=== PATIENT | female | born 1945 | race Two or more races ===

== ENCOUNTER 2024-12-18 10:23 | Inpatient (IN) | payer MEDICARE, BC ==
[~2024-12-18] VITALS: Ht 162.6 cm; Wt 60.6 kg
--- NOTE | 2024-12-18 10:52 | ED.PDOC ---
GI ASSESSMENT HPI Comments 79 year old female VAMSHI presents to the ED with chief complaint of GI bleed. EMS reports patient is taken care of by family at home and currently has a colostomy placed. EMS relays patient was found to have bright red blood present in her colostomy bag by family members, calling 911 to have the patient taken to the ED. Patient denies any and all complaints at this time and is not able to provide any further history. Chief Complaint: General Weakness Time Seen by MD: 10:48 Reviewed Notes: Nurses Notes, [place] Notes, Medications, Allergies Allergies: Coded Allergies: NO KNOWN ALLERGIES (Unverified , 12/18/24) Information Source: Patient, Emergency Med Personnel Mode of Arrival: EMS Timing: Days Duration: Since onset Prehospital treatment: None Quality: None Vomitus: None Stool: Blood Streaked Severity: Moderate Recent: None Recent Hx of: None Pain Location: None Modifying Factors: Nothing Associated sign and symptoms: Blood in Stool Past Medical History PAST MEDICAL HISTORY: Dementia Surgical History (Other): Colostomy, multiple abdominal surgeries TAKER AWAY History: Denies all TAKER AWAY Hx Family History Family History: Reviewed,noncontributory to illness Social History Smoker: Non-Smoker Alcohol: Denies ETOH Use Drugs: Denies Drug Use Lives In: Home, Assisted Care Constitutional: denies: chills, diaphoresis, fatigue, fever, malaise, sweats, weakness, others EENTM: denies: blurred vision, double vision, ear bleeding, ear discharge, ear drainage, ear pain, ear ringing, eye pain, eye redness, hearing loss, mouth pain, mouth swelling, nasal discharge, nose bleeding, nose congestion, nose p ain, photophobia, tearing, throat pain, throat swelling, voice changes, others Respiratory: denies: cough, hemoptysis, orthopnea, SOB at rest, shortness of breath, SOB with excertion, stridor, wheezing, others Cardiovascular: denies: chest pain, dizzy spells, diaphoresis, Dyspnea on exertion, edema, irregular heart beat, left arm pain, lightheadedness, palpitations, PND, syncope, others Gastrointestinal: reports: blood streaked bowels; denies: abdomen distended, abdominal pain, constipated, diarrhea, dysphagia, difficulty swallowing, hematemesis, melena, nausea, poor appetite, poor fluid intake, rectal bleeding, rectal pain, vomiting, others Genitourinary: denies: abnormal vagina bleeding, burning, dyspareunia, dysuria, flank pain, frequency, hematuria, incontinence, pain, , vagina discharge, urgency, others Neurological: denies: dizziness, fainting, headache, left sided numbness, left sided weakness, numbness, paresthesia, pre-existing deficit, right sided numbness, right sided weakness, seizure, speech problems, tingling, tremors, weakness, others Musculoskeletal: denies: back pain, gout, joint pain, joint swelling, muscle pain, muscle stiffness, neck pain, others Integumetry: denies: bruises, change in color, change in hair/nails, dryness, laceration, lesions, lumps, rash, wounds, others Allergic/Immunocompromised: denies: Difficulty Healing, Frequent Infections, Hives, Itching, others Hematologic/Lymphatic: denies: anemia, blood clots, easy bleeding, easy bruising, swollen glands, others Endocrine: denies: excessive hunger, excessive sweating, excessive thirst, excessive urination, flushing, intolerance to cold, intolerance to heat, unexpl ained weight gain, unexplained weight loss, others Psychiatric: denies: anxiety, bipolar disorder, depression, hopeless, panic disorder, schizophrenia, sleepless, suicidal, others All Other Systems: Reviewed and Negative Physical Exam General Appearance: No Apparent Distress, Normal, Other (Pleasantly confused) HEENT: Normal ENT Inspection, PERRL/EOMI Neck: Full Range of Motion, Non-Tender, Normal, Normal Inspection Respiratory: Chest Non-Tender, Lungs Clear, No Accessory Muscle Use, No Resp iratory Distress, Normal Breath Sounds Cardiovascular: No Edema, No JVD, No Murmur, No Gallop, Normal Peripheral Pulses, Regular Rate/Rhythm Breast Exam: Deferred Gastrointestinal: No Organomegaly, Non Tender, No Pulsatile Mass, Normal Bowel Sounds, Soft, Other (Colostomy noted) Genitalia: Deferred Pelvic: Deferred Rectal: Deferred Extremities: No calf tenderness, Normal capillary refill, Normal inspection, Normal range of motion, Non-tender, No pedal edema Musculoskeletal : Apperance: Normal Neurologic: Alert, pace analyst II-XII nml as Tested, No Motor Deficits, Normal Affect, Normal Mood, No Sensory Deficits Cerebellar Function: Normal Reflexes: Normal Skin: Dry, Normal Color, Warm Lymphatic: No Adenopathy Was a procedure done? Was a procedure done?: No GI differential Dx Differential Diagnosis: Cholecystitis, Gastritis/PUD, Gastroenteritis, GI hemorrhage, Inflammatory BD, Ischemic Bowel, UTI, Dehydration, Electrolyte Imbalance, Food Poisoning, Malnutrition, Renal Failure, Ischemic Bowel X-Ray, Labs, Meds, VS Vital Signs Date Time Temp Pulse Resp B/P (MAP) Pulse Ox O2 Delivery O2 Flow Rate FiO2 12/18/24 18:30 77 94/39 (57) 94 12/18/24 16:00 79 14 92/38 (56) 95 12/18/24 13:50 93 20 96 Room Air* 0 21 12/18/24 13:00 99 14 105/48 (67) 96 12/18/24 11:46 58 12/18/24 10:38 66 12/18/24 10:34 98.6 62 1 102/44 (63) 99 Lab Test 12/18/24 15:21 12/18/24 13:35 12/18/24 11:14 Range/Units Urine Color Yellow Yellow Urine Clarity Clear Clear Urine pH 6.5 5.0-9.0 Urine Specific [place] 1.013 1.001-1.035 Urine Protein Trace H Negative Urine Ketones Negative Negative Urine Blood Negative Negative /uL Urine Nitrite Negative Negative Urine Bilirubin Negative Negative Urine Urobilinogen Normal Negative mg/dL Urine Leukocyte Esterase Negative Negative /uL Urine RBC 1 0 - 4 /hpf Urine Microscopic WBC 3 0-5 /HPF Urine Squamous Epithelial Cells Few <5 /hpf Urine Bacteria None seen None Seen /hpf Urine Hyaline Casts Few 0 - 2 /lpf Urine Glucose 1+ H Normal mg/dL Sodium Level 140 # 130 L 136-145 mmol/L Potassium Level 5.3 H 7.2 *H 3.5-5.1 mmol/L Chloride Level 98 94 L 98-107 mmol/L Carbon Dioxide Level 26 19 L 20-31 mmol/L Anion Gap 16 H 17 H 5-15 Blood Urea Nitrogen 168 *H 171 *H 9-23 mg/dL Creatinine 10.77 *H 11.57 *H 0.550-1.02 mg/dL Glomerular Filtration Rate Calc 3 3 >90 mL/min BUN/Creatinine Ratio 15.6 14.8 10.0-20.0 Serum Glucose 182 H 123 H 74-106 mg/dL Calcium Level 9.2 10.2 8.7-10.4 mg/dL Phosphorus Level 8.8 H 2.4-5.1 mg/dL Magnesium Level 2.7 H 1.6-2.6 mg/dL White Blood Count 10.8 4.4-10.8 10^3/uL Red Blood Count 4.61 4.0-5.20 10^6/uL Hemoglobin 14.3 12.2-16.2 g/dL Hematocrit 40.7 36.0-46.0 % Mean Corpuscular Volume 88.3 80.0-100.0 fL Mean Corpuscular Hemoglobin 31.0 28.0-32.0 pg Mean Corpuscular Hemoglobin Concent 35.1 32.0-36.0 g/dL Red Cell Distribution Width 13.3 11.8-14.3 % Platelet Count 359 140-450 10^3/uL Mean Platelet Volume 8.6 6.9-10.8 fL Neutrophils (%) (Auto) 77.3 37.0-80.0 % Lymphocytes (%) (Auto) 9.9 L 10.0-50.0 % Monocytes (%) (Auto) 12.3 H 0.0-12.0 % Eosinophils (%) (Auto) 0.1 0.0-7.0 % Basophils (%) (Auto) 0.4 0.0-2.0 % Neutrophils # (Auto) 8.3 1.6-8.6 10 ^3/uL Lymphocytes # (Auto) 1.1 0.4-5.4 10 ^3/uL Monocytes # (Auto) 1.3 0-1.3 10 ^3/uL Eosinophils # (Auto) 0 0-0.8 10 ^3/uL Basophils # (Auto) 0 0-0.2 10 ^3/uL Nucleated Red Blood Cells 0.1 % Prothrombin Time 11.2 9.3-11.8 sec Prothrombin Time INR 1.06 0.9-1.15 Activated Partial Thromboplast Time 24.5 24.5-34.5 SEC Hemoglobin A1c 5.5 <5.7 % A1C Time of 1ST Reevaluation: 11:48 Reevaluation 1ST: Unchanged Patient Education/Counseling: Diagnosis, Treatment Family Education/Counseling: No Family Present Additional Information Previous visit documents reviewed: None The following tests were ordered, and results were reviewed by me: CT Abd/Pel W/ IV Con, CBC, BMP, PTPTT, Chest XR Additional Information was gathered from interviewing the following independent historians: EMS I reviewed and agreed with the following test results read by other providers: CT Abd/Pel W/ IV Con, Chest XR I discussed treatment and results with medical personnel. Departure 1 Departure Time of Disposition: 17:17 (Patient with a acute renal failure and GI bleed reviewed patient's labs CT scan we will admit patient for further workup and expert consultation) Impression: Primary Impression: Kidney failure Qualified Codes: N17.9 - Acute kidney failure, unspecified Additional Impressions: GI bleed Qualified Codes: K92.2 - Gastrointestinal hemorrhage, unspecified Dementia Qualified Codes: F03.A0 - Unspecified dementia, mild, without behavioral disturbance, psychotic disturbance, mood disturbance, and anxiety Disposition: ADMITTED INPATIENT Admit to: [facility] Condition: Critical Critical Care Note Critical Care Time?: Yes Critical care comment: Acute renal failure Authorized and Performed by: Maggie Negro MD Total critical care time: Approximately 38 minutes Due to a high probability of clinically significant, life threatening deterioration, the patient required my highest level of preparedness to intervene emergently and I personally spent this critical care time directly and personally managing the patient. This critical care time included obtaining a history; examining the patient; pulse oximetry; ordering and review of studies; arranging urgent treatment with development of a management plan; evaluation of patient's response to treatment; frequent reassessment; and, discussions with other providers. This critical care time was performed to assess and manage the high probability of imminent, life-threatening deterioration that could result in multi-organ failure. It was exclusive of separately billable procedures and treating other patients and teaching time. Please see my other sections and the rest of the note for further information on patient assessment and treatment. Stability Stability form required: No Heart Score Heart Score: Heart Score Response (Comments) Value History N/A 0 EKG N/A 0 Age N/A 0 Risk Factors N/A 0 Troponin N/A 0 Total 0 I personally scribed for MAGGIE NEGRO MD ([email or web address]) on 12/18/24 at 10:52. Electronically submitted by Adama Dang ([email or web address]). MAGGIE NEGRO MD Dec 18, 2024 10:52
--- NOTE | 2024-12-18 11:24 | DVH ---
CHEST RADIOGRAPH Indication: abdominal pain Technique: Single frontal view of the chest was obtained COMPARISON: None FINDINGS: Lines and Tubes: None Lungs: Clear Pleura: No effusion. No pneumothorax. Cardiomediastinal contours: Unremarkable Bones: Unremarkable IMPRESSION: No acute disease.
[2024-12-18 11:38] LABS: Basophils # (auto) 0 10 ^3/uL (0-0.2); Basophils % (auto) 0.4 % (0.0-2.0); Eosinophils # (auto) 0 10 ^3/uL (0-0.8); Eosinophils % (auto) 0.1 % (0.0-7.0); Hematocrit 40.7 % (36.0-46.0); Hemoglobin 14.3 g/dL (12.2-16.2); Lymphocytes # (auto) 1.1 10 ^3/uL (0.4-5.4); Lymphocytes % (auto) 9.9 % (10.0-50.0); Mean Corpuscular Hgb Conc. 35.1 g/dL (32.0-36.0); Mean Corpuscular Volume 88.3 fL (80.0-100.0); Monocytes # (auto) 1.3 10 ^3/uL (0-1.3); Monocytes % (auto) 12.3 % (0.0-12.0); Neutrophils # (auto) 8.3 10 ^3/uL (1.6-8.6); Neutrophils % (auto) 77.3 % (37.0-80.0); Nucleated Red Blood Cells % 0.1 %; Platelet Count (auto) 359 10^3/uL (140-450); Red Blood Cells 4.61 10^6/uL (4.0-5.20); Red Cell Distribution Width 13.3 % (11.8-14.3); White Blood Cell 10.8 10^3/uL (4.4-10.8)
[2024-12-18 11:44] LABS: Calcium 10.2 mg/dL (8.7-10.4)
[2024-12-18 11:46] LABS: INR 1.06 (0.9-1.15); Partial Thromboplastin Time 24.5 SEC (24.5-34.5); Prothrombin Time 11.2 sec (9.3-11.8)
[2024-12-18 11:57] LABS: BUN/Creatinine Ratio 14.8 (10.0-20.0)
[2024-12-18 12:01] LABS: Sodium 130 mmol/L (136-145)
[2024-12-18 12:02] LABS: Anion Gap 17 (5-15); Carbon Dioxide 19 mmol/L (20-31); Chloride 94 mmol/L (98-107); Glucose 123 mg/dL (74-106); Potassium 7.2 mmol/L (3.5-5.1)
[2024-12-18 12:03] LABS: Blood Urea Nitrogen 171 mg/dL (9-23)
[2024-12-18] MEDS: CALCIUM GLUC 1,000mg/50ml-NS 50 ML IV SCH (12:22)
[2024-12-18] MEDS: SODIUM CHLORIDE 0.9% 1,000 ML IV ONE (12:22)
[2024-12-18] MEDS: DEXTROSE (50%) 50ML SYRG IV ONE (12:32)
[2024-12-18] MEDS: InsuLIN REG 1unit/0.01ml Soln (100units/ml) IV ONE (12:33)
[2024-12-18] MEDS: SODIUM BICARB 8.4% 50Meq/50ml SYR Vial IV ONE (12:33)
--- NOTE | 2024-12-18 13:36 | DVH ---
CT ABDOMEN AND PELVIS WITHOUT CONTRAST CLINICAL HISTORY: brb in colostomy TECHNIQUE: Multiple contiguous axial images of the abdomen and pelvis without intravenous contrast. T he images were reformatted degenerate coronal and sagittal reconstructions. All CT scans at this medical facility are performed using dose modulation techniques as appropriate t o a performed exam including the following:Automated exposure control was utilized; adjustment of the MA and/or KV according to patient size; and use of iterative reconstruction technique. Radiation Dose Information: CT Dose: CTDI volume is 5.6 mGy. Dose-length product is 277 mGy*cm Comparison: None FINDINGS: Evaluation of the abdomen and pelvis is limited without intravenous contrast. There are postsurgical changes related to colectomy with right lower quadrant ileostomy. The visualiz ed bowel loops demonstrate normal caliber without evidence of bowel obstruction. There are anastomoti c sutures seen in the small bowel. The stomach grossly appears within normal limits. The liver, gallbladder, pancreas, kidneys, adrenal glands, and spleen appear within normal limits. There is no gross evidence of abdominal lymphadenopathy. There is no free fluid or free air. There are calcified atherosclerotic changes in the abdominal aorta. The IVC appears within normal mcbride its The bladder appears unremarkable for the degree of distention. Pelvic organ appears within normal mcbride its. There is no gross evidence of a pelvic mass. There is no free fluid collection. Lung bases are clear. There is no acute osseous abnormality. IMPRESSION: 1. There is no acute process in the abdomen and pelvis. 2. Postsurgical changes related to colectomy with right lower quadrant ileostomy. The small bowel loo ps demonstrate normal caliber without evidence of bowel obstruction. HS:Y
[2024-12-18 13:50] VITALS: PULSE 93; RESP 20; O2SAT 96
[2024-12-18 14:14] LABS: Anion Gap 16 (5-15); Carbon Dioxide 26 mmol/L (20-31)
[2024-12-18 14:19] LABS: Calcium 9.2 mg/dL (8.7-10.4); Chloride 98 mmol/L (98-107); Potassium 5.3 mmol/L (3.5-5.1); Sodium 140 mmol/L (136-145)
[2024-12-18 14:25] LABS: Glucose 182 mg/dL (74-106); Magnesium 2.7 mg/dL (1.6-2.6); Phosphorus 8.8 mg/dL (2.4-5.1)
[2024-12-18 14:50] LABS: BUN/Creatinine Ratio 15.6 (10.0-20.0)
[2024-12-18 14:51] LABS: Blood Urea Nitrogen 168 mg/dL (9-23)
--- NOTE | 2024-12-18 19:03 | ECG ---
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
--- NOTE | 2024-12-18 19:03 | ECG ---
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
[2024-12-18] MEDS ORDERED: ONDANSETRON HCL 4 MG/2 ML VIAL IV PRN (20:00)
[2024-12-18] MEDS ORDERED: DEXTROSE (50%) 50ML SYRG IV PRN (20:00)
[2024-12-18] MEDS ORDERED: ACETAMINOPHEN 325 MG TAB PO PRN (20:00)
[2024-12-18] MEDS ORDERED: HYDROcodone-ACET 5/325MG TAB PO PRN (20:00)
[2024-12-18] MEDS ORDERED: DOCUSATE SOD 100 MG CAP PO PRN (20:00)
[2024-12-18 20:13] LABS: Urine Bacteria None Seen /hpf (None Seen)
[2024-12-18] MEDS: SODIUM ZIRCONIUM CYCL 10 GM PAK PO ONE (20:37)
[2024-12-18 20:39] LABS: Urine Blood Negative /uL (Negative); Urine Clarity Clear (Clear); Urine Color Yellow (Yellow); Urine Hyaline Cast FEW /lpf (0 - 2); Urine Protein, UAD TRACE (Negative); Urine Specific Gravity 1.013 (1.001-1.035); Urine Squamous Epithelial Cell FEW /hpf (<5); Urine Urobilinogen Normal (Negative); Urine WBC 3 /HPF (0-5); Urine pH 6.5 (5.0-9.0)
--- NOTE | 2024-12-18 20:49 | DVHHP2 ---
History of Present Illness Reason for Visit: Acute on chronic renal failure History of Present Illness The patient is a 79-year-old female with past medical history of colon disease and dementia who presented to [facility] ED with complaint of GI bleed. Patient was to bright blood present in her colostomy bag by family member, so EMS were called. Symptoms progressively get worse with generalized weakness. Patient was seen and evaluated in the ED, laboratory data shows WBC 10.8, platelets 359, sodium 140, potassium 5.3, BUN 168, creatinine 10.77, GFR 3, glucose 182, phosphorus 8.8, magnesium 2.7, blood pressure 94/39, heart rate 77, temperature 98.6 F, O2 saturation 96% on room air. Abdomen/pelvis CT revealing postsurgical changes related to colectomy with right lower quadrant ileostomy; the small bowel loops demonstrate normal caliber without evidence of bowel obstruction. Please see medication orders section in the computer. On my assessment, patient denied chest pain, no headache, no dizziness, no diaphoresis, no shortness of breaths, no abdominal pain, no diarrhea, no nausea, no vomiting, no fever, no chills. Patient was admitted for further evaluation and medical management. Past Medical History Dementia, Colon disease Past Surgical History Colostomy, multiple abdominal surgeries Family History Reviewed, noncontributory to the management of this case. Past Social History The patient lives at home, denies smoking, alcohol or illicit drugs abuse. Review of Systems Constitutional: Yes: Weakness; No: Fever, Chills, Sweats, Malaise, Other Eyes: No: Pain, Vision change, Conjunctivae inflammation, Eyelid inflammation, Other, Redness ENT: No: Ear pain, Ear discharge, Nose pain, Nose discharge, Nose congestion, Mouth pain, Mouth swelling, Throat pain, Throat swelling, Other Respiratory: No: Cough, Dry, Shortness of breath, SOB with excertion, Wheezing, Hemoptysis, Pleuritic Pain, Sputum, Wheezing, Other Cardiovascular: No: Chest Pain, Palpitations, Orthopnea, Paroxysmal Noc. D yspnea, Edema, Lt Headedness, Other Gastrointestinal: Other (Blood streaked bowel.); No: Nausea, Vomiting, Abdominal Pain, Diarrhea, Constipation, Melena, Hematochezia Genitourinary: No Dysuria, No Frequency, No Incontinence, No Hematuria, No Retention, No Other Musculoskeletal: No: other, neck pain, shoulder pain, arm pain, back pain, hand pain, leg pain, foot pain Skin: No: Rash, Lesions, Jaundice, Bruising, Other Neurological: No: Weakness, Numbness, Incoordination, Change in speech, Confusion, Seizures, Other Allergies: Coded Allergies: NO KNOWN ALLERGIES (Unverified , 12/18/24) Medications Current Medications Medications Dose Ordered Sig/Socrates Route Start Time Stop Time Status Last Admin Dose Admin Quetiapine Fumarate 25 mg HS PO 12/18/24 22:00 Donepezil HCl 10 mg HS PO 12/18/24 22:00 Memantine 10 mg DAILY PO 12/19/24 10:00 Atorvastatin Calcium 10 mg HS PO 12/18/24 22:00 Diagnostic Test (Pha) 1 strip ACHS 12/18/24 22:00 Insulin Human Regular ACHS SC 12/18/24 22:00 Dextrose 50 ml UD PRN IV 12/18/24 20:00 Sodium Chloride 10 ml Q8HR IV 12/18/24 22:00 Acetaminophen/ Hydrocodone Bitart 1 tab Q4HP PRN PO 12/18/24 20:00 Ondansetron HCl 4 mg Q4HP PRN IV 12/18/24 20:00 Docusate Sodium 100 mg BIDPRN PRN PO 12/18/24 20:00 Acetaminophen 650 mg Q6HP PRN PO 12/18/24 20:00 Exam Vital Signs Vital Signs Date Time Temp Pulse Resp B/P (MAP) Pulse Ox O2 Delivery O2 Flow Rate FiO2 12/18/24 18:30 77 94/39 (57) 94 12/18/24 16:00 14 12/18/24 13:50 Room Air* 0 21 12/18/24 10:34 98.6 General Appearance: Alert, Oriented X3, Cooperative, No acute distress HEENT: Atraumatic, PERRLA, EOMI, Mucous membr. moist/pink Respiratory: Clear to auscultation, Normal air movement Cardiovascular: Regular rate, Normal S1, Normal S2, No murmurs Abdominal: Normal bowel sounds, Soft, No tenderness, No hepatospenomegaly, No masses Extremities: No clubbing, No cyanosis, No edema, Normal pulses, No tenderness/swelling Skin: No rashes, No breakdown, No significant lesion Neuro: Normal speech, Normal tone, Sensation intact, Cranial nerves 3-12 NL, Reflexes 2+, Other (Generalized weakness) Psych/Mental Status: Mental status NL, Mood NL Labs/Xrays Labs Test 12/18/24 15:21 12/18/24 13:35 12/18/24 11:14 Range/Units Urine Color Yellow Yellow Urine Clarity Clear Clear Urine pH 6.5 5.0-9.0 Urine Specific [place] 1.013 1.001-1.035 Urine Protein Trace H Negative Urine Ketones Negative Negative Urine Blood Negative Negative /uL Urine Nitrite Negative Negative Urine Bilirubin Negative Negative Urine Urobilinogen Normal Negative mg/dL Urine Leukocyte Esterase Negative Negative /uL Urine RBC 1 0 - 4 /hpf Urine Microscopic WBC 3 0-5 /HPF Urine Squamous Epithelial Cells Few <5 /hpf Urine Bacteria None seen None Seen /hpf Urine Hyaline Casts Few 0 - 2 /lpf Urine Glucose 1+ H Normal mg/dL Sodium Level 140 # 136-145 mmol/L Potassium Level 5.3 H 3.5-5.1 mmol/L Chloride Level 98 98-107 mmol/L Carbon Dioxide Level 26 20-31 mmol/L Anion Gap 16 H 5-15 Blood Urea Nitrogen 168 *H 9-23 mg/dL Creatinine 10.77 *H 0.550-1.02 mg/dL Glomerular Filtration Rate Calc 3 >90 mL/min BUN/Creatinine Ratio 15.6 10.0-20.0 Serum Glucose 182 H 74-106 mg/dL Calcium Level 9.2 8.7-10.4 mg/dL Phosphorus Level 8.8 H 2.4-5.1 mg/dL Magnesium Level 2.7 H 1.6-2.6 mg/dL White Blood Count 10.8 4.4-10.8 10^3/uL Red Blood Count 4.61 4.0-5.20 10^6/uL Hemoglobin 14.3 12.2-16.2 g/dL Hematocrit 40.7 36.0-46.0 % Mean Corpuscular Volume 88.3 80.0-100.0 fL Mean Corpuscular Hemoglobin 31.0 28.0-32.0 pg Mean Corpuscular Hemoglobin Concent 35.1 32.0-36.0 g/dL Red Cell Distribution Width 13.3 11.8-14.3 % Platelet Count 359 140-450 10^3/uL Mean Platelet Volume 8.6 6.9-10.8 fL Neutrophils (%) (Auto) 77.3 37.0-80.0 % Lymphocytes (%) (Auto) 9.9 L 10.0-50.0 % Monocytes (%) (Auto) 12.3 H 0.0-12.0 % Eosinophils (%) (Auto) 0.1 0.0-7.0 % Basophils (%) (Auto) 0.4 0.0-2.0 % Neutrophils # (Auto) 8.3 1.6-8.6 10 ^3/uL Lymphocytes # (Auto) 1.1 0.4-5.4 10 ^3/uL Monocytes # (Auto) 1.3 0-1.3 10 ^3/uL Eosinophils # (Auto) 0 0-0.8 10 ^3/uL Basophils # (Auto) 0 0-0.2 10 ^3/uL Nucleated Red Blood Cells 0.1 % Prothrombin Time 11.2 9.3-11.8 sec Prothrombin Time INR 1.06 0.9-1.15 Activated Partial Thromboplast Time 24.5 24.5-34.5 SEC Hemoglobin A1c 5.5 <5.7 % A1C PATIENT: PATRICIA LUCAS ACCT: [id number] UNIT: [id number] : 1945 LOC: ER ROOM / BED: / AGE / SEX: 79 / F ADM STATUS: REG ER SERVICE 1046 ORDERING PHYSICIAN: MAGGIE RAMIREZ MD PROCEDURE(s): ABPL - CT AB PEL WO CON-NO ORAL OR IV REASON: brb in colostomy ORDER NUMBER(s): [id number], ACCESSION NUMBER(s): [id number] CT ABDOMEN AND PELVIS WITHOUT CONTRAST CLINICAL HISTORY: brb in colostomy TECHNIQUE: Multiple contiguous axial images of the abdomen and pelvis without intravenous contrast. The images were reformatted degenerate coronal and sagittal reconstructions. All CT scans at this medical facility are performed using dose modulation techniques as appropriate to a performed exam including the following:Automated exposure control was utilized; adjustment of the MA and/or KV according to patient size; and use of iterative reconstruction technique. Radiation Dose Information: CT Dose: CTDI volume is 5.6 mGy. Dose-length product is 277 mGy*cm Comparison: None FINDINGS: Evaluation of the abdomen and pelvis is limited without intravenous contrast. There are postsurgical changes related to colectomy with right lower quadrant ileostomy. The visualized bowel loops demonstrate normal caliber without evidence of bowel obstruction. There are anastomotic sutures seen in the small bowel. The stomach grossly appears within normal limits. The liver, gallbladder, pancreas, kidneys, adrenal glands, and spleen appear within normal limits. There is no gross evidence of abdominal lymphadenopathy. There is no free fluid or free air. There are calcified atherosclerotic changes in the abdominal aorta. The IVC appears within normal limits The bladder appears unremarkable for the degree of distention. Pelvic organ appears within normal limits. There is no gross evidence of a pelvic mass. There is no free fluid collection. Lung bases are clear. There is no acute osseous abnormality. IMPRESSION: 1. There is no acute process in the abdomen and pelvis. 2. Postsurgical changes related to colectomy with right lower quadrant ileostomy. The small bowel loops demonstrate normal caliber without evidence of bowel obstruction. ORDERING PHYSICIAN: MAGGIE RAMIREZ MD PROCEDURE(s): CXRP - CHEST PORTABLE REASON: abdominal pain ORDER NUMBER(s): [id number], ACCESSION NUMBER(s): [id number] CHEST RADIOGRAPH Indication: abdominal pain Technique: Single frontal view of the chest was obtained COMPARISON: None FINDINGS: Lines and Tubes: None Lungs: Clear Pleura: No effusion. No pneumothorax. Cardiomediastinal contours: Unremarkable Bones: Unremarkable IMPRESSION: No acute disease. Assessment/Plan Assessment/Plan Gastrointestinal hemorrhage Generalized weakness Electrolyte imbalance Hyperglycemia Acute on chronic renal failure Plan 1. Admit to telemetry unit 2. Breathing treatment 3. Pain control management 4. Management of fluids and electrolytes 5. Consultation for Nephrology 6. Diagnostic tests abdomen/pelvis CT 7. DVT prophylaxis on SCDs 8. Repeat labs CBC, CMP in a.m. 9. Continue with current medical management 10. Treatment plan discussed with patient and RN. Patient verbalized understanding. Plan discussed with: Patient, Other (RN) My Orders Orders - MARITZA RODRIGUEZ DNP Procedure Category Date Status Time *Dr. [facility] CONS 12/18/24 Transmitted -[place] 19:46 Quetiapine Fumarate PHA 12/18/24 In Process Tablet (Seroquel Tab 22:00 Donepezil Tablet PHA 12/18/24 In Process (Aricept Tablet) 22:00 Memantine Tablet PHA 12/19/24 In Process (Namenda Tablet) 10:00 Atorvastatin (Lipitor) PHA 12/18/24 In Process 22:00 Glucose Blood PHA 12/18/24 In Process (Accu-Chek Comfort 22:00 Insulin R (Human) PHA 12/18/24 In Process (Insulin R) 22:00 Dextrose 50% Syringe PHA 12/18/24 In Process 20:00 Allergies JOSÉ ANTONIO 12/18/24 In Process 19:46 Code Status CODE 12/18/24 Transmitted 19:46 Renal DIET 12/19/24 Transmitted Standard(2gna,3gk,Lopho) Breakfast Sodium Chloride Lock PHA 12/18/24 In Process (Saline Lock Ns) 22:00 Oxygen Per Hour RT 12/18/24 Transmitted 19:46 Hydrocodone-Acet PHA 12/18/24 In Process 5/325mg Tab ([place] 20:00 Ondansetron Hcl PHA 12/18/24 In Process (Zofran) 20:00 Docusate Sodium PHA 12/18/24 In Process Capsule (Colace 20:00 Complete Blood Count LAB 12/19/24 Verified 04:00 Comprehensive LAB 12/19/24 Verified Metabolic Panel 04:00 Condition: Serious JOSÉ ANTONIO 12/18/24 In Process 19:46 Acetaminophen Tablet PHA 12/18/24 In Process (Tylenol Tablet) 20:00 Bedrest With Bathroom JOSÉ ANTONIO 12/18/24 In Process Privileg 19:46 Sequential JOSÉ ANTONIO 12/18/24 In Process Compression Device Problem List: (1) Gastrointestinal hemorrhage (2) Hyperglycemia (3) Electrolyte imbalance (4) Acute on chronic renal failure (5) Generalized weakness Date of Service: Dec 18, 2024 Billing Provider: MARITZA RODRIGUEZ DNP Common Visit Codes: 88151-[id number] INP/OBS CARE (HIGH) MARITZA RODRIGUEZ DNP Dec 18, 2024 20:49
[2024-12-18 21:00] VITALS: PULSE 86; RESP 18; O2SAT 98
[2024-12-18] MEDS ORDERED: MORPHINE SULFATE INJ 2 MG/ml SYRG IV PRN (21:00)
[2024-12-18] MEDS ORDERED: NITROGLYCERIN 0.4 MG SL TAB SL PRN (21:00)
[2024-12-18] MEDS: InsuLIN REG 1unit/0.01ml Soln (100units/ml) SC SCH (22:00)
[2024-12-18] MEDS: SODIUM CHLOR 0.9% PF (SALINE LOCK) 10ML VIAL/SYR IV SCH (22:05)
[2024-12-18] MEDS: ACCU-CHEK COMFORT CURVE STRIP VI SCH (22:05)
[2024-12-18] MEDS: QUEtiapine FUMARATE 25 MG TAB PO SCH (22:09)
[2024-12-18] MEDS: ATORVASTATIN 20 MG TAB PO SCH (22:09)
[2024-12-18] MEDS: DONEPEZIL HYDROCHLORIDE 5 MG TAB PO SCH (22:10)
[2024-12-19] MEDS: MIDODRINE HCL 10 MG TAB PO ONE (02:49)
[2024-12-19 05:11] VITALS: PULSE 63; RESP 16; O2SAT 95
[2024-12-19 05:45] LABS: Basophils # (auto) 0 10 ^3/uL (0-0.2); Basophils % (auto) 0.3 % (0.0-2.0); Eosinophils # (auto) 0.1 10 ^3/uL (0-0.8); Hematocrit 33.3 % (36.0-46.0); Hemoglobin 11.2 g/dL (12.2-16.2); Lymphocytes # (auto) 1.4 10 ^3/uL (0.4-5.4); Lymphocytes % (auto) 22.1 % (10.0-50.0); Mean Corpuscular Hemoglobin 30.7 pg (28.0-32.0); Mean Corpuscular Hgb Conc. 33.6 g/dL (32.0-36.0); Mean Corpuscular Volume 91.2 fL (80.0-100.0); Monocytes # (auto) 0.8 10 ^3/uL (0-1.3); Monocytes % (auto) 12.8 % (0.0-12.0); Neutrophils # (auto) 4.2 10 ^3/uL (1.6-8.6); Neutrophils % (auto) 63.8 % (37.0-80.0); Nucleated Red Blood Cells % 0.1 %; Platelet Count (auto) 232 10^3/uL (140-450); Red Blood Cells 3.65 10^6/uL (4.0-5.20); Red Cell Distribution Width 13.6 % (11.8-14.3); White Blood Cell 6.5 10^3/uL (4.4-10.8)
[2024-12-19 05:56] LABS: Albumin 3.9 g/dL (3.2-4.8); Alkaline Phosphatase 56 U/L (46-116); Anion Gap 13 (5-15); Aspartate Aminotransferase 15 U/L (13-40); BUN/Creatinine Ratio 14.7 (10.0-20.0); Bilirubin, Total 0.5 mg/dL (0.2-1.0); Calcium 10.2 mg/dL (8.7-10.4); Carbon Dioxide 24 mmol/L (20-31); Glucose 84 mg/dL (74-106); Potassium 4.7 mmol/L (3.5-5.1); Total Protein 6.4 g/dL (5.7-8.2)
[2024-12-19 05:59] LABS: Chloride 95 mmol/L (98-107); Sodium 132 mmol/L (136-145)
[2024-12-19 06:00] LABS: Alanine Aminotransferase 9 U/L (7-40)
[2024-12-19 06:01] LABS: Blood Urea Nitrogen 137 mg/dL (9-23)
[2024-12-19] MEDS: MIDODRINE HCL 10 MG TAB PO SCH (06:36)
[2024-12-19 08:00] VITALS: PULSE 64; RESP 16; O2SAT 94
[2024-12-19] MEDS: MEMANTINE HCL 5 MG TAB PO SCH (11:18)
[2024-12-19 13:00] VITALS: BP 104/40; PULSE 66; RESP 16; TEMP 97.3; O2SAT 96
--- NOTE | 2024-12-19 13:06 | DVHPN2 ---
Reviewed: Care Plan, H&P, Labs, Medications, Previous Orders, Radiology Changes from previous H/P or p: No Changes Eyes: No Pain, No Vision change, No Conjunctivae inflammation, No Eyelid inflammation, No Other, No Redness ENT: No Ear pain, No Ear discharge, No Nose pain, No Nose discharge, No Nose congestion, No Mouth pain, No Mouth swelling, No Throat pain, No Throat swelling, No Other Cardiovascular: No Chest Pain, No Palpitations, No Orthopnea, No Paroxysmal Noc. Dyspnea, No Edema, No Lt Headedness, No Other Respiratory: No Cough, No Dry, No Shortness of breath, No SOB with excertion, No Wheezing, No Hemoptysis, No Pleuritic Pain, No Sputum, No Other Gastrointestinal: No Nausea, No Vomiting, No Abdominal Pain, No Diarrhea, No Constipation, No Melena, No Hematochezia; Other (Blood streaked bowel.) Genitourinary: No Dysuria, No Frequency, No Incontinence, No Hematuria, No Retention, No Other Musculoskeletal: No other, No neck pain, No shoulder pain, No arm pain, No back pain, No hand pain, No leg pain, No foot pain Skin: No Rash, No Lesions, No Jaundice, No Bruising, No Other Objective Vitals Vital Signs Date Time Temp Pulse Resp B/P (MAP) Pulse Ox O2 Delivery O2 Flow Rate FiO2 12/19/24 09:14 63 15 107/38 (61) 95 12/19/24 08:00 97.7 97.7 12/19/24 08:00 Room Air* 0 21 Intake/Output Intake and Output 12/19/24 07:00 Intake Total 1200 ml Balance 1200 ml Intake IV Total 1200 ml Medications Current Medications Medications Dose Ordered Sig/Socrates Route Start Time Stop Time Status Last Admin Dose Admin Quetiapine Fumarate 25 mg HS PO 12/18/24 22:00 12/18/24 22:09 25 MG Donepezil HCl 10 mg HS PO 12/18/24 22:00 12/18/24 22:10 10 MG Memantine 10 mg DAILY PO 12/19/24 10:00 12/19/24 11:18 10 MG Atorvastatin Calcium 10 mg HS PO 12/18/24 22:00 12/18/24 22:09 10 MG Diagnostic Test (Pha) 1 strip ACHS 12/18/24 22:00 12/19/24 11:30 1 STRIP Insulin Human Regular ACHS SC 12/18/24 22:00 Dextrose 50 ml UD PRN IV 12/18/24 20:00 Sodium Chloride 10 ml Q8HR IV 12/18/24 22:00 12/19/24 06:00 10 ML Acetaminophen/ Hydrocodone Bitart 1 tab Q4HP PRN PO 12/18/24 20:00 Ondansetron HCl 4 mg Q4HP PRN IV 12/18/24 20:00 Docusate Sodium 100 mg BIDPRN PRN PO 12/18/24 20:00 Acetaminophen 650 mg Q6HP PRN PO 12/18/24 20:00 Nitroglycerin 0.4 mg Q5MINP PRN SL 12/18/24 21:00 Morphine Sulfate 2 mg Q30M PRN IV 12/18/24 21:00 Midodrine 10 mg TID@0600,1200,1800 PO 12/19/24 06:00 12/19/24 12:13 10 MG Laboratory Results Laboratory Tests 12/19/24 05:03 Chemistry Test 12/18/24 13:35 12/19/24 05:03 Calcium Level 9.2 mg/dL (8.7-10.4) 10.2 mg/dL (8.7-10.4) Magnesium Level 2.7 mg/dL (1.6-2.6) H Phosphorus Level 8.8 mg/dL (2.4-5.1) H Albumin 3.9 g/dL (3.2-4.8) Total Protein 6.4 g/dL (5.7-8.2) LFT Test 12/19/24 05:03 Alanine Aminotransferase (ALT) 9 U/L (7-40) Alkaline Phosphatase 56 U/L (46-116) Aspartate Amino Transferase (AST) 15 U/L (13-40) Total Bilirubin 0.5 mg/dL (0.2-1.0) Urinalysis Test 12/18/24 15:21 Urine Color Yellow (Yellow) Urine Clarity Clear (Clear) Urine pH 6.5 (5.0-9.0) Urine Specific [place] 1.013 (1.001-1.035) Urine Protein Trace (Negative) H Urine Ketones Negative (Negative) Urine Blood Negative /uL (Negative) Urine Nitrite Negative (Negative) Urine Bilirubin Negative (Negative) Urine Urobilinogen Normal mg/dL (Negative) Urine Leukocyte Esterase Negative /uL (Negative) Urine RBC 1 /hpf (0 - 4) Urine Microscopic WBC 3 /HPF (0-5) Urine Squamous Epithelial Cells Few /hpf (<5) Urine Bacteria None seen /hpf (None Seen) Urine Hyaline Casts Few /lpf (0 - 2) Urine Glucose 1+ mg/dL (Normal) H Labs and/or images reviewed: Labs reviewed by me, Image(s) reviewed by me Assessment/Plan Assessment/Plan Acute blood loss anemia hemoglobin down to 11.2 from 14.3 Acute GI bleed History of colectomy and colostomy for ulcerative colitis 2007 Dementia Acute kidney injury versus ESRD : Consult for Dr. Unger Severe malnutrition Acute hyperkalemia potassium 7.2: Treatment per protocol Acute generalized weakness Failure to thrive Cachexia Time spent 65 minutes General condition poor Advanced care planning 20 minutes Patient is full code Patient's Harpal [phone] and daughter Glory [phone] Plan discussed with: Patient My Orders Orders - KHOI SUAREZ MD Procedure Category Date Status Time * [facility] Supervisor CONS 12/19/24 Transmitted 12:54 Complete Blood Count LAB 12/19/24 Transmitted 12:55 Comprehensive LAB 12/19/24 Transmitted Metabolic Panel 12:55 Date of Service: Dec 19, 2024 Billing Provider: KHOI SUAREZ MD Common Visit Codes: [id number] CARE 30-74 MIN KHOI SUAREZ MD Dec 19, 2024 13:06
[2024-12-19 14:37] LABS: Basophils # (auto) 0 10 ^3/uL (0-0.2); Basophils % (auto) 0.6 % (0.0-2.0); Eosinophils # (auto) 0.1 10 ^3/uL (0-0.8); Eosinophils % (auto) 1.5 % (0.0-7.0); Hematocrit 28.3 % (36.0-46.0); Hemoglobin 9.8 g/dL (12.2-16.2); Lymphocytes # (auto) 1.6 10 ^3/uL (0.4-5.4); Lymphocytes % (auto) 20.5 % (10.0-50.0); Mean Corpuscular Hgb Conc. 34.6 g/dL (32.0-36.0); Mean Corpuscular Volume 89.5 fL (80.0-100.0); Monocytes # (auto) 1.1 10 ^3/uL (0-1.3); Monocytes % (auto) 14.9 % (0.0-12.0); Neutrophils # (auto) 4.8 10 ^3/uL (1.6-8.6); Neutrophils % (auto) 62.5 % (37.0-80.0); Nucleated Red Blood Cells % 0.1 %; Platelet Count (auto) 268 10^3/uL (140-450); Red Blood Cells 3.16 10^6/uL (4.0-5.20); Red Cell Distribution Width 13.4 % (11.8-14.3); White Blood Cell 7.7 10^3/uL (4.4-10.8)
[2024-12-19 15:03] LABS: Albumin 3.8 g/dL (3.2-4.8); Alkaline Phosphatase 54 U/L (46-116); Anion Gap 12 (5-15); Aspartate Aminotransferase 15 U/L (13-40); BUN/Creatinine Ratio 14.5 (10.0-20.0); Bilirubin, Total 0.5 mg/dL (0.2-1.0); Calcium 9.1 mg/dL (8.7-10.4); Carbon Dioxide 23 mmol/L (20-31); Glucose 85 mg/dL (74-106); Potassium 4.7 mmol/L (3.5-5.1); Total Protein 6.2 g/dL (5.7-8.2)
--- NOTE | 2024-12-19 15:16 | DVHINCON2 ---
Date of service: Dec 19, 2024 Referring Physician dano Reason for Consultation Pro History of Present Illness 79 years old female with past medical history of ulcerative colitis status post colostomy, questionable Chronic kidney disease, dementia, presented with chief complaints of poor p.o. intake for the past one week, as per the daughter who bedside she noticed blood in the colostomy bag nephrology consulted for Acute kidney injury patient seen and examined in emergency room Past Medical History As per HPI Past Surgical History As per HPI Allergies: Coded Allergies: NO KNOWN ALLERGIES (Unverified , 12/18/24) Current Medications Current Medications Medications (Trade) Dose Ordered Sig/Socrates Route PRN Reason Start Time Stop Time Status Last Admin Quetiapine Fumarate (SEROquel TABLET) 25 mg HS PO 12/18/24 22:00 12/18/24 22:09 Donepezil HCl (Aricept Tablet) 10 mg HS PO 12/18/24 22:00 12/18/24 22:10 Memantine (Namenda Tablet) 10 mg DAILY PO 12/19/24 10:00 12/19/24 11:18 Atorvastatin Calcium (Lipitor) 10 mg HS PO 12/18/24 22:00 12/18/24 22:09 Diagnostic Test (Pha) (Accu-Chek Comfort Curve T) 1 strip ACHS 12/18/24 22:00 12/19/24 11:30 Insulin Human Regular (InsuLIN R) ACHS SC 12/18/24 22:00 Dextrose 50 ml UD PRN IV Blood Sugar LESS THAN 60 12/18/24 20:00 Sodium Chloride (Saline Lock Ns) 10 ml Q8HR IV 12/18/24 22:00 12/19/24 14:17 Acetaminophen/ Hydrocodone Bitart ([place] 5/325MG Tab) 1 tab Q4HP PRN PO MODERATE PAIN (4-6 PAIN SCALE) 12/18/24 20:00 Ondansetron HCl (Zofran) 4 mg Q4HP PRN IV NAUSEA / VOMITING 12/18/24 20:00 Docusate Sodium (Colace Capsule) 100 mg BIDPRN PRN PO FOR CONSTIPATION 12/18/24 20:00 Acetaminophen (Tylenol Tablet) 650 mg Q6HP PRN PO PAIN SCALE 1-3 OR TEMP>100.4 12/18/24 20:00 Nitroglycerin (Ntrostat Sublingual) 0.4 mg Q5MINP PRN SL FOR CHEST PAIN 12/18/24 21:00 Morphine Sulfate 2 mg Q30M PRN IV FOR CHEST PAIN 12/18/24 21:00 Midodrine (Proamatine Tablet) 10 mg TID@0600,1200,1800 PO 12/19/24 06:00 12/19/24 12:13 Sodium Chloride 1,000 ml @ 100 mls/hr Q10H IV 12/19/24 15:15 UNV Family History: Colon cancer G8 FATHER Diabetes mellitus G8 MOTHER Review of Systems As documented in HPI H&P Exam Vital Signs/I&O Vital Sign Date Time Temp Pulse Resp B/P (MAP) Pulse Ox O2 Delivery O2 Flow Rate FiO2 12/19/24 13:00 97.3 66 16 104/40 (61) 96 97.3 12/19/24 08:00 Room Air* 0 21 Intake and Output 12/18/24 12/19/24 19:00 07:00 Intake Total 1200 ml Balance 1200 ml Intake IV Total 1200 ml Physical Exam General-not in any distress HEENT-normocephalic, no icterus, ++pallor, neck supple Respiratory-fair air entry bilateral, no rhonchi, no wheeze [id number] heard, no murmurs appreciated Abdominal-soft, nontender, nondistended Musculoskeletal-no pedal edema, no calf tenderness Genitourinary-deferred Neuro-awake Labs/Diagnostic Data Labs/Diagnostic Data Laboratory Tests Test 12/19/24 14:13 12/19/24 12:15 12/19/24 06:46 12/19/24 05:03 Range/Units White Blood Count 7.7 6.5 # 4.4-10.8 10^3/uL Red Blood Count 3.16 L 3.65 L 4.0-5.20 10^6/uL Hemoglobin 9.8 L 11.2 #L 12.2-16.2 g/dL Hematocrit 28.3 #L 33.3 #L 36.0-46.0 % Mean Corpuscular Volume 89.5 91.2 80.0-100.0 fL Mean Corpuscular Hemoglobin 31.0 30.7 28.0-32.0 pg Mean Corpuscular Hemoglobin Concent 34.6 33.6 32.0-36.0 g/dL Red Cell Distribution Width 13.4 13.6 11.8-14.3 % Platelet Count 268 232 140-450 10^3/uL Mean Platelet Volume 7.9 7.7 6.9-10.8 fL Neutrophils (%) (Auto) 62.5 63.8 37.0-80.0 % Lymphocytes (%) (Auto) 20.5 22.1 10.0-50.0 % Monocytes (%) (Auto) 14.9 H 12.8 H 0.0-12.0 % Eosinophils (%) (Auto) 1.5 1.0 0.0-7.0 % Basophils (%) (Auto) 0.6 0.3 0.0-2.0 % Neutrophils # (Auto) 4.8 4.2 1.6-8.6 10 ^3/uL Lymphocytes # (Auto) 1.6 1.4 0.4-5.4 10 ^3/uL Monocytes # (Auto) 1.1 0.8 0-1.3 10 ^3/uL Eosinophils # (Auto) 0.1 0.1 0-0.8 10 ^3/uL Basophils # (Auto) 0 0 0-0.2 10 ^3/uL Nucleated Red Blood Cells 0.1 0.1 % POC Glucose 95 90 70-106 mg/dl Sodium Level 132 #L 136-145 mmol/L Potassium Level 4.7 3.5-5.1 mmol/L Chloride Level 95 L 98-107 mmol/L Carbon Dioxide Level 24 20-31 mmol/L Anion Gap 13 5-15 Blood Urea Nitrogen 137 #*H 9-23 mg/dL Creatinine 9.32 H 0.550-1.02 mg/dL Glomerular Filtration Rate Calc 4 >90 mL/min BUN/Creatinine Ratio 14.7 10.0-20.0 Serum Glucose 84 74-106 mg/dL Calcium Level 10.2 8.7-10.4 mg/dL Total Bilirubin 0.5 0.2-1.0 mg/dL Aspartate Amino Transferase (AST) 15 13-40 U/L Alanine Aminotransferase (ALT) 9 7-40 U/L Alkaline Phosphatase 56 46-116 U/L Total Protein 6.4 5.7-8.2 g/dL Albumin 3.9 3.2-4.8 g/dL Test 12/19/24 00:00 12/18/24 15:21 12/18/24 13:35 12/18/24 11:14 Range/Units Stool Occult Blood Sample #3 Positive Negative Urine Color Yellow Yellow Urine Clarity Clear Clear Urine pH 6.5 5.0-9.0 Urine Specific [place] 1.013 1.001-1.035 Urine Protein Trace H Negative Urine Ketones Negative Negative Urine Blood Negative Negative /uL Urine Nitrite Negative Negative Urine Bilirubin Negative Negative Urine Urobilinogen Normal Negative mg/dL Urine Leukocyte Esterase Negative Negative /uL Urine RBC 1 0 - 4 /hpf Urine Microscopic WBC 3 0-5 /HPF Urine Squamous Epithelial Cells Few <5 /hpf Urine Bacteria None seen None Seen /hpf Urine Hyaline Casts Few 0 - 2 /lpf Urine Glucose 1+ H Normal mg/dL Sodium Level 140 # 130 L 136-145 mmol/L Potassium Level 5.3 H 7.2 *H 3.5-5.1 mmol/L Chloride Level 98 94 L 98-107 mmol/L Carbon Dioxide Level 26 19 L 20-31 mmol/L Anion Gap 16 H 17 H 5-15 Blood Urea Nitrogen 168 *H 171 *H 9-23 mg/dL Creatinine 10.77 *H 11.57 *H 0.550-1.02 mg/dL Glomerular Filtration Rate Calc 3 3 >90 mL/min BUN/Creatinine Ratio 15.6 14.8 10.0-20.0 Serum Glucose 182 H 123 H 74-106 mg/dL Calcium Level 9.2 10.2 8.7-10.4 mg/dL Phosphorus Level 8.8 H 2.4-5.1 mg/dL Magnesium Level 2.7 H 1.6-2.6 mg/dL White Blood Count 10.8 4.4-10.8 10^3/uL Red Blood Count 4.61 4.0-5.20 10^6/uL Hemoglobin 14.3 12.2-16.2 g/dL Hematocrit 40.7 36.0-46.0 % Mean Corpuscular Volume 88.3 80.0-100.0 fL Mean Corpuscular Hemoglobin 31.0 28.0-32.0 pg Mean Corpuscular Hemoglobin Concent 35.1 32.0-36.0 g/dL Red Cell Distribution Width 13.3 11.8-14.3 % Platelet Count 359 140-450 10^3/uL Mean Platelet Volume 8.6 6.9-10.8 fL Neutrophils (%) (Auto) 77.3 37.0-80.0 % Lymphocytes (%) (Auto) 9.9 L 10.0-50.0 % Monocytes (%) (Auto) 12.3 H 0.0-12.0 % Eosinophils (%) (Auto) 0.1 0.0-7.0 % Basophils (%) (Auto) 0.4 0.0-2.0 % Neutrophils # (Auto) 8.3 1.6-8.6 10 ^3/uL Lymphocytes # (Auto) 1.1 0.4-5.4 10 ^3/uL Monocytes # (Auto) 1.3 0-1.3 10 ^3/uL Eosinophils # (Auto) 0 0-0.8 10 ^3/uL Basophils # (Auto) 0 0-0.2 10 ^3/uL Nucleated Red Blood Cells 0.1 % Prothrombin Time 11.2 9.3-11.8 sec Prothrombin Time INR 1.06 0.9-1.15 Activated Partial Thromboplast Time 24.5 24.5-34.5 SEC Hemoglobin A1c 5.5 <5.7 % A1C Assessment Acute kidney injury hemodynamic mediated etiology likely in the setting of hypotension, GI bleed and poor p.o. intake Ulcerative colitis status post colostomy\ Acute blood loss anemia secondary to GI bleed Recommendations Continue IV fluids as ordered GI consult CT scan no hydronephrosis Strict Is&Os charting We will follow closely Check urine lytes Plan discussed with: Patient, Daughter DANUTA MAGANA MD Dec 19, 2024 15:16
[2024-12-19 15:22] LABS: Chloride 95 mmol/L (98-107); Sodium 130 mmol/L (136-145)
[2024-12-19 15:23] LABS: Alanine Aminotransferase < 9 U/L (7-40)
[2024-12-19 15:24] LABS: Blood Urea Nitrogen 131 mg/dL (9-23)
--- NOTE | 2024-12-19 15:33 | DVHINCON2 ---
Date of service: Dec 19, 2024 Referring Physician Tate Vidal Reason for Consultation GI bleed History of Present Illness The patient is a 79-year-old female with a history of ulcerative colitis status post ileostomy, chronic kidney disease, Alzheimer's, cachexia, admitted with bleeding per ileostomy. History was obtained from patient's daughter who was at bedside. Patient has no prior history of GI bleeding. Her ileostomy was performed in 2007 for ulcerative colitis. The patient's daughter is not sure when the last scope was performed or if she has ever had a scope from her ileostomy. Patient has has not been complaining of abdominal pain however she does have dementia. Patient has also not been tolerating eating for one week . She has had decreased p.o. intake during this time. Patient is not noted to take any aspirin, NSAIDs or anticoagulants. CT scan upon admission did not show any acute findings. GI consultation was obtained for the bleeding. Since admission the bleeding has stopped. The patient's daughter states that there was bright red blood as well as blood clots. No melena, hematemesis, or coffee- ground emesis noted.. Past Medical History As above Past Surgical History History of ileostomy Other abdominal surgeries not listed Family History: Colon cancer G8 FATHER Diabetes mellitus G8 MOTHER Family History Colon cancer in patient's father Social History No current alcohol, tobacco, or recreational drug use Allergies: Coded Allergies: NO KNOWN ALLERGIES (Unverified , 12/18/24) Current Medications Current Medications Medications (Trade) Dose Ordered Sig/Socrates Route PRN Reason Start Time Stop Time Status Last Admin Quetiapine Fumarate (SEROquel TABLET) 25 mg HS PO 12/18/24 22:00 12/18/24 22:09 Donepezil HCl (Aricept Tablet) 10 mg HS PO 12/18/24 22:00 12/18/24 22:10 Memantine (Namenda Tablet) 10 mg DAILY PO 12/19/24 10:00 12/19/24 11:18 Atorvastatin Calcium (Lipitor) 10 mg HS PO 12/18/24 22:00 12/18/24 22:09 Diagnostic Test (Pha) (Accu-Chek Comfort Curve T) 1 strip ACHS 12/18/24 22:00 12/19/24 11:30 Insulin Human Regular (InsuLIN R) ACHS SC 12/18/24 22:00 Dextrose 50 ml UD PRN IV Blood Sugar LESS THAN 60 12/18/24 20:00 Sodium Chloride (Saline Lock Ns) 10 ml Q8HR IV 12/18/24 22:00 12/19/24 14:17 Acetaminophen/ Hydrocodone Bitart (Robinson 5/325MG Tab) 1 tab Q4HP PRN PO MODERATE PAIN (4-6 PAIN SCALE) 12/18/24 20:00 Ondansetron HCl (Zofran) 4 mg Q4HP PRN IV NAUSEA / VOMITING 12/18/24 20:00 Docusate Sodium (Colace Capsule) 100 mg BIDPRN PRN PO FOR CONSTIPATION 12/18/24 20:00 Acetaminophen (Tylenol Tablet) 650 mg Q6HP PRN PO PAIN SCALE 1-3 OR TEMP>100.4 12/18/24 20:00 Nitroglycerin (Ntrostat Sublingual) 0.4 mg Q5MINP PRN SL FOR CHEST PAIN 12/18/24 21:00 Morphine Sulfate 2 mg Q30M PRN IV FOR CHEST PAIN 12/18/24 21:00 Midodrine (Proamatine Tablet) 10 mg TID@0600,1200,1800 PO 12/19/24 06:00 12/19/24 12:13 Sodium Chloride 1,000 ml @ 100 mls/hr Q10H IV 12/19/24 15:15 Review of Systems Review of systems as per HPI. No cardiac disease No history of pulmonary disease History of ulcerative colitis history of chronic kidney disease Anemia GI bleed history per HPI No stroke or seizure History of dementia No known history of malignancy No endocrine abnormalities No dysuria hematuria No arthralgias myalgias or recent fractures Vital Signs Vital Signs Date Time Temp Pulse Resp B/P (MAP) Pulse Ox O2 Delivery O2 Flow Rate FiO2 12/19/24 13:00 97.3 66 16 104/40 (61) 96 97.3 12/19/24 08:00 Room Air* 0 21 Physical Exam General: Alert elderly female lying in bed no distress HEENT: NC/AT EOMI PERRLA, pale conjunctiva Heart: Regular rate and rhythm Abdomen: Soft ileostomy in place right upper quadrant, midline incision, mild tenderness to palpation Extremity: No clubbing cyanosis or edema Labs/Diagnostic Data Labs Test 12/19/24 14:13 12/19/24 12:15 12/19/24 00:00 12/18/24 15:21 Range/Units White Blood Count 7.7 4.4-10.8 10^3/uL Red Blood Count 3.16 L 4.0-5.20 10^6/uL Hemoglobin 9.8 L 12.2-16.2 g/dL Hematocrit 28.3 #L 36.0-46.0 % Mean Corpuscular Volume 89.5 80.0-100.0 fL Mean Corpuscular Hemoglobin 31.0 28.0-32.0 pg Mean Corpuscular Hemoglobin Concent 34.6 32.0-36.0 g/dL Red Cell Distribution Width 13.4 11.8-14.3 % Platelet Count 268 140-450 10^3/uL Mean Platelet Volume 7.9 6.9-10.8 fL Neutrophils (%) (Auto) 62.5 37.0-80.0 % Lymphocytes (%) (Auto) 20.5 10.0-50.0 % Monocytes (%) (Auto) 14.9 H 0.0-12.0 % Eosinophils (%) (Auto) 1.5 0.0-7.0 % Basophils (%) (Auto) 0.6 0.0-2.0 % Neutrophils # (Auto) 4.8 1.6-8.6 10 ^3/uL Lymphocytes # (Auto) 1.6 0.4-5.4 10 ^3/uL Monocytes # (Auto) 1.1 0-1.3 10 ^3/uL Eosinophils # (Auto) 0.1 0-0.8 10 ^3/uL Basophils # (Auto) 0 0-0.2 10 ^3/uL Nucleated Red Blood Cells 0.1 % POC Glucose 95 70-106 mg/dl Stool Occult Blood Sample #3 Positive Negative Urine Color Yellow Yellow Urine Clarity Clear Clear Urine pH 6.5 5.0-9.0 Urine Specific [place] 1.013 1.001-1.035 Urine Protein Trace H Negative Urine Ketones Negative Negative Urine Blood Negative Negative /uL Urine Nitrite Negative Negative Urine Bilirubin Negative Negative Urine Urobilinogen Normal Negative mg/dL Urine Leukocyte Esterase Negative Negative /uL Urine RBC 1 0 - 4 /hpf Urine Microscopic WBC 3 0-5 /HPF Urine Squamous Epithelial Cells Few <5 /hpf Urine Bacteria None seen None Seen /hpf Urine Hyaline Casts Few 0 - 2 /lpf Urine Glucose 1+ H Normal mg/dL Test 12/18/24 13:35 12/18/24 11:14 Range/Units Phosphorus Level 8.8 H 2.4-5.1 mg/dL Magnesium Level 2.7 H 1.6-2.6 mg/dL Prothrombin Time 11.2 9.3-11.8 sec Prothrombin Time INR 1.06 0.9-1.15 Activated Partial Thromboplast Time 24.5 24.5-34.5 SEC Hemoglobin A1c 5.5 <5.7 % A1C Assessment 1. GI bleed 2. History of ulcerative colitis status post ileostomy 3. Anemia 4. Acute on chronic kidney disease 5. Decreased p.o. intake for one week Differential diagnosis includes peptic ulcer disease versus small-bowel disease, enteritis, small-bowel ischemia versus other. No acute findings on CT. Problems(with codes): (1) Gastrointestinal hemorrhage (2) Generalized weakness (3) Hyperglycemia (4) Electrolyte imbalance (5) Acute on chronic renal failure Plan/Recommendation 1. Given patient's age and comorbidities we will hold off on ileoscopy at this time. However if the patient has further episodes of bleeding consider EGD and/or ileoscopy. 2. Follow H&H 3. Hydration 4. Continue current medications 5. Avoid aspirin NSAIDs and anticoagulants 6. I will be signing off to Dr. Perez to follow up Plan discussed with: Daughter ADRIANA VICKERS Lacho DOYLE Dec 19, 2024 15:33
[2024-12-19 15:50] LABS: Magnesium 2.5 mg/dL (1.6-2.6)
[2024-12-19] MEDS: SODIUM CHLORIDE 0.9% 1,000 ML IV SCH (16:03)
[2024-12-19 16:08] LABS: Phosphorus 8.7 mg/dL (2.4-5.1)
[2024-12-19 17:00] VITALS: BP 103/40; PULSE 67; RESP 16; TEMP 97.4; O2SAT 94
[2024-12-19 20:00] VITALS: PULSE 57; PULSE 65; RESP 18; O2SAT 97
[2024-12-19 21:00] VITALS: BP 103/40; PULSE 65; RESP 18; TEMP 97.5; O2SAT 97
[2024-12-20] VITALS (7 sets, daily range): BP systolic 94–106; BP diastolic 33–46; PULSE 56–73; RESP 16–19; TEMP 97.3–97.5; O2SAT 93–98
[2024-12-20 06:24] LABS: Anion Gap 17 (5-15); Carbon Dioxide 21 mmol/L (20-31)
[2024-12-20 06:25] LABS: Calcium 8.9 mg/dL (8.7-10.4)
[2024-12-20 06:30] LABS: BUN/Creatinine Ratio 17.4 (10.0-20.0)
[2024-12-20 06:38] LABS: Chloride 97 mmol/L (98-107); Glucose 66 mg/dL (74-106); Sodium 135 mmol/L (136-145)
[2024-12-20 06:40] LABS: Blood Urea Nitrogen 135 mg/dL (9-23)
--- NOTE | 2024-12-20 09:03 | DVHPN2 ---
Reviewed: Care Plan, H&P, Labs, Medications, Previous Orders, Radiology Changes from previous H/P or p: No Changes Eyes: No Pain, No Vision change, No Conjunctivae inflammation, No Eyelid inflammation, No Other, No Redness ENT: No Ear pain, No Ear discharge, No Nose pain, No Nose discharge, No Nose congestion, No Mouth pain, No Mouth swelling, No Throat pain, No Throat swelling, No Other Cardiovascular: No Chest Pain, No Palpitations, No Orthopnea, No Paroxysmal Noc. Dyspnea, No Edema, No Lt Headedness, No Other Respiratory: No Cough, No Dry, No Shortness of breath, No SOB with excertion, No Wheezing, No Hemoptysis, No Pleuritic Pain, No Sputum, No Other Gastrointestinal: No Nausea, No Vomiting, No Abdominal Pain, No Diarrhea, No Constipation, No Melena, No Hematochezia; Other (Blood streaked bowel.) Genitourinary: No Dysuria, No Frequency, No Incontinence, No Hematuria, No Retention, No Other Musculoskeletal: No other, No neck pain, No shoulder pain, No arm pain, No back pain, No hand pain, No leg pain, No foot pain Skin: No Rash, No Lesions, No Jaundice, No Bruising, No Other Objective Vitals Vital Signs Date Time Temp Pulse Resp B/P (MAP) Pulse Ox O2 Delivery O2 Flow Rate FiO2 12/20/24 08:50 97.5 58 16 94/44 (61) 93 97.5 12/19/24 20:00 Room Air* 0 21 Intake/Output Intake and Output 12/20/24 07:00 Intake Total 580 ml Output Total 200 ml Balance 380 ml Intake Oral 580 ml Output Urine Total 100 ml Stool Total 100 ml # Voids 2 Medications Current Medications Medications Dose Ordered Sig/Socrates Route Start Time Stop Time Status Last Admin Dose Admin Quetiapine Fumarate 25 mg HS PO 12/18/24 22:00 12/19/24 22:07 25 MG Donepezil HCl 10 mg HS PO 12/18/24 22:00 12/19/24 22:07 10 MG Memantine 10 mg DAILY PO 12/19/24 10:00 12/19/24 11:18 10 MG Atorvastatin Calcium 10 mg HS PO 12/18/24 22:00 12/19/24 22:07 10 MG Diagnostic Test (Pha) 1 strip ACHS 12/18/24 22:00 12/20/24 06:05 1 STRIP Insulin Human Regular ACHS SC 12/18/24 22:00 Dextrose 50 ml UD PRN IV 12/18/24 20:00 Sodium Chloride 10 ml Q8HR IV 12/18/24 22:00 12/20/24 06:05 10 ML Acetaminophen/ Hydrocodone Bitart 1 tab Q4HP PRN PO 12/18/24 20:00 Ondansetron HCl 4 mg Q4HP PRN IV 12/18/24 20:00 Docusate Sodium 100 mg BIDPRN PRN PO 12/18/24 20:00 Acetaminophen 650 mg Q6HP PRN PO 12/18/24 20:00 Nitroglycerin 0.4 mg Q5MINP PRN SL 12/18/24 21:00 Morphine Sulfate 2 mg Q30M PRN IV 12/18/24 21:00 Midodrine 10 mg TID@0600,1200,1800 PO 12/19/24 06:00 12/20/24 06:02 10 MG Sodium Chloride 1,000 ml @ 100 mls/hr Q10H IV 12/19/24 15:15 12/20/24 01:30 100 MLS/HR Laboratory Results Laboratory Tests 12/19/24 14:13 12/20/24 05:39 Chemistry Test 12/19/24 14:13 12/20/24 05:39 Albumin 3.8 g/dL (3.2-4.8) Calcium Level 9.1 mg/dL (8.7-10.4) 8.9 mg/dL (8.7-10.4) Magnesium Level 2.5 mg/dL (1.6-2.6) Phosphorus Level 8.7 mg/dL (2.4-5.1) H Total Protein 6.2 g/dL (5.7-8.2) LFT Test 12/19/24 14:13 Alanine Aminotransferase (ALT) < 9 U/L (7-40) Alkaline Phosphatase 54 U/L (46-116) Aspartate Amino Transferase (AST) 15 U/L (13-40) Total Bilirubin 0.5 mg/dL (0.2-1.0) Urinalysis Test 12/18/24 15:21 Urine Color Yellow (Yellow) Urine Clarity Clear (Clear) Urine pH 6.5 (5.0-9.0) Urine Specific [place] 1.013 (1.001-1.035) Urine Protein Trace (Negative) H Urine Ketones Negative (Negative) Urine Blood Negative /uL (Negative) Urine Nitrite Negative (Negative) Urine Bilirubin Negative (Negative) Urine Urobilinogen Normal mg/dL (Negative) Urine Leukocyte Esterase Negative /uL (Negative) Urine RBC 1 /hpf (0 - 4) Urine Microscopic WBC 3 /HPF (0-5) Urine Squamous Epithelial Cells Few /hpf (<5) Urine Bacteria None seen /hpf (None Seen) Urine Hyaline Casts Few /lpf (0 - 2) Urine Glucose 1+ mg/dL (Normal) H Labs and/or images reviewed: Labs reviewed by me, Image(s) reviewed by me Assessment/Plan Assessment/Plan Acute blood loss anemia hemoglobin down to 9.8 from 14.3, will watch and transfuse if necessary Acute GI bleed, GI consult by Dr. Sosa appreciated. History of colectomy and colostomy for ulcerative colitis 2007 Dementia Acute kidney injury hemodynamically mediated : Consult for Dr. Unger appreciated, kidney ultrasound negative, BUN creatinine slowly improving Severe malnutrition Acute hyperkalemia potassium 7.2: Treatment per protocol, potassium down to 4.0 Acute generalized weakness Failure to thrive Cachexia Time spent 65 minutes General condition poor Advanced care planning 20 minutes Patient is full code Patient's Harpal [phone] and daughter Glory [phone] Patient lives with her daughter [phone] who with a at bedside Plan discussed with: Patient My Orders Orders - KHOI SUAREZ MD Procedure Category Date Status Time * Gi Dvh Parachute Harness Rigger CONS 12/19/24 Transmitted 12:54 Apply Barrier Cream JOSÉ ANTONIO 12/19/24 In Process 14:28 Complete Blood Count LAB 12/20/24 Verified 08:59 Date of Service: Dec 20, 2024 Billing Provider: KHOI SUAREZ MD Common Visit Codes: [id number] CARE 30-74 MIN KHOI SUAREZ MD Dec 20, 2024 09:03
[2024-12-20 09:09] LABS: Basophils # (auto) 0 10 ^3/uL (0-0.2); Basophils % (auto) 0.5 % (0.0-2.0); Eosinophils # (auto) 0.1 10 ^3/uL (0-0.8); Eosinophils % (auto) 2.5 % (0.0-7.0); Hematocrit 28.2 % (36.0-46.0); Hemoglobin 9.5 g/dL (12.2-16.2); Lymphocytes # (auto) 1.1 10 ^3/uL (0.4-5.4); Lymphocytes % (auto) 23.2 % (10.0-50.0); Mean Corpuscular Hemoglobin 30.7 pg (28.0-32.0); Mean Corpuscular Hgb Conc. 33.7 g/dL (32.0-36.0); Monocytes # (auto) 0.6 10 ^3/uL (0-1.3); Monocytes % (auto) 12.6 % (0.0-12.0); Neutrophils # (auto) 2.9 10 ^3/uL (1.6-8.6); Neutrophils % (auto) 61.2 % (37.0-80.0); Nucleated Red Blood Cells % 0.1 %; Platelet Count (auto) 200 10^3/uL (140-450); Red Cell Distribution Width 13.2 % (11.8-14.3); White Blood Cell 4.8 10^3/uL (4.4-10.8)
--- NOTE | 2024-12-20 12:32 | DVH ---
EXAM: CT HEAD WITHOUT CONTRAST HISTORY: Altered LOC COMPARISON: None TECHNIQUE: Axial images were obtained and reformatted in coronal and sagittal planes. All CT scans at this medical facility are performed using dose modulation techniques as appropriate t o a performed exam including the following: Automated exposure control was utilized; adjustment of th e MA and/or KV according to patient size; and use of iterative reconstruction technique. CT Dose: CTDI volume is 51.55 mGy. Dose-length product is 912.89 mGy*cm FINDINGS: Supratentorial Region: No evidence for large acute territorial ischemia. No intracranial hemorrhage is noted. Posterior Fossa: No acute abnormality. Brainstem: Unremarkable. Sellar/Suprasellar Region: Unremarkable. Ventricles, Cisterns, Sulci: Age-appropriate. Orbits: Unremarkable. Paranasal Sinuses: Unremarkable. Mastoid Air Cells: Unremarkable. Vasculature: Intracranial arterial calcified plaque formation noted. Bones/Soft Tissues: No acute abnormality. Other: None. IMPRESSION: 1. No acute intracranial process.
--- NOTE | 2024-12-20 15:11 | DVHPN2 ---
Progress Note Date Seen: Dec 20, 2024 Medical Necessity Reason Pt with a Central, PICC or Fol: Yes Subjective Patient reports: Other (Patient appears lethargic family is bedside) Review of Systems: Deferred Objective vital signs Vital Sign Date Time Temp Pulse Resp B/P (MAP) Pulse Ox O2 Delivery O2 Flow Rate FiO2 12/20/24 13:00 97.3 59 16 98/44 (62) 97 97.3 12/19/24 20:00 Room Air* 0 21 Total Intake and Output 12/19/24 12/19/24 12/20/24 15:00 23:00 07:00 Intake Total 360 ml 220 ml Output Total 200 ml Balance -200 ml 360 ml 220 ml medications Current Medications Medications Dose Ordered Sig/Socrates Route Start Time Stop Time Status Last Admin Dose Admin Quetiapine Fumarate 25 mg HS PO 12/18/24 22:00 12/19/24 22:07 25 MG Donepezil HCl 10 mg HS PO 12/18/24 22:00 12/19/24 22:07 10 MG Memantine 10 mg DAILY PO 12/19/24 10:00 12/20/24 10:40 10 MG Atorvastatin Calcium 10 mg HS PO 12/18/24 22:00 12/19/24 22:07 10 MG Diagnostic Test (Pha) 1 strip ACHS 12/18/24 22:00 12/20/24 11:30 1 STRIP Insulin Human Regular ACHS SC 12/18/24 22:00 Dextrose 50 ml UD PRN IV 12/18/24 20:00 Sodium Chloride 10 ml Q8HR IV 12/18/24 22:00 12/20/24 06:05 10 ML Acetaminophen/ Hydrocodone Bitart 1 tab Q4HP PRN PO 12/18/24 20:00 Ondansetron HCl 4 mg Q4HP PRN IV 12/18/24 20:00 Docusate Sodium 100 mg BIDPRN PRN PO 12/18/24 20:00 Acetaminophen 650 mg Q6HP PRN PO 12/18/24 20:00 Nitroglycerin 0.4 mg Q5MINP PRN SL 12/18/24 21:00 Morphine Sulfate 2 mg Q30M PRN IV 12/18/24 21:00 Midodrine 10 mg TID@0600,1200,1800 PO 12/19/24 06:00 12/20/24 12:18 10 MG Sodium Chloride 1,000 ml @ 100 mls/hr Q10H IV 12/19/24 15:15 12/20/24 10:40 100 MLS/HR Examination: GENERAL:Normal, LUNGS:Normal, ABDOMEN:Abnormal, MSK:Normal, NEURO:Abnormal laboratory and microbiology Laboratory Tests 12/20/24 05:39 Test 12/20/24 05:39 Range/Units Serum Glucose 66 L 74-106 mg/dL Problem List/Assessment/Plan Problem List/Assessment/Plan Acute kidney injury hemodynamic mediated etiology likely in the setting of hypotension, GI bleed and poor p.o. intake Ulcerative colitis status post ileostomy Acute blood loss anemia secondary to GI bleed Recommendations Continue IV fluids as ordered--added diuretic to augment urine volumes Renal parameters look better since admission GI consult CT scan no hydronephrosis Strict Is&Os charting We will follow closely Evaluate SCALE MANAGER needs closely Check urine lytes Montalvo catheter Plan discussed with: Patient, Daughter, Other My Orders My Orders Orders - DANUTA MAGANA MD Procedure Category Date Status Time Sodium Chloride 0.9% PHA 12/19/24 In Process 15:15 Basic Metabolic Panel LAB 12/21/24 Verified 05:00 Basic Metabolic Panel LAB 12/22/24 Verified 05:00 Basic Metabolic Panel LAB 12/23/24 Verified 05:00 Basic Metabolic Panel LAB 12/24/24 Verified 05:00 Basic Metabolic Panel LAB 12/25/24 Verified 05:00 Basic Metabolic Panel LAB 12/26/24 Verified 05:00 Urine Protein LAB 12/19/24 Logged 15:17 Urine Creatinine LAB 12/19/24 Logged 15:17 Urine Sodium LAB 12/19/24 Logged 15:17 Vitamin D, 25-Hydroxy LAB 12/19/24 In Process 15:17 Insert Montalvo Catheter JOSÉ ANTONIO 12/20/24 In Process 10:22 Bumetanide Injection PHA 12/20/24 Transmitted (Bumex Injection) 18:00 Dietary Evaluation Review Recommendations by RD: Protein Supplementation Comments: 1) Initiate Nepro tid d/t poor intake 2) Add low phos restriction to renal diet 3) Consider Renvela tid d/t hyperkalemia 4) Consult nephrology 5) If patient does not receive nutrition support within 7 days, consider EN/TPN to meet 75% daily estimated needs. Expected Outcomes/Goals: 1) appetite and labs to improve 2) f/u in 3 days DANUTA MAGANA MD Dec 20, 2024 15:11
[2024-12-20] MEDS: BUMETANIDE 1mg/4ml VIAL (0.25mg/ml) IV SCH (18:14)
--- NOTE | 2024-12-20 20:55 | DVHPN2 ---
Progress Note - Dictate Date Seen: Dec 20, 2024 (12 noon) Medical Necessity Reason Pt with a Central, PICC or Fol: Yes Subjective Patient seen at bedside, resting comfortably There was no further episodes of GI bleeding from ileostomy Daughter does report history of some GERD and dyspepsia Her hemoglobin has dropped to 9.5 Patient has acute kidney failure with elevated BUN creatinine vital signs Vital Sign Date Time Temp Pulse Resp B/P (MAP) Pulse Ox O2 Delivery O2 Flow Rate FiO2 12/20/24 18:14 97/43 12/20/24 13:00 97.3 59 16 97 97.3 12/20/24 08:00 Room Air* 0 21 Total Intake and Output 12/19/24 12/19/24 12/20/24 15:00 23:00 07:00 Intake Total 360 ml 220 ml Output Total 200 ml Balance -200 ml 360 ml 220 ml medications Current Medications Medications Dose Ordered Sig/Socrates Route Start Time Stop Time Status Last Admin Dose Admin Quetiapine Fumarate 25 mg HS PO 12/18/24 22:00 12/19/24 22:07 25 MG Donepezil HCl 10 mg HS PO 12/18/24 22:00 12/19/24 22:07 10 MG Memantine 10 mg DAILY PO 12/19/24 10:00 12/20/24 10:40 10 MG Atorvastatin Calcium 10 mg HS PO 12/18/24 22:00 12/19/24 22:07 10 MG Diagnostic Test (Pha) 1 strip ACHS 12/18/24 22:00 12/20/24 17:00 1 STRIP Insulin Human Regular ACHS SC 12/18/24 22:00 Dextrose 50 ml UD PRN IV 12/18/24 20:00 Sodium Chloride 10 ml Q8HR IV 12/18/24 22:00 12/20/24 14:00 10 ML Acetaminophen/ Hydrocodone Bitart 1 tab Q4HP PRN PO 12/18/24 20:00 Ondansetron HCl 4 mg Q4HP PRN IV 12/18/24 20:00 Docusate Sodium 100 mg BIDPRN PRN PO 12/18/24 20:00 Acetaminophen 650 mg Q6HP PRN PO 12/18/24 20:00 Nitroglycerin 0.4 mg Q5MINP PRN SL 12/18/24 21:00 Morphine Sulfate 2 mg Q30M PRN IV 12/18/24 21:00 Midodrine 10 mg TID@0600,1200,1800 PO 12/19/24 06:00 12/20/24 18:13 10 MG Sodium Chloride 1,000 ml @ 100 mls/hr Q10H IV 12/19/24 15:15 12/20/24 10:40 100 MLS/HR Bumetanide 1 mg BIDD IV 12/20/24 18:00 12/20/24 18:14 1 MG objective General: Alert elderly female lying in bed no distress arousable weak HEENT: EOMI PERRLA, pale conjunctiva Heart: Regular rate and rhythm Abdomen: Soft ileostomy in place right upper quadrant, midline incision, no tenderness to palpation Extremity: No clubbing cyanosis or edema laboratory and microbiology Laboratory Tests 12/20/24 05:39 Test 12/20/24 05:39 Range/Units Serum Glucose 66 L 74-106 mg/dL Problems(with codes): (1) Acute on chronic renal failure (2) Electrolyte imbalance (3) Generalized weakness (4) Gastrointestinal hemorrhage (5) Hyperglycemia (6) Positive occult stool blood test Prognosis Assessment plan Source of bleeding possibly upper GI from peptic ulcer disease, versus bleeding locally from ileostomy site Continue observation and monitoring her labs Transfused 1 unit PRBC if hemoglobin is less than seven DC aspirin NSAIDs blood thinners Patient has worsening renal function and is currently being evaluated by Nephrology ; needs stabilization from nephro point of view I will keep her on Protonix 40 mg IV q.12 hours I will be standing by for an endoscopy if clinically indicated or if she shows signs of active GI bleeding Dietary Evaluation Review Recommendations by RD: Protein Supplementation Comments: 1) Initiate Nepro tid d/t poor intake 2) Add low phos restriction to renal diet 3) Consider Renvela tid d/t hyperkalemia 4) Consult nephrology 5) If patient does not receive nutrition support within 7 days, consider EN/TPN to meet 75% daily estimated needs. Expected Outcomes/Goals: 1) appetite and labs to improve 2) f/u in 3 days Plan discussed with: Patient, Daughter BHARGAVICATALINO MD Dec 20, 2024 20:55
[2024-12-20] MEDS: SUCRALFATE 1 GM/10 ML ORAL SUSP PO SCH (22:37)
[2024-12-20] MEDS: PANTOPRAZOLE 40 MG/10 ML VIAL INJ IV SCH (22:37)
[2024-12-21] VITALS (8 sets, daily range): BP systolic 102–125; BP diastolic 40–50; PULSE 60–76; RESP 16–18; TEMP 97.1–97.8; O2SAT 94–96
[2024-12-21 06:47] LABS: Basophils # (auto) 0 10 ^3/uL (0-0.2); Basophils % (auto) 0.4 % (0.0-2.0); Eosinophils # (auto) 0.1 10 ^3/uL (0-0.8); Eosinophils % (auto) 1.3 % (0.0-7.0); Hematocrit 25.9 % (36.0-46.0); Hemoglobin 8.9 g/dL (12.2-16.2); Lymphocytes # (auto) 0.8 10 ^3/uL (0.4-5.4); Lymphocytes % (auto) 18.3 % (10.0-50.0); Mean Corpuscular Hemoglobin 30.8 pg (28.0-32.0); Mean Corpuscular Hgb Conc. 34.4 g/dL (32.0-36.0); Mean Corpuscular Volume 89.4 fL (80.0-100.0); Monocytes # (auto) 0.5 10 ^3/uL (0-1.3); Monocytes % (auto) 11.5 % (0.0-12.0); Neutrophils # (auto) 2.9 10 ^3/uL (1.6-8.6); Neutrophils % (auto) 68.5 % (37.0-80.0); Platelet Count (auto) 188 10^3/uL (140-450); Red Blood Cells 2.89 10^6/uL (4.0-5.20); Red Cell Distribution Width 13.3 % (11.8-14.3); White Blood Cell 4.2 10^3/uL (4.4-10.8)
[2024-12-21 06:53] LABS: Alkaline Phosphatase 48 U/L (46-116); Anion Gap 14 (5-15); BUN/Creatinine Ratio 17.5 (10.0-20.0); Carbon Dioxide 22 mmol/L (20-31); Chloride 105 mmol/L (98-107); Magnesium 1.9 mg/dL (1.6-2.6); Sodium 141 mmol/L (136-145)
[2024-12-21 06:54] LABS: Albumin 3.5 g/dL (3.2-4.8); Aspartate Aminotransferase 16 U/L (13-40)
[2024-12-21 06:55] LABS: Bilirubin, Total 0.4 mg/dL (0.2-1.0)
[2024-12-21 06:57] LABS: Alanine Aminotransferase < 9 U/L (7-40); Calcium 8.1 mg/dL (8.7-10.4); Glucose 73 mg/dL (74-106); Phosphorus 6.7 mg/dL (2.4-5.1); Potassium 3.4 mmol/L (3.5-5.1); Total Protein 5.5 g/dL (5.7-8.2)
[2024-12-21 06:59] LABS: Blood Urea Nitrogen 96 mg/dL (9-23)
--- NOTE | 2024-12-21 09:37 | DVHPN2 ---
Reviewed: Care Plan, H&P, Labs, Medications, Previous Orders, Radiology Changes from previous H/P or p: No Changes Eyes: No Pain, No Vision change, No Conjunctivae inflammation, No Eyelid inflammation, No Other, No Redness ENT: No Ear pain, No Ear discharge, No Nose pain, No Nose discharge, No Nose congestion, No Mouth pain, No Mouth swelling, No Throat pain, No Throat swelling, No Other Cardiovascular: No Chest Pain, No Palpitations, No Orthopnea, No Paroxysmal Noc. Dyspnea, No Edema, No Lt Headedness, No Other Respiratory: No Cough, No Dry, No Shortness of breath, No SOB with excertion, No Wheezing, No Hemoptysis, No Pleuritic Pain, No Sputum, No Other Gastrointestinal: No Nausea, No Vomiting, No Abdominal Pain, No Diarrhea, No Constipation, No Melena, No Hematochezia; Other (Blood streaked bowel.) Genitourinary: No Dysuria, No Frequency, No Incontinence, No Hematuria, No Retention, No Other Musculoskeletal: No other, No neck pain, No shoulder pain, No arm pain, No back pain, No hand pain, No leg pain, No foot pain Skin: No Rash, No Lesions, No Jaundice, No Bruising, No Other Objective Vitals Vital Signs Date Time Temp Pulse Resp B/P (MAP) Pulse Ox O2 Delivery O2 Flow Rate FiO2 12/21/24 09:00 97.5 60 16 117/50 (72) 95 97.5 12/20/24 20:00 Room Air* 0 21 Intake/Output Intake and Output 12/21/24 07:00 Intake Total 1093 ml Output Total 1375 ml Balance -282 ml Intake Oral 1093 ml Output Urine Total 1375 ml Medications Current Medications Medications Dose Ordered Sig/Socrates Route Start Time Stop Time Status Last Admin Dose Admin Quetiapine Fumarate 25 mg HS PO 12/18/24 22:00 12/20/24 22:36 25 MG Donepezil HCl 10 mg HS PO 12/18/24 22:00 12/20/24 22:36 10 MG Memantine 10 mg DAILY PO 12/19/24 10:00 12/20/24 10:40 10 MG Atorvastatin Calcium 10 mg HS PO 12/18/24 22:00 12/20/24 22:36 10 MG Diagnostic Test (Pha) 1 strip ACHS 12/18/24 22:00 12/21/24 06:39 1 STRIP Insulin Human Regular ACHS SC 12/18/24 22:00 Dextrose 50 ml UD PRN IV 12/18/24 20:00 Sodium Chloride 10 ml Q8HR IV 12/18/24 22:00 12/21/24 06:00 10 ML Acetaminophen/ Hydrocodone Bitart 1 tab Q4HP PRN PO 12/18/24 20:00 Ondansetron HCl 4 mg Q4HP PRN IV 12/18/24 20:00 Docusate Sodium 100 mg BIDPRN PRN PO 12/18/24 20:00 Acetaminophen 650 mg Q6HP PRN PO 12/18/24 20:00 Nitroglycerin 0.4 mg Q5MINP PRN SL 12/18/24 21:00 Morphine Sulfate 2 mg Q30M PRN IV 12/18/24 21:00 Midodrine 10 mg TID@0600,1200,1800 PO 12/19/24 06:00 12/21/24 06:30 10 MG Sodium Chloride 1,000 ml @ 100 mls/hr Q10H IV 12/19/24 15:15 12/20/24 21:15 100 MLS/HR Bumetanide 1 mg BIDD IV 12/20/24 18:00 12/21/24 06:39 1 MG Pantoprazole Sodium 40 mg BID IV 12/20/24 22:00 12/20/24 22:37 40 MG Sucralfate 1 gm BID@0600,2200 PO 12/20/24 22:00 12/21/24 06:30 1 GM Laboratory Results Laboratory Tests 12/21/24 05:17 Chemistry Test 12/21/24 05:17 Albumin 3.5 g/dL (3.2-4.8) Calcium Level 8.1 mg/dL (8.7-10.4) L Magnesium Level 1.9 mg/dL (1.6-2.6) Phosphorus Level 6.7 mg/dL (2.4-5.1) H Total Protein 5.5 g/dL (5.7-8.2) L LFT Test 12/21/24 05:17 Alanine Aminotransferase (ALT) < 9 U/L (7-40) Alkaline Phosphatase 48 U/L (46-116) Aspartate Amino Transferase (AST) 16 U/L (13-40) Total Bilirubin 0.4 mg/dL (0.2-1.0) Urinalysis Test 12/18/24 15:21 Urine Color Yellow (Yellow) Urine Clarity Clear (Clear) Urine pH 6.5 (5.0-9.0) Urine Specific [place] 1.013 (1.001-1.035) Urine Protein Trace (Negative) H Urine Ketones Negative (Negative) Urine Blood Negative /uL (Negative) Urine Nitrite Negative (Negative) Urine Bilirubin Negative (Negative) Urine Urobilinogen Normal mg/dL (Negative) Urine Leukocyte Esterase Negative /uL (Negative) Urine RBC 1 /hpf (0 - 4) Urine Microscopic WBC 3 /HPF (0-5) Urine Squamous Epithelial Cells Few /hpf (<5) Urine Bacteria None seen /hpf (None Seen) Urine Hyaline Casts Few /lpf (0 - 2) Urine Glucose 1+ mg/dL (Normal) H Labs and/or images reviewed: Labs reviewed by me, Image(s) reviewed by me Assessment/Plan Assessment/Plan Acute blood loss anemia hemoglobin down to 8.9 from 14.3, will watch and transfuse if necessary Acute GI bleed, GI consult by Dr. Ian Perez appreciated. Possible endoscopy if hemoglobin continues to go down History of colectomy and colostomy for ulcerative colitis 2007 Dementia Acute kidney injury hemodynamically mediated : Consult for Dr. Unger appreciated, kidney ultrasound negative, BUN creatinine slowly improving from 171/11.57 Severe malnutrition Acute hyperkalemia potassium 7.2: Treatment per protocol, potassium down to 3.4 Acute generalized weakness Failure to thrive Cachexia Time spent 65 minutes General condition poor Advanced care planning 20 minutes Patient is full code Patient's Harpal [phone] and daughter Glory [phone] Patient lives with her daughter [phone] who with a at bedside Midline ordered, we will start clindamycin tomorrow if patient does not eat. Plan discussed with: Patient My Orders Orders - KHOI SUAREZ MD Procedure Category Date Status Time Head Without Contrast CT 12/20/24 Resulted 11:24 Date of Service: Dec 21, 2024 Billing Provider: KHOI SUAREZ MD Common Visit Codes: [id number] INP/OBS CARE(HIGH) KHOI SUAREZ MD Dec 21, 2024 09:37
--- NOTE | 2024-12-21 09:44 | DVHPN2 ---
Progress Note Date Seen: Dec 21, 2024 Medical Necessity Reason Pt with a Central, PICC or Fol: Yes Subjective Patient reports: No new complaints Other Systems: Patient seen and examined by myself today in follow-up Objective vital signs Vital Sign Date Time Temp Pulse Resp B/P (MAP) Pulse Ox O2 Delivery O2 Flow Rate FiO2 12/21/24 09:00 97.5 60 16 117/50 (72) 95 97.5 12/20/24 20:00 Room Air* 0 21 Total Intake and Output 12/20/24 12/20/24 12/21/24 15:00 23:00 07:00 Intake Total 118 ml 500 ml 475 ml Output Total 500 ml 875 ml Balance 118 ml 0 ml -400 ml medications Current Medications Medications Dose Ordered Sig/Socrates Route Start Time Stop Time Status Last Admin Dose Admin Quetiapine Fumarate 25 mg HS PO 12/18/24 22:00 12/20/24 22:36 25 MG Donepezil HCl 10 mg HS PO 12/18/24 22:00 12/20/24 22:36 10 MG Memantine 10 mg DAILY PO 12/19/24 10:00 12/20/24 10:40 10 MG Atorvastatin Calcium 10 mg HS PO 12/18/24 22:00 12/20/24 22:36 10 MG Diagnostic Test (Pha) 1 strip ACHS 12/18/24 22:00 12/21/24 06:39 1 STRIP Insulin Human Regular ACHS SC 12/18/24 22:00 Dextrose 50 ml UD PRN IV 12/18/24 20:00 Sodium Chloride 10 ml Q8HR IV 12/18/24 22:00 12/21/24 06:00 10 ML Acetaminophen/ Hydrocodone Bitart 1 tab Q4HP PRN PO 12/18/24 20:00 Ondansetron HCl 4 mg Q4HP PRN IV 12/18/24 20:00 Docusate Sodium 100 mg BIDPRN PRN PO 12/18/24 20:00 Acetaminophen 650 mg Q6HP PRN PO 12/18/24 20:00 Nitroglycerin 0.4 mg Q5MINP PRN SL 12/18/24 21:00 Morphine Sulfate 2 mg Q30M PRN IV 12/18/24 21:00 Midodrine 10 mg TID@0600,1200,1800 PO 3/8/25 06:00 12/21/24 06:30 10 MG Sodium Chloride 1,000 ml @ 100 mls/hr Q10H IV 12/19/24 15:15 12/20/24 21:15 100 MLS/HR Bumetanide 1 mg BIDD IV 12/20/24 18:00 12/21/24 06:39 1 MG Pantoprazole Sodium 40 mg BID IV 12/20/24 22:00 12/20/24 22:37 40 MG Sucralfate 1 gm BID@0600,2200 PO 12/20/24 22:00 12/21/24 06:30 1 GM Examination: LUNGS:Normal, CVS:Normal, MSK:Normal laboratory and microbiology Laboratory Tests 12/21/24 05:17 Test 12/21/24 05:17 Range/Units Serum Glucose 73 L 74-106 mg/dL Problem List/Assessment/Plan Problem List/Assessment/Plan Acute kidney injury superimposed Chronic Kidney Disease secondary hemodynamic mediated Ulcerative colitis status post ileostomy Acute blood loss anemia secondary to GI bleed Hypokalemia Recommendations Kidney function continue to improve Increased urine output Montalvo catheter Strict I&Os DC Bumex KCL replacement And I agree with IV fluid hydration GI consult Check urine lytes Check kidney ultrasound We will continue to follow up Plan discussed with: Patient Dietary Evaluation Review Recommendations by RD: Protein Supplementation Comments: 1) Initiate Nepro tid d/t poor intake 2) Add low phos restriction to renal diet 3) Consider Renvela tid d/t hyperkalemia 4) Consult nephrology 5) If patient does not receive nutrition support within 7 days, consider EN/TPN to meet 75% daily estimated needs. Expected Outcomes/Goals: 1) appetite and labs to improve 2) f/u in 3 days JESSI GABRIEL MD Dec 21, 2024 09:44
--- NOTE | 2024-12-21 11:29 | DVHPN2 ---
Progress Note Date Seen: Dec 21, 2024 Resident Creating Document: DORI HENDRIX RESIDENT Medical Necessity Reason Pt with a Central, PICC or Fol: Yes Subjective Review of Systems Patient seen at bedside, resting comfortably Ileostomy output emptied this AM without any blood or clots Patient and daughter at bedside notes decreased appetite denies any nausea or vomiting mild b/l flank tenderness to palpation elevation in AST, ALT, ALP noted Her hemoglobin has dropped to 8.9 from 9.5 yesterday Patient has acute kidney failure with elevated BUN creatinine Objective vital signs Vital Sign Date Time Temp Pulse Resp B/P (MAP) Pulse Ox O2 Delivery O2 Flow Rate FiO2 12/21/24 09:00 97.5 60 16 117/50 (72) 95 97.5 12/20/24 20:00 Room Air* 0 21 Total Intake and Output 12/20/24 12/20/24 12/21/24 15:00 23:00 07:00 Intake Total 118 ml 500 ml 475 ml Output Total 500 ml 875 ml Balance 118 ml 0 ml -400 ml medications Current Medications Medications Dose Ordered Sig/Socrates Route Start Time Stop Time Status Last Admin Dose Admin Quetiapine Fumarate 25 mg HS PO 12/18/24 22:00 12/20/24 22:36 25 MG Donepezil HCl 10 mg HS PO 12/18/24 22:00 12/20/24 22:36 10 MG Memantine 10 mg DAILY PO 12/19/24 10:00 12/21/24 11:18 10 MG Atorvastatin Calcium 10 mg HS PO 12/18/24 22:00 12/20/24 22:36 10 MG Diagnostic Test (Pha) 1 strip ACHS 12/18/24 22:00 12/21/24 06:39 1 STRIP Insulin Human Regular ACHS SC 12/18/24 22:00 Dextrose 50 ml UD PRN IV 12/18/24 20:00 Sodium Chloride 10 ml Q8HR IV 12/18/24 22:00 12/21/24 06:00 10 ML Acetaminophen/ Hydrocodone Bitart 1 tab Q4HP PRN PO 12/18/24 20:00 Ondansetron HCl 4 mg Q4HP PRN IV 12/18/24 20:00 Docusate Sodium 100 mg BIDPRN PRN PO 12/18/24 20:00 Acetaminophen 650 mg Q6HP PRN PO 12/18/24 20:00 Nitroglycerin 0.4 mg Q5MINP PRN SL 12/18/24 21:00 Morphine Sulfate 2 mg Q30M PRN IV 12/18/24 21:00 Midodrine 10 mg TID@0600,1200,1800 PO 12/19/24 06:00 12/21/24 11:18 10 MG Sodium Chloride 1,000 ml @ 100 mls/hr Q10H IV 12/19/24 15:15 12/20/24 21:15 100 MLS/HR Pantoprazole Sodium 40 mg BID IV 12/20/24 22:00 12/20/24 22:37 40 MG Sucralfate 1 gm BID@0600,2200 PO 12/20/24 22:00 12/21/24 06:30 1 GM Potassium Chloride 100 ml @ 50 mls/hr Q2H IV 12/21/24 09:45 12/21/24 13:44 UNV Examination General Appearance: Cooperative. Well developed. Well nourished. Alert elderly female, no distress. Head Exam: Normal inspection. Conjunctival pallor Neck Exam: Normal inspection. Non-tender. Normal alignment Pulmonary/Respiratory: Chest non-tender. Clear bilateral breath sounds Cardiovascular/Chest: Regular rate and rhythm. No murmurs. No JVD. Abdominal Exam: Normal bowel sounds. Soft. Nontender. No hepatospenomegaly. No masses. Ileostomy in place right upper quadrant, no tenderness to palpation, no erythema noted. Ankle Exam: Negative ankle edema Lower extremities: Negative lower extremity edema Neuro/Mental Status: A&O x4. Coherent Thoughts/Psych: Normal thought pattern. Appropriate mood and affect. Good judgement and insight Appearance: In no acute distress Skin Exam: Normal inspection. Normal color. Warm. Dry laboratory and microbiology Laboratory Tests 12/21/24 05:17 Test 12/21/24 05:17 Range/Units Serum Glucose 73 L 74-106 mg/dL Labs and/or images reviewed: Labs reviewed by me, Image(s) reviewed by me Problem List/Assessment/Plan Problem List/Assessment/Plan Gastrointestinal hemorrhage Positive stool occult blood SANCHEZ on CKD Generalized weakness possibly due to a bowel Electrolyte imbalance Hyperglycemia Assessment plan Started megestrol 400ml daily Source of bleeding possibly upper GI from peptic ulcer disease, versus bleeding locally from ileostomy site Continue observation and monitoring her labs Transfused 1 unit PRBC if hemoglobin is less than seven DC aspirin NSAIDs blood thinners Patient has worsening renal function and is currently being evaluated by Nephrology ; needs stabilization from nephro point of view Protonix 40 mg IV q.12 hours We will be standing by for an endoscopy if clinically indicated or if she shows signs of active GI bleeding Plan discussed with: Patient, Daughter, Other (RN) Dietary Evaluation Review Recommendations by RD: Protein Supplementation Comments: 1) Initiate Nepro tid d/t poor intake 2) Add low phos restriction to renal diet 3) Consider Renvela tid d/t hyperkalemia 4) Consult nephrology 5) If patient does not receive nutrition support within 7 days, consider EN/TPN to meet 75% daily estimated needs. Expected Outcomes/Goals: 1) appetite and labs to improve 2) f/u in 3 days DORI HENDRIX RESIDENT Dec 21, 2024 11:29
--- NOTE | 2024-12-21 12:26 | DVH ---
INDICATION: sissy TECHNIQUE: Multiple real-time sonographic images of the kidneys and bladder were obtained. COMPARISON: None FINDINGS: The right kidney measures 8 cm in length, which is normal in size. There is normal echogeni city of the right kidney. No hydronephrosis. 2cm right renal cyst. The left kidney measures 9 cm in length, which is normal in size. There is normal echogenicity of the left kidney. No hydronephrosis. 2 cm echogenic left renal mass. IMPRESSION: 2 cm echogenic left renal mass. MRI renal/CT renal mass protocol suggested.
[2024-12-21] MEDS ORDERED: MEGESTROL ACET 400MG/10ML ORAL SUSP PO SCH (13:00)
[2024-12-21] MEDS: POTASSIUM CHL 20MEQ/100ML 100 ML IV SCH ×2 (15:49→18:00)
[2024-12-21 20:04] LABS: Urine Bacteria FEW /hpf (None Seen); Urine Blood 1+ /uL (Negative); Urine Clarity Turbid (Clear); Urine Color Light-Yellow (Yellow); Urine Hyaline Cast FEW /lpf (0 - 2); Urine Protein, UAD 1+ (Negative); Urine Specific Gravity 1.013 (1.001-1.035); Urine Squamous Epithelial Cell FEW /hpf (<5); Urine Urobilinogen Normal (Negative); Urine WBC 19 /HPF (0-5); Urine pH 5.5 (5.0-9.0)
[2024-12-21 20:18] LABS: Protein, Urine 52.8 mg/dL (1-14)
[2024-12-21 20:21] LABS: Creatinine, Urine 73.86 mg/dL (30.0-125.0); Urine Protein/Creatinine Ratio 0.71
[2024-12-21] MEDS: MEGESTROL ACETATE 20 MG TAB PO SCH (22:00)
[2024-12-22] VITALS (8 sets, daily range): BP systolic 90–131; BP diastolic 36–54; PULSE 58–80; RESP 15–18; TEMP 96.1–97.8; O2SAT 91–98
[2024-12-22 06:49] LABS: Basophils # (auto) 0 10 ^3/uL (0-0.2); Basophils % (auto) 0.7 % (0.0-2.0); Eosinophils # (auto) 0.1 10 ^3/uL (0-0.8); Eosinophils % (auto) 1.9 % (0.0-7.0); Hematocrit 26.3 % (36.0-46.0); Lymphocytes % (auto) 26.4 % (10.0-50.0); Mean Corpuscular Hemoglobin 31.2 pg (28.0-32.0); Mean Corpuscular Hgb Conc. 34.2 g/dL (32.0-36.0); Mean Corpuscular Volume 91.1 fL (80.0-100.0); Monocytes # (auto) 0.5 10 ^3/uL (0-1.3); Monocytes % (auto) 11.7 % (0.0-12.0); Neutrophils # (auto) 2.4 10 ^3/uL (1.6-8.6); Neutrophils % (auto) 59.3 % (37.0-80.0); Platelet Count (auto) 180 10^3/uL (140-450); Red Blood Cells 2.88 10^6/uL (4.0-5.20); Red Cell Distribution Width 13.3 % (11.8-14.3)
[2024-12-22 06:55] LABS: Alanine Aminotransferase 10 U/L (7-40); Albumin 3.4 g/dL (3.2-4.8); Alkaline Phosphatase 47 U/L (46-116); Anion Gap 11 (5-15); Aspartate Aminotransferase 18 U/L (13-40); BUN/Creatinine Ratio 16.3 (10.0-20.0); Bilirubin, Total 0.4 mg/dL (0.2-1.0); Carbon Dioxide 23 mmol/L (20-31); Glucose 82 mg/dL (74-106); Potassium 3.6 mmol/L (3.5-5.1); Sodium 143 mmol/L (136-145)
[2024-12-22 06:58] LABS: Blood Urea Nitrogen 65 mg/dL (9-23); Chloride 109 mmol/L (98-107); Total Protein 5.4 g/dL (5.7-8.2)
--- NOTE | 2024-12-22 09:26 | DVHPN2 ---
Reviewed: Care Plan, H&P, Labs, Medications, Previous Orders, Radiology Changes from previous H/P or p: No Changes Eyes: No Pain, No Vision change, No Conjunctivae inflammation, No Eyelid inflammation, No Other, No Redness ENT: No Ear pain, No Ear discharge, No Nose pain, No Nose discharge, No Nose congestion, No Mouth pain, No Mouth swelling, No Throat pain, No Throat swelling, No Other Cardiovascular: No Chest Pain, No Palpitations, No Orthopnea, No Paroxysmal Noc. Dyspnea, No Edema, No Lt Headedness, No Other Respiratory: No Cough, No Dry, No Shortness of breath, No SOB with excertion, No Wheezing, No Hemoptysis, No Pleuritic Pain, No Sputum, No Other Gastrointestinal: No Nausea, No Vomiting, No Abdominal Pain, No Diarrhea, No Constipation, No Melena, No Hematochezia; Other (Blood streaked bowel.) Genitourinary: No Dysuria, No Frequency, No Incontinence, No Hematuria, No Retention, No Other Musculoskeletal: No other, No neck pain, No shoulder pain, No arm pain, No back pain, No hand pain, No leg pain, No foot pain Skin: No Rash, No Lesions, No Jaundice, No Bruising, No Other Objective Vitals Vital Signs Date Time Temp Pulse Resp B/P (MAP) Pulse Ox O2 Delivery O2 Flow Rate FiO2 12/22/24 08:00 Room Air* 0 21 12/22/24 05:00 97.8 75 16 127/54 (78) 98 97.8 Intake/Output Intake and Output 12/22/24 07:00 Intake Total 1380 ml Output Total 920 ml Balance 460 ml Intake Oral 1280 ml IV Total 100 ml Output Urine Total 520 ml Stool Total 400 ml Medications Current Medications Medications Dose Ordered Sig/Socrates Route Start Time Stop Time Status Last Admin Dose Admin Quetiapine Fumarate 25 mg HS PO 12/18/24 22:00 12/21/24 21:13 25 MG Donepezil HCl 10 mg HS PO 12/18/24 22:00 12/21/24 21:13 10 MG Memantine 10 mg DAILY PO 12/19/24 10:00 12/21/24 11:18 10 MG Atorvastatin Calcium 10 mg HS PO 12/18/24 22:00 12/21/24 21:13 10 MG Diagnostic Test (Pha) 1 strip ACHS 12/18/24 22:00 12/22/24 06:28 1 STRIP Insulin Human Regular ACHS SC 12/18/24 22:00 Dextrose 50 ml UD PRN IV 12/18/24 20:00 Sodium Chloride 10 ml Q8HR IV 12/18/24 22:00 12/22/24 05:17 10 ML Acetaminophen/ Hydrocodone Bitart 1 tab Q4HP PRN PO 12/18/24 20:00 Ondansetron HCl 4 mg Q4HP PRN IV 12/18/24 20:00 Docusate Sodium 100 mg BIDPRN PRN PO 12/18/24 20:00 Acetaminophen 650 mg Q6HP PRN PO 12/18/24 20:00 Nitroglycerin 0.4 mg Q5MINP PRN SL 12/18/24 21:00 Morphine Sulfate 2 mg Q30M PRN IV 12/18/24 21:00 Midodrine 10 mg TID@0600,1200,1800 PO 12/19/24 06:00 12/22/24 05:17 10 MG Sodium Chloride 1,000 ml @ 100 mls/hr Q10H IV 12/19/24 15:15 12/22/24 04:38 100 MLS/HR Pantoprazole Sodium 40 mg BID IV 12/20/24 22:00 12/21/24 21:11 40 MG Sucralfate 1 gm BID@0600,2200 PO 12/20/24 22:00 12/22/24 05:17 1 GM Megestrol Acetate 20 mg BID PO 12/21/24 22:00 Laboratory Results Laboratory Tests 12/22/24 04:58 Chemistry Test 12/21/24 13:18 12/22/24 04:58 Magnesium Level 1.8 mg/dL (1.6-2.6) Albumin 3.4 g/dL (3.2-4.8) Calcium Level 8.0 mg/dL (8.7-10.4) L Total Protein 5.4 g/dL (5.7-8.2) L LFT Test 12/22/24 04:58 Alanine Aminotransferase (ALT) 10 U/L (7-40) Alkaline Phosphatase 47 U/L (46-116) Aspartate Amino Transferase (AST) 18 U/L (13-40) Total Bilirubin 0.4 mg/dL (0.2-1.0) Urinalysis Test 12/21/24 19:40 Urine Color Light-yellow (Yellow) Urine Clarity Turbid (Clear) H Urine pH 5.5 (5.0-9.0) Urine Specific [place] 1.013 (1.001-1.035) Urine Protein 1+ (Negative) H Urine Ketones Negative (Negative) Urine Blood 1+ /uL (Negative) H Urine Nitrite 2+ (Negative) H Urine Bilirubin Negative (Negative) Urine Urobilinogen Normal mg/dL (Negative) Urine Leukocyte Esterase 2+ /uL (Negative) Urine RBC 18 /hpf (0 - 4) Urine Microscopic WBC 19 /HPF (0-5) H Urine Squamous Epithelial Cells Few /hpf (<5) Urine Bacteria Few /hpf (None Seen) H Urine Hyaline Casts Few /lpf (0 - 2) Urine Creatinine 73.86 mg/dL (30.0-125.0) Urine Protein/Creatinine Ratio 0.71 Urine Sodium 16 mmol/L (40-220) L Urine Glucose Normal mg/dL (Normal) Urine Total Protein 52.8 mg/dL (1-14) H Labs and/or images reviewed: Labs reviewed by me, Image(s) reviewed by me Assessment/Plan Assessment/Plan Acute blood loss anemia hemoglobin down to 8.9 from 14.3, and stable, will watch and transfuse if necessary Acute GI bleed, GI consult by Dr. Sosa, and Dr. Perez appreciated. Possible endoscopy if hemoglobin continues to go down, pantoprazole Carafate History of colectomy and ileostomy for ulcerative colitis 2007 Dementia Acute kidney injury hemodynamically mediated : Consult for Dr. Unger appreciated, kidney ultrasound negative, BUN creatinine slowly improving from 171/11.57 to 65/3.99 Severe malnutrition Acute hyperkalemia potassium 7.2: Treatment per protocol, potassium down to 3.4 Acute generalized weakness Failure to thrive: Megace 20 mg p.o. b.i.d. Cachexia UTI: Blood cultures urine cultures Rocephin Time spent 65 minutes General condition poor Advanced care planning 20 minutes Patient is full code Patient's Harpal [phone] and daughter Glory [phone] Patient lives with her daughter [phone] who with a at bedside Patient has midline Plan discussed with: Patient My Orders Orders - KHOI SUAREZ MD Procedure Category Date Status Time Insert Midline ORDERS 12/21/24 Transmitted 09:50 Mechanical Soft Diet DIET 12/21/24 Transmitted Dinner Blood Culture RUTH 12/22/24 Logged 09:12 Urine Bacterial RUTH 12/22/24 Logged Culture 09:12 Ceftriaxone Ivpb PHA 12/23/24 Transmitted Rocephin 09:00 Ceftriaxone Ivpb PHA 12/22/24 Transmitted Rocephin 09:15 Date of Service: Dec 22, 2024 Billing Provider: KHOI SUAREZ MD Common Visit Codes: [id number] CARE 30-74 MIN KHOI SUAREZ MD Dec 22, 2024 09:26
[2024-12-22] MEDS: cefTRIAXone 1GM/50ML D5W 50 ML IV ONE (09:49)
--- NOTE | 2024-12-22 10:47 | DVHPN2 ---
Progress Note Date Seen: Dec 22, 2024 Resident Creating Document: DORI HENDRIX RESIDENT Medical Necessity Reason Pt with a Central, PICC or Fol: Yes Subjective Review of Systems Patient seen at bedside, resting comfortably Ileostomy output emptied this AM without any blood or clots, brownish output Patient and daughter at bedside improved from yesterday appetite denies any nausea or vomiting mild b/l flank tenderness to palpation Hb stable at 9, 8.9 yesterday Patient has acute kidney failure with elevated BUN creatinine Objective vital signs Vital Sign Date Time Temp Pulse Resp B/P (MAP) Pulse Ox O2 Delivery O2 Flow Rate FiO2 12/22/24 09:00 97.5 80 18 100/50 (67) 97 97.5 12/22/24 08:00 Room Air* 0 21 Total Intake and Output 12/21/24 12/21/24 12/22/24 15:00 23:00 07:00 Intake Total 580 ml 800 ml Output Total 920 ml Balance 580 ml -120 ml medications Current Medications Medications Dose Ordered Sig/Socrates Route Start Time Stop Time Status Last Admin Dose Admin Quetiapine Fumarate 25 mg HS PO 12/18/24 22:00 12/21/24 21:13 25 MG Donepezil HCl 10 mg HS PO 12/18/24 22:00 12/21/24 21:13 10 MG Memantine 10 mg DAILY PO 12/19/24 10:00 12/22/24 09:50 10 MG Atorvastatin Calcium 10 mg HS PO 12/18/24 22:00 12/21/24 21:13 10 MG Diagnostic Test (Pha) 1 strip ACHS 12/18/24 22:00 12/22/24 06:28 1 STRIP Insulin Human Regular ACHS SC 12/18/24 22:00 Dextrose 50 ml UD PRN IV 12/18/24 20:00 Sodium Chloride 10 ml Q8HR IV 12/18/24 22:00 12/22/24 05:17 10 ML Acetaminophen/ Hydrocodone Bitart 1 tab Q4HP PRN PO 12/18/24 20:00 Ondansetron HCl 4 mg Q4HP PRN IV 12/18/24 20:00 Docusate Sodium 100 mg BIDPRN PRN PO 12/18/24 20:00 Acetaminophen 650 mg Q6HP PRN PO 12/18/24 20:00 Nitroglycerin 0.4 mg Q5MINP PRN SL 12/18/24 21:00 Morphine Sulfate 2 mg Q30M PRN IV 12/18/24 21:00 Midodrine 10 mg TID@0600,1200,1800 PO 12/19/24 06:00 12/22/24 05:17 10 MG Sodium Chloride 1,000 ml @ 100 mls/hr Q10H IV 12/19/24 15:15 12/22/24 04:38 100 MLS/HR Pantoprazole Sodium 40 mg BID IV 12/20/24 22:00 12/22/24 09:49 40 MG Sucralfate 1 gm BID@0600,2200 PO 12/20/24 22:00 12/22/24 05:17 1 GM Megestrol Acetate 20 mg BID PO 12/21/24 22:00 Ceftriaxone Sodium 50 ml @ 100 mls/hr DAILY@09 IV 12/23/24 09:00 Examination General Appearance: Cooperative. Well developed. Well nourished. Alert elderly female, no distress. Head Exam: Normal inspection. Conjunctival pallor Neck Exam: Normal inspection. Non-tender. Normal alignment Pulmonary/Respiratory: Chest non-tender. Clear bilateral breath sounds Cardiovascular/Chest: Regular rate and rhythm. No murmurs. No JVD. Abdominal Exam: Normal bowel sounds. Soft. Nontender. No hepatospenomegaly. No masses. Ileostomy in place right upper quadrant, no tenderness to palpation, no erythema noted. Ankle Exam: Negative ankle edema Lower extremities: Negative lower extremity edema Neuro/Mental Status: A&O x4. Coherent Thoughts/Psych: Normal thought pattern. Appropriate mood and affect. Good judgement and insight Appearance: In no acute distress Skin Exam: Normal inspection. Normal color. Warm. Dry laboratory and microbiology Laboratory Tests 12/22/24 04:58 Test 12/22/24 04:58 Range/Units Serum Glucose 82 74-106 mg/dL Labs and/or images reviewed: Labs reviewed by me, Image(s) reviewed by me Problem List/Assessment/Plan Problem List/Assessment/Plan Gastrointestinal hemorrhage Positive stool occult blood SANCHEZ on CKD Generalized weakness possibly due to a bowel Electrolyte imbalance Hyperglycemia Assessment plan Started megestrol 20mg bid Source of bleeding possibly upper GI from peptic ulcer disease, versus bleeding locally from ileostomy site Continue observation and monitoring her labs Transfused 1 unit PRBC if hemoglobin is less than seven DC aspirin NSAIDs blood thinners Patient has worsening renal function and is currently being evaluated by Nephrology ; needs stabilization from nephro point of view Protonix 40 mg IV q.12 hours we will proceed with EGD tomorrow Plan discussed with: Patient, Daughter, Other (RN) Dietary Evaluation Review Recommendations by RD: Protein Supplementation Comments: 1) Initiate Nepro tid d/t poor intake 2) Add low phos restriction to renal diet 3) Consider Renvela tid d/t hyperkalemia 4) Consult nephrology 5) If patient does not receive nutrition support within 7 days, consider EN/TPN to meet 75% daily estimated needs. Expected Outcomes/Goals: 1) appetite and labs to improve 2) f/u in 3 days DORI HENDRIX RESIDENT Dec 22, 2024 10:47
--- NOTE | 2024-12-22 10:53 | DVHPN2 ---
Progress Note Date Seen: Dec 22, 2024 Medical Necessity Reason Pt with a Central, PICC or Fol: Yes Subjective Patient reports: No new complaints Other Systems: Patient seen and examined by myself today in follow-up Objective vital signs Vital Sign Date Time Temp Pulse Resp B/P (MAP) Pulse Ox O2 Delivery O2 Flow Rate FiO2 12/22/24 09:00 97.5 80 18 100/50 (67) 97 97.5 12/22/24 08:00 Room Air* 0 21 Total Intake and Output 12/21/24 12/21/24 12/22/24 15:00 23:00 07:00 Intake Total 580 ml 800 ml Output Total 920 ml Balance 580 ml -120 ml medications Current Medications Medications Dose Ordered Sig/Socrates Route Start Time Stop Time Status Last Admin Dose Admin Quetiapine Fumarate 25 mg HS PO 12/18/24 22:00 12/21/24 21:13 25 MG Donepezil HCl 10 mg HS PO 12/18/24 22:00 12/21/24 21:13 10 MG Memantine 10 mg DAILY PO 12/19/24 10:00 12/22/24 09:50 10 MG Atorvastatin Calcium 10 mg HS PO 12/18/24 22:00 12/21/24 21:13 10 MG Diagnostic Test (Pha) 1 strip ACHS 12/18/24 22:00 12/22/24 06:28 1 STRIP Insulin Human Regular ACHS SC 12/18/24 22:00 Dextrose 50 ml UD PRN IV 12/18/24 20:00 Sodium Chloride 10 ml Q8HR IV 12/18/24 22:00 12/22/24 05:17 10 ML Acetaminophen/ Hydrocodone Bitart 1 tab Q4HP PRN PO 12/18/24 20:00 Ondansetron HCl 4 mg Q4HP PRN IV 12/18/24 20:00 Docusate Sodium 100 mg BIDPRN PRN PO 12/18/24 20:00 Acetaminophen 650 mg Q6HP PRN PO 12/18/24 20:00 Nitroglycerin 0.4 mg Q5MINP PRN SL 12/18/24 21:00 Morphine Sulfate 2 mg Q30M PRN IV 12/18/24 21:00 Midodrine 10 mg TID@0600,1200,1800 PO 12/19/24 06:00 12/22/24 05:17 10 MG Sodium Chloride 1,000 ml @ 100 mls/hr Q10H IV 12/19/24 15:15 12/22/24 04:38 100 MLS/HR Pantoprazole Sodium 40 mg BID IV 12/20/24 22:00 12/22/24 09:49 40 MG Sucralfate 1 gm BID@0600,2200 PO 12/20/24 22:00 12/22/24 05:17 1 GM Megestrol Acetate 20 mg BID PO 12/21/24 22:00 Ceftriaxone Sodium 50 ml @ 100 mls/hr DAILY@09 IV 12/23/24 09:00 Examination: LUNGS:Normal, CVS:Normal, MSK:Normal laboratory and microbiology Laboratory Tests 12/22/24 04:58 Test 12/22/24 04:58 Range/Units Serum Glucose 82 74-106 mg/dL Problem List/Assessment/Plan Problem List/Assessment/Plan Acute kidney injury superimposed Chronic Kidney Disease secondary hemodynamic mediated, feNa < 1% Ulcerative colitis status post ileostomy Acute blood loss anemia secondary to GI bleed Hypokalemia Left kidney mass Recommendations Kidney function continue to improve Increased urine output Montalvo catheter Strict I&Os DC Bumex KCL replacement And I agree with IV fluid hydration GI consult kidney ultrasound reported 2 cm left kidney mass Urology consult We will continue to follow up Plan discussed with: Patient Dietary Evaluation Review Recommendations by RD: Protein Supplementation Comments: 1) Initiate Nepro tid d/t poor intake 2) Add low phos restriction to renal diet 3) Consider Renvela tid d/t hyperkalemia 4) Consult nephrology 5) If patient does not receive nutrition support within 7 days, consider EN/TPN to meet 75% daily estimated needs. Expected Outcomes/Goals: 1) appetite and labs to improve 2) f/u in 3 days JESSI GABRIEL MD Dec 22, 2024 10:52
[2024-12-22] MEDS ORDERED: FOLI-119 PO ×2 (15:37→16:05)
[2024-12-22] MEDS ORDERED: CALC750T OR ×2 (15:39→15:58)
[2024-12-22] MEDS ORDERED: IBAN1TAB2 PO (15:41)
[2024-12-22] MEDS ORDERED: FENO54TA4 PO (15:47)
[2024-12-22] MEDS ORDERED: SIMV40TA18 PO (15:48)
[2024-12-22] MEDS ORDERED: QUET50TA PO (15:51)
[2024-12-22] MEDS ORDERED: MEMA1TAB5 PO (15:52)
[2024-12-22] MEDS ORDERED: DONE1TAB88 PO (15:52)
[2024-12-23] VITALS (9 sets, daily range): BP systolic 93–113; BP diastolic 38–48; PULSE 67–87; RESP 16–17; TEMP 97–98.2; O2SAT 91–99
[2024-12-23 06:17] LABS: Basophils # (auto) 0 10 ^3/uL (0-0.2); Basophils % (auto) 0.8 % (0.0-2.0); Eosinophils # (auto) 0.1 10 ^3/uL (0-0.8); Eosinophils % (auto) 1.9 % (0.0-7.0); Hematocrit 26.3 % (36.0-46.0); Lymphocytes # (auto) 0.8 10 ^3/uL (0.4-5.4); Lymphocytes % (auto) 18.9 % (10.0-50.0); Mean Corpuscular Hemoglobin 31.4 pg (28.0-32.0); Mean Corpuscular Hgb Conc. 34.1 g/dL (32.0-36.0); Monocytes # (auto) 0.4 10 ^3/uL (0-1.3); Monocytes % (auto) 9.9 % (0.0-12.0); Neutrophils # (auto) 2.9 10 ^3/uL (1.6-8.6); Neutrophils % (auto) 68.5 % (37.0-80.0); Platelet Count (auto) 169 10^3/uL (140-450); Red Blood Cells 2.86 10^6/uL (4.0-5.20); Red Cell Distribution Width 13.8 % (11.8-14.3); White Blood Cell 4.3 10^3/uL (4.4-10.8)
[2024-12-23 06:40] LABS: INR 1.05 (0.9-1.15); Partial Thromboplastin Time 26.8 SEC (24.5-34.5); Prothrombin Time 11.1 sec (9.3-11.8)
[2024-12-23 06:42] LABS: Alanine Aminotransferase 12 U/L (7-40); Albumin 3.5 g/dL (3.2-4.8); Alkaline Phosphatase 53 U/L (46-116); Anion Gap 11 (5-15); Aspartate Aminotransferase 24 U/L (13-40); BUN/Creatinine Ratio 12.9 (10.0-20.0); Carbon Dioxide 20 mmol/L (20-31); Glucose 85 mg/dL (74-106); Sodium 144 mmol/L (136-145)
[2024-12-23 06:43] LABS: Bilirubin, Total 0.4 mg/dL (0.2-1.0)
[2024-12-23 06:47] LABS: Blood Urea Nitrogen 37 mg/dL (9-23); Calcium 7.8 mg/dL (8.7-10.4); Chloride 113 mmol/L (98-107); Potassium 3.4 mmol/L (3.5-5.1); Total Protein 5.6 g/dL (5.7-8.2)
--- NOTE | 2024-12-23 08:33 | DVHPN2 ---
Reviewed: Care Plan, H&P, Labs, Medications, Previous Orders, Radiology Changes from previous H/P or p: No Changes Eyes: No Pain, No Vision change, No Conjunctivae inflammation, No Eyelid inflammation, No Other, No Redness ENT: No Ear pain, No Ear discharge, No Nose pain, No Nose discharge, No Nose congestion, No Mouth pain, No Mouth swelling, No Throat pain, No Throat swelling, No Other Cardiovascular: No Chest Pain, No Palpitations, No Orthopnea, No Paroxysmal Noc. Dyspnea, No Edema, No Lt Headedness, No Other Respiratory: No Cough, No Dry, No Shortness of breath, No SOB with excertion, No Wheezing, No Hemoptysis, No Pleuritic Pain, No Sputum, No Other Gastrointestinal: No Nausea, No Vomiting, No Abdominal Pain, No Diarrhea, No Constipation, No Melena, No Hematochezia; Other (Blood streaked bowel.) Genitourinary: No Dysuria, No Frequency, No Incontinence, No Hematuria, No Retention, No Other Musculoskeletal: No other, No neck pain, No shoulder pain, No arm pain, No back pain, No hand pain, No leg pain, No foot pain Skin: No Rash, No Lesions, No Jaundice, No Bruising, No Other Objective Vitals Vital Signs Date Time Temp Pulse Resp B/P (MAP) Pulse Ox O2 Delivery O2 Flow Rate FiO2 12/23/24 05:00 97.7 85 17 113/47 (69) 98 97.7 12/22/24 20:00 Room Air* 0 21 Intake/Output Intake and Output 12/23/24 07:00 Intake Total 2180 ml Output Total 1330 ml Balance 850 ml Intake Oral 830 ml IV Total 1350 ml Output Urine Total 1010 ml Stool Total 320 ml Medications Current Medications Medications Dose Ordered Sig/Socrates Route Start Time Stop Time Status Last Admin Dose Admin Quetiapine Fumarate 25 mg HS PO 12/18/24 22:00 12/22/24 21:26 25 MG Donepezil HCl 10 mg HS PO 12/18/24 22:00 12/22/24 21:26 10 MG Memantine 10 mg DAILY PO 12/19/24 10:00 12/22/24 09:50 10 MG Atorvastatin Calcium 10 mg HS PO 12/18/24 22:00 12/22/24 21:27 10 MG Diagnostic Test (Pha) 1 strip ACHS 3/7/25 22:00 12/23/24 08:10 1 STRIP Insulin Human Regular ACHS SC 12/18/24 22:00 12/22/24 12:03 2 UNITS Dextrose 50 ml UD PRN IV 12/18/24 20:00 Sodium Chloride 10 ml Q8HR IV 12/18/24 22:00 12/23/24 05:10 10 ML Acetaminophen/ Hydrocodone Bitart 1 tab Q4HP PRN PO 12/18/24 20:00 Ondansetron HCl 4 mg Q4HP PRN IV 12/18/24 20:00 Docusate Sodium 100 mg BIDPRN PRN PO 12/18/24 20:00 Acetaminophen 650 mg Q6HP PRN PO 12/18/24 20:00 Nitroglycerin 0.4 mg Q5MINP PRN SL 12/18/24 21:00 Morphine Sulfate 2 mg Q30M PRN IV 12/18/24 21:00 Midodrine 10 mg TID@0600,1200,1800 PO 12/19/24 06:00 12/23/24 05:26 10 MG Sodium Chloride 1,000 ml @ 100 mls/hr Q10H IV 12/19/24 15:15 12/22/24 16:11 100 MLS/HR Pantoprazole Sodium 40 mg BID IV 12/20/24 22:00 12/22/24 21:26 40 MG Sucralfate 1 gm BID@0600,2200 PO 12/20/24 22:00 12/23/24 05:26 1 GM Megestrol Acetate 20 mg BID PO 12/21/24 22:00 Ceftriaxone Sodium 50 ml @ 100 mls/hr DAILY@09 IV 12/23/24 09:00 Laboratory Results Laboratory Tests 12/23/24 04:53 Chemistry Test 12/23/24 04:53 Albumin 3.5 g/dL (3.2-4.8) Calcium Level 7.8 mg/dL (8.7-10.4) L Total Protein 5.6 g/dL (5.7-8.2) L Coagulation Test 12/23/24 06:05 Prothrombin Time 11.1 sec (9.3-11.8) Prothrombin Time INR 1.05 (0.9-1.15) Activated Partial Thromboplast Time 26.8 SEC (24.5-34.5) LFT Test 12/23/24 04:53 Alanine Aminotransferase (ALT) 12 U/L (7-40) Alkaline Phosphatase 53 U/L (46-116) Aspartate Amino Transferase (AST) 24 U/L (13-40) Total Bilirubin 0.4 mg/dL (0.2-1.0) Urinalysis Test 12/21/24 19:40 Urine Color Light-yellow (Yellow) Urine Clarity Turbid (Clear) H Urine pH 5.5 (5.0-9.0) Urine Specific [place] 1.013 (1.001-1.035) Urine Protein 1+ (Negative) H Urine Ketones Negative (Negative) Urine Blood 1+ /uL (Negative) H Urine Nitrite 2+ (Negative) H Urine Bilirubin Negative (Negative) Urine Urobilinogen Normal mg/dL (Negative) Urine Leukocyte Esterase 2+ /uL (Negative) Urine RBC 18 /hpf (0 - 4) Urine Microscopic WBC 19 /HPF (0-5) H Urine Squamous Epithelial Cells Few /hpf (<5) Urine Bacteria Few /hpf (None Seen) H Urine Hyaline Casts Few /lpf (0 - 2) Urine Creatinine 73.86 mg/dL (30.0-125.0) Urine Protein/Creatinine Ratio 0.71 Urine Sodium 16 mmol/L (40-220) L Urine Glucose Normal mg/dL (Normal) Urine Total Protein 52.8 mg/dL (1-14) H Labs and/or images reviewed: Labs reviewed by me, Image(s) reviewed by me Assessment/Plan Assessment/Plan Acute blood loss anemia hemoglobin down to 8.9 from 14.3, and stable, will watch and transfuse if necessary Acute GI bleed, GI consult by Dr. Sosa, and Dr. Perez appreciated. Possible EGD today, pantoprazole Carafate History of colectomy and ileostomy for ulcerative colitis 2008 Dementia Acute kidney injury hemodynamically mediated : Consult for Dr. Unger appreciated, kidney ultrasound negative, BUN creatinine slowly improving from 171/11.57 Severe malnutrition Acute hyperkalemia potassium 7.2: Treatment per protocol, potassium down to 3.4 Acute generalized weakness Failure to thrive: Megace 20 mg p.o. b.i.d. Cachexia UTI: Blood cultures urine cultures Rocephin Time spent 55 minutes General condition poor Advanced care planning 20 minutes Patient is full code Patient's Harpal [phone] and daughter Glory [phone] Patient lives with her daughter [phone] who with a at bedside Patient has midline Plan discussed with: Patient My Orders Orders - KHOI SUAREZ MD Procedure Category Date Status Time Blood Culture RUTH 12/22/24 In Process 09:12 Urine Bacterial RUTH 12/22/24 In Process Culture 09:12 Ceftriaxone 1gm/50ml PHA 12/23/24 In Process D5w (Rocephin) 09:00 Date of Service: Dec 23, 2024 Billing Provider: KHOI SUAREZ MD Common Visit Codes: [id number] INP/OBS CARE(HIGH) KHOI SUAREZ MD Dec 23, 2024 08:33
[2024-12-23] MEDS: cefTRIAXone 1GM/50ML D5W 50 ML IV SCH (09:18)
[2024-12-23] MEDS ORDERED: PROPOFOL 10 MG/ML 20 ML IV ONE (10:47)
[2024-12-23] MEDS ORDERED: PHENYLEPHRINE HCL 10 MG/ML VL ONE (10:49)
--- NOTE | 2024-12-23 11:31 | DVHPN2 ---
Progress Note Date Seen: Dec 23, 2024 Medical Necessity Reason Pt with a Central, PICC or Fol: Yes Subjective Patient reports: No new complaints Other Systems: Patient seen and examined by myself today in follow-up Objective vital signs Vital Sign Date Time Temp Pulse Resp B/P (MAP) Pulse Ox O2 Delivery O2 Flow Rate FiO2 12/23/24 09:00 97.1 67 16 104/48 (66) 95 97.1 12/22/24 20:00 Room Air* 0 21 Total Intake and Output 12/22/24 12/22/24 12/23/24 15:00 23:00 07:00 Intake Total 1830 ml 350 ml Output Total 1330 ml Balance 1830 ml -980 ml medications Current Medications Medications Dose Ordered Sig/Socrates Route Start Time Stop Time Status Last Admin Dose Admin Quetiapine Fumarate 25 mg HS PO 12/18/24 22:00 12/22/24 21:26 25 MG Donepezil HCl 10 mg HS PO 12/18/24 22:00 12/22/24 21:26 10 MG Memantine 10 mg DAILY PO 12/19/24 10:00 12/22/24 09:50 10 MG Atorvastatin Calcium 10 mg HS PO 12/18/24 22:00 12/22/24 21:27 10 MG Diagnostic Test (Pha) 1 strip ACHS 12/18/24 22:00 12/23/24 11:00 1 STRIP Insulin Human Regular ACHS SC 12/18/24 22:00 12/22/24 12:03 2 UNITS Dextrose 50 ml UD PRN IV 12/18/24 20:00 Sodium Chloride 10 ml Q8HR IV 12/18/24 22:00 12/23/24 09:30 10 ML Acetaminophen/ Hydrocodone Bitart 1 tab Q4HP PRN PO 12/18/24 20:00 Ondansetron HCl 4 mg Q4HP PRN IV 12/18/24 20:00 Docusate Sodium 100 mg BIDPRN PRN PO 12/18/24 20:00 Acetaminophen 650 mg Q6HP PRN PO 12/18/24 20:00 Nitroglycerin 0.4 mg Q5MINP PRN SL 12/18/24 21:00 Morphine Sulfate 2 mg Q30M PRN IV 12/18/24 21:00 Midodrine 10 mg TID@0600,1200,1800 PO 12/19/24 06:00 12/23/24 05:26 10 MG Sodium Chloride 1,000 ml @ 100 mls/hr Q10H IV 12/19/24 15:15 12/22/24 16:11 100 MLS/HR Pantoprazole Sodium 40 mg BID IV 12/20/24 22:00 12/23/24 11:00 40 MG Sucralfate 1 gm BID@0600,2200 PO 12/20/24 22:00 12/23/24 05:26 1 GM Megestrol Acetate 20 mg BID PO 12/21/24 22:00 Ceftriaxone Sodium 50 ml @ 100 mls/hr DAILY@09 IV 12/23/24 09:00 12/23/24 09:18 100 MLS/HR Examination: LUNGS:Normal, CVS:Normal, MSK:Normal laboratory and microbiology Laboratory Tests 12/23/24 04:53 Test 12/23/24 04:53 Range/Units Serum Glucose 85 74-106 mg/dL Microbiology Date/Time Source Procedure Growth Status 12/21/24 19:40 Voided Urine Urine Culture - Preliminary Resulted Problem List/Assessment/Plan Problem List/Assessment/Plan Acute kidney injury superimposed Chronic Kidney Disease secondary hemodynamic mediated, feNa < 1% Ulcerative colitis status post ileostomy Acute blood loss anemia secondary to GI bleed Hypokalemia Left kidney mass Recommendations Kidney function continue to improve Increased urine output Montalvo catheter Strict I&Os DC Bumex KCL replacement And I agree with IV fluid hydration GI consult kidney ultrasound reported 2 cm left kidney mass Urology consult We will continue to follow up Plan discussed with: Patient Dietary Evaluation Review Recommendations by RD: Protein Supplementation Comments: 1) Initiate Nepro tid d/t poor intake 2) Add low phos restriction to renal diet 3) Consider Renvela tid d/t hyperkalemia 4) Consult nephrology 5) If patient does not receive nutrition support within 7 days, consider EN/TPN to meet 75% daily estimated needs. Expected Outcomes/Goals: 1) appetite and labs to improve 2) f/u in 3 days JESSI GABRIEL MD Dec 23, 2024 11:30
--- NOTE | 2024-12-23 13:17 | DVHOP2 ---
Operative Report DATE OF OPERATION: 12/23/24 PROCEDURE: Upper Endoscopy with biopsy. PREOPERATIVE INDICATION: The patient is a 79 -year-old female undergoing endoscopy for GI bleed POSTOPERATIVE DIAGNOSES: 1. Patient had a 1.5-2 cm duodenal bulb ulcer with surrounding duodenitis but no evidence of active bleeding or visible vessel at this time Jose classification C; this was the likely source of the acute GI bleeding 2. Mild gastritis with multiple pre-pyloric antral gastric erosions and tiny ulcers 3. 2 cm sliding-type hiatal hernia with a slightly irregular squamocolumnar junction and a slight esophageal stricture that was auto dilated with the endoscope 4. Otherwise normal examination up to the 2nd and 3rd part of the duodenal with no fresh or old blood and no active bleeding at this time PROCEDURE PERFORMED BY: Catalino Perez GI NURSE: Jefferson SCOPE: Olympus videoendoscope. ASA CLASS: 3 PREOPERATIVE MEDICATIONS: Mac sedation, Dr. Fong PROCEDURE IN DETAIL: After obtaining an informed consent, the patient was placed on left lateral decubitus position. The patient was then sedated with the above medications. A bite block was placed between her teeth. The endoscope was then passed through the oropharynx, into the esophagus, and through the stomach and pylorus up to the second and third part of the duodenum. The endoscope was then withdrawn. The 2nd and 3rd part of the duodenal were normal. Duodenal bulb and postbulbar area showed moderate duodenitis There was a 1.5-2 cm duodenal bulb ulcer at the 6 o'clock position with surrounding erythema hyperemia. There was no visible vessel or active bleeding. This was Jose classification C. duodenal biopsies were obtained The pre-pyloric area and antrum showed moderate gastritis with multiple pre- pyloric antral gastric erosions and tiny ulcers On retroflexion and straight on view the patient had normal cardia and fundus. Gastric biopsies were obtained The endoscope was then withdrawn into the distal esophagus . GE junction biopsies were obtained Patient had a two cm sliding-type hiatal hernia slight esophageal stricture that her auto dilated with the endoscope The remaining distal and proximal esophagus and oropharynx were unremarkable The patient tolerated the procedure well without difficulty. COMPLICATIONS : None SPECIMENS: Duodenal biopsies Gastric biopsies GE junction biopsies DISPOSITION: Transfer back to the floor Stable PLAN: 1. Await for biopsy result 2. Will place pt on Protonix 40 mg bid IV 3. Carafate suspension 1 g p.o. 4 times a day 4. Resume soft mechanical diet advance as tolerated 5. DC aspirin NSAIDs smoking alcohol and only take Tylenol instead CATALINO PEREZ MD Dec 23, 2024 13:17
[2024-12-23] MEDS: SUCRALFATE 1 GM/10 ML ORAL SUSP PO SCH (17:02)
[2024-12-24] VITALS (7 sets, daily range): BP systolic 94–120; BP diastolic 38–58; PULSE 54–88; RESP 16–18; TEMP 97.3–98.2; O2SAT 91–97
[2024-12-24 06:26] LABS: Basophils # (auto) 0 10 ^3/uL (0-0.2); Basophils % (auto) 0.5 % (0.0-2.0); Eosinophils # (auto) 0.1 10 ^3/uL (0-0.8); Lymphocytes # (auto) 0.8 10 ^3/uL (0.4-5.4); Mean Corpuscular Hemoglobin 31.2 pg (28.0-32.0); Mean Corpuscular Hgb Conc. 33.8 g/dL (32.0-36.0); Mean Corpuscular Volume 92.3 fL (80.0-100.0); Monocytes # (auto) 0.4 10 ^3/uL (0-1.3); Neutrophils # (auto) 2.9 10 ^3/uL (1.6-8.6); Red Blood Cells 2.68 10^6/uL (4.0-5.20); White Blood Cell 4.2 10^3/uL (4.4-10.8)
[2024-12-24 06:29] LABS: Eosinophils % (auto) 1.8 % (0.0-7.0); Hematocrit 24.7 % (36.0-46.0); Hemoglobin 8.3 g/dL (12.2-16.2); Lymphocytes % (auto) 18.7 % (10.0-50.0); Monocytes % (auto) 9.3 % (0.0-12.0); Neutrophils % (auto) 69.7 % (37.0-80.0); Nucleated Red Blood Cells % 0.1 %; Platelet Count (auto) 152 10^3/uL (140-450); Red Cell Distribution Width 14.3 % (11.8-14.3)
[2024-12-24 06:50] LABS: Alanine Aminotransferase 12 U/L (7-40); Albumin 3.2 g/dL (3.2-4.8); Alkaline Phosphatase 55 U/L (46-116); Anion Gap 10 (5-15); Aspartate Aminotransferase 24 U/L (13-40); BUN/Creatinine Ratio 9.8 (10.0-20.0); Bilirubin, Total 0.3 mg/dL (0.2-1.0); Blood Urea Nitrogen 23 mg/dL (9-23); Carbon Dioxide 20 mmol/L (20-31); Glucose 81 mg/dL (74-106); Sodium 144 mmol/L (136-145)
[2024-12-24 06:55] LABS: Calcium 7.6 mg/dL (8.7-10.4); Chloride 114 mmol/L (98-107); Potassium 3.3 mmol/L (3.5-5.1); Total Protein 5.3 g/dL (5.7-8.2)
--- NOTE | 2024-12-24 07:42 | DVHPN2 ---
Reviewed: Care Plan, H&P, Labs, Medications, Previous Orders, Radiology Changes from previous H/P or p: No Changes Eyes: No Pain, No Vision change, No Conjunctivae inflammation, No Eyelid inflammation, No Other, No Redness ENT: No Ear pain, No Ear discharge, No Nose pain, No Nose discharge, No Nose congestion, No Mouth pain, No Mouth swelling, No Throat pain, No Throat swelling, No Other Cardiovascular: No Chest Pain, No Palpitations, No Orthopnea, No Paroxysmal Noc. Dyspnea, No Edema, No Lt Headedness, No Other Respiratory: No Cough, No Dry, No Shortness of breath, No SOB with excertion, No Wheezing, No Hemoptysis, No Pleuritic Pain, No Sputum, No Other Gastrointestinal: No Nausea, No Vomiting, No Abdominal Pain, No Diarrhea, No Constipation, No Melena, No Hematochezia; Other (Blood streaked bowel.) Genitourinary: No Dysuria, No Frequency, No Incontinence, No Hematuria, No Retention, No Other Musculoskeletal: No other, No neck pain, No shoulder pain, No arm pain, No back pain, No hand pain, No leg pain, No foot pain Skin: No Rash, No Lesions, No Jaundice, No Bruising, No Other Objective Vitals Vital Signs Date Time Temp Pulse Resp B/P (MAP) Pulse Ox O2 Delivery O2 Flow Rate FiO2 12/24/24 05:00 97.3 78 16 120/57 (78) 97 97.3 12/23/24 20:00 Room Air* 0 21 Intake/Output Intake and Output 12/24/24 07:00 Intake Total 1610 ml Output Total 2345 ml Balance -735 ml Intake Oral 910 ml IV Total 700 ml Output Urine Total 1050 ml Stool Total 1295 ml Medications Current Medications Medications Dose Ordered Sig/Socrates Route Start Time Stop Time Status Last Admin Dose Admin Quetiapine Fumarate 25 mg HS PO 12/18/24 22:00 12/23/24 21:47 25 MG Donepezil HCl 10 mg HS PO 12/18/24 22:00 12/23/24 21:48 10 MG Memantine 10 mg DAILY PO 12/19/24 10:00 12/22/24 09:50 10 MG Atorvastatin Calcium 10 mg HS PO 12/18/24 22:00 12/23/24 21:47 10 MG Diagnostic Test (Pha) 1 strip ACHS 12/18/24 22:00 12/24/24 07:01 1 STRIP Insulin Human Regular ACHS SC 12/18/24 22:00 12/22/24 12:03 2 UNITS Dextrose 50 ml UD PRN IV 12/18/24 20:00 Sodium Chloride 10 ml Q8HR IV 12/18/24 22:00 12/24/24 05:14 10 ML Acetaminophen/ Hydrocodone Bitart 1 tab Q4HP PRN PO 12/18/24 20:00 Ondansetron HCl 4 mg Q4HP PRN IV 12/18/24 20:00 Docusate Sodium 100 mg BIDPRN PRN PO 12/18/24 20:00 Acetaminophen 650 mg Q6HP PRN PO 12/18/24 20:00 Nitroglycerin 0.4 mg Q5MINP PRN SL 12/18/24 21:00 Morphine Sulfate 2 mg Q30M PRN IV 12/18/24 21:00 Midodrine 10 mg TID@0600,1200,1800 PO 12/19/24 06:00 12/24/24 05:14 10 MG Sodium Chloride 1,000 ml @ 100 mls/hr Q10H IV 12/19/24 15:15 12/24/24 06:58 100 MLS/HR Pantoprazole Sodium 40 mg BID IV 12/20/24 22:00 12/23/24 21:46 40 MG Megestrol Acetate 20 mg BID PO 12/21/24 22:00 Ceftriaxone Sodium 50 ml @ 100 mls/hr DAILY@09 IV 12/23/24 09:00 12/23/24 09:18 100 MLS/HR Sucralfate 1 gm QIDACHS PO 12/23/24 17:00 12/24/24 07:39 1 GM Laboratory Results Laboratory Tests 12/24/24 05:04 Chemistry Test 12/24/24 05:04 Albumin 3.2 g/dL (3.2-4.8) Calcium Level 7.6 mg/dL (8.7-10.4) L Total Protein 5.3 g/dL (5.7-8.2) L LFT Test 12/24/24 05:04 Alanine Aminotransferase (ALT) 12 U/L (7-40) Alkaline Phosphatase 55 U/L (46-116) Aspartate Amino Transferase (AST) 24 U/L (13-40) Total Bilirubin 0.3 mg/dL (0.2-1.0) Urinalysis Test 12/21/24 19:40 Urine Color Light-yellow (Yellow) Urine Clarity Turbid (Clear) H Urine pH 5.5 (5.0-9.0) Urine Specific [place] 1.013 (1.001-1.035) Urine Protein 1+ (Negative) H Urine Ketones Negative (Negative) Urine Blood 1+ /uL (Negative) H Urine Nitrite 2+ (Negative) H Urine Bilirubin Negative (Negative) Urine Urobilinogen Normal mg/dL (Negative) Urine Leukocyte Esterase 2+ /uL (Negative) Urine RBC 18 /hpf (0 - 4) Urine Microscopic WBC 19 /HPF (0-5) H Urine Squamous Epithelial Cells Few /hpf (<5) Urine Bacteria Few /hpf (None Seen) H Urine Hyaline Casts Few /lpf (0 - 2) Urine Creatinine 73.86 mg/dL (30.0-125.0) Urine Protein/Creatinine Ratio 0.71 Urine Sodium 16 mmol/L (40-220) L Urine Glucose Normal mg/dL (Normal) Urine Total Protein 52.8 mg/dL (1-14) H Microbiology Microbiology Date/Time Source Procedure Growth Status 12/22/24 13:27 Blood Blood Culture - Preliminary NO GROWTH AFTER 24 HOURS OF INCUBATION. Resulted 12/21/24 19:40 Voided Urine Urine Culture - Preliminary Resulted Labs and/or images reviewed: Labs reviewed by me, Image(s) reviewed by me Assessment/Plan Assessment/Plan Acute blood loss anemia hemoglobin down to 8.9 from 14.3, and stable, will watch and transfuse if necessary Acute GI bleed, GI consult by Dr. Sosa, and Dr. Perez appreciated. Possible EGD today, pantoprazole Carafate History of colectomy and ileostomy for ulcerative colitis 2008 Dementia Acute kidney injury hemodynamically mediated : Consult for Dr. Unger appreciated, kidney ultrasound negative, BUN creatinine slowly improving from 171/11.57 Severe malnutrition Acute hyperkalemia potassium 7.2: Treatment per protocol, potassium down to 3.4 Acute generalized weakness Failure to thrive: Megace 20 mg p.o. b.i.d. Cachexia UTI: Blood cultures neg, urine cultures pending , cont Rocephin Time spent 65 minutes General condition poor Advanced care planning 20 minutes Patient is full code Patient's Harpal [phone] and daughter Glory [phone] Patient lives with her daughter [phone] who with a at bedside Patient has midline Plan discussed with: Patient Date of Service: Dec 24, 2024 Billing Provider: KHOI SUAREZ MD Common Visit Codes: [id number] CARE 30-74 MIN KHOI SUAREZ MD Dec 24, 2024 07:42
[2024-12-24] MEDS: POTASSIUM CHL 20 Meq TABLET PO ONE (09:31)
--- NOTE | 2024-12-24 11:04 | DVHPN2 ---
Progress Note Date Seen: Dec 24, 2024 Resident Creating Document: DORI HENDRIX RESIDENT Medical Necessity Reason Pt with a Central, PICC or Fol: Yes Subjective Review of Systems Patient seen at bedside, resting comfortably No further blood noted in ileostomy output Patient and daughter at bedside improved from yesterday appetite denies any nausea or vomiting Patient has acute kidney failure with elevated BUN creatinine Underwent EGD yesterday which showed 1.5-2 cm duodenal bulb ulcer with surrounding duodenitis but no evidence of active bleeding or visible vessel at this time, for his classification C. This was likely the source of acute GI bleed. Mild gastritis with multiple pre-pyloric antral gastric erosions and tiny ulcers. Objective vital signs Vital Sign Date Time Temp Pulse Resp B/P (MAP) Pulse Ox O2 Delivery O2 Flow Rate FiO2 12/24/24 09:04 97.6 88 16 102/38 (59) 91 97.6 12/24/24 08:00 Room Air* 0 21 Total Intake and Output 12/23/24 12/23/24 12/24/24 15:00 23:00 07:00 Intake Total 510 ml 1100 ml Output Total 1095 ml 1250 ml Balance -585 ml -150 ml medications Current Medications Medications Dose Ordered Sig/Socrates Route Start Time Stop Time Status Last Admin Dose Admin Quetiapine Fumarate 25 mg HS PO 12/18/24 22:00 12/23/24 21:47 25 MG Donepezil HCl 10 mg HS PO 12/18/24 22:00 12/23/24 21:48 10 MG Memantine 10 mg DAILY PO 12/19/24 10:00 12/24/24 09:31 10 MG Atorvastatin Calcium 10 mg HS PO 12/18/24 22:00 12/23/24 21:47 10 MG Dextrose 50 ml UD PRN IV 12/18/24 20:00 Sodium Chloride 10 ml Q8HR IV 12/18/24 22:00 12/24/24 05:14 10 ML Acetaminophen/ Hydrocodone Bitart 1 tab Q4HP PRN PO 12/18/24 20:00 Ondansetron HCl 4 mg Q4HP PRN IV 12/18/24 20:00 Docusate Sodium 100 mg BIDPRN PRN PO 12/18/24 20:00 Acetaminophen 650 mg Q6HP PRN PO 12/18/24 20:00 Nitroglycerin 0.4 mg Q5MINP PRN SL 12/18/24 21:00 Morphine Sulfate 2 mg Q30M PRN IV 12/18/24 21:00 Midodrine 10 mg TID@0600,1200,1800 PO 12/19/24 06:00 12/24/24 05:14 10 MG Sodium Chloride 1,000 ml @ 100 mls/hr Q10H IV 12/19/24 15:15 12/24/24 06:58 100 MLS/HR Pantoprazole Sodium 40 mg BID IV 12/20/24 22:00 12/24/24 09:31 40 MG Megestrol Acetate 20 mg BID PO 12/21/24 22:00 12/24/24 09:30 20 MG Ceftriaxone Sodium 50 ml @ 100 mls/hr DAILY@09 IV 12/23/24 09:00 12/24/24 09:30 100 MLS/HR Sucralfate 1 gm QIDACHS PO 12/23/24 17:00 12/24/24 07:39 1 GM Iron Sucrose 110 ml @ 110 mls/hr DAILY@1200 IV 12/24/24 12:00 12/28/24 12:59 Examination General Appearance: Cooperative. Well developed. Well nourished. Alert elderly female, no distress. Head Exam: Normal inspection. Conjunctival pallor Neck Exam: Normal inspection. Non-tender. Normal alignment Pulmonary/Respiratory: Chest non-tender. Clear bilateral breath sounds Cardiovascular/Chest: Regular rate and rhythm. No murmurs. No JVD. Abdominal Exam: Normal bowel sounds. Soft. Nontender. No hepatospenomegaly. No masses. Ileostomy in place right upper quadrant, no tenderness to palpation, no erythema noted. Neuro/Mental Status: A&O x4. Coherent Appearance: In no acute distress Skin Exam: Normal inspection. Normal color. Warm. Dry laboratory and microbiology Laboratory Tests 12/24/24 05:04 Test 12/24/24 05:04 Range/Units Serum Glucose 81 74-106 mg/dL Microbiology Date/Time Source Procedure Growth Status 12/22/24 13:27 Blood Blood Culture - Preliminary NO GROWTH AFTER 24 HOURS OF INCUBATION. Resulted 12/21/24 19:40 Voided Urine Urine Culture - Preliminary Resulted Labs and/or images reviewed: Labs reviewed by me, Image(s) reviewed by me Problem List/Assessment/Plan Problem List/Assessment/Plan Gastrointestinal hemorrhage Positive stool occult blood SANCHEZ on CKD Generalized weakness possibly due to a bowel Electrolyte imbalance Hyperglycemia Assessment plan Started on IV iron Started megestrol 20mg bid Source of bleeding likely 1.5-2 cm duodenal bulb ulcer Continue observation and monitoring her labs Transfused 1 unit PRBC if hemoglobin is less than seven DC aspirin NSAIDs blood thinners Patient has worsening renal function and is currently being evaluated by Nephrology ; needs stabilization from nephro point of view Protonix 40 mg IV q.12 hours we will proceed with EGD tomorrow Plan discussed with patient and daughter Ms. Roberts at bedside Plan discussed with Dr. Perez Plan discussed with: Patient, Daughter, Other (RN) Dietary Evaluation Review Recommendations by RD: Protein Supplementation Comments: 1) Initiate Nepro tid d/t poor intake 2) Add low phos restriction to renal diet 3) Consider Renvela tid d/t hyperkalemia 4) Consult nephrology 5) If patient does not receive nutrition support within 7 days, consider EN/TPN to meet 75% daily estimated needs. Expected Outcomes/Goals: 1) appetite and labs to improve 2) f/u in 3 days DORI HENDRIX RESIDENT Dec 24, 2024 11:04
[2024-12-24] MEDS: IRON SUCROSE COMPLEX 110 ML IV SCH (11:16)
--- NOTE | 2024-12-24 11:51 | DVHPN2 ---
Progress Note Date Seen: Dec 24, 2024 Medical Necessity Reason Pt with a Central, PICC or Fol: Yes Subjective Patient reports: No new complaints Other Systems: Patient seen and examined by myself today in follow-up Objective vital signs Vital Sign Date Time Temp Pulse Resp B/P (MAP) Pulse Ox O2 Delivery O2 Flow Rate FiO2 12/24/24 09:04 97.6 88 16 102/38 (59) 91 97.6 12/24/24 08:00 Room Air* 0 21 Total Intake and Output 12/23/24 12/23/24 12/24/24 15:00 23:00 07:00 Intake Total 510 ml 1100 ml Output Total 1095 ml 1250 ml Balance -585 ml -150 ml medications Current Medications Medications Dose Ordered Sig/Socrates Route Start Time Stop Time Status Last Admin Dose Admin Quetiapine Fumarate 25 mg HS PO 12/18/24 22:00 12/23/24 21:47 25 MG Donepezil HCl 10 mg HS PO 12/18/24 22:00 12/23/24 21:48 10 MG Memantine 10 mg DAILY PO 12/19/24 10:00 12/24/24 09:31 10 MG Atorvastatin Calcium 10 mg HS PO 12/18/24 22:00 12/23/24 21:47 10 MG Dextrose 50 ml UD PRN IV 12/18/24 20:00 Sodium Chloride 10 ml Q8HR IV 12/18/24 22:00 12/24/24 05:14 10 ML Acetaminophen/ Hydrocodone Bitart 1 tab Q4HP PRN PO 12/18/24 20:00 Ondansetron HCl 4 mg Q4HP PRN IV 12/18/24 20:00 Docusate Sodium 100 mg BIDPRN PRN PO 12/18/24 20:00 Acetaminophen 650 mg Q6HP PRN PO 12/18/24 20:00 Nitroglycerin 0.4 mg Q5MINP PRN SL 12/18/24 21:00 Morphine Sulfate 2 mg Q30M PRN IV 12/18/24 21:00 Midodrine 10 mg TID@0600,1200,1800 PO 12/19/24 06:00 12/24/24 11:15 10 MG Sodium Chloride 1,000 ml @ 100 mls/hr Q10H IV 12/19/24 15:15 12/24/24 06:58 100 MLS/HR Pantoprazole Sodium 40 mg BID IV 12/20/24 22:00 12/24/24 09:31 40 MG Megestrol Acetate 20 mg BID PO 12/21/24 22:00 12/24/24 09:30 20 MG Ceftriaxone Sodium 50 ml @ 100 mls/hr DAILY@09 IV 12/23/24 09:00 12/24/24 09:30 100 MLS/HR Sucralfate 1 gm QIDACHS PO 12/23/24 17:00 12/24/24 11:16 1 GM Iron Sucrose 110 ml @ 110 mls/hr DAILY@1200 IV 12/24/24 12:00 12/28/24 12:59 12/24/24 11:16 110 MLS/HR Examination: LUNGS:Normal, CVS:Normal, MSK:Normal laboratory and microbiology Laboratory Tests 12/24/24 05:04 Test 12/24/24 05:04 Range/Units Serum Glucose 81 74-106 mg/dL Microbiology Date/Time Source Procedure Growth Status 12/22/24 13:27 Blood Blood Culture - Preliminary NO GROWTH AFTER 24 HOURS OF INCUBATION. Resulted 12/21/24 19:40 Voided Urine Urine Culture - Preliminary Resulted Problem List/Assessment/Plan Problem List/Assessment/Plan Acute kidney injury superimposed Chronic Kidney Disease stage IV secondary hemodynamic mediated, feNa < 1% Ulcerative colitis status post ileostomy Acute blood loss anemia secondary to GI bleed Hypokalemia Left kidney mass Recommendations Kidney function kidney function stabilize Chronic Kidney Disease stage 4 Increased urine output Montalvo catheter Strict I&Os DC Bumex KCL replacement And I agree with IV fluid hydration GI consult kidney ultrasound reported 2 cm left kidney mass Urology consult We will continue to follow up Plan discussed with: Patient Dietary Evaluation Review Recommendations by RD: Protein Supplementation Comments: 1) Initiate Nepro tid d/t poor intake 2) Add low phos restriction to renal diet 3) Consider Renvela tid d/t hyperkalemia 4) Consult nephrology 5) If patient does not receive nutrition support within 7 days, consider EN/TPN to meet 75% daily estimated needs. Expected Outcomes/Goals: 1) appetite and labs to improve 2) f/u in 3 days JESSI GABRIEL MD Dec 24, 2024 11:51
[2024-12-25] VITALS (7 sets, daily range): BP systolic 102–124; BP diastolic 44–61; PULSE 57–74; RESP 18; TEMP 36.5; O2SAT 95–100
[2024-12-25 06:46] LABS: Basophils # (auto) 0 10 ^3/uL (0-0.2); Eosinophils # (auto) 0.1 10 ^3/uL (0-0.8); Monocytes # (auto) 0.4 10 ^3/uL (0-1.3); Platelet Count (auto) 135 10^3/uL (140-450)
[2024-12-25 06:50] LABS: Basophils % (auto) 0.5 % (0.0-2.0); Eosinophils % (auto) 2.5 % (0.0-7.0); Hematocrit 24.7 % (36.0-46.0); Hemoglobin 8.3 g/dL (12.2-16.2); Lymphocytes % (auto) 23.1 % (10.0-50.0); Mean Corpuscular Hemoglobin 30.8 pg (28.0-32.0); Mean Corpuscular Hgb Conc. 33.5 g/dL (32.0-36.0); Monocytes % (auto) 10.7 % (0.0-12.0); Neutrophils # (auto) 2.6 10 ^3/uL (1.6-8.6); Neutrophils % (auto) 63.2 % (37.0-80.0); Nucleated Red Blood Cells % 0.1 %; Red Blood Cells 2.68 10^6/uL (4.0-5.20); Red Cell Distribution Width 14.6 % (11.8-14.3); White Blood Cell 4.1 10^3/uL (4.4-10.8)
[2024-12-25 07:06] LABS: Alanine Aminotransferase 10 U/L (7-40); Alkaline Phosphatase 48 U/L (46-116); Anion Gap 10 (5-15); BUN/Creatinine Ratio 8.4 (10.0-20.0); Blood Urea Nitrogen 16 mg/dL (9-23); Calcium 7.5 mg/dL (8.7-10.4); Carbon Dioxide 18 mmol/L (20-31); Chloride 116 mmol/L (98-107); Glucose 84 mg/dL (74-106); Potassium 3.5 mmol/L (3.5-5.1); Sodium 144 mmol/L (136-145)
[2024-12-25 07:07] LABS: Aspartate Aminotransferase 20 U/L (13-40)
[2024-12-25 07:08] LABS: Bilirubin, Total 0.3 mg/dL (0.2-1.0)
--- NOTE | 2024-12-25 07:52 | DVHPN2 ---
Reviewed: Care Plan, H&P, Labs, Medications, Previous Orders, Radiology Changes from previous H/P or p: No Changes Eyes: No Pain, No Vision change, No Conjunctivae inflammation, No Eyelid inflammation, No Other, No Redness ENT: No Ear pain, No Ear discharge, No Nose pain, No Nose discharge, No Nose congestion, No Mouth pain, No Mouth swelling, No Throat pain, No Throat swelling, No Other Cardiovascular: No Chest Pain, No Palpitations, No Orthopnea, No Paroxysmal Noc. Dyspnea, No Edema, No Lt Headedness, No Other Respiratory: No Cough, No Dry, No Shortness of breath, No SOB with excertion, No Wheezing, No Hemoptysis, No Pleuritic Pain, No Sputum, No Other Gastrointestinal: No Nausea, No Vomiting, No Abdominal Pain, No Diarrhea, No Constipation, No Melena, No Hematochezia; Other (Blood streaked bowel.) Genitourinary: No Dysuria, No Frequency, No Incontinence, No Hematuria, No Retention, No Other Musculoskeletal: No other, No neck pain, No shoulder pain, No arm pain, No back pain, No hand pain, No leg pain, No foot pain Skin: No Rash, No Lesions, No Jaundice, No Bruising, No Other Objective Vitals Vital Signs Date Time Temp Pulse Resp B/P (MAP) Pulse Ox O2 Delivery O2 Flow Rate FiO2 12/25/24 05:00 98.0 71 18 110/45 (66) 98 98.0 12/24/24 20:00 Room Air* 0 21 Intake/Output Intake and Output 12/25/24 07:00 Intake Total 1790 ml Output Total 2400 ml Balance -610 ml Intake Oral 830 ml IV Total 960 ml Output Urine Total 1000 ml Stool Total 1400 ml Medications Current Medications Medications Dose Ordered Sig/Socrates Route Start Time Stop Time Status Last Admin Dose Admin Quetiapine Fumarate 25 mg HS PO 12/18/24 22:00 12/24/24 21:38 25 MG Donepezil HCl 10 mg HS PO 12/18/24 22:00 12/24/24 21:37 10 MG Memantine 10 mg DAILY PO 12/19/24 10:00 12/24/24 09:31 10 MG Atorvastatin Calcium 10 mg HS PO 12/18/24 22:00 12/24/24 21:38 10 MG Dextrose 50 ml UD PRN IV 12/18/24 20:00 Sodium Chloride 10 ml Q8HR IV 12/18/24 22:00 12/25/24 06:40 10 ML Acetaminophen/ Hydrocodone Bitart 1 tab Q4HP PRN PO 12/18/24 20:00 Ondansetron HCl 4 mg Q4HP PRN IV 12/18/24 20:00 Docusate Sodium 100 mg BIDPRN PRN PO 12/18/24 20:00 Acetaminophen 650 mg Q6HP PRN PO 12/18/24 20:00 Nitroglycerin 0.4 mg Q5MINP PRN SL 12/18/24 21:00 Morphine Sulfate 2 mg Q30M PRN IV 12/18/24 21:00 Midodrine 10 mg TID@0600,1200,1800 PO 12/19/24 06:00 12/25/24 06:40 10 MG Sodium Chloride 1,000 ml @ 100 mls/hr Q10H IV 12/19/24 15:15 12/25/24 01:57 100 MLS/HR Pantoprazole Sodium 40 mg BID IV 12/20/24 22:00 12/24/24 21:38 40 MG Megestrol Acetate 20 mg BID PO 12/21/24 22:00 12/24/24 21:38 20 MG Ceftriaxone Sodium 50 ml @ 100 mls/hr DAILY@09 IV 12/23/24 09:00 12/24/24 09:30 100 MLS/HR Sucralfate 1 gm QIDACHS PO 12/23/24 17:00 12/25/24 06:40 1 GM Iron Sucrose 110 ml @ 110 mls/hr DAILY@1200 IV 12/24/24 12:00 12/28/24 12:59 12/24/24 11:16 110 MLS/HR Laboratory Results Laboratory Tests 12/25/24 06:25 Chemistry Test 12/25/24 06:25 Albumin 3.0 g/dL (3.2-4.8) L Calcium Level 7.5 mg/dL (8.7-10.4) L Total Protein 5.0 g/dL (5.7-8.2) L LFT Test 12/25/24 06:25 Alanine Aminotransferase (ALT) 10 U/L (7-40) Alkaline Phosphatase 48 U/L (46-116) Aspartate Amino Transferase (AST) 20 U/L (13-40) Total Bilirubin 0.3 mg/dL (0.2-1.0) Urinalysis Test 12/21/24 19:40 Urine Color Light-yellow (Yellow) Urine Clarity Turbid (Clear) H Urine pH 5.5 (5.0-9.0) Urine Specific [place] 1.013 (1.001-1.035) Urine Protein 1+ (Negative) H Urine Ketones Negative (Negative) Urine Blood 1+ /uL (Negative) H Urine Nitrite 2+ (Negative) H Urine Bilirubin Negative (Negative) Urine Urobilinogen Normal mg/dL (Negative) Urine Leukocyte Esterase 2+ /uL (Negative) Urine RBC 18 /hpf (0 - 4) Urine Microscopic WBC 19 /HPF (0-5) H Urine Squamous Epithelial Cells Few /hpf (<5) Urine Bacteria Few /hpf (None Seen) H Urine Hyaline Casts Few /lpf (0 - 2) Urine Creatinine 73.86 mg/dL (30.0-125.0) Urine Protein/Creatinine Ratio 0.71 Urine Sodium 16 mmol/L (40-220) L Urine Glucose Normal mg/dL (Normal) Urine Total Protein 52.8 mg/dL (1-14) H Microbiology Microbiology Date/Time Source Procedure Growth Status 12/22/24 13:27 Blood Blood Culture - Preliminary NO GROWTH AFTER 48 HOURS OF INCUBATION. Resulted 12/21/24 19:40 Voided Urine Urine Culture - Final Escherichia coli Complete Labs and/or images reviewed: Labs reviewed by me, Image(s) reviewed by me Assessment/Plan Assessment/Plan Acute blood loss anemia hemoglobin down to 8.9 from 14.3, and stable, will watch and transfuse if necessary Acute GI bleed, GI consult by Dr. Sosa, and Dr. Perez appreciated. pantoprazole Carafate 1.5 cm bleeding duodenal ulcer gastritis and gastric erosions by EGD by Dr. Zoila Perez on 12/23/2024 History of colectomy and ileostomy for ulcerative colitis 2007 Dementia Acute kidney injury hemodynamically mediated : Consult for Dr. Unger appreciated, kidney ultrasound negative, BUN creatinine slowly improving from 171/11.57 now down to 16/ 1.9 Severe malnutrition Acute hyperkalemia potassium 7.2: Treatment per protocol, potassium down to 3.4 Acute generalized weakness Failure to thrive: Megace 20 mg p.o. b.i.d. Cachexia UTI: Blood cultures neg, urine cultures growing E coli , cont Rocephin for two weeks Time spent 55 minutes General condition poor Advanced care planning 20 minutes Patient is full code Patient's Harpal [phone] and daughter Glory [phone] Patient lives with her daughter [phone] who with a at bedside Patient has midline [facility]char [facility] for Rocephin 1 g IV daily for two weeks for UTI and for rehab for failure to thrive Plan is acceptable with the patient's daughter Elizabeth who has POA Plan discussed with: Patient Date of Service: Dec 25, 2024 Billing Provider: KHOI SUAREZ MD Common Visit Codes: [id number] INP/OBS CARE(HIGH) KHOI SUAREZ MD Dec 25, 2024 07:52
--- NOTE | 2024-12-25 08:17 | DVHDS2 ---
Discharge Summary Date of Admission Dec 18, 2024 at 20:47 Date of Discharge: Dec 25, 2024 Admitting Diagnosis Generalized weakness Wounds: EGD Labs/Diagnostic Data: Laboratory Results Test 12/25/24 06:25 12/24/24 05:46 12/23/24 06:05 12/21/24 19:40 White Blood Count 4.1 10^3/uL (4.4-10.8) Red Blood Count 2.68 10^6/uL (4.0-5.20) Hemoglobin 8.3 g/dL (12.2-16.2) Hematocrit 24.7 % (36.0-46.0) Mean Corpuscular Volume 92.0 fL (80.0-100.0) Mean Corpuscular Hemoglobin 30.8 pg (28.0-32.0) Mean Corpuscular Hemoglobin Concent 33.5 g/dL (32.0-36.0) Red Cell Distribution Width 14.6 % (11.8-14.3) Platelet Count 135 10^3/uL (140-450) Mean Platelet Volume 7.0 fL (6.9-10.8) Neutrophils (%) (Auto) 63.2 % (37.0-80.0) Lymphocytes (%) (Auto) 23.1 % (10.0-50.0) Monocytes (%) (Auto) 10.7 % (0.0-12.0) Eosinophils (%) (Auto) 2.5 % (0.0-7.0) Basophils (%) (Auto) 0.5 % (0.0-2.0) Neutrophils # (Auto) 2.6 10 ^3/uL (1.6-8.6) Lymphocytes # (Auto) 1.0 10 ^3/uL (0.4-5.4) Monocytes # (Auto) 0.4 10 ^3/uL (0-1.3) Eosinophils # (Auto) 0.1 10 ^3/uL (0-0.8) Basophils # (Auto) 0 10 ^3/uL (0-0.2) Nucleated Red Blood Cells 0.1 % Sodium Level 144 mmol/L (136-145) Potassium Level 3.5 mmol/L (3.5-5.1) Chloride Level 116 mmol/L (98-107) Carbon Dioxide Level 18 mmol/L (20-31) Anion Gap 10 (5-15) Blood Urea Nitrogen 16 mg/dL (9-23) Creatinine 1.91 mg/dL (0.550-1.02) Glomerular Filtration Rate Calc 27 mL/min (>90) BUN/Creatinine Ratio 8.4 (10.0-20.0) Serum Glucose 84 mg/dL (74-106) Calcium Level 7.5 mg/dL (8.7-10.4) Total Bilirubin 0.3 mg/dL (0.2-1.0) Aspartate Amino Transferase (AST) 20 U/L (13-40) Alanine Aminotransferase (ALT) 10 U/L (7-40) Alkaline Phosphatase 48 U/L (46-116) Total Protein 5.0 g/dL (5.7-8.2) Albumin 3.0 g/dL (3.2-4.8) POC Glucose 79 mg/dl (70-106) Prothrombin Time 11.1 sec (9.3-11.8) Prothrombin Time INR 1.05 (0.9-1.15) Activated Partial Thromboplast Time 26.8 SEC (24.5-34.5) Urine Color Light-yellow (Yellow) Urine Clarity Turbid (Clear) Urine pH 5.5 (5.0-9.0) Urine Specific [place] 1.013 (1.001-1.035) Urine Protein 1+ (Negative) Urine Ketones Negative (Negative) Urine Blood 1+ /uL (Negative) Urine Nitrite 2+ (Negative) Urine Bilirubin Negative (Negative) Urine Urobilinogen Normal mg/dL (Negative) Urine Leukocyte Esterase 2+ /uL (Negative) Urine RBC 18 /hpf (0 - 4) Urine Microscopic WBC 19 /HPF (0-5) Urine Squamous Epithelial Cells Few /hpf (<5) Urine Bacteria Few /hpf (None Seen) Urine Hyaline Casts Few /lpf (0 - 2) Urine Creatinine 73.86 mg/dL (30.0-125.0) Urine Protein/Creatinine Ratio 0.71 Urine Sodium 16 mmol/L (40-220) Urine Glucose Normal mg/dL (Normal) Urine Total Protein 52.8 mg/dL (1-14) Test 12/21/24 13:18 12/21/24 05:17 12/19/24 00:00 12/18/24 11:14 Magnesium Level 1.8 mg/dL (1.6-2.6) Phosphorus Level 6.7 mg/dL (2.4-5.1) Vitamin D 25-Hydroxy 27.7 ng/mL (30.0-100) Stool Occult Blood Sample #3 Positive (Negative) Hemoglobin A1c 5.5 % A1C (<5.7) Other Laboratory Tests 12/25/24 06:25 Brief Hx & Hospital Course: 79-year-old female with a history of colectomy and ileostomy for ulcerative colitis 2007 severe dementia brought in for acute generalized weakness. The patient has a hemoglobin of 14.3 at the time of admission which came down to 8.9. No RBC transfusion was given. Patient had EGD by GI Dr. Zoila Perez showed 1.5 cm actively bleeding duodenal ulcer with gastritis and gastric erosions biopsy result pending patient had acute kidney injury with a BUN and creatinine of 171 and 11.57 at the time of admission. Treated with the IV fluids. Seen by intranet support Dr Unger. Patient has not dramatically record from acute kidney injury with a BUN normal at 16 and creatinine 1.9 at the time of discharge. Also severe hyperkalemia with potassium 7.2 treated per protocol and now normal patient was placed on Megace 20 mg p.o. b.i.d. for failure to thrive patient had urinary tract infection treated with Rocephin urine cultures growing E coli Rocephin will be continued for two weeks. Patient being discharged to [facility] facility for IV antibiotics for two weeks and for rehab for failure to thrive. the plan is acceptable with the patient's daughter Elizabeth who also has power of ethylbenzene converter helper. Patient has severe dementia. General condition stable but poor at the time of discharge Consults/Reason for consult GI Dr Zoila Perez Operations or Procedures CT abdomen pelvis without contrast EGD Condition at Discharge: Fair Final Diagnosis/Problems List Acute blood loss anemia hemoglobin down to 8.9 from 14.3, and stable, will watch and transfuse if necessary Acute GI bleed, GI consult by Dr. Sosa, and Dr. Perez appreciated. pantoprazole Carafate 1.5 cm bleeding duodenal ulcer gastritis and gastric erosions by EGD by Dr. Zoila Perez on 12/23/2024 History of colectomy and ileostomy for ulcerative colitis 2007 Dementia Acute kidney injury hemodynamically mediated : Consult for Dr. Unger appreciated, kidney ultrasound negative, BUN creatinine slowly improving from 171/11.57 now down to 16/ 1.9 Severe malnutrition Acute hyperkalemia potassium 7.2: Treatment per protocol, potassium down to 3.4 Acute generalized weakness Failure to thrive: Megace 20 mg p.o. b.i.d. Cachexia UTI: Blood cultures neg, urine cultures growing E coli , cont Rocephin for two weeks Discharge Disposition: Care Home Facility Discharge Instruct/Medications Diet: Cardiac 2g Na,low cholest Activity: Light activity Follow Up/Referral: Follow up with the group home Medications: Rocephin 1 g IV daily for two weeks for UTI See list for other meds Discharge Statement: "Patient was advised to return to the ER or call 911 if any headaches, dizziness, shortness of breath, chest pain, abdominal pain, bleeding, fevers, or worsening of medical condition. Patient was counseled about treatment plan, medications, possible side effects, patientverbalized understanding. All questions were answered to the best of my ability. This discharge took greater then 30 minutes in planning, reviewing documentation, counseling the patient, and discussing with other team members." ASSESSMENT ASSESSMENT Hospital Course Improved marginally Assessment Acute blood loss anemia hemoglobin down to 8.9 from 14.3, and stable, will watch and transfuse if necessary Acute GI bleed, GI consult by Dr. Sosa, and Dr. Perez appreciated. pantoprazole Carafate 1.5 cm bleeding duodenal ulcer gastritis and gastric erosions by EGD by Dr. Zoila Perez on 12/23/2024 History of colectomy and ileostomy for ulcerative colitis 2008 Dementia Acute kidney injury hemodynamically mediated : Consult for Dr. Unger appreciated, kidney ultrasound negative, BUN creatinine slowly improving from 171/11.57 now down to 16/ 1.9 Severe malnutrition Acute hyperkalemia potassium 7.2: Treatment per protocol, potassium down to 3.4 Acute generalized weakness Failure to thrive: Megace 20 mg p.o. b.i.d. Cachexia UTI: Blood cultures neg, urine cultures growing E coli , cont Rocephin for two weeks Date of Service: Dec 25, 2024 Billing Provider: KHOI SUAREZ MD Common Visit Codes: [id number] DISCH DAY >30min KHOI SUAREZ MD Dec 25, 2024 08:17
[2024-12-25 17:32] LABS: COVID19 ANTIGEN SOFIA FIA NEGATIVE (NEGATIVE)
== END 2024-12-25 16:40 | DRG 377 ==
LOC: ER 10:23 → EDBD 10:23 → EDUNIT# 10:23 → OVERFLOW 20:47 → CENTRAL 12-19 10:00 → TELE-CENTR 12-22 21:15
PROVIDERS: ADMIT Family Medicine; ATTEND Family Medicine
PROC: 05HA33Z Insertion of Infusion Device into Left Brachial Vein, Percutaneous Approach (ICD-10-PCS; 2024-12-21)
PROC: B54NZZA Ultrasonography of Left Upper Extremity Veins, Guidance (ICD-10-PCS; 2024-12-21)
PROC: 0DB68ZX Excision of Stomach, Via Natural or Artificial Opening Endoscopic, Diagnostic (ICD-10-PCS; 2024-12-23)
PROC: 0DB48ZX Excision of Esophagogastric Junction, Via Natural or Artificial Opening Endoscopic, Diagnostic (ICD-10-PCS; 2024-12-23)
PROC: 0DB98ZX Excision of Duodenum, Via Natural or Artificial Opening Endoscopic, Diagnostic (ICD-10-PCS; principal; 2024-12-23 12:38)
DX: K29.71 Gastritis, unspecified, with bleeding (principal); E43 Unspecified severe protein-calorie malnutrition; D62 Acute posthemorrhagic anemia; N17.9 Acute kidney failure, unspecified; R64 Cachexia; N18.4 Chronic kidney disease, stage 4 (severe); N39.0 Urinary tract infection, site not specified; K26.4 Chronic or unspecified duodenal ulcer with hemorrhage; K25.4 Chronic or unspecified gastric ulcer with hemorrhage; I95.9 Hypotension, unspecified; R62.7 Adult failure to thrive; E87.5 Hyperkalemia; N28.89 Other specified disorders of kidney and ureter; K29.80 Duodenitis without bleeding; K44.9 Diaphragmatic hernia without obstruction or gangrene; F02.C0 Dementia in other diseases classified elsewhere, severe, without behavioral disturbance, psychotic disturbance, mood disturbance, and anxiety; G30.9 Alzheimer's disease, unspecified; R73.9 Hyperglycemia, unspecified; K21.9 Gastro-esophageal reflux disease without esophagitis; E87.6 Hypokalemia; B96.20 Unspecified Escherichia coli [E. coli] as the cause of diseases classified elsewhere; Z93.3 Colostomy status; Z93.2 Ileostomy status; Z80.0 Family history of malignant neoplasm of digestive organs; Z83.3 Family history of diabetes mellitus; Z68.23 Body mass index [BMI] 23.0-23.9, adult; Z79.899 Other long term (current) drug therapy
CPT/HCPCS: 36415; 70450; 71045; 74176; 76775; 80048; 80053; 81001; 82270; 82306; 82570; 82962; 83036; 83735; 84100; 84156; 84300; 85025; 85610; 85730; 86850; 86900; 86901; 87040; 87086; 87088; 87186; 87426; 92610; 93005; 96361; 96365; 96375; 97110; 97116; 97530; G0378; J1756; J1815; J2470; J2704; J3480

== ENCOUNTER 2025-03-26 14:44 | Inpatient (IN) | payer MEDICARE, BC ==
[~2025-03-26] VITALS: Ht 157.5 cm; Wt 58.1 kg
[~2025-03-26 14:44] MED LIST: CALC750T OR; DONE1TAB88 PO; FENO54TA4 PO; FLUT50SP NAS; FOLI-119 PO; IBAN1TAB2 PO; MEGE20TA3 PO; MEMA1TAB5 PO; MIDO10TA10 PO; PANT40TA57 PO; QUET50TA PO; SIMV40TA18 PO; SODI650T PO
--- NOTE | 2025-03-26 15:00 | ED.PDOC ---
History of Present Illness HPI Comments 79-year-old female with PMHx Dementia brought in by EMS presents with a chief complaint of generalized weakness x 2 days with associated blood streaked bowels. Patient is a poor historian. Patient mentions that her abdomen has no pain at this time. Patient has a colostomy bag in place and her stool is mixed with specs of blood. Time Seen by MD: 14:51 Reviewed Notes: Medications, Allergies Allergies: Coded Allergies: NO KNOWN ALLERGIES (Unverified , 12/18/24) Home Meds Reported Medications Folic Acid (Folic Acid) 1 Mg Tab, 1 MG PO DAILY, TAB 12/22/24 Calcium W/ Vitamins D & K (Calcium + D + K) 750 Mg Tab, 650 MG OR DAILY, TAB 12/22/24 Memantine Hydrochloride (Memantine HCl) 10 Mg Tab, 10 MG PO BID, TAB 12/22/24 Donepezil Hydrochloride (DONEPEZIL HCL) 10 Mg Tab, 1 TAB PO DAILY, #90 TAB 1 Refill 12/22/24 Quetiapine Fumerate (Seroquel) 50 Mg Tab, 1 TAB PO QPM, #30 TAB 2 Refills 12/22/24 Simvastatin (Simvastatin) 40 Mg Tab, 1 TAB PO QPM, #30 TAB 5 Refills 12/22/24 Fenofibrate (Fenofibrate) 54 Mg Tab, 1 TAB PO DAILY, #30 TAB 5 Refills 12/22/24 Ibandronate Sodium (IBANDRONATE SODIUM) 150 Mg Tab, 150 MG PO ONCE, TAB 12/22/24 Information Source: Patient, Emergency Med Personnel, [facility] Medical Record, Past Medical Record (per medical record review, pt has a history of gastritis, renal failure. however, her cr improved from up to 9 to about 2 in december), PMD Records Mode of Arrival: EMS Severity: Moderate Timing: Days Duration: Since onset Prehospital treatment: 12 Lead EKG, Resizer Operator, IVF Past Medical History PAST MEDICAL HISTORY: Dementia Past Medical History (Other): UC, gastritis, anemia, renal failure Surgical History (Other): colectomy, colostomy UNDERWRITING INTERN History: Denies all UNDERWRITING INTERN Hx Family History Family History: Reviewed,noncontributory to illness Social History Smoker: Non-Smoker Alcohol: Denies ETOH Use Drugs: Denies Drug Use Lives In: Home, Assisted Care Constitutional: reports: weakness; denies: chills, diaphoresis, fatigue, fever, malaise, sweats, others EENTM: denies: blurred vision, double vision, ear bleeding, ear discharge, ear drainage, ear pain, ear ringing, eye pain, eye redness, hearing loss, mouth pain, mouth swelling, nasal discharge, nose bleeding, nose congestion, nose pain, photophobia, tearing, throat pain, throat swelling, voice changes, others Respiratory: denies: cough, hemoptysis, orthopnea, SOB at rest, shortness of breath, SOB with excertion, stridor, wheezing, others Cardiovascular: denies: chest pain, dizzy spells, diaphoresis, Dyspnea on exertion, edema, irregular heart beat, left arm pain, lightheadedness, palpitations, PND, syncope, others Gastrointestinal: reports: blood streaked bowels; denies: abdomen distended, abdominal pain, constipated, diarrhea, dysphagia, difficulty swallowing, hematemesis, melena, nausea, poor appetite, poor fluid intake, rectal bleeding, rectal pain, vomiting, others Genitourinary: denies: abnormal vagina bleeding, burning, dyspareunia, dysuria, flank pain, frequency, hematuria, incontinence, pain, , vagina discharge, urgency, others Neurological: denies: dizziness, fainting, headache, left sided numbness, left sided weakness, numbness, paresthesia, pre-existing deficit, right sided numbness, right sided weakness, seizure, speech problems, tingling, tremors, weakness, others Musculoskeletal: denies: back pain, gout, joint pain, joint swelling, muscle pain, muscle stiffness, neck pain, others Integumetry: denies: bruises, change in color, change in hair/nails, dryness, laceration, lesions, lumps, rash, wounds, others Allergic/Immunocompromised: denies: Difficulty Healing, Frequent Infections, Hives, Itching, others Hematologic/Lymphatic: denies: anemia, blood clots, easy bleeding, easy bruising, swollen glands, others Endocrine: denies: excessive hunger, excessive sweating, excessive thirst, excessive urination, flushing, intolerance to cold, intolerance to heat, unexplained weight gain, unexplained weight loss, others Psychiatric: denies: anxiety, bipolar disorder, depression, hopeless, panic disorder, schizophrenia, sleepless, suicidal, others All Other Systems: Reviewed and Negative Physical Exam General Appearance: No Apparent Distress, Normal HEENT: Normal ENT Inspection, Pharynx Normal, TMs Normal, Other (dry mm) Neck: Full Range of Motion, Non-Tender, Normal, Normal Inspection Respiratory: Chest Non-Tender, Lungs Clear, No Accessory Muscle Use, No Respiratory Distress, Normal Breath Sounds Cardiovascular: No Edema, No JVD, No Murmur, No Gallop, Normal Peripheral Pulses, Regular Rate/Rhythm Breast Exam: Deferred Gastrointestinal: No Organomegaly, Non Tender, No Pulsatile Mass, Normal Bowel Sounds, Soft, Other (Colostomy bag in place) Genitalia: Deferred Pelvic: Deferred Rectal: Deferred Extremities: No calf tenderness, Normal capillary refill, Normal inspection, Normal range of motion, Non-tender, No pedal edema Musculoskeletal : Apperance: Normal Neurologic: Alert, fifth hand II-XII nml as Tested, No Motor Deficits, Normal Affect, Normal Mood, No Sensory Deficits Cerebellar Function: Normal Reflexes: Normal Skin: Dry, Normal Color, Warm Lymphatic: No Adenopathy Was a procedure done? Was a procedure done?: No Differential Dx Considerations may include: UC, gastritis, dementia, delirium, acs, sepsis, dehydration, renal failure, electrolyte disorders, anemia X-Ray, Labs, Meds, VS Vital Signs Date Time Temp Pulse Resp B/P (MAP) Pulse Ox O2 Delivery O2 Flow Rate FiO2 03/26/25 16:00 75 16 90/45 (60) 97 03/26/25 15:38 93 16 95 Room Air* 0 21 03/26/25 15:34 97.5 79 16 86/40 (55) 93 97.5 03/26/25 14:49 91 03/26/25 14:44 97.7 92 18 106/63 (77) 96 97.7 Lab Test 03/26/25 15:46 Range/Units White Blood Count 7.3 4.4-10.8 10^3/uL Red Blood Count 4.85 4.0-5.20 10^6/uL Hemoglobin 13.7 12.2-16.2 g/dL Hematocrit 40.3 36.0-46.0 % Mean Corpuscular Volume 83.1 80.0-100.0 fL Mean Corpuscular Hemoglobin 28.3 28.0-32.0 pg Mean Corpuscular Hemoglobin Concent 34.0 32.0-36.0 g/dL Red Cell Distribution Width 14.0 11.8-14.3 % Platelet Count 245 140-450 10^3/uL Mean Platelet Volume 8.1 6.9-10.8 fL Neutrophils (%) (Auto) 65.9 37.0-80.0 % Lymphocytes (%) (Auto) 17.2 10.0-50.0 % Monocytes (%) (Auto) 16.1 H 0.0-12.0 % Eosinophils (%) (Auto) 0.7 0.0-7.0 % Basophils (%) (Auto) 0.1 0.0-2.0 % Neutrophils # (Auto) 4.8 1.6-8.6 10 ^3/uL Lymphocytes # (Auto) 1.2 0.4-5.4 10 ^3/uL Monocytes # (Auto) 1.2 0-1.3 10 ^3/uL Eosinophils # (Auto) 0 0-0.8 10 ^3/uL Basophils # (Auto) 0 0-0.2 10 ^3/uL Nucleated Red Blood Cells 0.2 % Sodium Level 140 136-145 mmol/L Potassium Level 4.5 3.5-5.1 mmol/L Chloride Level 103 98-107 mmol/L Carbon Dioxide Level 18 L 20-31 mmol/L Anion Gap 19 H 5-15 Blood Urea Nitrogen 82 *H 9-23 mg/dL Creatinine 8.26 H 0.550-1.02 mg/dL Glomerular Filtration Rate Calc 5 >90 mL/min BUN/Creatinine Ratio 9.9 L 10.0-20.0 Serum Glucose 87 74-106 mg/dL Calcium Level 9.4 8.7-10.4 mg/dL Troponin I High Sensitivity < 3 L </=34 ng/L Current Medications Medications (Trade) Dose Ordered Sig/Socrates Route Start Time Stop Time Status Last Admin Sodium Chloride 500 ml @ 500 mls/hr Q1H ONCE IV 03/26/25 15:45 03/26/25 16:44 DC 03/26/25 15:45 Time of 1ST Reevaluation: 15:21 Reevaluation 1ST: Unchanged Patient Education/Counseling: Other (demented) Family Education/Counseling: No Family Present Comments pt has a history of dementia, but EMT relayed to me that family told them they saw "specks of blood in her BM. so far, pt has not had a BM here. she is not anemic. CT is unremarkable. however, she did have one transient episode of hypotension, without any signs of sepsis. she has worsening of renal failure and has BUN/Cr in the pre-renal range. pt is likely vey dehydrated and the BUN can be driven up by the GIB. she will be admitted Departure 1 Departure Time of Disposition: 17:15 Impression: Primary Impression: Dehydration Additional Impressions: Renal failure (ARF), acute on chronic Qualified Codes: N17.9 - Acute kidney failure, unspecified; N18.9 - Chronic kidney disease, unspecified Dementia Qualified Codes: F03.B0 - Unspecified dementia, moderate, without behavioral disturbance, psychotic disturbance, mood disturbance, and anxiety Hypotension Qualified Codes: E86.1 - Hypovolemia GIB (gastrointestinal bleeding) Qualified Codes: K92.2 - Gastrointestinal hemorrhage, unspecified Disposition: ADMITTED INPATIENT Admit to: Tele Condition: Serious Critical Care Note Critical Care Time?: Yes (55 min-critical care time only) Critical care comment: due to concerns for deterioration of patient's condition, the care required my highest level of attention and readiness. i assessed the patient's condition, reviewed relevant documents, communicated with medical personnel, ordered the proper tests and treatments, reassessed for results and response to treatments, spoke to family and consultants and formulated a plan of care Stability Stability form required: No Heart Score Heart Score: Heart Score Response (Comments) Value History N/A 0 EKG N/A 0 Age N/A 0 Risk Factors N/A 0 Troponin N/A 0 Total 0 I personally scribed for SEEMA ABRAMS MD ([email or web address]) on 03/26/25 at 15:00. Carolee ctronically submitted by Rinku Robert ([email or web address]). SEEMA ABRAMS MD Mar 26, 2025 15:00
[2025-03-26 15:38] VITALS: PULSE 93; RESP 16; O2SAT 95
[2025-03-26] MEDS: SODIUM CHLORIDE 0.9% 500 ML IV ONE ×2 (15:45→20:50)
--- NOTE | 2025-03-26 15:59 | DVH ---
CHEST RADIOGRAPH Indication: cough Technique: Single frontal view of the chest was obtained Comparison: XY CHEST PORTABLE on DOS: 12/18/24 FINDINGS: Lines and Tubes: None Lungs: No focal consolidation. Pleura: No effusion. No pneumothorax. Cardiomediastinal contours: Unremarkable Bones: No acute osseous abnormality. IMPRESSION: 1. No acute cardiopulmonary disease.
[2025-03-26 16:06] LABS: Basophils # (auto) 0 10 ^3/uL (0-0.2); Basophils % (auto) 0.1 % (0.0-2.0); Eosinophils # (auto) 0 10 ^3/uL (0-0.8); Eosinophils % (auto) 0.7 % (0.0-7.0); Hematocrit 40.3 % (36.0-46.0); Hemoglobin 13.7 g/dL (12.2-16.2); Lymphocytes # (auto) 1.2 10 ^3/uL (0.4-5.4); Lymphocytes % (auto) 17.2 % (10.0-50.0); Mean Corpuscular Hemoglobin 28.3 pg (28.0-32.0); Mean Corpuscular Volume 83.1 fL (80.0-100.0); Monocytes # (auto) 1.2 10 ^3/uL (0-1.3); Monocytes % (auto) 16.1 % (0.0-12.0); Neutrophils # (auto) 4.8 10 ^3/uL (1.6-8.6); Neutrophils % (auto) 65.9 % (37.0-80.0); Nucleated Red Blood Cells % 0.2 %; Platelet Count (auto) 245 10^3/uL (140-450); Red Blood Cells 4.85 10^6/uL (4.0-5.20); White Blood Cell 7.3 10^3/uL (4.4-10.8)
[2025-03-26 16:11] LABS: Chloride 103 mmol/L (98-107); Potassium 4.5 mmol/L (3.5-5.1); Sodium 140 mmol/L (136-145)
[2025-03-26 16:12] LABS: Anion Gap 19 (5-15); Calcium 9.4 mg/dL (8.7-10.4)
[2025-03-26 16:16] LABS: Carbon Dioxide 18 mmol/L (20-31)
[2025-03-26 16:17] LABS: BUN/Creatinine Ratio 9.9 (10.0-20.0); Glucose 87 mg/dL (74-106)
[2025-03-26 16:18] LABS: Blood Urea Nitrogen 82 mg/dL (9-23)
--- NOTE | 2025-03-26 16:57 | DVH ---
Exam: CT CT AB PEL WO CON-NO ORAL OR IV History: gib Comparison Study: CT CT AB PEL WO CON-NO ORAL OR IV on DOS: 12/18/24 TECHNIQUE: Multidetector CT of the abdomen was performed from lung bases to pubic symphysis. Imaging was performed without IV contrast. Axial, coronal and sagittal multiplanar reformats were obtained fr om the axial data set by the technologist. Radiation Dose Information: CT Dose: CTDI volume is 5.47 mGy. Dose-length product is 270.01 mGy*cm FINDINGS: Evaluation of solid organs is limited due to lack of intravenous contrast use. Findings: Lung Bases: No acute or significant lung base finding. Normal heart size. No pleural or pericardial effusion. Liver: The liver is normal in size. No focal lesions. Gallbladder and Biliary Tree: Unremarkable Spleen: Unremarkable Pancreas: The pancreas is grossly normal in appearance. Adrenal Glands: Unremarkable Kidneys: Kidneys are grossly normal without calculi or hydronephrosis. Bladder: Grossly unremarkable for degree of distention. Bowel: The stomach is grossly normal in appearance. Small bowel and colon are normal in caliber and d istribution. The appendix is not visualized; however, no secondary findings of acute appendicitis id entified. Ascites: Absent Lymphadenopathy: No mesenteric, retroperitoneal or periportal lymphadenopathy. Abdominal Wall and Mesentery: Unremarkable. Vasculature: The visualized abdominal aorta is normal in size and caliber. Evaluation of abdominal a nd pelvic vessels is limited due to lack of intravenous contrast. Pelvic Organs: Unremarkable Musculoskeletal: No aggressive focal bony lesions, acute fractures or dislocation. Soft tissues: Unremarkable IMPRESSION: 1. No findings of bowel obstruction 2. Gallbladder is contracted and there are no calcified gallstones. 3. No nephrolithiasis or hydronephrosis. Radiation optimization: All CT scans at this facility use at least one of these dose optimization te chniques: automated exposure control mA and/or kV adjustment per patient size (includes targeted exa ms where dose is matched to clinical indication) or iterative reconstruction.
[2025-03-26] MEDS: SODIUM CHLORIDE 0.9% 1,000 ML IV ONE (17:43)
[2025-03-26] MEDS: PANTOPRAZOLE 40 MG/10 ML VIAL INJ IV ONE (17:43)
[2025-03-26 20:20] LABS: Urine Bacteria FEW /hpf (None Seen); Urine Blood 1+ /uL (Negative); Urine Clarity Turbid (Clear); Urine Color Light-Orange (Yellow); Urine Hyaline Cast FEW /lpf (0 - 2); Urine Protein, UAD 1+ (Negative); Urine Specific Gravity 1.018 (1.001-1.035); Urine Squamous Epithelial Cell MANY /hpf (<5); Urine Urobilinogen Normal (Negative); Urine WBC 30 /HPF (0-5)
[2025-03-26] MEDS ORDERED: DOCUSATE SOD 100 MG CAP PO PRN (20:45)
[2025-03-26 21:20] VITALS: O2SAT 95
[2025-03-26] MEDS: SODIUM CHLOR 0.9% PF (SALINE LOCK) 10ML VIAL/SYR IV SCH (22:06)
--- NOTE | 2025-03-26 22:10 | DVHHP2 ---
History of Present Illness Reason for Visit: Generalized weakness History of Present Illness The patient is a 79-year-old female with past medical history of dementia, also relief colitis, gastritis, anemia, and renal failure who presented to [facility] ED with complaint of generalized weakness for the past 2 days. Patient reports experiencing blood streak bowel, increased weakness, getting worse that prompted this visit. Patient was seen and evaluated in the ED, laboratory data shows WBC 7.3, platelets 245, sodium 140, potassium 4.5, BUN 82, creatinine 8.26, glucose 87, calcium 9.4, troponin < 3, urinalysis positive for urinary tract infection, blood pressure 87/42 trending up to 91/47, heart rate 70, temperature 97.9 F, O2 saturation 99% on room air. Abdomen/pelvis CT showed no evidence of bowel obstruction, gallbladder is contracted and no calcified gallstones. Patient was started on IV antibiotic regimen Rocephin, please see medication orders section in the computer. On my assessment, family member at bedside, patient denied chest pain, no headache, no dizziness, no shortness of breath, no diaphoresis, no blood streak bowel at this moment, no nausea, no vomiting, no fever, no chills. Patient was admitted for further evaluation and medical management. Past Medical History Dementia, ulcerative colitis, gastritis, anemia, renal failure Past Surgical History Colectomy, colostomy Family History Reviewed, noncontributory to the management of this case. Past Social History The patient lives at home, denies smoking, alcohol or illicit drugs abuse. Review of Systems Constitutional: Yes: Weakness; No: Fever, Chills, Sweats, Malaise, Other Eyes: No: Pain, Vision change, Conjunctivae inflammation, Eyelid inflammation, Other, Redness ENT: No: Ear pain, Ear discharge, Nose pain, Nose discharge, Nose congestion, Mouth pain, Mouth swelling, Throat pain, Throat swelling, Other Respiratory: No: Cough, Dry, Shortness of breath, SOB with excertion, Wheezing, Hemoptysis, Pleuritic Pain, Sputum, Wheezing, Other Cardiovascular: No: Chest Pain, Palpitations, Orthopnea, Paroxysmal Noc. Dyspnea, Edema, Lt Headedness, Other Gastrointestinal: Melena (Blood streak bowel), Other (Colostomy bag); No: Nausea, Vomiting, Abdominal Pain, Diarrhea, Constipation, Hematochezia Genitourinary: No Dysuria, No Frequency, No Incontinence, No Hematuria, No Retention, No Other Musculoskeletal: No: other, neck pain, shoulder pain, arm pain, back pain, hand pain, leg pain, foot pain Skin: No: Rash, Lesions, Jaundice, Bruising, Other Neurological: No: Weakness, Numbness, Incoordination, Change in speech, Confusion, Seizures, Other Allergies: Coded Allergies: NO KNOWN ALLERGIES (Unverified , 12/18/24) Medications Current Medications Medications Dose Ordered Sig/Socrates Route Start Time Stop Time Status Last Admin Dose Admin Donepezil HCl 10 mg HS PO 03/26/25 22:00 Pantoprazole Sodium 40 mg DAILY IV 03/27/25 10:00 Ceftriaxone Sodium 50 ml @ 100 mls/hr DAILY@09 IV 03/27/25 09:00 Memantine 10 mg Q12HR PO 03/26/25 22:00 Atorvastatin Calcium 10 mg HS PO 03/26/25 22:00 Midodrine 10 mg TID@0600,1200,1800 PO 03/27/25 06:00 Multivit/Ca Carb/ B Cmplx/FA/Prenat 1 tab DAILY PO 03/27/25 10:00 Sodium Chloride 10 ml Q8HR IV 03/26/25 22:00 03/26/25 22:06 10 ML Acetaminophen/ Hydrocodone Bitart 1 tab Q4HP PRN PO 03/26/25 20:45 Ondansetron HCl 4 mg Q4HP PRN IV 03/26/25 20:45 Docusate Sodium 100 mg BIDPRN PRN PO 03/26/25 20:45 Acetaminophen 650 mg Q6HP PRN PO 03/26/25 20:45 Calcium/Vitamin D 1 tab DAILY PO 03/27/25 10:00 Exam Vital Signs Vital Signs Date Time Temp Pulse Resp B/P (MAP) Pulse Ox O2 Delivery O2 Flow Rate FiO2 03/26/25 20:30 68 16 91/47 (62) 99 03/26/25 20:00 97.9 97.9 03/26/25 15:38 Room Air* 0 21 General Appearance: Alert, Oriented X3, Cooperative, No acute distress HEENT: Atraumatic, PERRLA, EOMI, Mucous membr. moist/pink Respiratory: Clear to auscultation, Normal air movement Cardiovascular: Regular rate, Normal S1, Normal S2, No murmurs Abdominal: Normal bowel sounds, Soft, No tenderness, No hepatospenomegaly, No masses Extremities: No clubbing, No cyanosis, No edema, Normal pulses, No tenderness/swelling Skin: No rashes, No breakdown, No significant lesion Neuro: Normal speech, Normal tone, Sensation intact, Cranial nerves 3-12 NL, Reflexes 2+, Other (Generalized weakness) Psych/Mental Status: Mental status NL, Mood NL Labs/Xrays Labs Test 03/26/25 20:51 03/26/25 20:20 03/26/25 20:05 03/26/25 18:52 Range/Units Lactic Acid Level 1.4 0.4-2.0 mmol/L Stool Occult Blood Positive Negative Stool Occult Blood Sample #3 Negative Stool for White Cells None seen Urine Color Light-orange Yellow Urine Clarity Turbid H Clear Urine pH 5.0 5.0-9.0 Urine Specific [place] 1.018 1.001-1.035 Urine Protein 1+ H Negative Urine Ketones Negative Negative Urine Blood 1+ H Negative /uL Urine Nitrite Negative Negative Urine Bilirubin Negative Negative Urine Urobilinogen Normal Negative mg/dL Urine Leukocyte Esterase 3+ Negative /uL Urine RBC 5 0 - 4 /hpf Urine Microscopic WBC 30 H 0-5 /HPF Urine Squamous Epithelial Cells Many <5 /hpf Urine Bacteria Few H None Seen /hpf Urine Hyaline Casts Few 0 - 2 /lpf Urine Glucose Normal Normal mg/dL Troponin I High Sensitivity 3 L </=34 ng/L Test 03/26/25 15:46 Range/Units White Blood Count 7.3 4.4-10.8 10^3/uL Red Blood Count 4.85 4.0-5.20 10^6/uL Hemoglobin 13.7 12.2-16.2 g/dL Hematocrit 40.3 36.0-46.0 % Mean Corpuscular Volume 83.1 80.0-100.0 fL Mean Corpuscular Hemoglobin 28.3 28.0-32.0 pg Mean Corpuscular Hemoglobin Concent 34.0 32.0-36.0 g/dL Red Cell Distribution Width 14.0 11.8-14.3 % Platelet Count 245 140-450 10^3/uL Mean Platelet Volume 8.1 6.9-10.8 fL Neutrophils (%) (Auto) 65.9 37.0-80.0 % Lymphocytes (%) (Auto) 17.2 10.0-50.0 % Monocytes (%) (Auto) 16.1 H 0.0-12.0 % Eosinophils (%) (Auto) 0.7 0.0-7.0 % Basophils (%) (Auto) 0.1 0.0-2.0 % Neutrophils # (Auto) 4.8 1.6-8.6 10 ^3/uL Lymphocytes # (Auto) 1.2 0.4-5.4 10 ^3/uL Monocytes # (Auto) 1.2 0-1.3 10 ^3/uL Eosinophils # (Auto) 0 0-0.8 10 ^3/uL Basophils # (Auto) 0 0-0.2 10 ^3/uL Nucleated Red Blood Cells 0.2 % Sodium Level 140 136-145 mmol/L Potassium Level 4.5 3.5-5.1 mmol/L Chloride Level 103 98-107 mmol/L Carbon Dioxide Level 18 L 20-31 mmol/L Anion Gap 19 H 5-15 Blood Urea Nitrogen 82 *H 9-23 mg/dL Creatinine 8.26 H 0.550-1.02 mg/dL Glomerular Filtration Rate Calc 5 >90 mL/min BUN/Creatinine Ratio 9.9 L 10.0-20.0 Serum Glucose 87 74-106 mg/dL Calcium Level 9.4 8.7-10.4 mg/dL PATIENT: PATRICIA LUCAS JACCT: [id number] UNIT: [id number] : 1945 LOC: ER ROOM / BED: / AGE / SEX: 79 / F ADM STATUS: REG ER SERVICE [id number] ORDERING PHYSICIAN: SEEMA ABRAMS MD PROCEDURE(s): ABPL - CT AB PEL WO CON-NO ORAL OR IV REASON: gib ORDER NUMBER(s): [id number], ACCESSION NUMBER(s): [id number] Exam: CT CT AB PEL WO CON-NO ORAL OR IV History: gib Comparison Study: CT CT AB PEL WO CON-NO ORAL OR IV on DOS: 12/18/24 TECHNIQUE: Multidetector CT of the abdomen was performed from lung bases to pubic symphysis. Imaging was performed without IV contrast. Axial, coronal and sagittal multiplanar reformats were obtained from the axial data set by the technologist. Radiation Dose Information: CT Dose: CTDI volume is 5.47 mGy. Dose-length product is 270.01 mGy*cm FINDINGS: Evaluation of solid organs is limited due to lack of intravenous contrast use. Findings: Lung Bases: No acute or significant lung base finding. Normal heart size. No pleural or pericardial effusion. Liver: The liver is normal in size. No focal lesions. Gallbladder and Biliary Tree: Unremarkable Spleen: Unremarkable Pancreas: The pancreas is grossly normal in appearance. Adrenal Glands: Unremarkable Kidneys: Kidneys are grossly normal without calculi or hydronephrosis. Bladder: Grossly unremarkable for degree of distention. Bowel: The stomach is grossly normal in appearance. Small bowel and colon are normal in caliber and distribution. The appendix is not visualized; however, no secondary findings of acute appendicitis identified. Ascites: Absent Lymphadenopathy: No mesenteric, retroperitoneal or periportal lymphadenopathy. Abdominal Wall and Mesentery: Unremarkable. Vasculature: The visualized abdominal aorta is normal in size and caliber. Evaluation of abdominal and pelvic vessels is limited due to lack of intravenous contrast. Pelvic Organs: Unremarkable Musculoskeletal: No aggressive focal bony lesions, acute fractures or disloc ation. Soft tissues: Unremarkable IMPRESSION: 1. No findings of bowel obstruction 2. Gallbladder is contracted and there are no calcified gallstones. 3. No nephrolithiasis or hydronephrosis. ORDERING PHYSICIAN: SEEMA ABRAMS MD PROCEDURE(s): CXRP - CHEST PORTABLE REASON: cough ORDER NUMBER(s): [id number], ACCESSION NUMBER(s): [id number] CHEST RADIOGRAPH Indication: cough Technique: Single frontal view of the chest was obtained Comparison: XY CHEST PORTABLE on DOS: 12/18/24 FINDINGS: Lines and Tubes: None Lungs: No focal consolidation. Pleura: No effusion. No pneumothorax. Cardiomediastinal contours: Unremarkable Bones: No acute osseous abnormality. IMPRESSION: 1. No acute cardiopulmonary disease. Assessment/Plan Assessment/Plan Dehydration Acute renal failure Acute on chronic kidney failure Hypotension Hypovolemia Urinary tract infection Generalized weakness GIB (gastrointestinal bleeding) Gastrointestinal hemorrhage, unspecified Unspecified dementia, moderate, without behavioral disturbance, psychotic disturbance, mood disturbance, and anxiety Plan 1. Admit to telemetry unit 2. Breathing treatment 3. Pain control management 4. IV antibiotic management 5. Management of fluids and electrolytes 6. Consultation for Nephrology/hospitalist 7. Diagnostic test chest x-ray 8. DVT prophylaxis on SCDs 9. Repeat labs CBC, CMP in a.m. 10. Home medication reviewed and reconciled 11. Continue with current medical management 12. Treatment plan discussed with patient and RN. Patient verbalized understanding. Plan discussed with: Patient, Other (RN) My Orders Orders - MARITZA RODRIGUEZ DNP Procedure Category Date Status Time Donepezil Tablet PHA 03/26/25 In Process (Aricept Tablet) 22:00 Pantoprazole PHA 03/27/25 In Process (Protonix) 10:00 Ceftriaxone 1gm/50ml PHA 03/27/25 In Process D5w (Rocephin) 09:00 Memantine Tablet PHA 03/26/25 In Process (Namenda Tablet) 22:00 Atorvastatin (Lipitor) PHA 03/26/25 In Process 22:00 *[facility] CONS 03/26/25 Transmitted -[place] 20:38 Midodrine Tablet PHA 03/27/25 In Process (Proamatine Tablet) 06:00 B-Complex W/ C & PHA 03/27/25 In Process Folic Tablet 10:00 Allergies JOSÉ ANTONIO 03/26/25 In Process 20:38 Code Status CODE 03/26/25 Transmitted 20:38 Renal DIET 03/27/25 Transmitted Standard(2gna,3gk,Lopho) Breakfast Sodium Chloride Lock PHA 03/26/25 In Process (Saline Lock Ns) 22:00 Oxygen Per Hour RT 03/26/25 Transmitted 20:38 Hydrocodone-Acet PHA 03/26/25 In Process 5/325mg Tab ([place] 20:45 Ondansetron Hcl PHA 03/26/25 In Process (Zofran) 20:45 Docusate Sodium PHA 03/26/25 In Process Capsule (Colace 20:45 Complete Blood Count LAB 03/27/25 Verified 04:00 Comprehensive LAB 03/27/25 Verified Metabolic Panel 04:00 Condition: Serious JOSÉ ANTONIO 03/26/25 In Process 20:38 Acetaminophen Tablet PHA 03/26/25 In Process (Tylenol Tablet) 20:45 Bedrest With Bathroom JOSÉ ANTONIO 03/26/25 In Process Privileg 20:38 Sequential JOSÉ ANTONIO 03/26/25 In Process Compression Device Calcium W/Vit D PHA 03/27/25 In Process Tablet (Oscal W/Vit D 10:00 Urine Bacterial RUTH 03/26/25 In Process Culture 21:15 Problem List: (1) Dehydration (2) Hypotension (3) Dementia (4) Generalized weakness (5) Acute on chronic renal failure (6) GIB (gastrointestinal bleeding) (7) Urinary tract infection (8) Acute renal failure (9) Gastrointestinal hemorrhage, unspecified (10) Unspecified dementia, moderate, without behavioral disturbance, psychotic disturbance, mood disturbance, and anxiety Date of Service: Mar 26, 2025 Billing Provider: MARITZA RODRIGUEZ DNP Common Visit Codes: 24870-[id number] INP/OBS CARE (HIGH) MARITZA RODRIGUEZ DNP Mar 26, 2025 22:10
[2025-03-26] MEDS ORDERED: MORPHINE SULFATE INJ 2 MG/ml SYRG IV PRN (22:15)
[2025-03-26] MEDS ORDERED: NITROGLYCERIN 0.4 MG SL TAB SL PRN (22:15)
[2025-03-26] MEDS: cefTRIAXone 1GM/50ML D5W 50 ML IV ONE (22:27)
[2025-03-26] MEDS: DONEPEZIL HYDROCHLORIDE 5 MG TAB PO SCH (23:34)
[2025-03-26] MEDS: MEMANTINE HCL 5 MG TAB PO SCH (23:35)
[2025-03-26] MEDS: ATORVASTATIN 20 MG TAB PO SCH (23:35)
[2025-03-27] VITALS (27 sets, daily range): BP systolic 94–131; BP diastolic 38–70; PULSE 37–93; RESP 11–28; TEMP 97–97.8; O2SAT 91–97
[2025-03-27] MEDS: MIDODRINE HCL 10 MG TAB PO SCH (06:16)
[2025-03-27 06:44] LABS: Basophils # (auto) 0 10 ^3/uL (0-0.2); Basophils % (auto) 0.4 % (0.0-2.0); Eosinophils # (auto) 0.1 10 ^3/uL (0-0.8); Eosinophils % (auto) 1.9 % (0.0-7.0); Hematocrit 33.8 % (36.0-46.0); Hemoglobin 11.3 g/dL (12.2-16.2); Lymphocytes # (auto) 0.9 10 ^3/uL (0.4-5.4); Lymphocytes % (auto) 24.2 % (10.0-50.0); Mean Corpuscular Hemoglobin 27.6 pg (28.0-32.0); Mean Corpuscular Hgb Conc. 33.3 g/dL (32.0-36.0); Monocytes # (auto) 0.5 10 ^3/uL (0-1.3); Monocytes % (auto) 13.6 % (0.0-12.0); Neutrophils # (auto) 2.3 10 ^3/uL (1.6-8.6); Neutrophils % (auto) 59.9 % (37.0-80.0); Platelet Count (auto) 202 10^3/uL (140-450); Red Blood Cells 4.08 10^6/uL (4.0-5.20); White Blood Cell 3.9 10^3/uL (4.4-10.8)
[2025-03-27 07:00] LABS: Alanine Aminotransferase 18 U/L (7-40); Albumin 3.9 g/dL (3.2-4.8); Alkaline Phosphatase 50 U/L (46-116); Anion Gap 16 (5-15); Aspartate Aminotransferase 19 U/L (<34); BUN/Creatinine Ratio 10.1 (10.0-20.0); Calcium 8.7 mg/dL (8.7-10.4); Potassium 3.9 mmol/L (3.5-5.1); Sodium 143 mmol/L (136-145); Total Protein 6.5 g/dL (5.7-8.2)
[2025-03-27 07:01] LABS: Bilirubin, Total 0.5 mg/dL (0.2-1.0)
[2025-03-27 07:03] LABS: Blood Urea Nitrogen 67 mg/dL (9-23); Carbon Dioxide 17 mmol/L (20-31); Chloride 110 mmol/L (98-107); Glucose 73 mg/dL (74-106)
[2025-03-27] MEDS: LACTATED RINGER'S 1,000 ML IV SCH (07:15)
[2025-03-27] MEDS: cefTRIAXone 1GM/50ML D5W 50 ML IV SCH (09:07)
[2025-03-27] MEDS: PANTOPRAZOLE 40 MG/10 ML VIAL INJ IV SCH (10:59)
[2025-03-27] MEDS: B-COMPLEX W/ C & FOLIC ACID(NEPHROVITE TAB) PO SCH (10:59)
[2025-03-27] MEDS: CALCIUM W/VIT D (600MG/400IU) TAB PO SCH (11:00)
[2025-03-27 14:48] LABS: Potassium 4.3 mmol/L (3.5-5.1); Sodium 142 mmol/L (136-145)
[2025-03-27 14:49] LABS: Anion Gap 12 (5-15); Calcium 8.8 mg/dL (8.7-10.4)
[2025-03-27 14:53] LABS: Carbon Dioxide 16 mmol/L (20-31); Chloride 114 mmol/L (98-107)
[2025-03-27 14:54] LABS: BUN/Creatinine Ratio 9.9 (10.0-20.0); Glucose 88 mg/dL (74-106)
[2025-03-27 14:55] LABS: Blood Urea Nitrogen 57 mg/dL (9-23)
--- NOTE | 2025-03-27 15:44 | DVHINCON2 ---
Date of service: Mar 27, 2025 Referring Physician Hospitalist Reason for Consultation Acute kidney injury History of Present Illness 79-year-old female with past medical history of ulcerative colitis status post colectomy and ileostomy tube in 2007, most recently presented to this hospital in December due to high ileostomy output and acute kidney injury. At that time her post discharge renal function level was approximately stage IV CKD with no previous labs for comparison. She now presents to the hospital with a similar presentation of blood from the ileostomy and high ileostomy fluid output. She is admitted to the hospital for hypotension volume depletion and acute kidney injury. Allergies: Coded Allergies: NO KNOWN ALLERGIES (Unverified , 12/18/24) Home Meds Reported Medications Folic Acid (Folic Acid) 1 Mg Tab, 1 MG PO DAILY, TAB 12/22/24 Calcium W/ Vitamins D & K (Calcium + D + K) 750 Mg Tab, 650 MG OR DAILY, TAB 12/22/24 Memantine Hydrochloride (Memantine HCl) 10 Mg Tab, 10 MG PO BID, TAB 12/22/24 Donepezil Hydrochloride (DONEPEZIL HCL) 10 Mg Tab, 1 TAB PO DAILY, #90 TAB 1 Refill 12/22/24 Quetiapine Fumerate (Seroquel) 50 Mg Tab, 1 TAB PO QPM, #30 TAB 2 Refills 12/22/24 Simvastatin (Simvastatin) 40 Mg Tab, 1 TAB PO QPM, #30 TAB 5 Refills 12/22/24 Fenofibrate (Fenofibrate) 54 Mg Tab, 1 TAB PO DAILY, #30 TAB 5 Refills 12/22/24 Ibandronate Sodium (IBANDRONATE SODIUM) 150 Mg Tab, 150 MG PO ONCE, TAB 12/22/24 Current Medications Current Medications Medications (Trade) Dose Ordered Sig/Socrates Route PRN Reason Start Time Stop Time Status Last Admin Donepezil HCl (Aricept Tablet) 10 mg HS PO 03/26/25 22:00 03/26/25 23:34 Pantoprazole Sodium (Protonix) 40 mg DAILY IV 03/27/25 10:00 03/27/25 10:59 Ceftriaxone Sodium 50 ml @ 100 mls/hr DAILY@09 IV 03/27/25 09:00 03/27/25 09:07 Memantine (Namenda Tablet) 10 mg Q12HR PO 03/26/25 22:00 03/27/25 10:59 Atorvastatin Calcium (Lipitor) 10 mg HS PO 03/26/25 22:00 03/26/25 23:35 Midodrine (Proamatine Tablet) 10 mg TID@0600,1200,1800 PO 03/27/25 06:00 03/27/25 11:37 Multivit/Ca Carb/ B Cmplx/FA/Prenat (Nephro-Jorge Tablet) 1 tab DAILY PO 03/27/25 10:00 03/27/25 10:59 Sodium Chloride (Saline Lock Ns) 10 ml Q8HR IV 03/26/25 22:00 03/27/25 14:09 Acetaminophen/ Hydrocodone Bitart ([place] 5/325MG Tab) 1 tab Q4HP PRN PO MODERATE PAIN (4-6 PAIN SCALE) 03/26/25 20:45 Ondansetron HCl (Zofran) 4 mg Q4HP PRN IV NAUSEA / VOMITING 03/26/25 20:45 Docusate Sodium (Colace Capsule) 100 mg BIDPRN PRN PO FOR CONSTIPATION 03/26/25 20:45 Acetaminophen (Tylenol Tablet) 650 mg Q6HP PRN PO PAIN SCALE 1-3 OR TEMP>100.4 03/26/25 20:45 Calcium/Vitamin D (Oscal W/Vit D Tablet) 1 tab DAILY PO 03/27/25 10:00 03/27/25 11:00 Nitroglycerin (Ntrostat Sublingual) 0.4 mg Q5MINP PRN SL FOR CHEST PAIN 03/26/25 22:15 Morphine Sulfate 2 mg Q30M PRN IV FOR CHEST PAIN 03/26/25 22:15 Lactated Ringer's 1,000 ml @ 75 mls/hr [id number] IV 03/27/25 07:15 03/27/25 07:15 Family History: Colon cancer G8 FATHER Diabetes mellitus G8 MOTHER Review of Systems High ileostomy output, decreased p.o. intake nausea H&P Exam Vital Signs/I&O Vital Sign Date Time Temp Pulse Resp B/P (MAP) Pulse Ox O2 Delivery O2 Flow Rate FiO2 03/27/25 10:00 62 13 91/34 (53) 94 03/27/25 08:00 97.8 97.8 03/27/25 08:00 Room Air* 0 21 Intake and Output 03/26/25 03/27/25 19:00 07:00 Intake Total 500 ml 1150 ml Output Total 60 ml Balance 440 ml 1150 ml Intake IV Total 500 ml 1150 ml Output Urine Total 10 ml Stool Total 50 ml Physical Exam Frail cachectic-appearing elderly female Not in overt distress Sunken eyes Increase skin turgor Sinus bradycardia Ileostomy No pitting edema Montalvo catheter has yellow urine Labs/Diagnostic Data Labs/Diagnostic Data Laboratory Tests Test 03/27/25 14:31 03/27/25 06:11 03/26/25 20:51 03/26/25 20:20 Range/Units Sodium Level 142 143 136-145 mmol/L Potassium Level 4.3 3.9 3.5-5.1 mmol/L Chloride Level 114 H 110 H 98-107 mmol/L Carbon Dioxide Level 16 L 17 L 20-31 mmol/L Anion Gap 12 16 H 5-15 Blood Urea Nitrogen 57 #H 67 #H 9-23 mg/dL Creatinine 5.73 H 6.65 H 0.550-1.02 mg/dL Glomerular Filtration Rate Calc 7 6 >90 mL/min BUN/Creatinine Ratio 9.9 L 10.1 10.0-20.0 Serum Glucose 88 73 L 74-106 mg/dL Calcium Level 8.8 8.7 8.7-10.4 mg/dL White Blood Count 3.9 #L 4.4-10.8 10^3/uL Red Blood Count 4.08 4.0-5.20 10^6/uL Hemoglobin 11.3 #L 12.2-16.2 g/dL Hematocrit 33.8 #L 36.0-46.0 % Mean Corpuscular Volume 83.0 80.0-100.0 fL Mean Corpuscular Hemoglobin 27.6 L 28.0-32.0 pg Mean Corpuscular Hemoglobin Concent 33.3 32.0-36.0 g/dL Red Cell Distribution Width 14.0 11.8-14.3 % Platelet Count 202 140-450 10^3/uL Mean Platelet Volume 8.1 6.9-10.8 fL Neutrophils (%) (Auto) 59.9 37.0-80.0 % Lymphocytes (%) (Auto) 24.2 10.0-50.0 % Monocytes (%) (Auto) 13.6 H 0.0-12.0 % Eosinophils (%) (Auto) 1.9 0.0-7.0 % Basophils (%) (Auto) 0.4 0.0-2.0 % Neutrophils # (Auto) 2.3 1.6-8.6 10 ^3/uL Lymphocytes # (Auto) 0.9 0.4-5.4 10 ^3/uL Monocytes # (Auto) 0.5 0-1.3 10 ^3/uL Eosinophils # (Auto) 0.1 0-0.8 10 ^3/uL Basophils # (Auto) 0 0-0.2 10 ^3/uL Nucleated Red Blood Cells 0.0 % Total Bilirubin 0.5 0.2-1.0 mg/dL Aspartate Amino Transferase (AST) 19 <34 U/L Alanine Aminotransferase (ALT) 18 7-40 U/L Alkaline Phosphatase 50 46-116 U/L Total Protein 6.5 5.7-8.2 g/dL Albumin 3.9 3.2-4.8 g/dL Lactic Acid Level 1.4 0.4-2.0 mmol/L Stool Occult Blood Positive Negative Stool Occult Blood Sample #3 Negative Stool for White Cells None seen Test 03/26/25 20:05 03/26/25 18:52 03/26/25 17:10 03/26/25 15:46 Range/Units Urine Color Light-orange Yellow Urine Clarity Turbid H Clear Urine pH 5.0 5.0-9.0 Urine Specific [place] 1.018 1.001-1.035 Urine Protein 1+ H Negative Urine Ketones Negative Negative Urine Blood 1+ H Negative /uL Urine Nitrite Negative Negative Urine Bilirubin Negative Negative Urine Urobilinogen Normal Negative mg/dL Urine Leukocyte Esterase 3+ Negative /uL Urine RBC 5 0 - 4 /hpf Urine Microscopic WBC 30 H 0-5 /HPF Urine Squamous Epithelial Cells Many <5 /hpf Urine Bacteria Few H None Seen /hpf Urine Hyaline Casts Few 0 - 2 /lpf Urine Glucose Normal Normal mg/dL Troponin I High Sensitivity 3 L 3 L < 3 L </=34 ng/L White Blood Count 7.3 4.4-10.8 10^3/uL Red Blood Count 4.85 4.0-5.20 10^6/uL Hemoglobin 13.7 12.2-16.2 g/dL Hematocrit 40.3 36.0-46.0 % Mean Corpuscular Volume 83.1 80.0-100.0 fL Mean Corpuscular Hemoglobin 28.3 28.0-32.0 pg Mean Corpuscular Hemoglobin Concent 34.0 32.0-36.0 g/dL Red Cell Distribution Width 14.0 11.8-14.3 % Platelet Count 245 140-450 10^3/uL Mean Platelet Volume 8.1 6.9-10.8 fL Neutrophils (%) (Auto) 65.9 37.0-80.0 % Lymphocytes (%) (Auto) 17.2 10.0-50.0 % Monocytes (%) (Auto) 16.1 H 0.0-12.0 % Eosinophils (%) (Auto) 0.7 0.0-7.0 % Basophils (%) (Auto) 0.1 0.0-2.0 % Neutrophils # (Auto) 4.8 1.6-8.6 10 ^3/uL Lymphocytes # (Auto) 1.2 0.4-5.4 10 ^3/uL Monocytes # (Auto) 1.2 0-1.3 10 ^3/uL Eosinophils # (Auto) 0 0-0.8 10 ^3/uL Basophils # (Auto) 0 0-0.2 10 ^3/uL Nucleated Red Blood Cells 0.2 % Sodium Level 140 136-145 mmol/L Potassium Level 4.5 3.5-5.1 mmol/L Chloride Level 103 98-107 mmol/L Carbon Dioxide Level 18 L 20-31 mmol/L Anion Gap 19 H 5-15 Blood Urea Nitrogen 82 *H 9-23 mg/dL Creatinine 8.26 H 0.550-1.02 mg/dL Glomerular Filtration Rate Calc 5 >90 mL/min BUN/Creatinine Ratio 9.9 L 10.0-20.0 Serum Glucose 87 74-106 mg/dL Calcium Level 9.4 8.7-10.4 mg/dL Assessment 79-year-old female with history of ulcerative colitis status post ileostomy presents to the hospital with high ileostomy output and volume depletion. She is admitted for hypotension acute kidney injury and volume depletion. Acute kidney injury prerenal in the setting of volume depletion Chronic kidney disease suspect baseline stage IV; Dr. jeter Left 2 cm renal mass Ulcerative colitis status post ileostomy with high output Bradycardia Continue with IV fluids Tele monitoring due to slow heart rate Patient has a Montalvo catheter monitoring urinary output Avoid hypotension No emergent indication for hemodialysis at this time Plan discussed with: Patient, Daughter SUNIL CR MD Mar 27, 2025 15:44
[2025-03-27] MEDS: DOPamine 1600MCG/ML D5W 250 ML IV SCH (16:14)
--- NOTE | 2025-03-27 16:16 | DVHPN2 ---
Subjective 79 year old female with h/o dementia, CKD, with low BP Also bradycardic Daughter says patient has not been eating or drinking much Changes from previous H/P or p: Changes Eyes: No Pain, No Vision change, No Conjunctivae inflammation, No Eyelid inflammation, No Other, No Redness ENT: No Ear pain, No Ear discharge, No Nose pain, No Nose discharge, No Nose congestion, No Mouth pain, No Mouth swelling, No Throat pain, No Throat swelling, No Other Cardiovascular: No Chest Pain, No Palpitations, No Orthopnea, No Paroxysmal Noc. Dyspnea, No Edema, No Lt Headedness, No Other Respiratory: No Cough, No Dry, No Shortness of breath, No SOB with excertion, No Wheezing, No Hemoptysis, No Pleuritic Pain, No Sputum, No Other Gastrointestinal: No Nausea, No Vomiting, No Abdominal Pain, No Diarrhea, No Constipation; Melena (Blood streak bowel); No Hematochezia; Other (Colostomy bag) Genitourinary: No Dysuria, No Frequency, No Incontinence, No Hematuria, No Retention, No Other Musculoskeletal: No other, No neck pain, No shoulder pain, No arm pain, No back pain, No hand pain, No leg pain, No foot pain Skin: No Rash, No Lesions, No Jaundice, No Bruising, No Other Objective Vitals Vital Signs Date Time Temp Pulse Resp B/P (MAP) Pulse Ox O2 Delivery O2 Flow Rate FiO2 03/27/25 10:00 62 13 91/34 (53) 94 03/27/25 08:00 97.8 97.8 03/27/25 08:00 Room Air* 0 21 Intake/Output Intake and Output 03/27/25 07:00 Intake Total 1650 ml Output Total 60 ml Balance 1590 ml Intake IV Total 1650 ml Output Urine Total 10 ml Stool Total 50 ml General Appearance: Alert, moderate distress Lungs: Clear to auscultation Cardiovascular: Other (bradycardic) Extremities: No edema Medications Current Medications Medications Dose Ordered Sig/Socrates Route Start Time Stop Time Status Last Admin Dose Admin Donepezil HCl 10 mg HS PO 03/26/25 22:00 03/26/25 23:34 10 MG Pantoprazole Sodium 40 mg DAILY IV 03/27/25 10:00 03/27/25 10:59 40 MG Ceftriaxone Sodium 50 ml @ 100 mls/hr DAILY@09 IV 03/27/25 09:00 03/27/25 09:07 100 MLS/HR Memantine 10 mg Q12HR PO 03/26/25 22:00 03/27/25 10:59 10 MG Atorvastatin Calcium 10 mg HS PO 03/26/25 22:00 03/26/25 23:35 10 MG Midodrine 10 mg TID@0600,1200,1800 PO 03/27/25 06:00 03/27/25 11:37 10 MG Multivit/Ca Carb/ B Cmplx/FA/Prenat 1 tab DAILY PO 03/27/25 10:00 03/27/25 10:59 1 TAB Sodium Chloride 10 ml Q8HR IV 03/26/25 22:00 03/27/25 14:09 10 ML Acetaminophen/ Hydrocodone Bitart 1 tab Q4HP PRN PO 03/26/25 20:45 Ondansetron HCl 4 mg Q4HP PRN IV 03/26/25 20:45 Docusate Sodium 100 mg BIDPRN PRN PO 03/26/25 20:45 Acetaminophen 650 mg Q6HP PRN PO 03/26/25 20:45 Calcium/Vitamin D 1 tab DAILY PO 03/27/25 10:00 03/27/25 11:00 1 TAB Nitroglycerin 0.4 mg Q5MINP PRN SL 03/26/25 22:15 Morphine Sulfate 2 mg Q30M PRN IV 03/26/25 22:15 Lactated Ringer's 1,000 ml @ 75 mls/hr [id number] IV 03/27/25 07:15 03/27/25 07:15 75 MLS/HR Laboratory Results Laboratory Tests 03/27/25 06:11 03/27/25 14:31 Chemistry Test 03/27/25 06:11 03/27/25 14:31 Albumin 3.9 g/dL (3.2-4.8) Calcium Level 8.7 mg/dL (8.7-10.4) 8.8 mg/dL (8.7-10.4) Total Protein 6.5 g/dL (5.7-8.2) LFT Test 03/27/25 06:11 Alanine Aminotransferase (ALT) 18 U/L (7-40) Alkaline Phosphatase 50 U/L (46-116) Aspartate Amino Transferase (AST) 19 U/L (<34) Total Bilirubin 0.5 mg/dL (0.2-1.0) Urinalysis Test 03/26/25 20:05 Urine Color Light-orange (Yellow) Urine Clarity Turbid (Clear) H Urine pH 5.0 (5.0-9.0) Urine Specific [place] 1.018 (1.001-1.035) Urine Protein 1+ (Negative) H Urine Ketones Negative (Negative) Urine Blood 1+ /uL (Negative) H Urine Nitrite Negative (Negative) Urine Bilirubin Negative (Negative) Urine Urobilinogen Normal mg/dL (Negative) Urine Leukocyte Esterase 3+ /uL (Negative) Urine RBC 5 /hpf (0 - 4) Urine Microscopic WBC 30 /HPF (0-5) H Urine Squamous Epithelial Cells Many /hpf (<5) Urine Bacteria Few /hpf (None Seen) H Urine Hyaline Casts Few /lpf (0 - 2) Urine Glucose Normal mg/dL (Normal) Microbiology Microbiology Date/Time Source Procedure Growth Status 03/26/25 20:20 Stool Stool Culture - Preliminary Resulted 03/26/25 20:20 Stool Shiga Toxin I & II Pending Resulted 03/26/25 20:05 Voided Urine Urine Culture - Preliminary Resulted Assessment/Plan Assessment/Plan Hypotension Bradycardia SANCHEZ/CKD CKD stage IV Acute kidney injury prerenal in the setting of volume depletion Left 2 cm renal mass Ulcerative colitis status post ileostomy with high output Dementia UTI Sepsis with septic shock PLAN: IV Rocephin IV fluids Start IV Dopamine drip Nephrology consult Cardiology consult Discussed with daughter at the bedside Full code Advanced directives discussed with daughter x 20 minutes Plan discussed with: Patient, Daughter My Orders Orders - BRANDI STEINBERG MD Procedure Category Date Status Time * Cardiology Consult CONS 03/27/25 Transmitted 15:53 Echo 2d Mode Cardiac US 03/27/25 Logged DOP 15:53 Dopamine Drip PHA 03/27/25 Verified 16:00 Date of Service: Mar 27, 2025 Billing Provider: BRANDI STEINBERG MD Common Visit Codes: [id number] CARE 30-74 MIN Secondary Visit Codes: [id number] CARE PLAN 30 MINUTES BRANDI STEINBERG MD Mar 27, 2025 16:16
[2025-03-27] MEDS: ONDANSETRON HCL 4 MG/2 ML VIAL IV PRN (17:43)
[2025-03-27] MEDS: MAGNESIUM SULFATE 1GM/100ML 100 ML IV ONE (18:15)
[2025-03-28] VITALS (97 sets, daily range): BP systolic 90–131; BP diastolic 38–71; PULSE 57–101; RESP 12–24; TEMP 97.7–98.4; O2SAT 89–99
[2025-03-28 04:16] LABS: Basophils # (auto) 0 10 ^3/uL (0-0.2); Basophils % (auto) 0.5 % (0.0-2.0); Eosinophils # (auto) 0.1 10 ^3/uL (0-0.8); Eosinophils % (auto) 1.4 % (0.0-7.0); Hematocrit 41.3 % (36.0-46.0); Hemoglobin 13.8 g/dL (12.2-16.2); Lymphocytes # (auto) 0.9 10 ^3/uL (0.4-5.4); Lymphocytes % (auto) 12.9 % (10.0-50.0); Mean Corpuscular Hemoglobin 28.1 pg (28.0-32.0); Mean Corpuscular Hgb Conc. 33.4 g/dL (32.0-36.0); Mean Corpuscular Volume 84.2 fL (80.0-100.0); Monocytes # (auto) 0.8 10 ^3/uL (0-1.3); Monocytes % (auto) 11.8 % (0.0-12.0); Neutrophils # (auto) 5.1 10 ^3/uL (1.6-8.6); Neutrophils % (auto) 73.4 % (37.0-80.0); Nucleated Red Blood Cells % 0.2 %; Platelet Count (auto) 260 10^3/uL (140-450); Red Blood Cells 4.91 10^6/uL (4.0-5.20); Red Cell Distribution Width 14.3 % (11.8-14.3)
[2025-03-28 04:31] LABS: Potassium 3.9 mmol/L (3.5-5.1); Sodium 140 mmol/L (136-145)
[2025-03-28 04:32] LABS: Anion Gap 17 (5-15)
[2025-03-28 04:33] LABS: Carbon Dioxide 12 mmol/L (20-31); Chloride 111 mmol/L (98-107)
[2025-03-28 04:37] LABS: BUN/Creatinine Ratio 8.7 (10.0-20.0); Glucose 103 mg/dL (74-106)
[2025-03-28 04:38] LABS: Blood Urea Nitrogen 36 mg/dL (9-23)
--- NOTE | 2025-03-28 11:50 | DVHPN2 ---
Progress Note Date Seen: Mar 28, 2025 Medical Necessity Reason Pt with a Central, PICC or Fol: Yes The following are medically ne: Montalvo Catheter Subjective Patient reports: Feels better Review of Systems: Deferred Objective vital signs Vital Sign Date Time Temp Pulse Resp B/P (MAP) Pulse Ox O2 Delivery O2 Flow Rate FiO2 03/28/25 09:30 67 21 120/51 (74) 93 03/28/25 08:00 97.7 97.7 03/28/25 06:00 Room Air* 0 21 Total Intake and Output 03/27/25 03/27/25 03/28/25 14:59 22:59 06:59 Intake Total 575 ml 524.2 ml 728 ml Output Total 675 ml 850 ml Balance 575 ml -150.8 ml -122 ml medications Current Medications Medications Dose Ordered Sig/Socrates Route Start Time Stop Time Status Last Admin Dose Admin Donepezil HCl 10 mg HS PO 03/26/25 22:00 03/27/25 21:29 10 MG Pantoprazole Sodium 40 mg DAILY IV 03/27/25 10:00 03/27/25 10:59 40 MG Ceftriaxone Sodium 50 ml @ 100 mls/hr DAILY@09 IV 03/27/25 09:00 03/28/25 09:05 100 MLS/HR Memantine 10 mg Q12HR PO 03/26/25 22:00 03/27/25 21:29 10 MG Atorvastatin Calcium 10 mg HS PO 03/26/25 22:00 03/27/25 21:29 10 MG Midodrine 10 mg TID@0600,1200,1800 PO 03/27/25 06:00 03/28/25 05:33 10 MG Multivit/Ca Carb/ B Cmplx/FA/Prenat 1 tab DAILY PO 03/27/25 10:00 03/27/25 10:59 1 TAB Sodium Chloride 10 ml Q8HR IV 03/26/25 22:00 03/28/25 05:27 10 ML Acetaminophen/ Hydrocodone Bitart 1 tab Q4HP PRN PO 03/26/25 20:45 Ondansetron HCl 4 mg Q4HP PRN IV 03/26/25 20:45 03/28/25 09:10 4 MG Docusate Sodium 100 mg BIDPRN PRN PO 03/26/25 20:45 Acetaminophen 650 mg Q6HP PRN PO 03/26/25 20:45 Calcium/Vitamin D 1 tab DAILY PO 03/27/25 10:00 03/27/25 11:00 1 TAB Nitroglycerin 0.4 mg Q5MINP PRN SL 03/26/25 22:15 Morphine Sulfate 2 mg Q30M PRN IV 03/26/25 22:15 Lactated Ringer's 1,000 ml @ 75 mls/hr [id number] IV 03/27/25 07:15 03/28/25 05:27 75 MLS/HR Dopamine HCl/ Dextrose 250 ml @ 10.125 mls/ hr Q24H IV 03/27/25 16:00 03/28/25 05:27 16.2 MLS/HR Examination: GENERAL:Abnormal, CVS:Abnormal, SKIN:Normal laboratory and microbiology Laboratory Tests 03/28/25 03:40 Test 03/28/25 03:40 Range/Units Serum Glucose 103 74-106 mg/dL Microbiology Date/Time Source Procedure Growth Status 03/26/25 20:20 Stool Stool Culture - Preliminary Resulted 03/26/25 20:20 Stool Shiga Toxin I & II Pending Resulted 03/26/25 20:05 Voided Urine Urine Culture - Preliminary Resulted Problem List/Assessment/Plan Problem List/Assessment/Plan 79-year-old female with history of ulcerative colitis status post ileostomy presents to the hospital with high ileostomy output and volume depletion. She is admitted for hypotension acute kidney injury and volume depletion. Acute kidney injury prerenal in the setting of volume depletion Chronic kidney disease suspect baseline stage IV; Dr. jeter Left 2 cm renal mass Ulcerative colitis status post ileostomy with high output Bradycardia Continue with IV fluids replace electrolytes on dopamine due to slow heart rate Patient has a Montalvo catheter monitoring urinary output Avoid hypotension No emergent indication for hemodialysis at this time Plan discussed with: Patient SUNIL CR MD Mar 28, 2025 11:50
--- NOTE | 2025-03-28 12:45 | DVHPN2 ---
Subjective She says he feels better She is still on dopamine drip which was started for bradycardia and hypotension Kidney function is improving Changes from previous H/P or p: Changes Eyes: No Pain, No Vision change, No Conjunctivae inflammation, No Eyelid inflammation, No Other, No Redness ENT: No Ear pain, No Ear discharge, No Nose pain, No Nose discharge, No Nose congestion, No Mouth pain, No Mouth swelling, No Throat pain, No Throat swelling, No Other Cardiovascular: No Chest Pain, No Palpitations, No Orthopnea, No Paroxysmal Noc. Dyspnea, No Edema, No Lt Headedness, No Other Respiratory: No Cough, No Dry, No Shortness of breath, No SOB with excertion, No Wheezing, No Hemoptysis, No Pleuritic Pain, No Sputum, No Other Gastrointestinal: No Nausea, No Vomiting, No Abdominal Pain, No Diarrhea, No Constipation; Melena (Blood streak bowel); No Hematochezia; Other (Colostomy bag) Genitourinary: No Dysuria, No Frequency, No Incontinence, No Hematuria, No Retention, No Other Musculoskeletal: No other, No neck pain, No shoulder pain, No arm pain, No back pain, No hand pain, No leg pain, No foot pain Skin: No Rash, No Lesions, No Jaundice, No Bruising, No Other Objective Vitals Vital Signs Date Time Temp Pulse Resp B/P (MAP) Pulse Ox O2 Delivery O2 Flow Rate FiO2 03/28/25 12:15 66 12 110/49 (69) 95 03/28/25 08:00 97.7 97.7 03/28/25 06:00 Room Air* 0 21 Intake/Output Intake and Output 03/28/25 07:00 Intake Total 1918.4 ml Output Total 1525 ml Balance 393.4 ml Intake IV Total 1918.4 ml Output Urine Total 1025 ml Stool Total 500 ml # Bowel Movements 1 General Appearance: Alert, moderate distress Lungs: Clear to auscultation Cardiovascular: Other (bradycardic) Extremities: No edema Medications Current Medications Medications Dose Ordered Sig/Socrates Route Start Time Stop Time Status Last Admin Dose Admin Donepezil HCl 10 mg HS PO 03/26/25 22:00 03/27/25 21:29 10 MG Pantoprazole Sodium 40 mg DAILY IV 03/27/25 10:00 03/27/25 10:59 40 MG Ceftriaxone Sodium 50 ml @ 100 mls/hr DAILY@09 IV 03/27/25 09:00 03/28/25 09:05 100 MLS/HR Memantine 10 mg Q12HR PO 03/26/25 22:00 03/27/25 21:29 10 MG Atorvastatin Calcium 10 mg HS PO 03/26/25 22:00 03/27/25 21:29 10 MG Midodrine 10 mg TID@0600,1200,1800 PO 03/27/25 06:00 03/28/25 05:33 10 MG Multivit/Ca Carb/ B Cmplx/FA/Prenat 1 tab DAILY PO 03/27/25 10:00 03/27/25 10:59 1 TAB Sodium Chloride 10 ml Q8HR IV 03/26/25 22:00 03/28/25 05:27 10 ML Acetaminophen/ Hydrocodone Bitart 1 tab Q4HP PRN PO 03/26/25 20:45 Ondansetron HCl 4 mg Q4HP PRN IV 03/26/25 20:45 03/28/25 09:10 4 MG Docusate Sodium 100 mg BIDPRN PRN PO 03/26/25 20:45 Acetaminophen 650 mg Q6HP PRN PO 03/26/25 20:45 Calcium/Vitamin D 1 tab DAILY PO 03/27/25 10:00 03/27/25 11:00 1 TAB Nitroglycerin 0.4 mg Q5MINP PRN SL 03/26/25 22:15 Morphine Sulfate 2 mg Q30M PRN IV 03/26/25 22:15 Lactated Ringer's 1,000 ml @ 75 mls/hr [id number] IV 03/27/25 07:15 03/28/25 05:27 75 MLS/HR Dopamine HCl/ Dextrose 250 ml @ 10.125 mls/ hr Q24H IV 03/27/25 16:00 03/28/25 05:27 16.2 MLS/HR Laboratory Results Laboratory Tests 03/28/25 03:40 Chemistry Test 03/27/25 14:31 03/28/25 03:40 Calcium Level 8.8 mg/dL (8.7-10.4) 9.0 mg/dL (8.7-10.4) Magnesium Level 1.6 mg/dL (1.6-2.6) Urinalysis Test 03/26/25 20:05 Urine Color Light-orange (Yellow) Urine Clarity Turbid (Clear) H Urine pH 5.0 (5.0-9.0) Urine Specific [place] 1.018 (1.001-1.035) Urine Protein 1+ (Negative) H Urine Ketones Negative (Negative) Urine Blood 1+ /uL (Negative) H Urine Nitrite Negative (Negative) Urine Bilirubin Negative (Negative) Urine Urobilinogen Normal mg/dL (Negative) Urine Leukocyte Esterase 3+ /uL (Negative) Urine RBC 5 /hpf (0 - 4) Urine Microscopic WBC 30 /HPF (0-5) H Urine Squamous Epithelial Cells Many /hpf (<5) Urine Bacteria Few /hpf (None Seen) H Urine Hyaline Casts Few /lpf (0 - 2) Urine Glucose Normal mg/dL (Normal) Microbiology Microbiology Date/Time Source Procedure Growth Status 03/26/25 20:20 Stool Stool Culture - Preliminary Resulted 03/26/25 20:20 Stool Shiga Toxin I & II Pending Resulted 03/26/25 20:05 Voided Urine Urine Culture - Preliminary Resulted Assessment/Plan Assessment/Plan Hypotension Bradycardia SANCHEZ/CKD CKD stage IV Acute kidney injury prerenal in the setting of volume depletion Left 2 cm renal mass Ulcerative colitis status post ileostomy with high output Dementia UTI Sepsis with septic shock PLAN: IV Rocephin IV fluids Start IV Dopamine drip Nephrology consult Cardiology consult Discussed with daughter at the bedside Full code Advanced directives discussed with daughter x 20 minutes 03/28/2025: Continue IV fluids Dopamine as needed, tapered down the dose as tolerated Nephrology is seeing the patient Cardiology is also seeing the patient Echocardiogram is pending Continue IV antibiotics Urine culture is negative Blood culture is pending Full code Plan discussed with: Patient My Orders Orders - BRANDI STEINBERG MD Procedure Category Date Status Time * Cardiology Consult CONS 03/27/25 Transmitted 15:53 Dopamine 1600mcg/Ml PHA 03/27/25 In Process D5W 16:00 Transfer Orders XFER 03/27/25 Transmitted 16:30 Insert Midline ORDERS 03/27/25 Transmitted 17:50 * Stick Feeder CONS 03/27/25 Transmitted Consult 20:00 Echo 2d Mode Cardiac US 03/28/25 Logged DOP 15:53 Date of Service: Mar 28, 2025 Billing Provider: BRANDI STEINBERG MD Common Visit Codes: [id number] CARE 30-74 MIN BRANDI STEINBERG MD Mar 28, 2025 12:45
--- NOTE | 2025-03-28 14:54 | DVHSR ---
APPROVED REPORT EXAM: Two-dimensional and M-mode echocardiogram with Doppler and color Doppler. Blood Pressure: 125/62 mmHg INDICATION Bradycardia RISK FACTORS Height: 5' 2", Weight: 119 DIMENSIONS LVDd4.5 (3.8-5.7cm)LA (2D)3.4 (1.9-4.0cm)Aortic Root3.3 (2.0-3.7cm) LVDs3.7 (2.5-4.0cm)LA (MM) (1.9-4.0cm)Aortic Cusp Exc1.9 (1.5-2.0cm) EF (%) 40.0 (55-70%)Rt. Atrium3.0 (1.9-4.0cm)Asc. Aorta cm IVSd0.8 (0.7-1.1cm)RV (D) (1.8-2.4cm) PWd0.8 (0.7-1.1cm) Mitral Valve MitralMitral Stenosis E wave0.70m/sMV Mean GR.mmHg A wave0.80m/sMV Peak GR.mmHg E/A ratio0.92D MVAcm2 Aortic Valve Aortic ValveAortic Stenosis V10.70m/Laura Mean GR.2mmHg V21.00m/Laura Peak GR.4mmHg LVOT Diameter2.4 (1.8-2.4cm)Doppler AVA3.17cm2 AI P 1/2 [id number] Tricuspid Valve TR Velocity2.20m/s [id number] Other Information Quality : Technically LimitedRhythm : Technically limited study due to body habitus. Conclusion Technically good study. Sinus rhythm. LV enlargement. Left atrial enlargement. Concentric LVH. Aortic root enlargement. Valves are normal. EF of 35% with global hypokinesis. Dopplers unremarkable. Trace aortic insufficiency. No pericardial effusion masses or vegetations.
--- NOTE | 2025-03-28 15:11 | DVHINCON2 ---
Date Seen: Mar 28, 2025 Referring Physician Maria Isabel Reason for Consultation Bradycardia History of Present Illness 79-year-old female with PMH for dementia, ulcerative colitis/gastritis s/p colectomy ileostomy in 2007, GI bleed, CKD stage 4 presents to the hospital with generalized weakness, lightheadedness. Patient poor historian therefore information gathering mainly from chart review and per daughter via phone. A pparently patient has been experiencing blood streak bowel increased weakness. Upon evaluation in the ER patient noted to be hypotensive and bradycardic was subsequently placed on dopamine drip. Patient found to have suspected sepsis. Patient had creatinine 8.26, BUN 82. Troponin negative x3. Initial EKG reviewed and shows sinus rhythm at 91 beats per minute, with occasional PVC. Patient admitted ICU. Per staff blood pressure continues to be marginal, unable to titrate dopamine due to heart rate dropping to the 30s overnight. Per daughter patient has had episodes of dizziness lightheadedness to where patient falls forward on all fours of the floor. Denies any previous cardiac history, cardiac workup. Denies any pertinent family cardiac history. Past Medical History As stated above Past Surgical History As stated above Family History: Colon cancer G8 FATHER Diabetes mellitus G8 MOTHER Family History Denies pertinent family cardiac history Social History No history of tobacco, alcohol, or illicit drug use on review. Allergies: Coded Allergies: NO KNOWN ALLERGIES (Unverified , 12/18/24) Home Meds Reported Medications Folic Acid (Folic Acid) 1 Mg Tab, 1 MG PO DAILY, TAB 12/22/24 Calcium W/ Vitamins D & K (Calcium + D + K) 750 Mg Tab, 650 MG OR DAILY, TAB 12/22/24 Memantine Hydrochloride (Memantine HCl) 10 Mg Tab, 10 MG PO BID, TAB 12/22/24 Donepezil Hydrochloride (DONEPEZIL HCL) 10 Mg Tab, 1 TAB PO DAILY, #90 TAB 1 Refill 12/22/24 Quetiapine Fumerate (Seroquel) 50 Mg Tab, 1 TAB PO QPM, #30 TAB 2 Refills 12/22/24 Simvastatin (Simvastatin) 40 Mg Tab, 1 TAB PO QPM, #30 TAB 5 Refills 12/22/24 Fenofibrate (Fenofibrate) 54 Mg Tab, 1 TAB PO DAILY, #30 TAB 5 Refills 12/22/24 Ibandronate Sodium (IBANDRONATE SODIUM) 150 Mg Tab, 150 MG PO ONCE, TAB 12/22/24 Current Medications Current Medications Medications (Trade) Dose Ordered Sig/Socrates Route PRN Reason Start Time Stop Time Status Last Admin Dopamine HCl/ Dextrose 250 ml @ 10.125 mls/ hr Q24H IV 03/27/25 16:00 03/28/25 05:27 Review of Systems Constitutional: No: Fever, Chills, Sweats, Weakness, Malaise, Other Eyes: No: Pain, Vision change, Conjunctivae inflammation, Eyelid inflammation, Other, Redness ENT: No: Ear pain, Ear discharge, Nose pain, Nose discharge, Nose congestion, Mouth pain, Mouth swelling, Throat pain, Throat swelling, Other Respiratory: No: Cough, Dry, Shortness of breath, SOB with exertion, Wheezing, Hemoptysis, Pleuritic Pain, Sputum, Wheezing, Other Cardiovascular: ; No: Chest Pain Palpitations, Orthopnea, Paroxysmal Noc. Dyspnea, Edema, Lt Headedness, Other Gastrointestinal: No: Nausea, Vomiting, Abdominal Pain, Diarrhea, Constipation,, Hematochezia, Other positive: Melena Genitourinary: No Dysuria, No Frequency, No Incontinence, No Hematuria, No Retention, No Other Musculoskeletal: neck pain; No: other, shoulder pain, arm pain, back pain, hand pain, leg pain, foot pain Skin: No: Rash, Lesions, Jaundice, Bruising, Other Neurological: Other (Dizziness, headache.); No: Weakness, Numbness, Incoordination, Change in speech, Confusion, Seizures positive: lightheadedness. Forgetfulness Vital Signs Vital Signs Date Time Temp Pulse Resp B/P (MAP) Pulse Ox O2 Delivery O2 Flow Rate FiO2 03/28/25 14:00 71 18 106/56 (73) 94 03/28/25 12:30 97.8 97.8 03/28/25 08:15 Nasal Cannula* 2 28 Physical Exam General appearance: Patient is well-developed, well-nourished, in no acute distress. HEENT: Exam shows: Normocephalic, atraumatic, PERRLA, EOMI Neck: Supple, no bruits Chest: Equal chest excursion bilaterally. Breath sounds normal-no rales or wheezes. Heart: Rhythm: Regular rate; bradycardia no murmur or gallop Abdomen: Exam shows: Soft, nontender, nondistended , ileostomy. Musculoskeletal: No clubbing, no cyanosis, no lower extremity edema Dermatology: Skin warm, moist. Neurological: Exam shows: Alert and oriented x1-2, normal speech Available prior records, labs, EKG, rhythm strips reviewed and interpreted Labs/Diagnostic Data Labs Test 03/28/25 03:40 03/27/25 14:31 03/27/25 06:11 03/26/25 20:51 Range/Units White Blood Count 7.0 # 4.4-10.8 10^3/uL Red Blood Count 4.91 4.0-5.20 10^6/uL Hemoglobin 13.8 # 12.2-16.2 g/dL Hematocrit 41.3 # 36.0-46.0 % Mean Corpuscular Volume 84.2 80.0-100.0 fL Mean Corpuscular Hemoglobin 28.1 28.0-32.0 pg Mean Corpuscular Hemoglobin Concent 33.4 32.0-36.0 g/dL Red Cell Distribution Width 14.3 11.8-14.3 % Platelet Count 260 140-450 10^3/uL Mean Platelet Volume 7.6 6.9-10.8 fL Neutrophils (%) (Auto) 73.4 37.0-80.0 % Lymphocytes (%) (Auto) 12.9 10.0-50.0 % Monocytes (%) (Auto) 11.8 0.0-12.0 % Eosinophils (%) (Auto) 1.4 0.0-7.0 % Basophils (%) (Auto) 0.5 0.0-2.0 % Neutrophils # (Auto) 5.1 1.6-8.6 10 ^3/uL Lymphocytes # (Auto) 0.9 0.4-5.4 10 ^3/uL Monocytes # (Auto) 0.8 0-1.3 10 ^3/uL Eosinophils # (Auto) 0.1 0-0.8 10 ^3/uL Basophils # (Auto) 0 0-0.2 10 ^3/uL Nucleated Red Blood Cells 0.2 % Sodium Level 140 136-145 mmol/L Potassium Level 3.9 3.5-5.1 mmol/L Chloride Level 111 H 98-107 mmol/L Carbon Dioxide Level 12 L 20-31 mmol/L Anion Gap 17 H 5-15 Blood Urea Nitrogen 36 #H 9-23 mg/dL Creatinine 4.12 H 0.550-1.02 mg/dL Glomerular Filtration Rate Calc 11 >90 mL/min BUN/Creatinine Ratio 8.7 L 10.0-20.0 Serum Glucose 103 74-106 mg/dL Calcium Level 9.0 8.7-10.4 mg/dL Magnesium Level 1.6 1.6-2.6 mg/dL Total Bilirubin 0.5 0.2-1.0 mg/dL Aspartate Amino Transferase (AST) 19 <34 U/L Alanine Aminotransferase (ALT) 18 7-40 U/L Alkaline Phosphatase 50 46-116 U/L Total Protein 6.5 5.7-8.2 g/dL Albumin 3.9 3.2-4.8 g/dL Lactic Acid Level 1.4 0.4-2.0 mmol/L Test 03/26/25 20:20 03/26/25 20:05 03/26/25 18:52 Range/Units Stool Occult Blood Positive Negative Stool Occult Blood Sample #3 Negative Stool for White Cells None seen Urine Color Light-orange Yellow Urine Clarity Turbid H Clear Urine pH 5.0 5.0-9.0 Urine Specific [place] 1.018 1.001-1.035 Urine Protein 1+ H Negative Urine Ketones Negative Negative Urine Blood 1+ H Negative /uL Urine Nitrite Negative Negative Urine Bilirubin Negative Negative Urine Urobilinogen Normal Negative mg/dL Urine Leukocyte Esterase 3+ Negative /uL Urine RBC 5 0 - 4 /hpf Urine Microscopic WBC 30 H 0-5 /HPF Urine Squamous Epithelial Cells Many <5 /hpf Urine Bacteria Few H None Seen /hpf Urine Hyaline Casts Few 0 - 2 /lpf Urine Glucose Normal Normal mg/dL Troponin I High Sensitivity 3 L </=34 ng/L Microbiology Date/Time Source Procedure Growth Status 03/27/25 17:33 Nose MRSA Screen - Final Complete 03/26/25 20:20 Stool Stool Culture - Preliminary Resulted 03/26/25 20:20 Stool Shiga Toxin I & II Pending Resulted 03/26/25 20:05 Voided Urine Urine Culture - Preliminary Resulted Assessment * Sinus bradycardia - continue dopamine drip. Continue monitoring heart rate. Atropine p.r.n. for sustained symptomatic heart rate less than 40. Echo showing EF 35-40%. No significant valvular structural abnormalities. Plan of care discussed with patient and daughter, patient may need ppm implantation. Continue treating underlying infection and monitoring in ICU. * Hypotension, suspected sepsis/shock - on dopamine drip. Patient on midodrine 10 mg p.o. t.i.d.. Continue IV antibiotics. On IV fluid hydration. * New onset systolic HF - CXR negative for congestion/edema. Continue monitoring fluid volume status with IV fluid hydration. Breathing stable on room air, it does not seem fluid overloaded. * SANCHEZ on CKD - improving with IV fluid hydration. Avoid hypotension. Continue monitoring. management per Nephrology. * UTI - on IV antibiotics, management per primary team. Case Discussed with Dr Whitfield. Continue close monitoring in ICU. Continue dopamine drip. Patient may need permanent pacemaker implantation, once infection resolves, continue monitoring blood cultures and urine cultures. Check TSH and cortisol levels. Critical care, time spent: 48 minutes This medical document was created using an electronic medical record system with voice recognition software and computerized dictation system. Although this document has been carefully reviewed, there might still be some phonetic and typographical errors. Occasional wrong-word or ``sound-alike substitutions may have occurred due to the inherent limitations of voice recognition software. These areas are purely typographical due to imperfections of the software programs and do not reflect any compromise in the patient's medical care. Please read the chart carefully and recognize, using context, where these substitutions have occurred. Thank you for allowing me to participate in the management of this patient. The treatment plan was discussed with and agreed upon by patient/family including requesting consultants and ordering of imaging/procedures. Plan discussed with: Patient, Daughter NYHA Physical activity limitations: Class1(None)absent sob, Date of Service: Mar 28, 2025 Billing Provider: JACKELINE PATEL Cardiology Common Codes: 92565-[id number] INP/OBS CARE (High), [id number] CARE 30-74 MIN JACKELINE PATEL Mar 28, 2025 15:11
[2025-03-29] VITALS (96 sets, daily range): BP systolic 54–136; BP diastolic 30–75; PULSE 60–109; RESP 11–33; TEMP 97.6–97.9; O2SAT 89–97
[2025-03-29 04:16] LABS: Basophils # (auto) 0 10 ^3/uL (0-0.2); Basophils % (auto) 0.4 % (0.0-2.0); Eosinophils # (auto) 0.2 10 ^3/uL (0-0.8); Eosinophils % (auto) 2.6 % (0.0-7.0); Hematocrit 34.5 % (36.0-46.0); Hemoglobin 11.4 g/dL (12.2-16.2); Lymphocytes # (auto) 0.9 10 ^3/uL (0.4-5.4); Lymphocytes % (auto) 14.2 % (10.0-50.0); Mean Corpuscular Hemoglobin 27.6 pg (28.0-32.0); Mean Corpuscular Hgb Conc. 33.1 g/dL (32.0-36.0); Mean Corpuscular Volume 83.2 fL (80.0-100.0); Monocytes # (auto) 0.6 10 ^3/uL (0-1.3); Monocytes % (auto) 9.5 % (0.0-12.0); Neutrophils # (auto) 4.5 10 ^3/uL (1.6-8.6); Neutrophils % (auto) 73.3 % (37.0-80.0); Nucleated Red Blood Cells % 0.1 %; Platelet Count (auto) 259 10^3/uL (140-450); Red Blood Cells 4.15 10^6/uL (4.0-5.20); Red Cell Distribution Width 14.4 % (11.8-14.3); White Blood Cell 6.1 10^3/uL (4.4-10.8)
[2025-03-29 04:34] LABS: Alkaline Phosphatase 55 U/L (46-116); Anion Gap 14 (5-15); BUN/Creatinine Ratio 11.3 (10.0-20.0); Glucose 90 mg/dL (74-106); Sodium 143 mmol/L (136-145)
[2025-03-29 04:35] LABS: Albumin 3.6 g/dL (3.2-4.8); Aspartate Aminotransferase 29 U/L (<34)
[2025-03-29 04:36] LABS: Bilirubin, Total 0.3 mg/dL (0.2-1.0)
[2025-03-29 04:46] LABS: Alanine Aminotransferase < 9 U/L (7-40); Blood Urea Nitrogen 29 mg/dL (9-23); Calcium 8.6 mg/dL (8.7-10.4); Carbon Dioxide 20 mmol/L (20-31); Chloride 109 mmol/L (98-107); Magnesium 1.4 mg/dL (1.6-2.6); Potassium 3.5 mmol/L (3.5-5.1)
--- NOTE | 2025-03-29 10:46 | DVHPN2 ---
Consult Progress Note Date Seen: Mar 29, 2025 Subjective Review of Systems: CVS:Normal, RESPIRATORY:Normal, NEURO:Normal Other Systems: No overnight cardiac events Objective vital signs Vital Sign Date Time Temp Pulse Resp B/P (MAP) Pulse Ox O2 Delivery O2 Flow Rate FiO2 03/29/25 07:28 134/68 03/29/25 07:15 95 19 92 03/29/25 06:00 Room Air* 0 21 03/29/25 04:15 97.9 97.9 Total Intake and Output 03/28/25 03/28/25 03/29/25 15:00 23:00 07:00 Intake Total 748.6 ml 1070.500 ml 740.500 ml Output Total 200 ml 750 ml 600 ml Balance 548.6 ml 320.500 ml 140.500 ml medications Current Medications Medications Dose Ordered Sig/Socrates Route Start Time Stop Time Status Last Admin Dose Admin Donepezil HCl 10 mg HS PO 03/26/25 22:00 03/28/25 21:58 10 MG Pantoprazole Sodium 40 mg DAILY IV 03/27/25 10:00 03/29/25 09:04 40 MG Ceftriaxone Sodium 50 ml @ 100 mls/hr DAILY@09 IV 03/27/25 09:00 03/29/25 09:04 100 MLS/HR Memantine 10 mg Q12HR PO 03/26/25 22:00 03/29/25 09:04 10 MG Atorvastatin Calcium 10 mg HS PO 03/26/25 22:00 03/28/25 21:58 10 MG Midodrine 10 mg TID@0600,1200,1800 PO 03/27/25 06:00 03/29/25 05:50 10 MG Multivit/Ca Carb/ B Cmplx/FA/Prenat 1 tab DAILY PO 03/27/25 10:00 03/29/25 09:05 1 TAB Sodium Chloride 10 ml Q8HR IV 03/26/25 22:00 03/29/25 05:50 10 ML Acetaminophen/ Hydrocodone Bitart 1 tab Q4HP PRN PO 03/26/25 20:45 Ondansetron HCl 4 mg Q4HP PRN IV 03/26/25 20:45 03/29/25 08:57 4 MG Docusate Sodium 100 mg BIDPRN PRN PO 03/26/25 20:45 Acetaminophen 650 mg Q6HP PRN PO 03/26/25 20:45 Calcium/Vitamin D 1 tab DAILY PO 03/27/25 10:00 03/29/25 09:05 1 TAB Nitroglycerin 0.4 mg Q5MINP PRN SL 03/26/25 22:15 Morphine Sulfate 2 mg Q30M PRN IV 03/26/25 22:15 Lactated Ringer's 1,000 ml @ 75 mls/hr [id number] IV 03/27/25 07:15 03/29/25 04:21 75 MLS/HR Dopamine HCl/ Dextrose 250 ml @ 10.125 mls/ hr Q24H IV 03/27/25 16:00 03/29/25 04:24 16.2 MLS/HR Examination: LUNGS:Normal, CVS:Abnormal (Dopamine drip at 7 mcg/kg/min. HR 60s-70s bpm. NSR), NEURO:Normal laboratory and microbiology Laboratory Tests 03/29/25 03:03 Test 03/29/25 03:03 Range/Units Serum Glucose 90 74-106 mg/dL Problem List/Assessment/Plan Problem List/Assessment/Plan Assessment * Sinus bradycardia - titrate off dopamine drip as tolerated. Continue monitoring heart rate. Atropine p.r.n. for sustained symptomatic heart rate less than 40. No further bradycardic events since 03/27/2025. Transient bradycardia could have been secondary to hemodynamic derangement including renal impairment. No plans for PPM at this time. Goal of care is to titrate off Dopamine drip for further evaluation. Patient and daughter updated on POC. * Chronic compensated HFrEF, newly diagnosed - LVEF 35% with LAE. CXR negative for congestion/edema. Continue monitoring fluid volume status with IV fluid hydration. Breathing stable on room air, euvolemic. Initiate GDMT for CHF when able to tolerate, currently on vasopressor. * Septic shock with UTI- Discontinue midodrine contraindicated with HFrEF. ABX per primary care team. * SANCHEZ on CKD - improving with IV fluid hydration. Avoid hypotension. Continue monitoring. Management per Nephrology. * Hypomagnesemia/hypokalemia - replete as necessary. Thank you for allowing me to participate in the management of this patient. The treatment plan was discussed with and agreed upon by patient/family including requesting consultants and ordering of imaging/procedures. Critical care, time spent: 30 minutes. This medical document was created using an electronic medical record system with voice recognition software and computerized dictation system. Although this document has been carefully reviewed, there might still be some phonetic and typographical errors. Occasional wrong-word or ``sound-alike substitutions may have occurred due to the inherent limitations of voice recognition software. These areas are purely typographical due to imperfections of the software programs and do not reflect any compromise in the patient's medical care. Please read the chart carefully and recognize, using context, where these substitutions have occurred. Plan discussed with: Patient, Daughter, Other Dietary Evaluation Review Comments: Continue Renal standard diet which is less protein restricted. Supplement with Nepro PO 240ml bid until PO itnake improves to > 50% Expected Outcomes/Goals: gradual wt gain, improved nutrition status. Date of Service: Mar 29, 2025 Billing Provider: CHANTE ZARAGOZA Cardiology Common Codes: [id number] CARE 30-74 MIN CHANTE ZARAGOZA Mar 29, 2025 10:46
[2025-03-29] MEDS: HYDROcodone-ACET 5/325MG TAB PO PRN (10:48)
--- NOTE | 2025-03-29 12:22 | ECG ---
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
[2025-03-29] MEDS: MAGNESIUM SULFATE 1GM/100ML 100 ML IV SCH (14:27)
--- NOTE | 2025-03-29 16:47 | DVHPN2 ---
Subjective She c/o abdominal pain with nausea Changes from previous H/P or p: Changes Eyes: No Pain, No Vision change, No Conjunctivae inflammation, No Eyelid inflammation, No Other, No Redness ENT: No Ear pain, No Ear discharge, No Nose pain, No Nose discharge, No Nose congestion, No Mouth pain, No Mouth swelling, No Throat pain, No Throat swelling, No Other Cardiovascular: No Chest Pain, No Palpitations, No Orthopnea, No Paroxysmal Noc. Dyspnea, No Edema, No Lt Headedness, No Other Respiratory: No Cough, No Dry, No Shortness of breath, No SOB with excertion, No Wheezing, No Hemoptysis, No Pleuritic Pain, No Sputum, No Other Gastrointestinal: No Nausea, No Vomiting, No Abdominal Pain, No Diarrhea, No Constipation; Melena (Blood streak bowel); No Hematochezia; Other (Colostomy bag) Genitourinary: No Dysuria, No Frequency, No Incontinence, No Hematuria, No Retention, No Other Musculoskeletal: No other, No neck pain, No shoulder pain, No arm pain, No back pain, No hand pain, No leg pain, No foot pain Skin: No Rash, No Lesions, No Jaundice, No Bruising, No Other Objective Vitals Vital Signs Date Time Temp Pulse Resp B/P (MAP) Pulse Ox O2 Delivery O2 Flow Rate FiO2 03/29/25 15:00 64 27 94/42 (59) 93 03/29/25 14:00 Room Air* 0 21 03/29/25 12:00 97.6 97.6 Intake/Output Intake and Output 03/29/25 07:00 Intake Total 2559.600 ml Output Total 1550 ml Balance 1009.600 ml Intake Oral 450 ml IV Total 2109.600 ml Output Urine Total 950 ml Stool Total 400 ml Drainage Total 200 ml General Appearance: Alert, moderate distress Lungs: Clear to auscultation Cardiovascular: Other (bradycardic) Extremities: No edema Medications Current Medications Medications Dose Ordered Sig/Socrates Route Start Time Stop Time Status Last Admin Dose Admin Donepezil HCl 10 mg HS PO 03/26/25 22:00 03/28/25 21:58 10 MG Pantoprazole Sodium 40 mg DAILY IV 03/27/25 10:00 03/29/25 09:04 40 MG Ceftriaxone Sodium 50 ml @ 100 mls/hr DAILY@09 IV 03/27/25 09:00 03/29/25 09:04 100 MLS/HR Memantine 10 mg Q12HR PO 03/26/25 22:00 03/29/25 09:04 10 MG Atorvastatin Calcium 10 mg HS PO 03/26/25 22:00 03/28/25 21:58 10 MG Multivit/Ca Carb/ B Cmplx/FA/Prenat 1 tab DAILY PO 03/27/25 10:00 03/29/25 09:05 1 TAB Sodium Chloride 10 ml Q8HR IV 03/26/25 22:00 03/29/25 14:28 10 ML Ondansetron HCl 4 mg Q4HP PRN IV 03/26/25 20:45 03/29/25 14:27 4 MG Docusate Sodium 100 mg BIDPRN PRN PO 03/26/25 20:45 Acetaminophen 650 mg Q6HP PRN PO 03/26/25 20:45 Calcium/Vitamin D 1 tab DAILY PO 03/27/25 10:00 03/29/25 09:05 1 TAB Nitroglycerin 0.4 mg Q5MINP PRN SL 03/26/25 22:15 Morphine Sulfate 2 mg Q30M PRN IV 03/26/25 22:15 Lactated Ringer's 1,000 ml @ 75 mls/hr [id number] IV 03/27/25 07:15 03/29/25 04:21 75 MLS/HR Dopamine HCl/ Dextrose 250 ml @ 10.125 mls/ hr Q24H IV 03/27/25 16:00 03/29/25 04:24 16.2 MLS/HR Laboratory Results Laboratory Tests 03/29/25 03:03 Chemistry Test 03/29/25 03:03 Albumin 3.6 g/dL (3.2-4.8) Calcium Level 8.6 mg/dL (8.7-10.4) L Magnesium Level 1.4 mg/dL (1.6-2.6) L Total Protein 6.0 g/dL (5.7-8.2) LFT Test 03/29/25 03:03 Alanine Aminotransferase (ALT) < 9 U/L (7-40) Alkaline Phosphatase 55 U/L (46-116) Aspartate Amino Transferase (AST) 29 U/L (<34) Total Bilirubin 0.3 mg/dL (0.2-1.0) Urinalysis Test 03/26/25 20:05 Urine Color Light-orange (Yellow) Urine Clarity Turbid (Clear) H Urine pH 5.0 (5.0-9.0) Urine Specific [place] 1.018 (1.001-1.035) Urine Protein 1+ (Negative) H Urine Ketones Negative (Negative) Urine Blood 1+ /uL (Negative) H Urine Nitrite Negative (Negative) Urine Bilirubin Negative (Negative) Urine Urobilinogen Normal mg/dL (Negative) Urine Leukocyte Esterase 3+ /uL (Negative) Urine RBC 5 /hpf (0 - 4) Urine Microscopic WBC 30 /HPF (0-5) H Urine Squamous Epithelial Cells Many /hpf (<5) Urine Bacteria Few /hpf (None Seen) H Urine Hyaline Casts Few /lpf (0 - 2) Urine Glucose Normal mg/dL (Normal) Microbiology Microbiology Date/Time Source Procedure Growth Status 03/28/25 13:21 Blood Blood Culture - Preliminary NO GROWTH AFTER 24 HOURS OF INCUBATION. Resulted 03/27/25 17:33 Nose MRSA Screen - Final Complete 03/26/25 20:20 Stool Stool Culture - Final Complete 03/26/25 20:20 Stool Shiga Toxin I & II - Final Complete 03/26/25 20:05 Voided Urine Urine Culture - Final Complete Assessment/Plan Assessment/Plan Hypotension Bradycardia SANCHEZ/CKD CKD stage IV Acute kidney injury prerenal in the setting of volume depletion Left 2 cm renal mass Ulcerative colitis status post ileostomy with high output Dementia UTI Sepsis with septic shock PLAN: IV Rocephin IV fluids Start IV Dopamine drip Nephrology consult Cardiology consult Discussed with daughter at the bedside Full code Advanced directives discussed with daughter x 20 minutes 03/28/2025: Continue IV fluids Dopamine as needed, tapered down the dose as tolerated Nephrology is seeing the patient Cardiology is also seeing the patient Echocardiogram is pending Continue IV antibiotics Urine culture is negative Blood culture is pending Full code 03/29/25: Abdominal pain: Repeat CT scan, GI consult GI bleed?, + SOB: GI consult, IV Protonix SANCHEZ/CKD: Improving, continue IV fluids Sepsis: IV antibiotics: Rocephin, Dopamine drip Bradycardia: Dopamine drip Abdominal pain: Morphine prn Discussed with daughter at the bedside Plan discussed with: Patient My Orders Orders - BRANDI STEINBERG MD Procedure Category Date Status Time Npo (Nothing By DIET 03/29/25 Transmitted Mouth) Diet Dinner Ct Ab Pel Wo Con-No CT 03/29/25 Taken Oral Or Iv 15:08 * Gi [employer] [employer] Representative CONS 03/29/25 Transmitted 15:08 Date of Service: Mar 29, 2025 Billing Provider: BRANDI STEINBERG MD Common Visit Codes: [id number] INP/OBS CARE(HIGH) BRANDI STEINBERG MD Mar 29, 2025 16:47
--- NOTE | 2025-03-29 16:56 | DVH ---
EXAM: CT Abdomen and Pelvis Without Intravenous Contrast CLINICAL INDICATION: abd pain TECHNIQUE: Axial computed tomography images of the abdomen and pelvis without intravenous contrast. This CT exam was performed using one or more of the following dose reduction techniques: automated exposure control, adjustment of the mA and/or kV according to patient size, and/or use of iterative r econstruction technique. CONTRAST: RADIATION DOSE: CTDIvol = 5.09 mGy, DLP = 245.7 mGy-cm COMPARISON: CT CT AB PEL WO CON-NO ORAL OR IV on DOS: 03/26/25, CT CT AB PEL WO CON-NO ORAL OR IV on DOS: 12/18/24 FINDINGS: LUNG BASES: Partially visualized lung emphysema/COPD. No consolidation. MEDIASTINUM: Small esophageal hiatal hernia. ABDOMEN: LIVER: Fatty infiltration of the liver. GALLBLADDER AND BILE DUCTS: Cholelithiasis. No ductal dilation. PANCREAS: Unremarkable. No ductal dilation. SPLEEN: Unremarkable. No splenomegaly. ADRENALS: Unremarkable. No mass. KIDNEYS AND URETERS: Unremarkable. No stones within either kidney. No hydronephrosis. STOMACH AND BOWEL: Right lower ileostomy. Colonic diverticulosis without acute diverticulitis. No bowel obstruction or pneumoperitoneum. PELVIS: APPENDIX: No findings to suggest acute appendicitis. BLADDER: Unremarkable. No stones. REPRODUCTIVE: Unremarkable as visualized. ABDOMEN and PELVIS: INTRAPERITONEAL SPACE: See above. BONES/JOINTS: No acute fracture. No dislocation. SOFT TISSUES: Unremarkable. VASCULATURE: Scattered calcified atherosclerotic disease of aorta. No abdominal aortic aneurysm. LYMPH NODES: Unremarkable. No enlarged lymph nodes. OTHER FINDINGS: . . IMPRESSION: 1. No bowel obstruction or pneumoperitoneum. 2. Small esophageal hiatal hernia. 3. Cholelithiasis. 4. No obstructive uropathy. 5. Colonic diverticulosis without acute diverticulitis.
[2025-03-29] MEDS ORDERED: MORPHINE SULFATE INJ 2 MG/ml SYRG IV PRN (17:00)
[2025-03-29] MEDS: POTASSIUM CHLORIDE 20 MEQ, LIDOCAINE 1% (LOCAL ANESTH.) 2 ML in SODIUM CHL 0.9% 100 ML IV ONE (18:00)
--- NOTE | 2025-03-29 19:41 | DVHPN2 ---
Progress Note Date Seen: Mar 29, 2025 Medical Necessity Reason Pt with a Central, PICC or Fol: Yes The following are medically ne: Montalvo Catheter Subjective Patient reports: No new complaints, Feels better Objective vital signs Vital Sign Date Time Temp Pulse Resp B/P (MAP) Pulse Ox O2 Delivery O2 Flow Rate FiO2 03/29/25 18:30 67 12 125/63 (83) 94 03/29/25 18:00 97.9 97.9 03/29/25 18:00 Room Air* 0 21 Total Intake and Output 03/28/25 03/28/25 03/29/25 15:00 23:00 07:00 Intake Total 748.6 ml 1070.500 ml 740.500 ml Output Total 200 ml 750 ml 600 ml Balance 548.6 ml 320.500 ml 140.500 ml medications Current Medications Medications Dose Ordered Sig/Socrates Route Start Time Stop Time Status Last Admin Dose Admin Donepezil HCl 10 mg HS PO 03/26/25 22:00 03/28/25 21:58 10 MG Pantoprazole Sodium 40 mg DAILY IV 03/27/25 10:00 03/29/25 09:04 40 MG Ceftriaxone Sodium 50 ml @ 100 mls/hr DAILY@09 IV 03/27/25 09:00 03/29/25 09:04 100 MLS/HR Memantine 10 mg Q12HR PO 03/26/25 22:00 03/29/25 09:04 10 MG Atorvastatin Calcium 10 mg HS PO 03/26/25 22:00 03/28/25 21:58 10 MG Multivit/Ca Carb/ B Cmplx/FA/Prenat 1 tab DAILY PO 03/27/25 10:00 03/29/25 09:05 1 TAB Sodium Chloride 10 ml Q8HR IV 03/26/25 22:00 03/29/25 14:28 10 ML Ondansetron HCl 4 mg Q4HP PRN IV 03/26/25 20:45 03/29/25 14:27 4 MG Docusate Sodium 100 mg BIDPRN PRN PO 03/26/25 20:45 Acetaminophen 650 mg Q6HP PRN PO 03/26/25 20:45 Calcium/Vitamin D 1 tab DAILY PO 03/27/25 10:00 03/29/25 09:05 1 TAB Nitroglycerin 0.4 mg Q5MINP PRN SL 03/26/25 22:15 Morphine Sulfate 2 mg Q30M PRN IV 03/26/25 22:15 Lactated Ringer's 1,000 ml @ 75 mls/hr [id number] IV 03/27/25 07:15 03/29/25 18:25 75 MLS/HR Dopamine HCl/ Dextrose 250 ml @ 10.125 mls/ hr Q24H IV 03/27/25 16:00 03/29/25 04:24 16.2 MLS/HR Morphine Sulfate 1 mg Q4HP PRN IV 03/29/25 17:00 Examination: GENERAL:Normal, LUNGS:Normal, ABDOMEN:Abnormal, MSK:Normal, NEURO:Normal laboratory and microbiology Laboratory Tests 03/29/25 03:03 Test 03/29/25 03:03 Range/Units Serum Glucose 90 74-106 mg/dL Microbiology Date/Time Source Procedure Growth Status 03/28/25 13:21 Blood Blood Culture - Preliminary NO GROWTH AFTER 24 HOURS OF INCUBATION. Resulted 03/27/25 17:33 Nose MRSA Screen - Final Complete 03/26/25 20:20 Stool Stool Culture - Final Complete 03/26/25 20:20 Stool Shiga Toxin I & II - Final Complete 03/26/25 20:05 Voided Urine Urine Culture - Final Complete Problem List/Assessment/Plan Problem List/Assessment/Plan Acute kidney injury prerenal in the setting of volume depletion Chronic kidney disease suspect baseline stage IV; Dr. jeter Left 2 cm renal mass on US but none on multiple CTs Ulcerative colitis status post ileostomy with high output Bradycardia repeat kidney US Continue with IV fluids replace electrolytes on dopamine due to slow heart rate Plan discussed with: Patient, Daughter, Other Dietary Evaluation Review Comments: Continue Renal standard diet which is less protein restricted. Supplement with Nepro PO 240ml bid until PO itnake improves to > 50% Expected Outcomes/Goals: gradual wt gain, improved nutrition status. DANUTA JETER MD Mar 29, 2025 19:41
--- NOTE | 2025-03-29 20:39 | DVH ---
INDICATION: renal mass r/o TECHNIQUE: Multiple real-time sonographic images of the kidneys and bladder were obtained. COMPARISON: US KIDNEY on DOS: 12/21/24 FINDINGS: The right kidney measures 8.6 cm in length, which is normal in size. There is normal echoge nicity of the right kidney. No hydronephrosis. There is an anechoic lesion in the right kidney measur ing 2 x 1.5 x 1.4 cm The left kidney measures 9.2 cm in length, which is normal in size. There is normal echogenicity of t he left kidney. No hydronephrosis. There is an anechoic mass in the cortex of the left kidney measuri ng 1 by 0.8 x 0.8 cm. No large intraluminal masses are seen in the bladder. Montalvo catheter in the bladder in the bladder is empty. Bladder wall measures 7.4 mm IMPRESSION: 1. Normal sonographic appearance of the kidneys. No hydronephrosis. 2. Bilateral renal cysts.
[2025-03-30] VITALS (97 sets, daily range): BP systolic 75–126; BP diastolic 28–66; PULSE 65–124; RESP 12–30; TEMP 97.9–98.1; O2SAT 90–96
[2025-03-30 04:19] LABS: Basophils # (auto) 0 10 ^3/uL (0-0.2); Basophils % (auto) 0.5 % (0.0-2.0); Eosinophils # (auto) 0.1 10 ^3/uL (0-0.8); Eosinophils % (auto) 2.8 % (0.0-7.0); Hematocrit 34.3 % (36.0-46.0); Hemoglobin 11.5 g/dL (12.2-16.2); Lymphocytes # (auto) 1.1 10 ^3/uL (0.4-5.4); Lymphocytes % (auto) 20.5 % (10.0-50.0); Mean Corpuscular Hemoglobin 27.5 pg (28.0-32.0); Mean Corpuscular Hgb Conc. 33.6 g/dL (32.0-36.0); Monocytes # (auto) 0.7 10 ^3/uL (0-1.3); Monocytes % (auto) 13.6 % (0.0-12.0); Neutrophils # (auto) 3.3 10 ^3/uL (1.6-8.6); Neutrophils % (auto) 62.6 % (37.0-80.0); Nucleated Red Blood Cells % 0.1 %; Platelet Count (auto) 293 10^3/uL (140-450); Red Blood Cells 4.18 10^6/uL (4.0-5.20); Red Cell Distribution Width 14.1 % (11.8-14.3); White Blood Cell 5.3 10^3/uL (4.4-10.8)
[2025-03-30 04:36] LABS: Albumin 3.5 g/dL (3.2-4.8); Alkaline Phosphatase 53 U/L (46-116); Anion Gap 13 (5-15); Aspartate Aminotransferase 23 U/L (<34); BUN/Creatinine Ratio 8.6 (10.0-20.0); Blood Urea Nitrogen 16 mg/dL (9-23); Calcium 9.3 mg/dL (8.7-10.4); Glucose 84 mg/dL (74-106); Magnesium 1.9 mg/dL (1.6-2.6); Sodium 142 mmol/L (136-145)
[2025-03-30 04:37] LABS: Alanine Aminotransferase < 9 U/L (7-40); Bilirubin, Total 0.3 mg/dL (0.2-1.0); Carbon Dioxide 19 mmol/L (20-31); Chloride 110 mmol/L (98-107)
--- NOTE | 2025-03-30 10:19 | DVHPN2 ---
Subjective She is feeling better No abdominal pain CT scan of the abdomen was done yesterday showed diverticulosis with no diverticulitis No bowel obstruction or pneumoperitoneum She has cholelithiasis She has a small esophageal hiatal hernia She is still on dopamine drip Changes from previous H/P or p: Changes Eyes: No Pain, No Vision change, No Conjunctivae inflammation, No Eyelid inflammation, No Other, No Redness ENT: No Ear pain, No Ear discharge, No Nose pain, No Nose discharge, No Nose congestion, No Mouth pain, No Mouth swelling, No Throat pain, No Throat swelling, No Other Cardiovascular: No Chest Pain, No Palpitations, No Orthopnea, No Paroxysmal Noc. Dyspnea, No Edema, No Lt Headedness, No Other Respiratory: No Cough, No Dry, No Shortness of breath, No SOB with excertion, No Wheezing, No Hemoptysis, No Pleuritic Pain, No Sputum, No Other Gastrointestinal: No Nausea, No Vomiting, No Abdominal Pain, No Diarrhea, No Constipation; Melena (Blood streak bowel); No Hematochezia; Other (Colostomy bag) Genitourinary: No Dysuria, No Frequency, No Incontinence, No Hematuria, No Retention, No Other Musculoskeletal: No other, No neck pain, No shoulder pain, No arm pain, No back pain, No hand pain, No leg pain, No foot pain Skin: No Rash, No Lesions, No Jaundice, No Bruising, No Other Objective Vitals Vital Signs Date Time Temp Pulse Resp B/P (MAP) Pulse Ox O2 Delivery O2 Flow Rate FiO2 03/30/25 09:00 92 23 107/55 (72) 92 03/30/25 08:00 Room Air* 0 21 03/30/25 08:00 97.9 97.9 Intake/Output Intake and Output 03/30/25 07:00 Intake Total 2123.000 ml Output Total 1020 ml Balance 1103.000 ml Intake Oral 30 ml IV Total 2093.000 ml Output Urine Total 950 ml Stool Total 20 ml Drainage Total 50 ml General Appearance: Alert, moderate distress Lungs: Clear to auscultation Cardiovascular: Other (bradycardic) Extremities: No edema Medications Current Medications Medications Dose Ordered Sig/Socrates Route Start Time Stop Time Status Last Admin Dose Admin Donepezil HCl 10 mg HS PO 03/26/25 22:00 03/28/25 21:58 10 MG Pantoprazole Sodium 40 mg DAILY IV 03/27/25 10:00 03/29/25 09:04 40 MG Ceftriaxone Sodium 50 ml @ 100 mls/hr DAILY@09 IV 03/27/25 09:00 03/30/25 09:06 100 MLS/HR Memantine 10 mg Q12HR PO 03/26/25 22:00 03/29/25 09:04 10 MG Atorvastatin Calcium 10 mg HS PO 03/26/25 22:00 03/28/25 21:58 10 MG Multivit/Ca Carb/ B Cmplx/FA/Prenat 1 tab DAILY PO 03/27/25 10:00 03/29/25 09:05 1 TAB Sodium Chloride 10 ml Q8HR IV 03/26/25 22:00 03/30/25 06:00 10 ML Ondansetron HCl 4 mg Q4HP PRN IV 03/26/25 20:45 03/29/25 14:27 4 MG Docusate Sodium 100 mg BIDPRN PRN PO 03/26/25 20:45 Acetaminophen 650 mg Q6HP PRN PO 03/26/25 20:45 Calcium/Vitamin D 1 tab DAILY PO 03/27/25 10:00 03/29/25 09:05 1 TAB Nitroglycerin 0.4 mg Q5MINP PRN SL 03/26/25 22:15 Morphine Sulfate 2 mg Q30M PRN IV 03/26/25 22:15 Lactated Ringer's 1,000 ml @ 75 mls/hr [id number] IV 03/27/25 07:15 03/29/25 18:25 75 MLS/HR Dopamine HCl/ Dextrose 250 ml @ 10.125 mls/ hr Q24H IV 03/27/25 16:00 03/29/25 23:46 10.125 MLS/HR Morphine Sulfate 1 mg Q4HP PRN IV 03/29/25 17:00 Laboratory Results Laboratory Tests 03/30/25 03:32 Chemistry Test 03/30/25 03:32 Albumin 3.5 g/dL (3.2-4.8) Calcium Level 9.3 mg/dL (8.7-10.4) Magnesium Level 1.9 mg/dL (1.6-2.6) Total Protein 6.0 g/dL (5.7-8.2) LFT Test 03/30/25 03:32 Alanine Aminotransferase (ALT) < 9 U/L (7-40) Alkaline Phosphatase 53 U/L (46-116) Aspartate Amino Transferase (AST) 23 U/L (<34) Total Bilirubin 0.3 mg/dL (0.2-1.0) Urinalysis Test 03/26/25 20:05 Urine Color Light-orange (Yellow) Urine Clarity Turbid (Clear) H Urine pH 5.0 (5.0-9.0) Urine Specific [place] 1.018 (1.001-1.035) Urine Protein 1+ (Negative) H Urine Ketones Negative (Negative) Urine Blood 1+ /uL (Negative) H Urine Nitrite Negative (Negative) Urine Bilirubin Negative (Negative) Urine Urobilinogen Normal mg/dL (Negative) Urine Leukocyte Esterase 3+ /uL (Negative) Urine RBC 5 /hpf (0 - 4) Urine Microscopic WBC 30 /HPF (0-5) H Urine Squamous Epithelial Cells Many /hpf (<5) Urine Bacteria Few /hpf (None Seen) H Urine Hyaline Casts Few /lpf (0 - 2) Urine Glucose Normal mg/dL (Normal) Microbiology Microbiology Date/Time Source Procedure Growth Status 03/28/25 13:21 Blood Blood Culture - Preliminary NO GROWTH AFTER 24 HOURS OF INCUBATION. Resulted 03/27/25 17:33 Nose MRSA Screen - Final Complete 03/26/25 20:20 Stool Stool Culture - Final Complete 03/26/25 20:20 Stool Shiga Toxin I & II - Final Complete 03/26/25 20:05 Voided Urine Urine Culture - Final Complete Assessment/Plan Assessment/Plan Hypotension Bradycardia SANCHEZ/CKD CKD stage IV Acute kidney injury prerenal in the setting of volume depletion Left 2 cm renal mass Ulcerative colitis status post ileostomy with high output Dementia UTI Sepsis with septic shock PLAN: IV Rocephin IV fluids Start IV Dopamine drip Nephrology consult Cardiology consult Discussed with daughter at the bedside Full code Advanced directives discussed with daughter x 20 minutes 03/28/2025: Continue IV fluids Dopamine as needed, tapered down the dose as tolerated Nephrology is seeing the patient Cardiology is also seeing the patient Echocardiogram is pending Continue IV antibiotics Urine culture is negative Blood culture is pending Full code 03/29/25: Abdominal pain: Repeat CT scan, GI consult GI bleed?, + SOB: GI consult, IV Protonix SANCHEZ/CKD: Improving, continue IV fluids Sepsis: IV antibiotics: Rocephin, Dopamine drip Bradycardia: Dopamine drip Abdominal pain: Morphine prn Discussed with daughter at the bedside 03/30/2025: Abdominal pain: Stable GI bleed: GI consult pending Continue IV Protonix Hypotension with bradycardia: Continue dopamine Continue IV Rocephin Monitor closely Keep NPO until she is seen by GI Discussed with the daughter at the bedside Plan discussed with: Patient, Daughter My Orders Orders - BRANDI STEINBERG MD Procedure Category Date Status Time Npo (Nothing By DIET 03/29/25 Transmitted Mouth) Diet Dinner Ct Ab Pel Wo Con-No CT 03/29/25 Resulted Oral Or Iv 15:08 * Gi Dvh Bobbin Inspector CONS 03/29/25 Transmitted 15:08 Morphine Sulfate PHA 03/29/25 In Process Injection 17:00 Date of Service: Mar 30, 2025 Billing Provider: BRANDI STEINBERG MD Common Visit Codes: [id number] INP/OBS CARE(HIGH) BRANDI STEINBERG MD Mar 30, 2025 10:19
--- NOTE | 2025-03-30 10:51 | DVHPN2 ---
Consult Progress Note Date Seen: Mar 30, 2025 Subjective Review of Systems: CVS:Normal, RESPIRATORY:Normal, NEURO:Normal Objective vital signs Vital Sign Date Time Temp Pulse Resp B/P (MAP) Pulse Ox O2 Delivery O2 Flow Rate FiO2 03/30/25 09:00 92 23 107/55 (72) 92 03/30/25 08:00 Room Air* 0 21 03/30/25 08:00 97.9 97.9 Total Intake and Output 03/29/25 03/29/25 03/30/25 15:00 23:00 07:00 Intake Total 731.000 ml 711.000 ml 681.000 ml Output Total 570 ml 450 ml Balance 731.000 ml 141.000 ml 231.000 ml medications Current Medications Medications Dose Ordered Sig/Socrates Route Start Time Stop Time Status Last Admin Dose Admin Donepezil HCl 10 mg HS PO 03/26/25 22:00 03/28/25 21:58 10 MG Pantoprazole Sodium 40 mg DAILY IV 03/27/25 10:00 03/30/25 10:37 40 MG Ceftriaxone Sodium 50 ml @ 100 mls/hr DAILY@09 IV 03/27/25 09:00 03/30/25 09:06 100 MLS/HR Memantine 10 mg Q12HR PO 03/26/25 22:00 03/30/25 10:37 10 MG Atorvastatin Calcium 10 mg HS PO 03/26/25 22:00 03/28/25 21:58 10 MG Multivit/Ca Carb/ B Cmplx/FA/Prenat 1 tab DAILY PO 03/27/25 10:00 03/30/25 10:37 1 TAB Sodium Chloride 10 ml Q8HR IV 03/26/25 22:00 03/30/25 06:00 10 ML Ondansetron HCl 4 mg Q4HP PRN IV 03/26/25 20:45 03/29/25 14:27 4 MG Docusate Sodium 100 mg BIDPRN PRN PO 03/26/25 20:45 Acetaminophen 650 mg Q6HP PRN PO 03/26/25 20:45 Calcium/Vitamin D 1 tab DAILY PO 03/27/25 10:00 03/30/25 10:37 1 TAB Nitroglycerin 0.4 mg Q5MINP PRN SL 03/26/25 22:15 Morphine Sulfate 2 mg Q30M PRN IV 03/26/25 22:15 Lactated Ringer's 1,000 ml @ 75 mls/hr [id number] IV 03/27/25 07:15 03/29/25 18:25 75 MLS/HR Dopamine HCl/ Dextrose 250 ml @ 10.125 mls/ hr Q24H IV 03/27/25 16:00 03/29/25 23:46 10.125 MLS/HR Morphine Sulfate 1 mg Q4HP PRN IV 03/29/25 17:00 Examination: LUNGS:Normal, CVS:Abnormal (On dopamine at 5 mcg/kg/min. NSR. No brdycardic events on quality assurance monitor chassis), NEURO:Normal laboratory and microbiology Laboratory Tests 03/30/25 03:32 Test 03/30/25 03:32 Range/Units Serum Glucose 84 74-106 mg/dL Problem List/Assessment/Plan Problem List/Assessment/Plan Assessment/Plan (Dr. Whitfield) * Sinus bradycardia - titrate off dopamine drip as tolerated. Continue monitoring heart rate. Atropine p.r.n. for sustained symptomatic heart rate less than 40. No further bradycardic events since 03/27/2025. Transient bradycardia could have been secondary to hemodynamic derangement including renal impairment. No plans for PPM at this time. Goal of care is to titrate off Dopamine drip for further evaluation. Patient and daughter updated on POC. * Chronic compensated HFrEF, newly diagnosed - LVEF 35% with LAE. CXR negative for congestion/edema. Continue monitoring fluid volume status with IV fluid hydration. Breathing stable on room air, euvolemic. Initiate GDMT for CHF when able to tolerate, currently on vasopressor. * Septic shock with UTI- Discontinue midodrine contraindicated with HFrEF. ABX per primary care team. * SANCHEZ on CKD - improving with IV fluid hydration. Avoid hypotension. Continue monitoring. Management per Nephrology. * Hypomagnesemia/hypokalemia - replete as necessary. Thank you for allowing me to participate in the management of this patient. The treatment plan was discussed with and agreed upon by patient/family including requesting consultants and ordering of imaging/procedures. Critical care, time spent: 30 minutes. This medical document was created using an electronic medical record system with voice recognition software and computerized dictation system. Although this document has been carefully reviewed, there might still be some phonetic and typographical errors. Occasional wrong-word or ``sound-alike substitutions may have occurred due to the inherent limitations of voice recognition software. These areas are purely typographical due to imperfections of the software programs and do not reflect any compromise in the patient's medical care. Please read the chart carefully and recognize, using context, where these substitutions have occurred. Plan discussed with: Patient, Daughter, Other Dietary Evaluation Review Comments: Continue Renal standard diet which is less protein restricted. Supplement with Nepro PO 240ml bid until PO itnake improves to > 50% Expected Outcomes/Goals: gradual wt gain, improved nutrition status. Date of Service: Mar 30, 2025 Billing Provider: CHANTE ZARAGOZA Cardiology Common Codes: [id number] CARE 30-74 MIN CHANTE ZARAGOZA Mar 30, 2025 10:51
[2025-03-30] MEDS: DOPamine 1600MCG/ML D5W 250 ML IV SCH (11:00)
--- NOTE | 2025-03-30 17:34 | DVHCONRES ---
Date Seen: Mar 30, 2025 Resident Creating Document: AGUILAR WU RESIDENT Referring Physician Dr. Nicolas History of Present Illness Patient is 79 years old female with past medical history of dementia, ulcerative colitis, gastritis, anemia, renal failure was brought into the hospital due to generalized weakness and blood strict bowel movement. On admission patient was hypotension.laboratory data shows BUN 82, creatinine 8.26, glucose 87, calcium 9.4, troponin < 3, urinalysis revealed leukocyte esterase 3+, WBC 30, bacteria few. Stool occult blood test positive. Patient was seen today in the ICU Denied acute abdominal pain Patient is serum creatinine trending down and BUN as well H&H stable CT abdomen and pelvis on 03/29/2025 revealed-Small esophageal hiatal hernia. Cholelithiasis. Colonic diverticulosis without acute diverticulitis. On 03/29/2020 Renal ultrasound revealed -Bilateral renal cysts. Patient was seen by Cardiology Family History: Colon cancer G8 FATHER Diabetes mellitus G8 MOTHER Allergies: Coded Allergies: NO KNOWN ALLERGIES (Unverified , 12/18/24) Home Meds Reported Medications Fluticasone Propionate (Nasal) (Fluticasone Propionate) 50 Mcg/Act Spr, 1 SPRAY LEEANN DAILY for 60 Days, #16 03/30/25 Midodrine HCl (Midodrine Hydrochloride) 10 Mg Tab, 1 TAB PO TID for 30 Days, #90 03/30/25 Pantoprazole Sodium Sesquihydr (Pantoprazole Sodium Dr) 40 Mg Tab, 1 TAB PO BID for 30 Days, #60 03/30/25 Sodium Bicarbonate (Sodium Bicarbonate) 650 Mg Tab, 1 TAB PO BID for 30 Days, #60 03/30/25 Megestrol Acetate (Megace) 20 Mg Tb, 1 TAB PO BID for 20 Days, #40 03/30/25 Folic Acid (Folic Acid) 1 Mg Tab, 1 MG PO DAILY, TAB 12/22/24 Calcium W/ Vitamins D & K (Calcium + D + K) 750 Mg Tab, 650 MG OR DAILY, TAB 12/22/24 Memantine Hydrochloride (Memantine HCl) 10 Mg Tab, 1 TAB PO BID for 90 Days, #180 12/22/24 Donepezil Hydrochloride (DONEPEZIL HCL) 10 Mg Tab, 1 TAB PO DAILY for 90 Days, #90 12/22/24 Quetiapine Fumerate (Seroquel) 50 Mg Tab, 1 TAB PO QPM, #30 TAB 2 Refills 12/22/24 Simvastatin (Simvastatin) 40 Mg Tab, 1 TAB PO QPM for 90 Days, #90 12/22/24 Fenofibrate (Fenofibrate) 54 Mg Tab, 1 TAB PO DAILY for 90 Days, #90 12/22/24 Ibandronate Sodium (IBANDRONATE SODIUM) 150 Mg Tab, 150 MG PO ONCE, TAB 12/22/24 Current Medications Current Medications Medications (Trade) Dose Ordered Sig/Socrates Route PRN Reason Start Time Stop Time Status Last Admin Dopamine HCl/ Dextrose 250 ml @ 10.538 mls/ hr [id number] IV 03/30/25 11:15 03/30/25 11:00 Vital Signs Vital Signs Date Time Temp Pulse Resp B/P (MAP) Pulse Ox O2 Delivery O2 Flow Rate FiO2 03/30/25 16:00 81 03/30/25 16:00 17 94 Room Air* 0 21 03/30/25 15:00 103/53 (70) 03/30/25 12:00 98.1 98.1 Labs/Diagnostic Data Labs Test 03/30/25 03:32 03/29/25 08:48 03/29/25 03:03 03/28/25 03:40 Range/Units White Blood Count 5.3 4.4-10.8 10^3/uL Red Blood Count 4.18 4.0-5.20 10^6/uL Hemoglobin 11.5 L 12.2-16.2 g/dL Hematocrit 34.3 L 36.0-46.0 % Mean Corpuscular Volume 82.0 80.0-100.0 fL Mean Corpuscular Hemoglobin 27.5 L 28.0-32.0 pg Mean Corpuscular Hemoglobin Concent 33.6 32.0-36.0 g/dL Red Cell Distribution Width 14.1 11.8-14.3 % Platelet Count 293 140-450 10^3/uL Mean Platelet Volume 7.5 6.9-10.8 fL Neutrophils (%) (Auto) 62.6 37.0-80.0 % Lymphocytes (%) (Auto) 20.5 10.0-50.0 % Monocytes (%) (Auto) 13.6 H 0.0-12.0 % Eosinophils (%) (Auto) 2.8 0.0-7.0 % Basophils (%) (Auto) 0.5 0.0-2.0 % Neutrophils # (Auto) 3.3 1.6-8.6 10 ^3/uL Lymphocytes # (Auto) 1.1 0.4-5.4 10 ^3/uL Monocytes # (Auto) 0.7 0-1.3 10 ^3/uL Eosinophils # (Auto) 0.1 0-0.8 10 ^3/uL Basophils # (Auto) 0 0-0.2 10 ^3/uL Nucleated Red Blood Cells 0.1 % Sodium Level 142 136-145 mmol/L Potassium Level 4.0 3.5-5.1 mmol/L Chloride Level 110 H 98-107 mmol/L Carbon Dioxide Level 19 L 20-31 mmol/L Anion Gap 13 5-15 Blood Urea Nitrogen 16 # 9-23 mg/dL Creatinine 1.87 H 0.550-1.02 mg/dL Glomerular Filtration Rate Calc 27 >90 mL/min BUN/Creatinine Ratio 8.6 L 10.0-20.0 Serum Glucose 84 74-106 mg/dL Calcium Level 9.3 8.7-10.4 mg/dL Magnesium Level 1.9 1.6-2.6 mg/dL Total Bilirubin 0.3 0.2-1.0 mg/dL Aspartate Amino Transferase (AST) 23 <34 U/L Alanine Aminotransferase (ALT) < 9 7-40 U/L Alkaline Phosphatase 53 46-116 U/L Total Protein 6.0 5.7-8.2 g/dL Albumin 3.5 3.2-4.8 g/dL Cortisol AM Sample 34.20 H 5.27-22.45 ug/dL Free Thyroxine (T4) Calculated 0.92 0.89-1.76 ng/dL Thyroid Stimulating Hormone (TSH) 0.34 L 0.55-4.78 uIU/mL Test 03/26/25 20:51 03/26/25 20:20 03/26/25 20:05 03/26/25 18:52 Range/Units Lactic Acid Level 1.4 0.4-2.0 mmol/L Stool Occult Blood Positive Negative Stool Occult Blood Sample #3 Negative Stool for White Cells None seen Urine Color Light-orange Yellow Urine Clarity Turbid H Clear Urine pH 5.0 5.0-9.0 Urine Specific [place] 1.018 1.001-1.035 Urine Protein 1+ H Negative Urine Ketones Negative Negative Urine Blood 1+ H Negative /uL Urine Nitrite Negative Negative Urine Bilirubin Negative Negative Urine Urobilinogen Normal Negative mg/dL Urine Leukocyte Esterase 3+ Negative /uL Urine RBC 5 0 - 4 /hpf Urine Microscopic WBC 30 H 0-5 /HPF Urine Squamous Epithelial Cells Many <5 /hpf Urine Bacteria Few H None Seen /hpf Urine Hyaline Casts Few 0 - 2 /lpf Urine Glucose Normal Normal mg/dL Troponin I High Sensitivity 3 L </=34 ng/L Microbiology Date/Time Source Procedure Growth Status 03/28/25 13:21 Blood Blood Culture - Preliminary NO GROWTH AFTER 48 HOURS OF INCUBATION. Resulted 03/27/25 17:33 Nose MRSA Screen - Final Complete 03/26/25 20:20 Stool Stool Culture - Final Complete 03/26/25 20:20 Stool Shiga Toxin I & II - Final Complete 03/26/25 20:05 Voided Urine Urine Culture - Final Complete Assessment Assessment and plan SANCHEZ on CKD likely due toVMN/dehydration Ulcerative colitis status post ileostomy with high output Dementia UTI Sepsis with septic shock Events Patient had abdominal pain and nausea yesterday Patient is feeling better today H&H is stable Blood culture negative Uterine culture likely contaminated sample Plan Monitor CBC Continue current treatment Plan is to put patient on full liquid diet Gastroenterology we will remain standby, if hemoglobin drops we will do another colonoscopy Continue IV fluid as prescribed Continue IV antibiotic as prescribed Plan discussed with Dr. Lamar Perez , nursing staff, Total time spent on patient evaluation, chart review, assessment and plan, disc ussion discussion >35 minutes Plan discussed with: Patient, Daughter, Other (RN) AGUILAR WU RESIDENT Mar 30, 2025 17:34
--- NOTE | 2025-03-30 18:30 | DVHPN2 ---
Progress Note Date Seen: Mar 30, 2025 Medical Necessity Reason Pt with a Central, PICC or Fol: Yes The following are medically ne: [place] Catheter Subjective Patient reports: No new complaints Review of Systems: Deferred Objective vital signs Vital Sign Date Time Temp Pulse Resp B/P (MAP) Pulse Ox O2 Delivery O2 Flow Rate FiO2 03/30/25 16:00 81 03/30/25 16:00 17 94 Room Air* 0 21 03/30/25 15:00 103/53 (70) 03/30/25 12:00 98.1 98.1 Total Intake and Output 03/29/25 03/29/25 03/30/25 15:00 23:00 07:00 Intake Total 731.000 ml 711.000 ml 681.000 ml Output Total 570 ml 450 ml Balance 731.000 ml 141.000 ml 231.000 ml medications Current Medications Medications Dose Ordered Sig/Socrates Route Start Time Stop Time Status Last Admin Dose Admin Donepezil HCl 10 mg HS PO 03/26/25 22:00 03/28/25 21:58 10 MG Pantoprazole Sodium 40 mg DAILY IV 03/27/25 10:00 03/30/25 10:37 40 MG Ceftriaxone Sodium 50 ml @ 100 mls/hr DAILY@09 IV 03/27/25 09:00 03/30/25 09:06 100 MLS/HR Memantine 10 mg Q12HR PO 03/26/25 22:00 03/30/25 10:37 10 MG Atorvastatin Calcium 10 mg HS PO 03/26/25 22:00 03/28/25 21:58 10 MG Multivit/Ca Carb/ B Cmplx/FA/Prenat 1 tab DAILY PO 03/27/25 10:00 03/30/25 10:37 1 TAB Sodium Chloride 10 ml Q8HR IV 03/26/25 22:00 03/30/25 14:00 10 ML Ondansetron HCl 4 mg Q4HP PRN IV 03/26/25 20:45 03/29/25 14:27 4 MG Docusate Sodium 100 mg BIDPRN PRN PO 03/26/25 20:45 Acetaminophen 650 mg Q6HP PRN PO 03/26/25 20:45 Calcium/Vitamin D 1 tab DAILY PO 03/27/25 10:00 03/30/25 10:37 1 TAB Nitroglycerin 0.4 mg Q5MINP PRN SL 03/26/25 22:15 Morphine Sulfate 2 mg Q30M PRN IV 03/26/25 22:15 Morphine Sulfate 1 mg Q4HP PRN IV 03/29/25 17:00 Dopamine HCl/ Dextrose 250 ml @ 10.538 mls/ hr [id number] IV 03/30/25 11:15 03/30/25 11:00 10.538 MLS/HR Lactated Ringer's 1,000 ml @ 50 mls/hr Q20H IV 03/30/25 18:30 UNV Examination: GENERAL:Normal, HEENT:Normal, NECK:Normal, LUNGS:Normal, CVS:Normal, ABDOMEN:Normal, MSK:Normal, SKIN:Normal, NEURO:Normal, :Normal laboratory and microbiology Laboratory Tests 03/30/25 03:32 Test 03/30/25 03:32 Range/Units Serum Glucose 84 74-106 mg/dL Microbiology Date/Time Source Procedure Growth Status 03/28/25 13:21 Blood Blood Culture - Preliminary NO GROWTH AFTER 48 HOURS OF INCUBATION. Resulted 03/27/25 17:33 Nose MRSA Screen - Final Complete 03/26/25 20:20 Stool Stool Culture - Final Complete 03/26/25 20:20 Stool Shiga Toxin I & II - Final Complete 03/26/25 20:05 Voided Urine Urine Culture - Final Complete Problem List/Assessment/Plan Problem List/Assessment/Plan Acute kidney injury prerenal in the setting of volume depletion Chronic kidney disease suspect baseline stage IV; Dr. jeter renal mass on US but none on multiple CTs Ulcerative colitis status post ileostomy with high output Bradycardia chfref Continue with IV fluids -reduce rate replace electrolytes on dopamine due to slow heart rate urology consult for renal mass Plan discussed with: Patient My Orders My Orders Orders - DANUTA EJTER MD Procedure Category Date Status Time Kidney US 03/29/25 Resulted 19:39 Lactated Ringer's PHA 03/30/25 Logged 18:30 * Urology Consult CONS 03/30/25 Transmitted 18:26 Dietary Evaluation Review Comments: Continue Renal standard diet which is less protein restricted. Supplement with Nepro PO 240ml bid until PO itnake improves to > 50% Expected Outcomes/Goals: gradual wt gain, improved nutrition status. DANUTA JETER MD Mar 30, 2025 18:30
[2025-03-30] MEDS: LACTATED RINGER'S 1,000 ML IV SCH (19:00)
[2025-03-31] VITALS (88 sets, daily range): BP systolic 78–133; BP diastolic 33–96; PULSE 71–106; RESP 10–25; TEMP 97.7–98.5; O2SAT 90–100
[2025-03-31 04:28] LABS: Sodium 141 mmol/L (136-145)
[2025-03-31 04:29] LABS: Anion Gap 12 (5-15); Carbon Dioxide 20 mmol/L (20-31)
[2025-03-31 04:34] LABS: BUN/Creatinine Ratio 6.8 (10.0-20.0); Blood Urea Nitrogen 11 mg/dL (9-23); Glucose 87 mg/dL (74-106)
[2025-03-31 04:38] LABS: Calcium 8.2 mg/dL (8.7-10.4); Chloride 109 mmol/L (98-107); Magnesium 1.6 mg/dL (1.6-2.6); Potassium 3.3 mmol/L (3.5-5.1)
--- NOTE | 2025-03-31 08:26 | DVHINCON2 ---
Date of service: Mar 31, 2025 Referring Physician Hospitalist Reason for Consultation "Renal mass on US" History of Present Illness Patient admitted for dehydration/CKD with SANCHEZ. CT Scan (12/18/24): no renal mass reported. Renal US (12/21/24): 2 cm left renal mass (see report) CT Scan (03/29/25): no renal mass or stones reported Renal US (03/29/25): bilateral renal cysts 79-year-old female with past medical history of dementia, also relief colitis, gastritis, anemia, and renal failure who presented to [facility] ED with complaint of generalized weakness for the past 2 days. Patient reports experiencing blood streak bowel, increased weakness, getting worse that prompted this visit. Patient was seen and evaluated in the ED, laboratory data shows WBC 7.3, platelets 245, sodium 140, potassium 4.5, BUN 82, creatinine 8.26, glucose 87, calcium 9.4, troponin < 3, urinalysis positive for urinary tract infection, blood pressure 87/42 trending up to 91/47, heart rate 70, temperature 97.9 F, O2 saturation 99% on room air. Abdomen/pelvis CT showed no evidence of bowel obstruction, gallbladder is contracted and no calcified gallstones. Patient was started on IV antibiotic regimen Rocephin, please see medication orders section in the computer. On my assessment, family member at bedside, patient denied chest pain, no headache, no dizziness, no shortness of breath, no diaphoresis, no blood streak bowel at this moment, no nausea, no vomiting, no fever, no chills. Patient was admitted for further evaluation and medical management. Past Medical History Dementia, ulcerative colitis, gastritis, anemia, renal failure Past Surgical History Colectomy, colostomy Family History: Colon cancer G8 FATHER Diabetes mellitus G8 MOTHER Allergies: Coded Allergies: NO KNOWN ALLERGIES (Unverified , 12/18/24) Home Meds Reported Medications Fluticasone Propionate (Nasal) (Fluticasone Propionate) 50 Mcg/Act Spr, 1 SPRAY LEEANN DAILY for 60 Days, #16 03/30/25 Midodrine HCl (Midodrine Hydrochloride) 10 Mg Tab, 1 TAB PO TID for 30 Days, #90 03/30/25 Pantoprazole Sodium Sesquihydr (Pantoprazole Sodium Dr) 40 Mg Tab, 1 TAB PO BID for 30 Days, #60 03/30/25 Sodium Bicarbonate (Sodium Bicarbonate) 650 Mg Tab, 1 TAB PO BID for 30 Days, #60 03/30/25 Megestrol Acetate (Megace) 20 Mg Tb, 1 TAB PO BID for 20 Days, #40 03/30/25 Folic Acid (Folic Acid) 1 Mg Tab, 1 MG PO DAILY, TAB 12/22/24 Calcium W/ Vitamins D & K (Calcium + D + K) 750 Mg Tab, 650 MG OR DAILY, TAB 12/22/24 Memantine Hydrochloride (Memantine HCl) 10 Mg Tab, 1 TAB PO BID for 90 Days, #180 12/22/24 Donepezil Hydrochloride (DONEPEZIL HCL) 10 Mg Tab, 1 TAB PO DAILY for 90 Days, #90 12/22/24 Quetiapine Fumerate (Seroquel) 50 Mg Tab, 1 TAB PO QPM, #30 TAB 2 Refills 12/22/24 Simvastatin (Simvastatin) 40 Mg Tab, 1 TAB PO QPM for 90 Days, #90 12/22/24 Fenofibrate (Fenofibrate) 54 Mg Tab, 1 TAB PO DAILY for 90 Days, #90 12/22/24 Ibandronate Sodium (IBANDRONATE SODIUM) 150 Mg Tab, 150 MG PO ONCE, TAB 12/22/24 Current Medications Current Medications Medications (Trade) Dose Ordered Sig/Socrates Route PRN Reason Start Time Stop Time Status Last Admin Dopamine HCl/ Dextrose 250 ml @ 10.538 mls/ hr [id number] IV 03/30/25 11:15 03/31/25 06:13 Lactated Ringer's 1,000 ml @ 50 mls/hr Q20H IV 03/30/25 18:30 03/30/25 19:00 Review of Systems Constitutional: Yes: Weakness; No: Fever, Chills, Sweats, Malaise, Other Eyes: No: Pain, Vision change, Conjunctivae inflammation, Eyelid inflammation, Other, Redness ENT: No: Ear pain, Ear discharge, Nose pain, Nose discharge, Nose congestion, Mouth pain, Mouth swelling, Throat pain, Throat swelling, Other Respiratory: No: Cough, Dry, Shortness of breath, SOB with excertion, Wheezing, Hemoptysis, Pleuritic Pain, Sputum, Wheezing, Other Cardiovascular: No: Chest Pain, Palpitations, Orthopnea, Paroxysmal Noc. Dyspnea, Edema, Lt Headedness, Other Gastrointestinal: Melena (Blood streak bowel), Other (Colostomy bag); No: Nausea, Vomiting, Abdominal Pain, Diarrhea, Constipation, Hematochezia Genitourinary: No Dysuria, No Frequency, No Incontinence, No Hematuria, No Retention, No Other Musculoskeletal: No: other, neck pain, shoulder pain, arm pain, back pain, hand pain, leg pain, foot pain Skin: No: Rash, Lesions, Jaundice, Bruising, Other Neurological: No: Weakness, Numbness, Incoordination, Change in speech, Confusion, Seizures, Other Allergies: Coded Allergies: NO KNOWN ALLERGIES (Unverified , 12/18/24) Medications Current Medications Medications Dose Ordered Sig/Socrates Route Start Time Stop Time Status Last Admin Dose Admin Donepezil HCl 10 mg HS PO 03/26/25 22:00 Pantoprazole Sodium 40 mg DAILY IV 03/27/25 10:00 Ceftriaxone Sodium 50 ml @ 100 mls/hr DAILY@09 IV 03/27/25 09:00 Memantine 10 mg Q12HR PO 03/26/25 22:00 Atorvastatin Calcium 10 mg HS PO 03/26/25 22:00 Midodrine 10 mg TID@0600,1200,1800 PO 03/27/25 06:00 Multivit/Ca Carb/ B Cmplx/FA/Prenat 1 tab DAILY PO 03/27/25 10:00 Sodium Chloride 10 ml Q8HR IV 03/26/25 22:00 03/26/25 22:06 10 ML Acetaminophen/ Hydrocodone Bitart 1 tab Q4HP PRN PO 03/26/25 20:45 Ondansetron HCl 4 mg Q4HP PRN IV 03/26/25 20:45 Docusate Sodium 100 mg BIDPRN PRN PO 03/26/25 20:45 Acetaminophen 650 mg Q6HP PRN PO 03/26/25 20:45 Calcium/Vitamin D 1 tab DAILY PO 03/27/25 10:00 Vital Signs Vital Signs Date Time Temp Pulse Resp B/P (MAP) Pulse Ox O2 Delivery O2 Flow Rate FiO2 03/31/25 06:45 72 19 108/42 (64) 94 03/31/25 06:00 Nasal Cannula* 2 28 03/31/25 04:00 98.5 98.5 Physical Exam Vital Signs Date Time Temp Pulse Resp B/P (MAP) Pulse Ox O2 Delivery O2 Flow Rate FiO2 03/26/25 20:30 68 16 91/47 (62) 99 03/26/25 20:00 97.9 97.9 03/26/25 15:38 Room Air* 0 21 General Appearance: Alert, Oriented X3, Cooperative, No acute distress HEENT: Atraumatic, PERRLA, EOMI, Mucous membr. moist/pink Respiratory: Clear to auscultation, Normal air movement Cardiovascular: Regular rate, Normal S1, Normal S2, No murmurs Abdominal: Normal bowel sounds, Soft, No tenderness, No hepatospenomegaly, No masses Extremities: No clubbing, No cyanosis, No edema, Normal pulses, No tenderness/swelling Skin: No rashes, No breakdown, No significant lesion Neuro: Normal speech, Normal tone, Sensation intact, Cranial nerves 3-12 NL, Reflexes 2+, Other (Generalized weakness) Psych/Mental Status: Mental status NL, Mood NL Labs/Diagnostic Data Labs Test 03/31/25 03:25 03/30/25 03:32 03/29/25 08:48 03/29/25 03:03 Range/Units Sodium Level 141 136-145 mmol/L Potassium Level 3.3 L 3.5-5.1 mmol/L Chloride Level 109 H 98-107 mmol/L Carbon Dioxide Level 20 20-31 mmol/L Anion Gap 12 5-15 Blood Urea Nitrogen 11 9-23 mg/dL Creatinine 1.61 H 0.550-1.02 mg/dL Glomerular Filtration Rate Calc 33 >90 mL/min BUN/Creatinine Ratio 6.8 L 10.0-20.0 Serum Glucose 87 74-106 mg/dL Calcium Level 8.2 L 8.7-10.4 mg/dL Magnesium Level 1.6 1.6-2.6 mg/dL B-Type Natriuretic Peptide 864.86 0-100 pg/mL Eosinophils (%) (Auto) 2.8 0.0-7.0 % Eosinophils # (Auto) 0.1 0-0.8 10 ^3/uL Basophils # (Auto) 0 0-0.2 10 ^3/uL Nucleated Red Blood Cells 0.1 % Total Bilirubin 0.3 0.2-1.0 mg/dL Aspartate Amino Transferase (AST) 23 <34 U/L Alanine Aminotransferase (ALT) < 9 7-40 U/L Alkaline Phosphatase 53 46-116 U/L Total Protein 6.0 5.7-8.2 g/dL Albumin 3.5 3.2-4.8 g/dL Cortisol AM Sample 34.20 H 5.27-22.45 ug/dL Free Thyroxine (T4) Calculated 0.92 0.89-1.76 ng/dL Test 03/28/25 03:40 03/26/25 20:51 03/26/25 20:20 03/26/25 20:05 Range/Units Thyroid Stimulating Hormone (TSH) 0.34 L 0.55-4.78 uIU/mL Lactic Acid Level 1.4 0.4-2.0 mmol/L Stool Occult Blood Positive Negative Stool Occult Blood Sample #3 Negative Stool for White Cells None seen Urine Color Light-orange Yellow Urine Clarity Turbid H Clear Urine pH 5.0 5.0-9.0 Urine Specific [place] 1.018 1.001-1.035 Urine Protein 1+ H Negative Urine Ketones Negative Negative Urine Blood 1+ H Negative /uL Urine Nitrite Negative Negative Urine Bilirubin Negative Negative Urine Urobilinogen Normal Negative mg/dL Urine Leukocyte Esterase 3+ Negative /uL Urine RBC 5 0 - 4 /hpf Urine Microscopic WBC 30 H 0-5 /HPF Urine Squamous Epithelial Cells Many <5 /hpf Urine Bacteria Few H None Seen /hpf Urine Hyaline Casts Few 0 - 2 /lpf Urine Glucose Normal Normal mg/dL Test 03/26/25 18:52 Range/Units Troponin I High Sensitivity 3 L </=34 ng/L Microbiology Date/Time Source Procedure Growth Status 03/28/25 13:21 Blood Blood Culture - Preliminary NO GROWTH AFTER 48 HOURS OF INCUBATION. Resulted 03/27/25 17:33 Nose MRSA Screen - Final Complete 03/26/25 20:20 Stool Stool Culture - Final Complete 03/26/25 20:20 Stool Shiga Toxin I & II - Final Complete 03/26/25 20:05 Voided Urine Urine Culture - Final Complete Assessment CKD Ultrasound findings conflict with CT Scan findings. Possible renal cysts vs. artifacts Plan/Recommendation No acute intervention indicated. Conservative management appropriate from standpoint. Plan discussed with: Other DOMINGUEZ PLEITEZ MD Mar 31, 2025 08:26
[2025-03-31] MEDS: POTASSIUM EFFERVESENT TAB 25 MEQ PO ONE (09:14)
[2025-03-31] MEDS: MAGNESIUM SULFATE 1GM/100ML 100 ML IV SCH (09:23)
[2025-03-31 09:36] LABS: Basophils # (auto) 0 10 ^3/uL (0-0.2); Basophils % (auto) 0.4 % (0.0-2.0); Eosinophils # (auto) 0.1 10 ^3/uL (0-0.8); Eosinophils % (auto) 3.1 % (0.0-7.0); Hematocrit 33.8 % (36.0-46.0); Hemoglobin 11.4 g/dL (12.2-16.2); Lymphocytes # (auto) 0.7 10 ^3/uL (0.4-5.4); Lymphocytes % (auto) 18.1 % (10.0-50.0); Mean Corpuscular Hemoglobin 27.8 pg (28.0-32.0); Mean Corpuscular Hgb Conc. 33.8 g/dL (32.0-36.0); Mean Corpuscular Volume 82.1 fL (80.0-100.0); Monocytes # (auto) 0.5 10 ^3/uL (0-1.3); Monocytes % (auto) 11.5 % (0.0-12.0); Neutrophils # (auto) 2.7 10 ^3/uL (1.6-8.6); Neutrophils % (auto) 66.9 % (37.0-80.0); Nucleated Red Blood Cells % 0.1 %; Platelet Count (auto) 249 10^3/uL (140-450); Red Blood Cells 4.11 10^6/uL (4.0-5.20)
--- NOTE | 2025-03-31 09:44 | DVHPN2 ---
Subjective No abdominal pain Still on dopamine drip No nausea or vomiting Changes from previous H/P or p: Changes Eyes: No Pain, No Vision change, No Conjunctivae inflammation, No Eyelid inflammation, No Other, No Redness ENT: No Ear pain, No Ear discharge, No Nose pain, No Nose discharge, No Nose congestion, No Mouth pain, No Mouth swelling, No Throat pain, No Throat swelling, No Other Cardiovascular: No Chest Pain, No Palpitations, No Orthopnea, No Paroxysmal Noc. Dyspnea, No Edema, No Lt Headedness, No Other Respiratory: No Cough, No Dry, No Shortness of breath, No SOB with excertion, No Wheezing, No Hemoptysis, No Pleuritic Pain, No Sputum, No Other Gastrointestinal: No Nausea, No Vomiting, No Abdominal Pain, No Diarrhea, No Constipation; Melena (Blood streak bowel); No Hematochezia; Other (Colostomy bag) Genitourinary: No Dysuria, No Frequency, No Incontinence, No Hematuria, No Retention, No Other Musculoskeletal: No other, No neck pain, No shoulder pain, No arm pain, No back pain, No hand pain, No leg pain, No foot pain Skin: No Rash, No Lesions, No Jaundice, No Bruising, No Other Objective Vitals Vital Signs Date Time Temp Pulse Resp B/P (MAP) Pulse Ox O2 Delivery O2 Flow Rate FiO2 03/31/25 08:00 14 91 Nasal Cannula* 2 28 03/31/25 08:00 84 03/31/25 06:45 108/42 (64) 03/31/25 04:00 98.5 98.5 Intake/Output Intake and Output 03/31/25 07:00 Intake Total 2376.581 ml Output Total 2310 ml Balance 66.581 ml Intake Oral 620 ml IV Total 1756.581 ml Output Urine Total 1325 ml Drainage Total 985 ml General Appearance: Alert, moderate distress Lungs: Clear to auscultation Cardiovascular: Other (bradycardic) Extremities: No edema Medications Current Medications Medications Dose Ordered Sig/Socrates Route Start Time Stop Time Status Last Admin Dose Admin Donepezil HCl 10 mg HS PO 03/26/25 22:00 03/30/25 22:18 10 MG Pantoprazole Sodium 40 mg DAILY IV 03/27/25 10:00 03/30/25 10:37 40 MG Ceftriaxone Sodium 50 ml @ 100 mls/hr DAILY@09 IV 03/27/25 09:00 03/31/25 09:04 100 MLS/HR Memantine 10 mg Q12HR PO 03/26/25 22:00 03/30/25 22:18 10 MG Atorvastatin Calcium 10 mg HS PO 03/26/25 22:00 03/30/25 22:18 10 MG Multivit/Ca Carb/ B Cmplx/FA/Prenat 1 tab DAILY PO 03/27/25 10:00 03/30/25 10:37 1 TAB Sodium Chloride 10 ml Q8HR IV 03/26/25 22:00 03/31/25 06:12 10 ML Ondansetron HCl 4 mg Q4HP PRN IV 03/26/25 20:45 03/29/25 14:27 4 MG Docusate Sodium 100 mg BIDPRN PRN PO 03/26/25 20:45 Acetaminophen 650 mg Q6HP PRN PO 03/26/25 20:45 Calcium/Vitamin D 1 tab DAILY PO 03/27/25 10:00 03/30/25 10:37 1 TAB Nitroglycerin 0.4 mg Q5MINP PRN SL 03/26/25 22:15 Morphine Sulfate 2 mg Q30M PRN IV 03/26/25 22:15 Morphine Sulfate 1 mg Q4HP PRN IV 03/29/25 17:00 Dopamine HCl/ Dextrose 250 ml @ 10.538 mls/ hr [id number] IV 03/30/25 11:15 03/31/25 06:13 8.43 MLS/HR Lactated Ringer's 1,000 ml @ 50 mls/hr Q20H IV 03/30/25 18:30 03/30/25 19:00 50 MLS/HR Magnesium Sulfate/ Dextrose 100 ml @ 100 mls/hr Q1HR IV 03/31/25 09:00 03/31/25 10:59 03/31/25 09:23 100 MLS/HR Laboratory Results Laboratory Tests 03/31/25 03:25 03/31/25 09:03 Chemistry Test 03/31/25 03:25 Calcium Level 8.2 mg/dL (8.7-10.4) L Magnesium Level 1.6 mg/dL (1.6-2.6) Cardiac Markers Test 03/31/25 03:25 B-Type Natriuretic Peptide 864.86 pg/mL (0-100) Urinalysis Test 03/26/25 20:05 Urine Color Light-orange (Yellow) Urine Clarity Turbid (Clear) H Urine pH 5.0 (5.0-9.0) Urine Specific [place] 1.018 (1.001-1.035) Urine Protein 1+ (Negative) H Urine Ketones Negative (Negative) Urine Blood 1+ /uL (Negative) H Urine Nitrite Negative (Negative) Urine Bilirubin Negative (Negative) Urine Urobilinogen Normal mg/dL (Negative) Urine Leukocyte Esterase 3+ /uL (Negative) Urine RBC 5 /hpf (0 - 4) Urine Microscopic WBC 30 /HPF (0-5) H Urine Squamous Epithelial Cells Many /hpf (<5) Urine Bacteria Few /hpf (None Seen) H Urine Hyaline Casts Few /lpf (0 - 2) Urine Glucose Normal mg/dL (Normal) Microbiology Microbiology Date/Time Source Procedure Growth Status 03/28/25 13:21 Blood Blood Culture - Preliminary NO GROWTH AFTER 48 HOURS OF INCUBATION. Resulted 03/27/25 17:33 Nose MRSA Screen - Final Complete 03/26/25 20:20 Stool Stool Culture - Final Complete 03/26/25 20:20 Stool Shiga Toxin I & II - Final Complete 03/26/25 20:05 Voided Urine Urine Culture - Final Complete Assessment/Plan Assessment/Plan Hypotension Bradycardia SANCHEZ/CKD CKD stage IV Acute kidney injury prerenal in the setting of volume depletion Left 2 cm renal mass Ulcerative colitis status post ileostomy with high output Dementia UTI Sepsis with septic shock PLAN: IV Rocephin IV fluids Start IV Dopamine drip Nephrology consult Cardiology consult Discussed with daughter at the bedside Full code Advanced directives discussed with daughter x 20 minutes 03/28/2025: Continue IV fluids Dopamine as needed, tapered down the dose as tolerated Nephrology is seeing the patient Cardiology is also seeing the patient Echocardiogram is pending Continue IV antibiotics Urine culture is negative Blood culture is pending Full code 03/29/25: Abdominal pain: Repeat CT scan, GI consult GI bleed?, + SOB: GI consult, IV Protonix SANCHEZ/CKD: Improving, continue IV fluids Sepsis: IV antibiotics: Rocephin, Dopamine drip Bradycardia: Dopamine drip Abdominal pain: Morphine prn Discussed with daughter at the bedside 03/30/2025: Abdominal pain: Stable GI bleed: GI consult pending Continue IV Protonix Hypotension with bradycardia: Continue dopamine Continue IV Rocephin Monitor closely Keep NPO until she is seen by GI Discussed with the daughter at the bedside 03/31/2025: Hypotension: Tapered down the dopamine as tolerated, add Florinef Abdominal pain: Resolved , GI recommended outpatient follow up, continue PPI UTI: Rocephin IV SANCHEZ: Continue IV fluids Chronic kidney disease: Nephrology is following Discussed with the at the bedside Hypokalemia and hypomagnesemia: Replace Plan discussed with: Patient My Orders Orders - BRANDI STEINBERG MD Procedure Category Date Status Time Magnesium Sulfate PHA 03/31/25 In Process 1gm/100ml 09:00 Pt Request For Service PT 03/31/25 Verified 09:41 Fludrocortisone PHA 03/31/25 Verified Tablet (Florinef 10:00 Date of Service: Mar 31, 2025 Billing Provider: BRANDI STEINBERG MD Common Visit Codes: [id number] INP/OBS CARE(HIGH) BRANDI STEINBERG MD Mar 31, 2025 09:44
[2025-03-31] MEDS: FLUDROCORTISONE ACETATE 0.1 MG TAB PO SCH (10:34)
--- NOTE | 2025-03-31 13:07 | DVHPN2 ---
Consult Progress Note Subjective Other Systems: Patient in normal sinus rhythm on monitoring tech at time of assessment. No cardiac events reported overnight Objective vital signs Vital Sign Date Time Temp Pulse Resp B/P (MAP) Pulse Ox O2 Delivery O2 Flow Rate FiO2 03/31/25 12:45 94 21 116/44 (68) 91 03/31/25 12:00 97.7 97.7 03/31/25 12:00 Nasal Cannula* 2 28 Total Intake and Output 03/30/25 03/30/25 03/31/25 15:00 23:00 07:00 Intake Total 719.593 ml 989.548 ml 667.44 ml Output Total 910 ml 1400 ml Balance 719.593 ml 79.548 ml -732.56 ml medications Current Medications Medications Dose Ordered Sig/Socrates Route Start Time Stop Time Status Last Admin Dose Admin Donepezil HCl 10 mg HS PO 03/26/25 22:00 03/30/25 22:18 10 MG Pantoprazole Sodium 40 mg DAILY IV 03/27/25 10:00 03/30/25 10:37 40 MG Ceftriaxone Sodium 50 ml @ 100 mls/hr DAILY@09 IV 03/27/25 09:00 03/31/25 09:04 100 MLS/HR Memantine 10 mg Q12HR PO 03/26/25 22:00 03/31/25 10:33 10 MG Atorvastatin Calcium 10 mg HS PO 03/26/25 22:00 03/30/25 22:18 10 MG Multivit/Ca Carb/ B Cmplx/FA/Prenat 1 tab DAILY PO 03/27/25 10:00 03/31/25 10:33 1 TAB Sodium Chloride 10 ml Q8HR IV 03/26/25 22:00 03/31/25 06:12 10 ML Ondansetron HCl 4 mg Q4HP PRN IV 03/26/25 20:45 03/29/25 14:27 4 MG Docusate Sodium 100 mg BIDPRN PRN PO 03/26/25 20:45 Acetaminophen 650 mg Q6HP PRN PO 03/26/25 20:45 Calcium/Vitamin D 1 tab DAILY PO 03/27/25 10:00 03/31/25 10:33 1 TAB Nitroglycerin 0.4 mg Q5MINP PRN SL 03/26/25 22:15 Morphine Sulfate 2 mg Q30M PRN IV 03/26/25 22:15 Morphine Sulfate 1 mg Q4HP PRN IV 03/29/25 17:00 Dopamine HCl/ Dextrose 250 ml @ 10.538 mls/ hr [id number] IV 03/30/25 11:15 03/31/25 06:13 8.43 MLS/HR Lactated Ringer's 1,000 ml @ 50 mls/hr Q20H IV 03/30/25 18:30 03/30/25 19:00 50 MLS/HR Fludrocortisone Acetate 0.1 mg DAILY PO 03/31/25 10:00 03/31/25 10:34 0.1 MG Sucralfate 1 gm BID@0600,2200 PO 03/31/25 22:00 Examination: GENERAL:Normal, LUNGS:Normal, CVS:Normal, NEURO:Normal laboratory and microbiology Laboratory Tests 03/31/25 09:03 03/31/25 03:25 Test 03/31/25 03:25 Range/Units Serum Glucose 87 74-106 mg/dL Problem List/Assessment/Plan Problem List/Assessment/Plan Continue with the following plan/recommendations (Dr. Whitfield): * Sinus bradycardia - titrate off dopamine drip as tolerated. Continue monitoring heart rate. Atropine p.r.n. for sustained symptomatic heart rate less than 40. No further bradycardic events since 03/27/2025 on monitoring tech. Transient bradycardia possibly secondary to hemodynamic derangement including renal impairment. No plans for PPM at this time. Goal of care is to titrate off Dopamine drip for further evaluation of chronotropic response. * Chronic compensated HFrEF, newly diagnosed - LVEF 35% with LAE. Patient remains euvolemic. Initiate GDMT for CHF when able to tolerate, currently on vasopressor. * Septic shock with UTI- Discontinue midodrine contraindicated with HFrEF. ABX per primary care team. * SANCHEZ on CKD - improving with IV fluid hydration. Avoid hypotension. Continue monitoring. Management per Nephrology. * Hypomagnesemia/hypokalemia - replete as necessary. Thank you for allowing me to participate in the management of this patient. The treatment plan was discussed with and agreed upon by patient/family including requesting consultants and ordering of imaging/procedures. Critical care, time spent: 30 minutes. This medical document was created using an electronic medical record system with voice recognition software and computerized dictation system. Although this document has been carefully reviewed, there might still be some phonetic and typographical errors. Occasional wrong-word or ``sound-alike substitutions may have occurred due to the inherent limitations of voice recognition software. These areas are purely typographical due to imperfections of the software programs and do not reflect any compromise in the patient's medical care. Please read the chart carefully and recognize, using context, where these substitutions have occurred. Plan discussed with: Patient Dietary Evaluation Review Comments: Continue Renal standard diet which is less protein restricted. Supplement with Nepro PO 240ml bid until PO itnake improves to > 50% Expected Outcomes/Goals: gradual wt gain, improved nutrition status. Date of Service: Mar 31, 2025 Billing Provider: BON PIRES Common Visit Codes: [id number] CARE 30-74 MIN BON PIRES Mar 31, 2025 13:06
--- NOTE | 2025-03-31 16:28 | DVHPN2 ---
Progress Note Date Seen: Mar 31, 2025 Medical Necessity Reason Pt with a Central, PICC or Fol: Yes The following are medically ne: Montalvo Catheter Subjective Patient reports: No new complaints, Feels better Review of Systems: Deferred Objective vital signs Vital Sign Date Time Temp Pulse Resp B/P (MAP) Pulse Ox O2 Delivery O2 Flow Rate FiO2 03/31/25 16:15 96 14 119/55 (76) 90 03/31/25 16:00 98.2 98.2 03/31/25 16:00 Nasal Cannula* 2 28 Total Intake and Output 03/30/25 03/30/25 03/31/25 15:00 23:00 07:00 Intake Total 719.593 ml 989.548 ml 667.44 ml Output Total 910 ml 1400 ml Balance 719.593 ml 79.548 ml -732.56 ml medications Current Medications Medications Dose Ordered Sig/Socrates Route Start Time Stop Time Status Last Admin Dose Admin Donepezil HCl 10 mg HS PO 03/26/25 22:00 03/30/25 22:18 10 MG Pantoprazole Sodium 40 mg DAILY IV 03/27/25 10:00 03/30/25 10:37 40 MG Ceftriaxone Sodium 50 ml @ 100 mls/hr DAILY@09 IV 03/27/25 09:00 03/31/25 09:04 100 MLS/HR Memantine 10 mg Q12HR PO 03/26/25 22:00 03/31/25 10:33 10 MG Atorvastatin Calcium 10 mg HS PO 03/26/25 22:00 03/30/25 22:18 10 MG Multivit/Ca Carb/ B Cmplx/FA/Prenat 1 tab DAILY PO 03/27/25 10:00 03/31/25 10:33 1 TAB Sodium Chloride 10 ml Q8HR IV 03/26/25 22:00 03/31/25 13:56 10 ML Ondansetron HCl 4 mg Q4HP PRN IV 03/26/25 20:45 03/29/25 14:27 4 MG Docusate Sodium 100 mg BIDPRN PRN PO 03/26/25 20:45 Acetaminophen 650 mg Q6HP PRN PO 03/26/25 20:45 Calcium/Vitamin D 1 tab DAILY PO 03/27/25 10:00 03/31/25 10:33 1 TAB Nitroglycerin 0.4 mg Q5MINP PRN SL 03/26/25 22:15 Morphine Sulfate 2 mg Q30M PRN IV 03/26/25 22:15 Morphine Sulfate 1 mg Q4HP PRN IV 03/29/25 17:00 Dopamine HCl/ Dextrose 250 ml @ 10.538 mls/ hr [id number] IV 03/30/25 11:15 03/31/25 06:13 8.43 MLS/HR Lactated Ringer's 1,000 ml @ 50 mls/hr Q20H IV 03/30/25 18:30 03/31/25 13:55 50 MLS/HR Fludrocortisone Acetate 0.1 mg DAILY PO 03/31/25 10:00 03/31/25 10:34 0.1 MG Sucralfate 1 gm BID@0600,2200 PO 03/31/25 22:00 Examination: GENERAL:Normal, HEENT:Normal, NECK:Normal, LUNGS:Normal, CVS:Normal, ABDOMEN:Abnormal, MSK:Normal, SKIN:Normal, NEURO:Normal, :Normal laboratory and microbiology Laboratory Tests 03/31/25 09:03 03/31/25 03:25 Test 03/31/25 03:25 Range/Units Serum Glucose 87 74-106 mg/dL Microbiology Date/Time Source Procedure Growth Status 03/28/25 13:21 Blood Blood Culture - Preliminary NO GROWTH AFTER 72 HOURS OF INCUBATION. Resulted 03/27/25 17:33 Nose MRSA Screen - Final Complete 03/26/25 20:20 Stool Stool Culture - Final Complete 03/26/25 20:20 Stool Shiga Toxin I & II - Final Complete 03/26/25 20:05 Voided Urine Urine Culture - Final Complete Problem List/Assessment/Plan Problem List/Assessment/Plan Acute kidney injury prerenal in the setting of volume depletion Chronic kidney disease suspect baseline stage IV; Dr. jeter renal mass on US but none on multiple CTs Ulcerative colitis status post ileostomy with high output Bradycardia chfref Continue with IV fluids -reduce rate replace electrolytes on dopamine due to slow heart rate /hypotension urology consult for renal mass Plan discussed with: Patient My Orders My Orders Orders - DANUTA JETER MD Procedure Category Date Status Time Lactated Ringer's PHA 03/30/25 In Process 18:30 * Urology Consult CONS 03/30/25 Transmitted 18:26 Dietary Evaluation Review Comments: Continue Renal standard diet which is less protein restricted. Supplement with Nepro PO 240ml bid until PO itnake improves to > 50% Expected Outcomes/Goals: gradual wt gain, improved nutrition status. DANUTA JETER MD Mar 31, 2025 16:28
--- NOTE | 2025-03-31 16:38 | DVHPN2 ---
Progress Note Date Seen: Mar 31, 2025 Resident Creating Document: AGUILAR WU Medical Necessity Reason Pt with a Central, PICC or Fol: Yes The following are medically ne: Montalvo Catheter Subjective Review of Systems Patient was seen today in ICU No new complaint H&H stable Tolerating diet well Seen by Nephrology Patient was started on dopamine due to hypotension/low heart rate Patient was also seen by cardiology Objective vital signs Vital Sign Date Time Temp Pulse Resp B/P (MAP) Pulse Ox O2 Delivery O2 Flow Rate FiO2 03/31/25 16:15 96 14 119/55 (76) 90 03/31/25 16:00 98.2 98.2 03/31/25 16:00 Nasal Cannula* 2 28 Total Intake and Output 03/30/25 03/30/25 03/31/25 15:00 23:00 07:00 Intake Total 719.593 ml 989.548 ml 667.44 ml Output Total 910 ml 1400 ml Balance 719.593 ml 79.548 ml -732.56 ml medications Current Medications Medications Dose Ordered Sig/Socrates Route Start Time Stop Time Status Last Admin Dose Admin Donepezil HCl 10 mg HS PO 03/26/25 22:00 03/30/25 22:18 10 MG Pantoprazole Sodium 40 mg DAILY IV 03/27/25 10:00 03/30/25 10:37 40 MG Ceftriaxone Sodium 50 ml @ 100 mls/hr DAILY@09 IV 03/27/25 09:00 03/31/25 09:04 100 MLS/HR Memantine 10 mg Q12HR PO 03/26/25 22:00 03/31/25 10:33 10 MG Atorvastatin Calcium 10 mg HS PO 03/26/25 22:00 03/30/25 22:18 10 MG Multivit/Ca Carb/ B Cmplx/FA/Prenat 1 tab DAILY PO 03/27/25 10:00 03/31/25 10:33 1 TAB Sodium Chloride 10 ml Q8HR IV 03/26/25 22:00 03/31/25 13:56 10 ML Ondansetron HCl 4 mg Q4HP PRN IV 03/26/25 20:45 03/29/25 14:27 4 MG Docusate Sodium 100 mg BIDPRN PRN PO 03/26/25 20:45 Acetaminophen 650 mg Q6HP PRN PO 03/26/25 20:45 Calcium/Vitamin D 1 tab DAILY PO 03/27/25 10:00 03/31/25 10:33 1 TAB Nitroglycerin 0.4 mg Q5MINP PRN SL 03/26/25 22:15 Morphine Sulfate 2 mg Q30M PRN IV 03/26/25 22:15 Morphine Sulfate 1 mg Q4HP PRN IV 03/29/25 17:00 Dopamine HCl/ Dextrose 250 ml @ 10.538 mls/ hr [id number] IV 03/30/25 11:15 03/31/25 06:13 8.43 MLS/HR Lactated Ringer's 1,000 ml @ 50 mls/hr Q20H IV 03/30/25 18:30 03/31/25 13:55 50 MLS/HR Fludrocortisone Acetate 0.1 mg DAILY PO 03/31/25 10:00 03/31/25 10:34 0.1 MG Sucralfate 1 gm BID@0600,2200 PO 03/31/25 22:00 laboratory and microbiology Laboratory Tests 03/31/25 09:03 03/31/25 03:25 Test 03/31/25 03:25 Range/Units Serum Glucose 87 74-106 mg/dL Microbiology Date/Time Source Procedure Growth Status 03/28/25 13:21 Blood Blood Culture - Preliminary NO GROWTH AFTER 72 HOURS OF INCUBATION. 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 Lamar Perez , nursing staff, Total time spent on patient evaluation, chart review, assessment and plan, discussion discussion >35 minutes Plan discussed with: Patient, Daughter, Other (RN) Plan discussed with: Patient, Other (RN) Dietary Evaluation Review Comments: Continue Renal standard diet which is less protein restricted. Supplement with Nepro PO 240ml bid until PO itnake improves to > 50% Expected Outcomes/Goals: gradual wt gain, improved nutrition status. AGUILAR WU RESIDENT Mar 31, 2025 16:38
[2025-03-31] MEDS: SUCRALFATE 1 GM/10 ML ORAL SUSP PO SCH (21:41)
[2025-04-01] VITALS (94 sets, daily range): BP systolic 85–126; BP diastolic 26–63; PULSE 64–102; RESP 13–25; TEMP 97.5–98.4; O2SAT 90–99
[2025-04-01 03:55] LABS: Basophils # (auto) 0 10 ^3/uL (0-0.2); Basophils % (auto) 0.5 % (0.0-2.0); Eosinophils # (auto) 0.2 10 ^3/uL (0-0.8); Eosinophils % (auto) 3.4 % (0.0-7.0); Hematocrit 32.8 % (36.0-46.0); Hemoglobin 11.3 g/dL (12.2-16.2); Lymphocytes # (auto) 0.9 10 ^3/uL (0.4-5.4); Lymphocytes % (auto) 19.1 % (10.0-50.0); Mean Corpuscular Hemoglobin 27.9 pg (28.0-32.0); Mean Corpuscular Hgb Conc. 34.5 g/dL (32.0-36.0); Mean Corpuscular Volume 80.9 fL (80.0-100.0); Monocytes # (auto) 0.6 10 ^3/uL (0-1.3); Monocytes % (auto) 11.9 % (0.0-12.0); Neutrophils # (auto) 3.2 10 ^3/uL (1.6-8.6); Neutrophils % (auto) 65.1 % (37.0-80.0); Platelet Count (auto) 226 10^3/uL (140-450); Red Blood Cells 4.05 10^6/uL (4.0-5.20); White Blood Cell 4.9 10^3/uL (4.4-10.8)
[2025-04-01 04:16] LABS: Alkaline Phosphatase 47 U/L (46-116); Anion Gap 12 (5-15); Aspartate Aminotransferase 23 U/L (<34); BUN/Creatinine Ratio 6.6 (10.0-20.0); Carbon Dioxide 20 mmol/L (20-31); Glucose 81 mg/dL (74-106); Sodium 142 mmol/L (136-145)
[2025-04-01 04:19] LABS: Alanine Aminotransferase < 9 U/L (7-40); Albumin 3.1 g/dL (3.2-4.8); Bilirubin, Total 0.3 mg/dL (0.2-1.0); Blood Urea Nitrogen 9 mg/dL (9-23); Chloride 110 mmol/L (98-107); Potassium 3.2 mmol/L (3.5-5.1); Total Protein 5.4 g/dL (5.7-8.2)
[2025-04-01] MEDS: POTASSIUM CHL 20MEQ/100ML 100 ML IV ONE (05:33)
[2025-04-01] MEDS: POTASSIUM EFFERVESENT TAB 25 MEQ PO ONE (09:05)
--- NOTE | 2025-04-01 10:48 | DVHPN2 ---
Progress Note Date Seen: Apr 01, 2025 Resident Creating Document: AGUILAR WU Medical Necessity Reason Pt with a Central, PICC or Fol: Yes The following are medically ne: Montalvo Catheter Subjective Review of Systems Patient was seen today at bedside in ICU No new complaint H&H stable Colostomy bag draining Tolerating oral diet well Objective vital signs Vital Sign Date Time Temp Pulse Resp B/P (MAP) Pulse Ox O2 Delivery O2 Flow Rate FiO2 04/01/25 08:00 81 20 94 Nasal Cannula* 2 28 04/01/25 07:00 115/51 (72) 04/01/25 04:00 97.9 97.9 Total Intake and Output 03/31/25 03/31/25 04/01/25 15:00 23:00 07:00 Intake Total 717.44 ml 1041.098 ml 682.152 ml Output Total 1400 ml 1250 ml Balance 717.44 ml -358.902 ml -567.848 ml medications Current Medications Medications Dose Ordered Sig/Socrates Route Start Time Stop Time Status Last Admin Dose Admin Donepezil HCl 10 mg HS PO 03/26/25 22:00 03/31/25 21:41 10 MG Pantoprazole Sodium 40 mg DAILY IV 03/27/25 10:00 03/30/25 10:37 40 MG Ceftriaxone Sodium 50 ml @ 100 mls/hr DAILY@09 IV 03/27/25 09:00 04/01/25 09:05 100 MLS/HR Memantine 10 mg Q12HR PO 03/26/25 22:00 03/31/25 21:41 10 MG Atorvastatin Calcium 10 mg HS PO 03/26/25 22:00 03/31/25 21:40 10 MG Multivit/Ca Carb/ B Cmplx/FA/Prenat 1 tab DAILY PO 03/27/25 10:00 03/31/25 10:33 1 TAB Sodium Chloride 10 ml Q8HR IV 03/26/25 22:00 04/01/25 05:33 10 ML Ondansetron HCl 4 mg Q4HP PRN IV 03/26/25 20:45 03/29/25 14:27 4 MG Docusate Sodium 100 mg BIDPRN PRN PO 03/26/25 20:45 Acetaminophen 650 mg Q6HP PRN PO 03/26/25 20:45 Calcium/Vitamin D 1 tab DAILY PO 03/27/25 10:00 03/31/25 10:33 1 TAB Nitroglycerin 0.4 mg Q5MINP PRN SL 03/26/25 22:15 Morphine Sulfate 2 mg Q30M PRN IV 03/26/25 22:15 Morphine Sulfate 1 mg Q4HP PRN IV 03/29/25 17:00 Dopamine HCl/ Dextrose 250 ml @ 10.538 mls/ hr [id number] IV 03/30/25 11:15 03/31/25 06:13 8.43 MLS/HR Lactated Ringer's 1,000 ml @ 50 mls/hr Q20H IV 03/30/25 18:30 04/01/25 05:35 50 MLS/HR Fludrocortisone Acetate 0.1 mg DAILY PO 03/31/25 10:00 03/31/25 10:34 0.1 MG Sucralfate 1 gm BID@0600,2200 PO 03/31/25 22:00 04/01/25 05:33 1 GM laboratory and microbiology Laboratory Tests 04/01/25 03:11 Test 04/01/25 03:11 Range/Units Serum Glucose 81 74-106 mg/dL Microbiology Date/Time Source Procedure Growth Status 03/28/25 13:21 Blood Blood Culture - Preliminary NO GROWTH AFTER 72 HOURS OF INCUBATION. 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 Lamar Perez , nursing staff, Total time spent on patient evaluation, chart review, assessment and plan, discussion discussion >35 minutes Plan discussed with: Patient, Daughter, Other (RN) Plan discussed with: Patient (RN), Other Dietary Evaluation Review Comments: Continue Renal standard diet which is less protein restricted. Supplement with Nepro PO 240ml bid until PO itnake improves to > 50% Expected Outcomes/Goals: gradual wt gain, improved nutrition status. AGUILAR WU RESIDENT Apr 01, 2025 10:48
--- NOTE | 2025-04-01 11:36 | DVHPN2 ---
Subjective The patient is seen and examined at bedside. Complain of tiredness. Reviewed: Care Plan, H&P, Labs, Medications, Previous Orders, Radiology Changes from previous H/P or p: No Changes Eyes: No Pain, No Vision change, No Conjunctivae inflammation, No Eyelid inflammation, No Other, No Redness ENT: No Ear pain, No Ear discharge, No Nose pain, No Nose discharge, No Nose congestion, No Mouth pain, No Mouth swelling, No Throat pain, No Throat swelling, No Other Cardiovascular: No Chest Pain, No Palpitations, No Orthopnea, No Paroxysmal Noc. Dyspnea, No Edema, No Lt Headedness, No Other Respiratory: No Cough, No Dry, No Shortness of breath, No SOB with excertion, No Wheezing, No Hemoptysis, No Pleuritic Pain, No Sputum, No Other Gastrointestinal: No Nausea, No Vomiting, No Abdominal Pain, No Diarrhea, No Constipation; Melena (Blood streak bowel); No Hematochezia; Other (Colostomy bag) Genitourinary: No Dysuria, No Frequency, No Incontinence, No Hematuria, No Retention, No Other Musculoskeletal: No other, No neck pain, No shoulder pain, No arm pain, No back pain, No hand pain, No leg pain, No foot pain Skin: No Rash, No Lesions, No Jaundice, No Bruising, No Other Objective Vitals Vital Signs Date Time Temp Pulse Resp B/P (MAP) Pulse Ox O2 Delivery O2 Flow Rate FiO2 04/01/25 08:00 81 20 94 Nasal Cannula* 2 28 04/01/25 07:00 115/51 (72) 04/01/25 04:00 97.9 97.9 Intake/Output Intake and Output 04/01/25 07:00 Intake Total 2440.690 ml Output Total 2650 ml Balance -209.310 ml Intake Oral 840 ml IV Total 1600.690 ml Output Urine Total 1550 ml Drainage Total 1100 ml General Appearance: Alert, Oriented X3, Cooperative, No acute distress, m oderate distress HEENT: Atraumatic, PERRLA, EOMI, Mucous membr. moist/pink Neck: Supple Lungs: Clear to auscultation Cardiovascular: Normal S1, Normal S2, No murmurs, Gallops, Rubs, Other (bradycardic) Abdomen: Normal bowel sounds, Soft, No tenderness, No hepatospenomegaly Extremities: No edema Neuro: Cranial nerves 3-12 NL Psych/Mental Status: Mental status NL Medications Current Medications Medications Dose Ordered Sig/Socrates Route Start Time Stop Time Status Last Admin Dose Admin Donepezil HCl 10 mg HS PO 03/26/25 22:00 03/31/25 21:41 10 MG Pantoprazole Sodium 40 mg DAILY IV 03/27/25 10:00 04/01/25 10:59 40 MG Ceftriaxone Sodium 50 ml @ 100 mls/hr DAILY@09 IV 03/27/25 09:00 04/01/25 09:05 100 MLS/HR Memantine 10 mg Q12HR PO 03/26/25 22:00 04/01/25 11:00 10 MG Atorvastatin Calcium 10 mg HS PO 03/26/25 22:00 03/31/25 21:40 10 MG Multivit/Ca Carb/ B Cmplx/FA/Prenat 1 tab DAILY PO 03/27/25 10:00 04/01/25 11:01 1 TAB Sodium Chloride 10 ml Q8HR IV 03/26/25 22:00 04/01/25 05:33 10 ML Ondansetron HCl 4 mg Q4HP PRN IV 03/26/25 20:45 03/29/25 14:27 4 MG Docusate Sodium 100 mg BIDPRN PRN PO 03/26/25 20:45 Acetaminophen 650 mg Q6HP PRN PO 03/26/25 20:45 Calcium/Vitamin D 1 tab DAILY PO 03/27/25 10:00 04/01/25 11:02 1 TAB Nitroglycerin 0.4 mg Q5MINP PRN SL 03/26/25 22:15 Morphine Sulfate 2 mg Q30M PRN IV 03/26/25 22:15 Morphine Sulfate 1 mg Q4HP PRN IV 03/29/25 17:00 Dopamine HCl/ Dextrose 250 ml @ 10.538 mls/ hr [id number] IV 03/30/25 11:15 03/31/25 06:13 8.43 MLS/HR Lactated Ringer's 1,000 ml @ 50 mls/hr Q20H IV 03/30/25 18:30 04/01/25 05:35 50 MLS/HR Fludrocortisone Acetate 0.1 mg DAILY PO 03/31/25 10:00 04/01/25 10:59 0.1 MG Sucralfate 1 gm BID@0600,2200 PO 03/31/25 22:00 04/01/25 05:33 1 GM Laboratory Results Laboratory Tests 04/01/25 03:11 Chemistry Test 04/01/25 03:11 Albumin 3.1 g/dL (3.2-4.8) L Calcium Level 8.0 mg/dL (8.7-10.4) L Magnesium Level 2.0 mg/dL (1.6-2.6) Total Protein 5.4 g/dL (5.7-8.2) L LFT Test 04/01/25 03:11 Alanine Aminotransferase (ALT) < 9 U/L (7-40) Alkaline Phosphatase 47 U/L (46-116) Aspartate Amino Transferase (AST) 23 U/L (<34) Total Bilirubin 0.3 mg/dL (0.2-1.0) Urinalysis Test 03/26/25 20:05 Urine Color Light-orange (Yellow) Urine Clarity Turbid (Clear) H Urine pH 5.0 (5.0-9.0) Urine Specific [place] 1.018 (1.001-1.035) Urine Protein 1+ (Negative) H Urine Ketones Negative (Negative) Urine Blood 1+ /uL (Negative) H Urine Nitrite Negative (Negative) Urine Bilirubin Negative (Negative) Urine Urobilinogen Normal mg/dL (Negative) Urine Leukocyte Esterase 3+ /uL (Negative) Urine RBC 5 /hpf (0 - 4) Urine Microscopic WBC 30 /HPF (0-5) H Urine Squamous Epithelial Cells Many /hpf (<5) Urine Bacteria Few /hpf (None Seen) H Urine Hyaline Casts Few /lpf (0 - 2) Urine Glucose Normal mg/dL (Normal) Microbiology Microbiology Date/Time Source Procedure Growth Status 03/28/25 13:21 Blood Blood Culture - Preliminary NO GROWTH AFTER 72 HOURS OF INCUBATION. Resulted 03/27/25 17:33 Nose MRSA Screen - Final Complete 03/26/25 20:20 Stool Stool Culture - Final Complete 03/26/25 20:20 Stool Shiga Toxin I & II - Final Complete 03/26/25 20:05 Voided Urine Urine Culture - Final Complete Labs and/or images reviewed: Labs reviewed by me Assessment/Plan Assessment/Plan Hypotension Bradycardia SANCHEZ/CKD CKD stage IV Acute kidney injury prerenal in the setting of volume depletion Left 2 cm renal mass Ulcerative colitis status post ileostomy with high output Dementia UTI Sepsis with septic shock PLAN: IV Rocephin IV fluids Start IV Dopamine drip Nephrology consult Cardiology consult Discussed with daughter at the bedside Full code Advanced directives discussed with daughter x 20 minutes 03/28/2025: Continue IV fluids Dopamine as needed, tapered down the dose as tolerated Nephrology is seeing the patient Cardiology is also seeing the patient Echocardiogram is pending Continue IV antibiotics Urine culture is negative Blood culture is pending Full code 03/29/25: Abdominal pain: Repeat CT scan, GI consult GI bleed?, + SOB: GI consult, IV Protonix SANCHEZ/CKD: Improving, continue IV fluids Sepsis: IV antibiotics: Rocephin, Dopamine drip Bradycardia: Dopamine drip Abdominal pain: Morphine prn Discussed with daughter at the bedside 03/30/2025: Abdominal pain: Stable GI bleed: GI consult pending Continue IV Protonix Hypotension with bradycardia: Continue dopamine Continue IV Rocephin Monitor closely Keep NPO until she is seen by GI Discussed with the daughter at the bedside 03/31/2025: Hypotension: Tapered down the dopamine as tolerated, add Florinef Abdominal pain: Resolved , GI recommended outpatient follow up, continue PPI UTI: Rocephin IV SANCHEZ: Continue IV fluids Chronic kidney disease: Nephrology is following Discussed with the at the bedside Hypokalemia and hypomagnesemia: Replace 04/01/2025: Continuing current management. Discontinuing dopamine if able to wean off completely. Continuing with sliding scale insulin. Continuing with Rocephin. Continuing with IV fluid. Continuing replace electrolytes. Discharge planning. Plan discussed with: Patient Date of Service: Apr 01, 2025 Billing Provider: DRU KLEIN MD Common Visit Codes: [id number] INP/OBS CARE(HIGH) DRU KLEIN MD Apr 01, 2025 11:36
--- NOTE | 2025-04-01 15:58 | DVHPN2 ---
Progress Note Date Seen: Apr 01, 2025 Medical Necessity Reason Pt with a Central, PICC or Fol: Yes The following are medically ne: Montalvo Catheter Subjective Patient reports: No new complaints Review of Systems: Deferred Objective vital signs Vital Sign Date Time Temp Pulse Resp B/P (MAP) Pulse Ox O2 Delivery O2 Flow Rate FiO2 04/01/25 14:00 20 96 Nasal Cannula* 1 24 04/01/25 14:00 64 04/01/25 12:15 93/45 (61) 04/01/25 12:00 97.5 97.5 Total Intake and Output 03/31/25 03/31/25 04/01/25 15:00 23:00 07:00 Intake Total 717.44 ml 1041.098 ml 682.152 ml Output Total 1400 ml 1250 ml Balance 717.44 ml -358.902 ml -567.848 ml medications Current Medications Medications Dose Ordered Sig/Socrates Route Start Time Stop Time Status Last Admin Dose Admin Donepezil HCl 10 mg HS PO 03/26/25 22:00 03/31/25 21:41 10 MG Pantoprazole Sodium 40 mg DAILY IV 03/27/25 10:00 04/01/25 10:59 40 MG Ceftriaxone Sodium 50 ml @ 100 mls/hr DAILY@09 IV 03/27/25 09:00 04/01/25 09:05 100 MLS/HR Memantine 10 mg Q12HR PO 03/26/25 22:00 04/01/25 11:00 10 MG Atorvastatin Calcium 10 mg HS PO 03/26/25 22:00 03/31/25 21:40 10 MG Multivit/Ca Carb/ B Cmplx/FA/Prenat 1 tab DAILY PO 03/27/25 10:00 04/01/25 11:01 1 TAB Sodium Chloride 10 ml Q8HR IV 03/26/25 22:00 04/01/25 05:33 10 ML Ondansetron HCl 4 mg Q4HP PRN IV 03/26/25 20:45 03/29/25 14:27 4 MG Docusate Sodium 100 mg BIDPRN PRN PO 03/26/25 20:45 Acetaminophen 650 mg Q6HP PRN PO 03/26/25 20:45 Calcium/Vitamin D 1 tab DAILY PO 03/27/25 10:00 04/01/25 11:02 1 TAB Nitroglycerin 0.4 mg Q5MINP PRN SL 03/26/25 22:15 Morphine Sulfate 2 mg Q30M PRN IV 03/26/25 22:15 Morphine Sulfate 1 mg Q4HP PRN IV 03/29/25 17:00 Dopamine HCl/ Dextrose 250 ml @ 10.538 mls/ hr [id number] IV 03/30/25 11:15 03/31/25 06:13 8.43 MLS/HR Lactated Ringer's 1,000 ml @ 50 mls/hr Q20H IV 03/30/25 18:30 04/01/25 05:35 50 MLS/HR Fludrocortisone Acetate 0.1 mg DAILY PO 03/31/25 10:00 04/01/25 10:59 0.1 MG Sucralfate 1 gm BID@0600,2200 PO 03/31/25 22:00 04/01/25 05:33 1 GM Examination: GENERAL:Normal, ABDOMEN:Abnormal, MSK:Normal, NEURO:Normal, :Normal laboratory and microbiology Laboratory Tests 04/01/25 13:34 04/01/25 03:11 Test 04/01/25 03:11 Range/Units Serum Glucose 81 74-106 mg/dL Microbiology Date/Time Source Procedure Growth Status 03/28/25 13:21 Blood Blood Culture - Preliminary NO GROWTH AFTER 72 HOURS OF INCUBATION. Resulted 03/27/25 17:33 Nose MRSA Screen - Final Complete 03/26/25 20:20 Stool Stool Culture - Final Complete 03/26/25 20:20 Stool Shiga Toxin I & II - Final Complete 03/26/25 20:05 Voided Urine Urine Culture - Final Complete Problem List/Assessment/Plan Problem List/Assessment/Plan Acute kidney injury prerenal in the setting of volume depletion Chronic kidney disease suspect baseline stage IV; Dr. jeter renal mass on US but none on multiple CTs Ulcerative colitis status post ileostomy with high output Bradycardia chfref recs Continue with IV fluids -reduce rate replace electrolytes on dopamine due to slow heart rate /hypotension urology consult noted f/u with me as outpt after dc Plan discussed with: Patient Dietary Evaluation Review Comments: Continue Renal standard diet which is less protein restricted. Supplement with Nepro PO 240ml bid until PO itnake improves to > 50% Expected Outcomes/Goals: gradual wt gain, improved nutrition status. DANUTA JETER MD Apr 01, 2025 15:58
--- NOTE | 2025-04-01 16:00 | DVHPN2 ---
Consult Progress Note Subjective Other Systems: Patient in normal sinus rhythm on shelter monitor. No cardiac events reported overnight or seen on shelter monitor. Patient is still on dopamine drip, please titrate off to evaluate chronotropic response Objective vital signs Vital Sign Date Time Temp Pulse Resp B/P (MAP) Pulse Ox O2 Delivery O2 Flow Rate FiO2 04/01/25 15:45 76 18 99/48 (65) 97 04/01/25 14:00 Nasal Cannula* 1 24 04/01/25 12:00 97.5 97.5 Total Intake and Output 03/31/25 03/31/25 04/01/25 15:00 23:00 07:00 Intake Total 717.44 ml 1041.098 ml 682.152 ml Output Total 1400 ml 1250 ml Balance 717.44 ml -358.902 ml -567.848 ml medications Current Medications Medications Dose Ordered Sig/Socrates Route Start Time Stop Time Status Last Admin Dose Admin Donepezil HCl 10 mg HS PO 03/26/25 22:00 03/31/25 21:41 10 MG Pantoprazole Sodium 40 mg DAILY IV 03/27/25 10:00 04/01/25 10:59 40 MG Ceftriaxone Sodium 50 ml @ 100 mls/hr DAILY@09 IV 03/27/25 09:00 04/01/25 09:05 100 MLS/HR Memantine 10 mg Q12HR PO 03/26/25 22:00 04/01/25 11:00 10 MG Atorvastatin Calcium 10 mg HS PO 03/26/25 22:00 03/31/25 21:40 10 MG Multivit/Ca Carb/ B Cmplx/FA/Prenat 1 tab DAILY PO 03/27/25 10:00 04/01/25 11:01 1 TAB Sodium Chloride 10 ml Q8HR IV 03/26/25 22:00 04/01/25 05:33 10 ML Ondansetron HCl 4 mg Q4HP PRN IV 03/26/25 20:45 03/29/25 14:27 4 MG Docusate Sodium 100 mg BIDPRN PRN PO 03/26/25 20:45 Acetaminophen 650 mg Q6HP PRN PO 03/26/25 20:45 Calcium/Vitamin D 1 tab DAILY PO 03/27/25 10:00 04/01/25 11:02 1 TAB Nitroglycerin 0.4 mg Q5MINP PRN SL 03/26/25 22:15 Morphine Sulfate 2 mg Q30M PRN IV 03/26/25 22:15 Morphine Sulfate 1 mg Q4HP PRN IV 03/29/25 17:00 Dopamine HCl/ Dextrose 250 ml @ 10.538 mls/ hr [id number] IV 03/30/25 11:15 03/31/25 06:13 8.43 MLS/HR Lactated Ringer's 1,000 ml @ 50 mls/hr Q20H IV 03/30/25 18:30 04/01/25 05:35 50 MLS/HR Fludrocortisone Acetate 0.1 mg DAILY PO 03/31/25 10:00 04/01/25 10:59 0.1 MG Sucralfate 1 gm BID@0600,2200 PO 03/31/25 22:00 04/01/25 05:33 1 GM Examination: GENERAL:Normal, LUNGS:Normal, CVS:Normal, NEURO:Normal laboratory and microbiology Laboratory Tests 04/01/25 13:34 04/01/25 03:11 Test 04/01/25 03:11 Range/Units Serum Glucose 81 74-106 mg/dL Problem List/Assessment/Plan Problem List/Assessment/Plan Continue with the following plan/recommendations (Dr. Whitfield): * Sinus bradycardia - titrate off dopamine drip as tolerated. Continue monitoring heart rate. Atropine p.r.n. for sustained symptomatic heart rate less than 40. No further bradycardic events since 03/27/2025 on shelter monitor. Transient bradycardia possibly secondary to hemodynamic derangement including renal impairment. No plans for PPM at this time. Goal of care is to titrate off Dopamine drip for further evaluation of chronotropic response. * Chronic compensated HFrEF, newly diagnosed - LVEF 35% with LAE. Patient remains euvolemic. Initiate GDMT for CHF when able to tolerate, currently on vasopressor. * Septic shock with UTI- Discontinue midodrine contraindicated with HFrEF. ABX per primary care team. * SANCHEZ on CKD - improving with IV fluid hydration. Avoid hypotension. Continue monitoring. Management per Nephrology. * Hypomagnesemia/hypokalemia - replete as necessary. Thank you for allowing me to participate in the management of this patient. The treatment plan was discussed with and agreed upon by patient/family including requesting consultants and ordering of imaging/procedures. Critical care, time spent: 30 minutes. This medical document was created using an electronic medical record system with voice recognition software and computerized dictation system. Although this document has been carefully reviewed, there might still be some phonetic and typographical errors. Occasional wrong-word or ``sound-alike substitutions may have occurred due to the inherent limitations of voice recognition software. These areas are purely typographical due to imperfections of the software programs and do not reflect any compromise in the patient's medical care. Please read the chart carefully and recognize, using context, where these substitutions have occurred. Plan discussed with: Patient, Other (Bedside RN) Dietary Evaluation Review Comments: Continue Renal standard diet which is less protein restricted. Supplement with Nepro PO 240ml bid until PO itnake improves to > 50% Expected Outcomes/Goals: gradual wt gain, improved nutrition status. Date of Service: Apr 01, 2025 Billing Provider: BON PIRES Common Visit Codes: [id number] CARE 30-74 MIN BON PIRES Apr 01, 2025 16:00
[2025-04-02] VITALS (96 sets, daily range): BP systolic 83–142; BP diastolic 39–65; PULSE 50–102; RESP 11–26; TEMP 97.5–98.5; O2SAT 91–98
[2025-04-02 03:36] LABS: Basophils # (auto) 0 10 ^3/uL (0-0.2); Basophils % (auto) 0.6 % (0.0-2.0); Eosinophils # (auto) 0.2 10 ^3/uL (0-0.8); Eosinophils % (auto) 3.7 % (0.0-7.0); Hematocrit 33.1 % (36.0-46.0); Hemoglobin 11.1 g/dL (12.2-16.2); Lymphocytes # (auto) 1.1 10 ^3/uL (0.4-5.4); Lymphocytes % (auto) 20.6 % (10.0-50.0); Mean Corpuscular Hemoglobin 27.2 pg (28.0-32.0); Mean Corpuscular Hgb Conc. 33.3 g/dL (32.0-36.0); Mean Corpuscular Volume 81.5 fL (80.0-100.0); Monocytes # (auto) 0.5 10 ^3/uL (0-1.3); Monocytes % (auto) 9.1 % (0.0-12.0); Neutrophils # (auto) 3.5 10 ^3/uL (1.6-8.6); Nucleated Red Blood Cells % 0.1 %; Platelet Count (auto) 226 10^3/uL (140-450); Red Blood Cells 4.07 10^6/uL (4.0-5.20); Red Cell Distribution Width 14.1 % (11.8-14.3); White Blood Cell 5.3 10^3/uL (4.4-10.8)
[2025-04-02 03:50] LABS: Potassium 3.7 mmol/L (3.5-5.1); Sodium 142 mmol/L (136-145)
[2025-04-02 03:51] LABS: Anion Gap 9 (5-15); Carbon Dioxide 21 mmol/L (20-31)
[2025-04-02 03:52] LABS: Calcium 8.2 mg/dL (8.7-10.4); Chloride 112 mmol/L (98-107)
[2025-04-02 03:56] LABS: BUN/Creatinine Ratio 7.9 (10.0-20.0); Blood Urea Nitrogen 10 mg/dL (9-23); Glucose 90 mg/dL (74-106)
[2025-04-02] MEDS: DOPamine 1600MCG/ML D5W 250 ML IV SCH (07:00)
--- NOTE | 2025-04-02 11:06 | DVHPN2 ---
Progress Note Date Seen: Apr 02, 2025 Medical Necessity Reason Pt with a Central, PICC or Fol: Yes The following are medically ne: Montalvo Catheter Subjective Patient reports: No new complaints Other Systems: Patient seen and examined by myself today in follow-up Objective vital signs Vital Sign Date Time Temp Pulse Resp B/P (MAP) Pulse Ox O2 Delivery O2 Flow Rate FiO2 04/02/25 09:00 85 20 97/44 (61) 93 04/02/25 08:00 Nasal Cannula* 1 24 04/02/25 08:00 97.8 97.8 Total Intake and Output 04/01/25 04/01/25 04/02/25 15:00 23:00 07:00 Intake Total 823.720 ml 680.044 ml 788.450 ml Output Total 1525 ml 1175 ml Balance 823.720 ml -844.956 ml -386.550 ml medications Current Medications Medications Dose Ordered Sig/Socrates Route Start Time Stop Time Status Last Admin Dose Admin Donepezil HCl 10 mg HS PO 03/26/25 22:00 04/01/25 22:23 10 MG Pantoprazole Sodium 40 mg DAILY IV 03/27/25 10:00 04/02/25 10:13 40 MG Ceftriaxone Sodium 50 ml @ 100 mls/hr DAILY@09 IV 03/27/25 09:00 04/02/25 10:13 100 MLS/HR Memantine 10 mg Q12HR PO 03/26/25 22:00 04/02/25 10:13 10 MG Atorvastatin Calcium 10 mg HS PO 03/26/25 22:00 04/01/25 22:23 10 MG Multivit/Ca Carb/ B Cmplx/FA/Prenat 1 tab DAILY PO 03/27/25 10:00 04/02/25 10:13 1 TAB Sodium Chloride 10 ml Q8HR IV 03/26/25 22:00 04/02/25 10:14 10 ML Ondansetron HCl 4 mg Q4HP PRN IV 03/26/25 20:45 03/29/25 14:27 4 MG Docusate Sodium 100 mg BIDPRN PRN PO 03/26/25 20:45 Acetaminophen 650 mg Q6HP PRN PO 03/26/25 20:45 Calcium/Vitamin D 1 tab DAILY PO 03/27/25 10:00 04/02/25 10:13 1 TAB Nitroglycerin 0.4 mg Q5MINP PRN SL 03/26/25 22:15 Morphine Sulfate 2 mg Q30M PRN IV 03/26/25 22:15 Morphine Sulfate 1 mg Q4HP PRN IV 03/29/25 17:00 Lactated Ringer's 1,000 ml @ 50 mls/hr Q20H IV 03/30/25 18:30 04/02/25 02:38 50 MLS/HR Fludrocortisone Acetate 0.1 mg DAILY PO 03/31/25 10:00 04/02/25 10:13 0.1 MG Sucralfate 1 gm BID@0600,2200 PO 03/31/25 22:00 04/02/25 06:35 1 GM Dopamine HCl/ Dextrose 250 ml @ 10.519 mls/ hr [id number] IV 04/02/25 07:00 Examination: LUNGS:Normal, CVS:Normal, MSK:Normal laboratory and microbiology Laboratory Tests 04/02/25 03:29 Test 04/02/25 03:29 Range/Units Serum Glucose 90 74-106 mg/dL Microbiology Date/Time Source Procedure Growth Status 03/28/25 13:21 Blood Blood Culture - Preliminary NO GROWTH AFTER 72 HOURS OF INCUBATION. Resulted 03/27/25 17:33 Nose MRSA Screen - Final Complete 03/26/25 20:20 Stool Stool Culture - Final Complete 03/26/25 20:20 Stool Shiga Toxin I & II - Final Complete 03/26/25 20:05 Voided Urine Urine Culture - Final Complete Problem List/Assessment/Plan Problem List/Assessment/Plan Acute kidney injury prerenal in the setting of volume depletion Chronic kidney disease suspect baseline stage IV; Dr. jeter Renal mass on US but none on multiple CTs Ulcerative colitis status post ileostomy with high output Bradycardia chfref recs Kidney function is improving Increased urine output KCL replacement IV dopamine We will continue to follow Plan discussed with: Daughter Dietary Evaluation Review Comments: Continue Renal standard diet which is less protein restricted. Supplement with Nepro PO 240ml bid until PO itnake improves to > 50% Expected Outcomes/Goals: gradual wt gain, improved nutrition status. JESSI GABRIEL MD Apr 02, 2025 11:06
--- NOTE | 2025-04-02 11:31 | DVHPN2 ---
Consult Progress Note Subjective Other Systems: The patient is in normal sinus rhythm on monitor worker, no cardiac events noted overnight. Objective vital signs Vital Sign Date Time Temp Pulse Resp B/P (MAP) Pulse Ox O2 Delivery O2 Flow Rate FiO2 04/02/25 09:00 85 20 97/44 (61) 93 04/02/25 08:00 Nasal Cannula* 1 24 04/02/25 08:00 97.8 97.8 Total Intake and Output 04/01/25 04/01/25 04/02/25 15:00 23:00 07:00 Intake Total 823.720 ml 680.044 ml 788.450 ml Output Total 1525 ml 1175 ml Balance 823.720 ml -844.956 ml -386.550 ml medications Current Medications Medications Dose Ordered Sig/Socrates Route Start Time Stop Time Status Last Admin Dose Admin Donepezil HCl 10 mg HS PO 03/26/25 22:00 04/01/25 22:23 10 MG Pantoprazole Sodium 40 mg DAILY IV 03/27/25 10:00 04/02/25 10:13 40 MG Ceftriaxone Sodium 50 ml @ 100 mls/hr DAILY@09 IV 03/27/25 09:00 04/02/25 10:13 100 MLS/HR Memantine 10 mg Q12HR PO 03/26/25 22:00 04/02/25 10:13 10 MG Atorvastatin Calcium 10 mg HS PO 03/26/25 22:00 04/01/25 22:23 10 MG Multivit/Ca Carb/ B Cmplx/FA/Prenat 1 tab DAILY PO 03/27/25 10:00 04/02/25 10:13 1 TAB Sodium Chloride 10 ml Q8HR IV 03/26/25 22:00 04/02/25 10:14 10 ML Ondansetron HCl 4 mg Q4HP PRN IV 03/26/25 20:45 03/29/25 14:27 4 MG Docusate Sodium 100 mg BIDPRN PRN PO 03/26/25 20:45 Acetaminophen 650 mg Q6HP PRN PO 03/26/25 20:45 Calcium/Vitamin D 1 tab DAILY PO 03/27/25 10:00 04/02/25 10:13 1 TAB Nitroglycerin 0.4 mg Q5MINP PRN SL 03/26/25 22:15 Morphine Sulfate 2 mg Q30M PRN IV 03/26/25 22:15 Morphine Sulfate 1 mg Q4HP PRN IV 03/29/25 17:00 Lactated Ringer's 1,000 ml @ 50 mls/hr Q20H IV 03/30/25 18:30 04/02/25 02:38 50 MLS/HR Fludrocortisone Acetate 0.1 mg DAILY PO 03/31/25 10:00 04/02/25 10:13 0.1 MG Sucralfate 1 gm BID@0600,2200 PO 03/31/25 22:00 04/02/25 06:35 1 GM Dopamine HCl/ Dextrose 250 ml @ 10.519 mls/ hr [id number] IV 04/02/25 07:00 Examination: GENERAL:Normal, LUNGS:Normal, CVS:Normal, NEURO:Normal laboratory and microbiology Laboratory Tests 04/02/25 03:29 Test 04/02/25 03:29 Range/Units Serum Glucose 90 74-106 mg/dL Problem List/Assessment/Plan Problem List/Assessment/Plan Continue with the following plan/recommendations (Dr. Whiftield): * Sinus bradycardia - titrate off dopamine drip as tolerated. Continue monitoring heart rate. Atropine p.r.n. for sustained symptomatic heart rate less than 40. No further bradycardic events since 03/27/2025 on monitor worker. Transient bradycardia possibly secondary to hemodynamic derangement including renal impairment. No plans for PPM at this time. Goal of care is to titrate off Dopamine drip for further evaluation of chronotropic response. * Chronic compensated HFrEF, newly diagnosed - LVEF 35% with LAE. Patient remains euvolemic. Initiate GDMT for CHF when able to tolerate, currently on vasopressor. * Septic shock with UTI- Discontinue midodrine contraindicated with HFrEF. ABX per primary care team. * SANCHEZ on CKD - improving with IV fluid hydration. Avoid hypotension. Continue monitoring. Management per Nephrology. * Hypomagnesemia/hypokalemia - replete as necessary. Thank you for allowing me to participate in the management of this patient. The treatment plan was discussed with and agreed upon by patient/family including requesting consultants and ordering of imaging/procedures. Critical care, time spent: 30 minutes. This medical document was created using an electronic medical record system with voice recognition software and computerized dictation system. Although this document has been carefully reviewed, there might still be some phonetic and typographical errors. Occasional wrong-word or ``sound-alike substitutions may have occurred due to the inherent limitations of voice recognition software. These areas are purely typographical due to imperfections of the software programs and do not reflect any compromise in the patient's medical care. Please read the chart carefully and recognize, using context, where these substitutions have occurred. Plan discussed with: Patient, Daughter Dietary Evaluation Review Comments: Continue Renal standard diet which is less protein restricted. Supplement with Nepro PO 240ml bid until PO itnake improves to > 50% Expected Outcomes/Goals: gradual wt gain, improved nutrition status. Date of Service: Apr 02, 2025 Billing Provider: BON PIRES Common Visit Codes: [id number] CARE 30-74 MIN BON PIRES Apr 02, 2025 11:31
--- NOTE | 2025-04-02 11:47 | DVHPN2 ---
Subjective The patient is seen and examined at bedside. Complain of tiredness. Reviewed: Care Plan, H&P, Labs, Medications, Previous Orders, Radiology Changes from previous H/P or p: No Changes Eyes: No Pain, No Vision change, No Conjunctivae inflammation, No Eyelid inflammation, No Other, No Redness ENT: No Ear pain, No Ear discharge, No Nose pain, No Nose discharge, No Nose congestion, No Mouth pain, No Mouth swelling, No Throat pain, No Throat swelling, No Other Cardiovascular: No Chest Pain, No Palpitations, No Orthopnea, No Paroxysmal Noc. Dyspnea, No Edema, No Lt Headedness, No Other Respiratory: No Cough, No Dry, No Shortness of breath, No SOB with excertion, No Wheezing, No Hemoptysis, No Pleuritic Pain, No Sputum, No Other Gastrointestinal: No Nausea, No Vomiting, No Abdominal Pain, No Diarrhea, No Constipation; Melena (Blood streak bowel); No Hematochezia; Other (Colostomy bag) Genitourinary: No Dysuria, No Frequency, No Incontinence, No Hematuria, No Retention, No Other Musculoskeletal: No other, No neck pain, No shoulder pain, No arm pain, No back pain, No hand pain, No leg pain, No foot pain Skin: No Rash, No Lesions, No Jaundice, No Bruising, No Other Objective Vitals Vital Signs Date Time Temp Pulse Resp B/P (MAP) Pulse Ox O2 Delivery O2 Flow Rate FiO2 04/02/25 09:00 85 20 97/44 (61) 93 04/02/25 08:00 Nasal Cannula* 1 24 04/02/25 08:00 97.8 97.8 Intake/Output Intake and Output 04/02/25 06:59 Intake Total 2294.322 ml Output Total 2700 ml Balance -405.678 ml Intake Oral 840 ml IV Total 1454.322 ml Output Urine Total 1250 ml Stool Total 1450 ml General Appearance: Alert, Oriented X3, Cooperative, No acute distress, m oderate distress HEENT: Atraumatic, PERRLA, EOMI, Mucous membr. moist/pink Neck: Supple Lungs: Clear to auscultation Cardiovascular: Normal S1, Normal S2, No murmurs, Gallops, Rubs, Other (bradycardic) Abdomen: Normal bowel sounds, Soft, No tenderness, No hepatospenomegaly Extremities: No edema Neuro: Cranial nerves 3-12 NL Psych/Mental Status: Mental status NL Medications Current Medications Medications Dose Ordered Sig/Socrates Route Start Time Stop Time Status Last Admin Dose Admin Donepezil HCl 10 mg HS PO 03/26/25 22:00 04/01/25 22:23 10 MG Pantoprazole Sodium 40 mg DAILY IV 03/27/25 10:00 04/02/25 10:13 40 MG Ceftriaxone Sodium 50 ml @ 100 mls/hr DAILY@09 IV 03/27/25 09:00 04/02/25 10:13 100 MLS/HR Memantine 10 mg Q12HR PO 03/26/25 22:00 04/02/25 10:13 10 MG Atorvastatin Calcium 10 mg HS PO 03/26/25 22:00 04/01/25 22:23 10 MG Multivit/Ca Carb/ B Cmplx/FA/Prenat 1 tab DAILY PO 03/27/25 10:00 04/02/25 10:13 1 TAB Sodium Chloride 10 ml Q8HR IV 03/26/25 22:00 04/02/25 10:14 10 ML Ondansetron HCl 4 mg Q4HP PRN IV 03/26/25 20:45 03/29/25 14:27 4 MG Docusate Sodium 100 mg BIDPRN PRN PO 03/26/25 20:45 Acetaminophen 650 mg Q6HP PRN PO 03/26/25 20:45 Calcium/Vitamin D 1 tab DAILY PO 03/27/25 10:00 04/02/25 10:13 1 TAB Nitroglycerin 0.4 mg Q5MINP PRN SL 03/26/25 22:15 Morphine Sulfate 2 mg Q30M PRN IV 03/26/25 22:15 Morphine Sulfate 1 mg Q4HP PRN IV 03/29/25 17:00 Lactated Ringer's 1,000 ml @ 50 mls/hr Q20H IV 03/30/25 18:30 04/02/25 02:38 50 MLS/HR Fludrocortisone Acetate 0.1 mg DAILY PO 03/31/25 10:00 04/02/25 10:13 0.1 MG Sucralfate 1 gm BID@0600,2200 PO 03/31/25 22:00 04/02/25 06:35 1 GM Dopamine HCl/ Dextrose 250 ml @ 10.519 mls/ hr [id number] IV 04/02/25 07:00 Laboratory Results Laboratory Tests 04/02/25 03:29 Chemistry Test 04/02/25 03:29 Calcium Level 8.2 mg/dL (8.7-10.4) L Magnesium Level 1.7 mg/dL (1.6-2.6) Urinalysis Test 03/26/25 20:05 Urine Color Light-orange (Yellow) Urine Clarity Turbid (Clear) H Urine pH 5.0 (5.0-9.0) Urine Specific Embarrass 1.018 (1.001-1.035) Urine Protein 1+ (Negative) H Urine Ketones Negative (Negative) Urine Blood 1+ /uL (Negative) H Urine Nitrite Negative (Negative) Urine Bilirubin Negative (Negative) Urine Urobilinogen Normal mg/dL (Negative) Urine Leukocyte Esterase 3+ /uL (Negative) Urine RBC 5 /hpf (0 - 4) Urine Microscopic WBC 30 /HPF (0-5) H Urine Squamous Epithelial Cells Many /hpf (<5) Urine Bacteria Few /hpf (None Seen) H Urine Hyaline Casts Few /lpf (0 - 2) Urine Glucose Normal mg/dL (Normal) Microbiology Microbiology Date/Time Source Procedure Growth Status 03/28/25 13:21 Blood Blood Culture - Preliminary NO GROWTH AFTER 72 HOURS OF INCUBATION. Resulted 03/27/25 17:33 Nose MRSA Screen - Final Complete 03/26/25 20:20 Stool Stool Culture - Final Complete 03/26/25 20:20 Stool Shiga Toxin I & II - Final Complete 03/26/25 20:05 Voided Urine Urine Culture - Final Complete Labs and/or images reviewed: Labs reviewed by me Assessment/Plan Assessment/Plan Hypotension Bradycardia SANCHEZ/CKD CKD stage IV Acute kidney injury prerenal in the setting of volume depletion Left 2 cm renal mass Ulcerative colitis status post ileostomy with high output Dementia UTI Sepsis with septic shock PLAN: IV Rocephin IV fluids Continue IV Dopamine drip. Hopefully we can wean her off. Nephrology consult Cardiology consult Discussed with daughter at the bedside Full code Advanced directives discussed with daughter x 20 minutes 03/28/2025: Continue IV fluids Dopamine as needed, tapered down the dose as tolerated Nephrology is seeing the patient Cardiology is also seeing the patient Echocardiogram is pending Continue IV antibiotics Urine culture is negative Blood culture is pending Full code 03/29/25: Abdominal pain: Repeat CT scan, GI consult GI bleed?, + SOB: GI consult, IV Protonix SANCHEZ/CKD: Improving, continue IV fluids Sepsis: IV antibiotics: Rocephin, Dopamine drip Bradycardia: Dopamine drip Abdominal pain: Morphine prn Discussed with daughter at the bedside 03/30/2025: Abdominal pain: Stable GI bleed: GI consult pending Continue IV Protonix Hypotension with bradycardia: Continue dopamine Continue IV Rocephin Monitor closely Keep NPO until she is seen by GI Discussed with the daughter at the bedside 03/31/2025: Hypotension: Tapered down the dopamine as tolerated, add Florinef Abdominal pain: Resolved , GI recommended outpatient follow up, continue PPI UTI: Rocephin IV SANCHEZ: Continue IV fluids Chronic kidney disease: Nephrology is following Discussed with the at the bedside Hypokalemia and hypomagnesemia: Replace 04/01/2025: Continuing current management. Discontinuing dopamine if able to wean off completely. Continuing with sliding scale insulin. Continuing with Rocephin. Continuing with IV fluid. Continuing replace electrolytes. Discharge planning. Plan discussed with: Patient, Spouse Date of Service: Apr 02, 2025 Billing Provider: DRU KLEIN MD Common Visit Codes: [id number] INP/OBS CARE(HIGH) DRU KLEIN MD Apr 02, 2025 11:47
--- NOTE | 2025-04-02 16:00 | DVHPN2 ---
Progress Note Date Seen: Apr 02, 2025 Resident Creating Document: AGUILAR WU Medical Necessity Reason Pt with a Central, PICC or Fol: Yes The following are medically ne: Montalvo Catheter Subjective Review of Systems Patient is seen today at bedside No new complain H&H stable On titrate dose dopamine Objective vital signs Vital Sign Date Time Temp Pulse Resp B/P (MAP) Pulse Ox O2 Delivery O2 Flow Rate FiO2 04/02/25 15:45 72 19 103/49 (67) 94 04/02/25 14:00 Nasal Cannula* 1 24 04/02/25 12:00 98.0 98.0 Total Intake and Output 04/01/25 04/01/25 04/02/25 15:00 23:00 07:00 Intake Total 823.720 ml 680.044 ml 788.450 ml Output Total 1525 ml 1175 ml Balance 823.720 ml -844.956 ml -386.550 ml medications Current Medications Medications Dose Ordered Sig/Socrates Route Start Time Stop Time Status Last Admin Dose Admin Donepezil HCl 10 mg HS PO 03/26/25 22:00 04/01/25 22:23 10 MG Pantoprazole Sodium 40 mg DAILY IV 03/27/25 10:00 04/02/25 10:13 40 MG Ceftriaxone Sodium 50 ml @ 100 mls/hr DAILY@09 IV 03/27/25 09:00 04/02/25 10:13 100 MLS/HR Memantine 10 mg Q12HR PO 03/26/25 22:00 04/02/25 10:13 10 MG Atorvastatin Calcium 10 mg HS PO 03/26/25 22:00 04/01/25 22:23 10 MG Multivit/Ca Carb/ B Cmplx/FA/Prenat 1 tab DAILY PO 03/27/25 10:00 04/02/25 10:13 1 TAB Sodium Chloride 10 ml Q8HR IV 03/26/25 22:00 04/02/25 10:14 10 ML Ondansetron HCl 4 mg Q4HP PRN IV 03/26/25 20:45 03/29/25 14:27 4 MG Docusate Sodium 100 mg BIDPRN PRN PO 03/26/25 20:45 Acetaminophen 650 mg Q6HP PRN PO 03/26/25 20:45 Calcium/Vitamin D 1 tab DAILY PO 03/27/25 10:00 04/02/25 10:13 1 TAB Nitroglycerin 0.4 mg Q5MINP PRN SL 03/26/25 22:15 Morphine Sulfate 2 mg Q30M PRN IV 03/26/25 22:15 Morphine Sulfate 1 mg Q4HP PRN IV 03/29/25 17:00 Lactated Ringer's 1,000 ml @ 50 mls/hr Q20H IV 03/30/25 18:30 04/02/25 02:38 50 MLS/HR Fludrocortisone Acetate 0.1 mg DAILY PO 03/31/25 10:00 04/02/25 10:13 0.1 MG Sucralfate 1 gm BID@0600,2200 PO 03/31/25 22:00 04/02/25 06:35 1 GM Dopamine HCl/ Dextrose 250 ml @ 10.519 mls/ hr [id number] IV 04/02/25 07:00 laboratory and microbiology Laboratory Tests 04/02/25 03:29 Test 04/02/25 03:29 Range/Units Serum Glucose 90 74-106 mg/dL Microbiology Date/Time Source Procedure Growth Status 03/28/25 13:21 Blood Blood Culture - Final NO GROWTH AFTER 5 DAYS OF INCUBATION. Complete 03/27/25 17:33 Nose MRSA Screen - Final Complete 03/26/25 20:20 Stool Stool Culture - Final Complete 03/26/25 20:20 Stool Shiga Toxin I & II - Final Complete 03/26/25 20:05 Voided Urine Urine Culture - Final Complete Problem List/Assessment/Plan Problem List/Assessment/Plan Assessment and plan SANCHEZ on CKD likely due toVMN/dehydration Ulcerative colitis status post ileostomy with high output Dementia UTI Sepsis with septic shock Events No new complain H&H stable On titrate dose dopamine On colostomy bag Plan Continue Regular diet Gastroenterology will remain standby, if hemoglobin drops we will do another Endoscopy Continue IV antibiotic as prescribed Continue IV fluid as prescribed Monitor CBC Plan discussed with Dr. Lamar Perez , nursing staff, Total time spent on patient evaluation, chart review, assessment and plan, discussion discussion >35 minutes Plan discussed with: Patient, Daughter, Other (RN) Plan discussed with: Patient, Other (RN) Dietary Evaluation Review Comments: Continue Renal standard diet which is less protein restricted. Supplement with Nepro PO 240ml bid until PO itnake improves to > 50% Expected Outcomes/Goals: gradual wt gain, improved nutrition status. AGUILAR WU RESIDENT Apr 02, 2025 16:00
[2025-04-02] MEDS: MAGNESIUM SULFATE 1GM/100ML 100 ML IV ONE (16:52)
[2025-04-03] VITALS (92 sets, daily range): BP systolic 92–128; BP diastolic 33–80; PULSE 60–100; RESP 12–29; TEMP 97.4–98.4; O2SAT 91–98
[2025-04-03 08:36] LABS: Basophils # (auto) 0 10 ^3/uL (0-0.2); Basophils % (auto) 0.5 % (0.0-2.0); Eosinophils # (auto) 0.2 10 ^3/uL (0-0.8); Eosinophils % (auto) 3.5 % (0.0-7.0); Hematocrit 33.8 % (36.0-46.0); Hemoglobin 11.4 g/dL (12.2-16.2); Lymphocytes % (auto) 19.7 % (10.0-50.0); Mean Corpuscular Hemoglobin 27.7 pg (28.0-32.0); Mean Corpuscular Hgb Conc. 33.8 g/dL (32.0-36.0); Mean Corpuscular Volume 82.1 fL (80.0-100.0); Monocytes # (auto) 0.5 10 ^3/uL (0-1.3); Monocytes % (auto) 9.3 % (0.0-12.0); Neutrophils # (auto) 3.4 10 ^3/uL (1.6-8.6); Nucleated Red Blood Cells % 0.1 %; Platelet Count (auto) 209 10^3/uL (140-450); Red Blood Cells 4.12 10^6/uL (4.0-5.20); Red Cell Distribution Width 14.1 % (11.8-14.3); White Blood Cell 5.1 10^3/uL (4.4-10.8)
[2025-04-03 08:44] LABS: Sodium 145 mmol/L (136-145)
[2025-04-03 08:45] LABS: Anion Gap 11 (5-15); Calcium 8.7 mg/dL (8.7-10.4)
[2025-04-03 08:48] LABS: Carbon Dioxide 19 mmol/L (20-31); Chloride 115 mmol/L (98-107); Potassium 3.5 mmol/L (3.5-5.1)
[2025-04-03 08:50] LABS: BUN/Creatinine Ratio 7.7 (10.0-20.0); Blood Urea Nitrogen 9 mg/dL (9-23); Glucose 80 mg/dL (74-106)
[2025-04-03] MEDS ORDERED: SODIUM BICARB 50mEq/50ml Vial 50 ML in SOD CHL 0.45% 1,000 ML IV SCH (09:45)
--- NOTE | 2025-04-03 09:48 | DVHPN2 ---
Progress Note Date Seen: Apr 03, 2025 Medical Necessity Reason Pt with a Central, PICC or Fol: Yes The following are medically ne: Montalvo Catheter Subjective Patient reports: No new complaints Other Systems: Patient seen and examined by myself today in follow-up, daughter at the bedside Objective vital signs Vital Sign Date Time Temp Pulse Resp B/P (MAP) Pulse Ox O2 Delivery O2 Flow Rate FiO2 04/03/25 09:30 79 16 108/53 (71) 95 04/03/25 08:00 Nasal Cannula* 1 24 04/03/25 04:00 98.4 98.4 Total Intake and Output 04/02/25 04/02/25 04/03/25 15:00 23:00 07:00 Intake Total 475.258 ml 715.248 ml 467.884 ml Output Total 525 ml 625 ml Balance 475.258 ml 190.248 ml -157.116 ml medications Current Medications Medications Dose Ordered Sig/Socrates Route Start Time Stop Time Status Last Admin Dose Admin Donepezil HCl 10 mg HS PO 03/26/25 22:00 04/02/25 21:37 10 MG Pantoprazole Sodium 40 mg DAILY IV 03/27/25 10:00 04/02/25 10:13 40 MG Ceftriaxone Sodium 50 ml @ 100 mls/hr DAILY@09 IV 03/27/25 09:00 04/03/25 08:20 100 MLS/HR Memantine 10 mg Q12HR PO 03/26/25 22:00 04/02/25 21:37 10 MG Atorvastatin Calcium 10 mg HS PO 03/26/25 22:00 04/02/25 21:37 10 MG Multivit/Ca Carb/ B Cmplx/FA/Prenat 1 tab DAILY PO 03/27/25 10:00 04/02/25 10:13 1 TAB Sodium Chloride 10 ml Q8HR IV 03/26/25 22:00 04/03/25 05:34 10 ML Ondansetron HCl 4 mg Q4HP PRN IV 03/26/25 20:45 03/29/25 14:27 4 MG Docusate Sodium 100 mg BIDPRN PRN PO 03/26/25 20:45 Acetaminophen 650 mg Q6HP PRN PO 03/26/25 20:45 Calcium/Vitamin D 1 tab DAILY PO 03/27/25 10:00 04/02/25 10:13 1 TAB Nitroglycerin 0.4 mg Q5MINP PRN SL 03/26/25 22:15 Morphine Sulfate 2 mg Q30M PRN IV 03/26/25 22:15 Morphine Sulfate 1 mg Q4HP PRN IV 03/29/25 17:00 Lactated Ringer's 1,000 ml @ 50 mls/hr Q20H IV 03/30/25 18:30 04/02/25 21:42 50 MLS/HR Fludrocortisone Acetate 0.1 mg DAILY PO 03/31/25 10:00 04/02/25 10:13 0.1 MG Sucralfate 1 gm BID@0600,2200 PO 03/31/25 22:00 04/03/25 05:34 1 GM Dopamine HCl/ Dextrose 250 ml @ 10.519 mls/ hr [id number] IV 04/02/25 07:00 Examination: LUNGS:Normal, CVS:Normal, MSK:Normal laboratory and microbiology Laboratory Tests 04/03/25 08:23 Test 04/03/25 08:23 Range/Units Serum Glucose 80 74-106 mg/dL Microbiology Date/Time Source Procedure Growth Status 03/28/25 13:21 Blood Blood Culture - Final NO GROWTH AFTER 5 DAYS OF INCUBATION. Complete 03/27/25 17:33 Nose MRSA Screen - Final Complete 03/26/25 20:20 Stool Stool Culture - Final Complete 03/26/25 20:20 Stool Shiga Toxin I & II - Final Complete 03/26/25 20:05 Voided Urine Urine Culture - Final Complete Problem List/Assessment/Plan Problem List/Assessment/Plan Acute kidney injury prerenal in the setting of volume depletion Chronic kidney disease suspect baseline stage IV; Dr. jeter Renal mass on US but none on multiple CTs Ulcerative colitis status post ileostomy with high output Metabolic acidosis Bradycardia, resolved CHF, EF 35% recs Kidney function is improving Increased urine output Strict I&Os KCL replacement Low-dose dopamine IVF half NS with 50 mEq sodium bicarb at 50 cc/hour KCL replacement We will continue to follow Plan discussed with: Patient, Daughter Dietary Evaluation Review Comments: Continue Renal standard diet which is less protein restricted. Supplement with Nepro PO 240ml bid until PO itnake improves to > 50% Expected Outcomes/Goals: gradual wt gain, improved nutrition status. JESSI GABRIEL MD Apr 03, 2025 09:48
[2025-04-03] MEDS: SODIUM BICARB 50mEq/50ml Vial 50 ML in SOD CHL 0.45% 1,000 ML IV SCH (10:00)
[2025-04-03] MEDS: ACETAMINOPHEN 325 MG TAB PO PRN (13:17)
--- NOTE | 2025-04-03 13:55 | DVHPN2 ---
Subjective The patient is seen and examined at bedside. Complain of tiredness. Reviewed: Care Plan, H&P, Labs, Medications, Previous Orders, Radiology Changes from previous H/P or p: No Changes Eyes: No Pain, No Vision change, No Conjunctivae inflammation, No Eyelid inflammation, No Other, No Redness ENT: No Ear pain, No Ear discharge, No Nose pain, No Nose discharge, No Nose congestion, No Mouth pain, No Mouth swelling, No Throat pain, No Throat swelling, No Other Cardiovascular: No Chest Pain, No Palpitations, No Orthopnea, No Paroxysmal Noc. Dyspnea, No Edema, No Lt Headedness, No Other Respiratory: No Cough, No Dry, No Shortness of breath, No SOB with excertion, No Wheezing, No Hemoptysis, No Pleuritic Pain, No Sputum, No Other Gastrointestinal: No Nausea, No Vomiting, No Abdominal Pain, No Diarrhea, No Constipation; Melena (Blood streak bowel); No Hematochezia; Other (Colostomy bag) Genitourinary: No Dysuria, No Frequency, No Incontinence, No Hematuria, No Retention, No Other Musculoskeletal: No other, No neck pain, No shoulder pain, No arm pain, No back pain, No hand pain, No leg pain, No foot pain Skin: No Rash, No Lesions, No Jaundice, No Bruising, No Other Objective Vitals Vital Signs Date Time Temp Pulse Resp B/P (MAP) Pulse Ox O2 Delivery O2 Flow Rate FiO2 04/03/25 10:30 79 29 113/48 (69) 98 04/03/25 10:00 Nasal Cannula* 1 24 04/03/25 10:00 98.2 98.2 Intake/Output Intake and Output 04/03/25 07:00 Intake Total 1658.390 ml Output Total 1150 ml Balance 508.390 ml Intake Oral 290 ml IV Total 1368.390 ml Output Urine Total 750 ml Stool Total 400 ml General Appearance: Alert, Oriented X3, Cooperative, No acute distress, m oderate distress HEENT: Atraumatic, PERRLA, EOMI, Mucous membr. moist/pink Neck: Supple Lungs: Clear to auscultation Cardiovascular: Normal S1, Normal S2, No murmurs, Gallops, Rubs, Other (bradycardic) Abdomen: Normal bowel sounds, Soft, No tenderness, No hepatospenomegaly Extremities: No edema Neuro: Cranial nerves 3-12 NL Psych/Mental Status: Mental status NL Medications Current Medications Medications Dose Ordered Sig/Socrates Route Start Time Stop Time Status Last Admin Dose Admin Donepezil HCl 10 mg HS PO 03/26/25 22:00 04/02/25 21:37 10 MG Pantoprazole Sodium 40 mg DAILY IV 03/27/25 10:00 04/03/25 10:14 40 MG Ceftriaxone Sodium 50 ml @ 100 mls/hr DAILY@09 IV 03/27/25 09:00 04/03/25 08:20 100 MLS/HR Memantine 10 mg Q12HR PO 03/26/25 22:00 04/03/25 10:14 10 MG Atorvastatin Calcium 10 mg HS PO 03/26/25 22:00 04/02/25 21:37 10 MG Multivit/Ca Carb/ B Cmplx/FA/Prenat 1 tab DAILY PO 03/27/25 10:00 04/03/25 10:14 1 TAB Sodium Chloride 10 ml Q8HR IV 03/26/25 22:00 04/03/25 05:34 10 ML Ondansetron HCl 4 mg Q4HP PRN IV 03/26/25 20:45 03/29/25 14:27 4 MG Docusate Sodium 100 mg BIDPRN PRN PO 03/26/25 20:45 Acetaminophen 650 mg Q6HP PRN PO 03/26/25 20:45 04/03/25 13:17 650 MG Calcium/Vitamin D 1 tab DAILY PO 03/27/25 10:00 04/03/25 10:14 1 TAB Nitroglycerin 0.4 mg Q5MINP PRN SL 03/26/25 22:15 Morphine Sulfate 2 mg Q30M PRN IV 03/26/25 22:15 Morphine Sulfate 1 mg Q4HP PRN IV 03/29/25 17:00 Fludrocortisone Acetate 0.1 mg DAILY PO 03/31/25 10:00 04/03/25 10:14 0.1 MG Sucralfate 1 gm BID@0600,2200 PO 03/31/25 22:00 04/03/25 05:34 1 GM Dopamine HCl/ Dextrose 250 ml @ 10.519 mls/ hr [id number] IV 04/02/25 07:00 Sodium Bicarbonate 50 ml/ Sodium Chloride 1,050 ml @ 50 mls/hr Q21H IV 04/03/25 10:00 Laboratory Results Laboratory Tests 04/03/25 08:23 Chemistry Test 04/02/25 19:52 04/03/25 08:23 Magnesium Level 2.1 mg/dL (1.6-2.6) Calcium Level 8.7 mg/dL (8.7-10.4) Urinalysis Test 03/26/25 20:05 Urine Color Light-orange (Yellow) Urine Clarity Turbid (Clear) H Urine pH 5.0 (5.0-9.0) Urine Specific Grants 1.018 (1.001-1.035) Urine Protein 1+ (Negative) H Urine Ketones Negative (Negative) Urine Blood 1+ /uL (Negative) H Urine Nitrite Negative (Negative) Urine Bilirubin Negative (Negative) Urine Urobilinogen Normal mg/dL (Negative) Urine Leukocyte Esterase 3+ /uL (Negative) Urine RBC 5 /hpf (0 - 4) Urine Microscopic WBC 30 /HPF (0-5) H Urine Squamous Epithelial Cells Many /hpf (<5) Urine Bacteria Few /hpf (None Seen) H Urine Hyaline Casts Few /lpf (0 - 2) Urine Glucose Normal mg/dL (Normal) Microbiology Microbiology Date/Time Source Procedure Growth Status 03/28/25 13:21 Blood Blood Culture - Final NO GROWTH AFTER 5 DAYS OF INCUBATION. Complete 03/27/25 17:33 Nose MRSA Screen - Final Complete 03/26/25 20:20 Stool Stool Culture - Final Complete 03/26/25 20:20 Stool Shiga Toxin I & II - Final Complete 03/26/25 20:05 Voided Urine Urine Culture - Final Complete Labs and/or images reviewed: Labs reviewed by me Assessment/Plan Assessment/Plan Hypotension Bradycardia SANCHEZ/CKD CKD stage IV Acute kidney injury prerenal in the setting of volume depletion Left 2 cm renal mass Ulcerative colitis status post ileostomy with high output Dementia UTI Sepsis with septic shock PLAN: IV Rocephin IV fluids Continue IV Dopamine drip. Hopefully we can wean her off. Nephrology consult Cardiology consult Discussed with daughter at the bedside Full code Advanced directives discussed with daughter x 20 minutes 03/28/2025: Continue IV fluids Dopamine as needed, tapered down the dose as tolerated Nephrology is seeing the patient Cardiology is also seeing the patient Echocardiogram is pending Continue IV antibiotics Urine culture is negative Blood culture is pending Full code 03/29/25: Abdominal pain: Repeat CT scan, GI consult GI bleed?, + SOB: GI consult, IV Protonix SANCHEZ/CKD: Improving, continue IV fluids Sepsis: IV antibiotics: Rocephin, Dopamine drip Bradycardia: Dopamine drip Abdominal pain: Morphine prn Discussed with daughter at the bedside 03/30/2025: Abdominal pain: Stable GI bleed: GI consult pending Continue IV Protonix Hypotension with bradycardia: Continue dopamine Continue IV Rocephin Monitor closely Keep NPO until she is seen by GI Discussed with the daughter at the bedside 03/31/2025: Hypotension: Tapered down the dopamine as tolerated, add Florinef Abdominal pain: Resolved , GI recommended outpatient follow up, continue PPI UTI: Rocephin IV SANCHEZ: Continue IV fluids Chronic kidney disease: Nephrology is following Discussed with the at the bedside Hypokalemia and hypomagnesemia: Replace 04/01/2025: Continuing current management. Discontinuing dopamine if able to wean off completely. Continuing with sliding scale insulin. Continuing with Rocephin. Continuing with IV fluid. Continuing replace electrolytes. Discharge planning. 04/02/2025: Continuing Current management. Dopamine has been weaned off. We will transfer the patient out of ICU today. 04/03/2025: Continuing current management. Encouraged the patient to be out of bed and ambulate with PT. This medical document was created using an electronic medical record system with [employer] direct computerized dictation system. Although this document has been carefully reviewed, there may still be some phonetic and typographical errors. These areas are purely typographical due to imperfections of the software programs, and do not reflect any compromise in the patient's medical care. Plan discussed with: Patient My Orders Orders - DRU KLEIN MD Procedure Category Date Status Time Urine Bacterial RUTH 04/03/25 In Process Culture 02:43 Date of Service: Apr 03, 2025 Billing Provider: DRU KLEIN MD Common Visit Codes: [id number] INP/OBS CARE(HIGH) DRU KLEIN MD Apr 03, 2025 13:55
--- NOTE | 2025-04-03 19:28 | DVHPN2 ---
Consult Progress Note Subjective Patient reports: No new complaints Other Systems: Remained sinus rhythm Objective vital signs Vital Sign Date Time Temp Pulse Resp B/P (MAP) Pulse Ox O2 Delivery O2 Flow Rate FiO2 04/03/25 19:00 77 16 103/62 (76) 98 04/03/25 18:00 Nasal Cannula* 1 24 04/03/25 16:00 98.2 98.2 Total Intake and Output 04/02/25 04/02/25 04/03/25 15:00 23:00 07:00 Intake Total 475.258 ml 715.248 ml 467.884 ml Output Total 525 ml 625 ml Balance 475.258 ml 190.248 ml -157.116 ml medications Current Medications Medications Dose Ordered Sig/Socrates Route Start Time Stop Time Status Last Admin Dose Admin Donepezil HCl 10 mg HS PO 03/26/25 22:00 04/02/25 21:37 10 MG Pantoprazole Sodium 40 mg DAILY IV 03/27/25 10:00 04/03/25 10:14 40 MG Ceftriaxone Sodium 50 ml @ 100 mls/hr DAILY@09 IV 03/27/25 09:00 04/03/25 08:20 100 MLS/HR Memantine 10 mg Q12HR PO 03/26/25 22:00 04/03/25 10:14 10 MG Atorvastatin Calcium 10 mg HS PO 03/26/25 22:00 04/02/25 21:37 10 MG Multivit/Ca Carb/ B Cmplx/FA/Prenat 1 tab DAILY PO 03/27/25 10:00 04/03/25 10:14 1 TAB Sodium Chloride 10 ml Q8HR IV 03/26/25 22:00 04/03/25 14:00 10 ML Ondansetron HCl 4 mg Q4HP PRN IV 03/26/25 20:45 03/29/25 14:27 4 MG Docusate Sodium 100 mg BIDPRN PRN PO 03/26/25 20:45 Acetaminophen 650 mg Q6HP PRN PO 03/26/25 20:45 04/03/25 13:17 650 MG Calcium/Vitamin D 1 tab DAILY PO 03/27/25 10:00 04/03/25 10:14 1 TAB Nitroglycerin 0.4 mg Q5MINP PRN SL 03/26/25 22:15 Morphine Sulfate 2 mg Q30M PRN IV 03/26/25 22:15 Morphine Sulfate 1 mg Q4HP PRN IV 03/29/25 17:00 Fludrocortisone Acetate 0.1 mg DAILY PO 03/31/25 10:00 04/03/25 10:14 0.1 MG Sucralfate 1 gm BID@0600,2200 PO 03/31/25 22:00 04/03/25 05:34 1 GM Dopamine HCl/ Dextrose 250 ml @ 10.519 mls/ hr [id number] IV 04/02/25 07:00 Sodium Bicarbonate 50 ml/ Sodium Chloride 1,050 ml @ 50 mls/hr Q21H IV 04/03/25 10:00 04/03/25 10:00 50 MLS/HR Examination: CVS:Normal laboratory and microbiology Laboratory Tests 04/03/25 08:23 Test 04/03/25 08:23 Range/Units Serum Glucose 80 74-106 mg/dL Problem List/Assessment/Plan Problem List/Assessment/Plan Problem List/Assessment/Plan Continue with the following plan/recommendations (Dr. Whitfield): The patient with chronic compensated HFrEF, newly diagnosed - LVEF 35% with LAE remained hemodynamically stable following discontinuation of dopamine. At current blood pressure is 109/52 and heart rate is 70 beats per minute. Renal function has improved, with creatinine decreasing from 1.26-1.17 and a GFR of 48. We will continue close monitor her blood pressure and heart rate throughout the day, and once her vitals are stable, GDM T for heart failure will be initiated with low-dose metoprolol succinate 12.5 mg daily, and dapagliflozin 10 mg daily, once the UTI infection is cleared and the patient is clinically stable. An angiotensin receptor shahida losartan 25 mg daily may be added later if blood pressure improves. Spironolactone 12.5 mg daily may also be consider, provided renal function and potassium remain within safe limits. Thank you for allowing me to participate in the management of this patient. The treatment plan was discussed with and agreed upon by patient/family including requesting consultants and ordering of imaging/procedures. Critical care, time spent: 30 minutes. This medical document was created using an electronic medical record system with voice recognition software and computerized dictation system. Although this document has been carefully reviewed, there might still be some phonetic and typographical errors. Occasional wrong-word or ``sound-alike substitutions may have occurred due to the inherent limitations of voice recognition software. These areas are purely typographical due to imperfections of the software programs and do not reflect any compromise in the patient's medical care. Please read the chart carefully and recognize, using context, where these substitutions have occurred. Plan discussed with: Patient Plan discussed with: Patient Dietary Evaluation Review Comments: Continue Renal standard diet which is less protein restricted. Supplement with Nepro PO 240ml bid until PO itnake improves to > 50% Expected Outcomes/Goals: gradual wt gain, improved nutrition status. Date of Service: Apr 03, 2025 Billing Provider: REJI WHITFIELD Sr., MD Common Visit Codes: CONSULT ONLY Consultation Codes: [id number] CONSULT <60MIN MADAY LUNAP Apr 03, 2025 19:28
[2025-04-04] VITALS (8 sets, daily range): BP systolic 99–109; BP diastolic 47–78; PULSE 80–105; RESP 16–18; TEMP 97.5–97.8; O2SAT 92–98
--- NOTE | 2025-04-04 11:57 | DVHPN2 ---
Progress Note Date Seen: Apr 04, 2025 Medical Necessity Reason Pt with a Central, PICC or Fol: Yes The following are medically ne: Montalvo Catheter Subjective Patient reports: No new complaints Other Systems: Patient seen and examined by myself today in follow-up Objective vital signs Vital Sign Date Time Temp Pulse Resp B/P (MAP) Pulse Ox O2 Delivery O2 Flow Rate FiO2 04/04/25 09:00 97.8 96 17 99/47 (64) 96 97.8 04/04/25 08:00 Nasal Cannula* 1 24 Total Intake and Output 04/03/25 04/03/25 04/04/25 15:00 23:00 07:00 Intake Total 550 ml 500 ml 0 ml Output Total 675 ml 500 ml Balance 550 ml -175 ml -500 ml medications Current Medications Medications Dose Ordered Sig/Socrates Route Start Time Stop Time Status Last Admin Dose Admin Donepezil HCl 10 mg HS PO 03/26/25 22:00 04/03/25 20:51 10 MG Pantoprazole Sodium 40 mg DAILY IV 03/27/25 10:00 04/04/25 08:10 40 MG Ceftriaxone Sodium 50 ml @ 100 mls/hr DAILY@09 IV 03/27/25 09:00 04/04/25 08:10 100 MLS/HR Memantine 10 mg Q12HR PO 03/26/25 22:00 04/04/25 08:10 10 MG Atorvastatin Calcium 10 mg HS PO 03/26/25 22:00 04/03/25 20:51 10 MG Multivit/Ca Carb/ B Cmplx/FA/Prenat 1 tab DAILY PO 03/27/25 10:00 04/04/25 08:10 1 TAB Sodium Chloride 10 ml Q8HR IV 03/26/25 22:00 04/04/25 05:48 10 ML Ondansetron HCl 4 mg Q4HP PRN IV 03/26/25 20:45 03/29/25 14:27 4 MG Docusate Sodium 100 mg BIDPRN PRN PO 03/26/25 20:45 Acetaminophen 650 mg Q6HP PRN PO 03/26/25 20:45 04/03/25 13:17 650 MG Calcium/Vitamin D 1 tab DAILY PO 03/27/25 10:00 04/04/25 08:10 1 TAB Nitroglycerin 0.4 mg Q5MINP PRN SL 03/26/25 22:15 Morphine Sulfate 2 mg Q30M PRN IV 03/26/25 22:15 Morphine Sulfate 1 mg Q4HP PRN IV 03/29/25 17:00 Fludrocortisone Acetate 0.1 mg DAILY PO 03/31/25 10:00 04/04/25 08:10 0.1 MG Sucralfate 1 gm BID@0600,2200 PO 03/31/25 22:00 04/04/25 05:48 1 GM Dopamine HCl/ Dextrose 250 ml @ 10.519 mls/ hr [id number] IV 04/02/25 07:00 Sodium Bicarbonate 50 ml/ Sodium Chloride 1,050 ml @ 50 mls/hr Q21H IV 04/03/25 10:00 04/03/25 10:00 50 MLS/HR Examination: LUNGS:Normal, CVS:Normal, MSK:Normal laboratory and microbiology Laboratory Tests 04/03/25 08:23 Test 04/03/25 08:23 Range/Units Serum Glucose 80 74-106 mg/dL Microbiology Date/Time Source Procedure Growth Status 04/03/25 02:00 Urine - [place] Urine Culture - Preliminary Resulted 03/28/25 13:21 Blood Blood Culture - Final NO GROWTH AFTER 5 DAYS OF INCUBATION. Complete 03/27/25 17:33 Nose MRSA Screen - Final Complete 03/26/25 20:20 Stool Stool Culture - Final Complete 03/26/25 20:20 Stool Shiga Toxin I & II - Final Complete Problem List/Assessment/Plan Problem List/Assessment/Plan Acute kidney injury prerenal in the setting of volume depletion Chronic kidney disease suspect baseline stage IV; Dr. jeter Renal mass on US but none on multiple CTs Ulcerative colitis status post ileostomy with high output Metabolic acidosis Bradycardia, resolved CHF, EF 35% recs Kidney function is improving Increased urine output Strict I&Os KCL replacement Low-dose dopamine IVF half NS with 100 mEq sodium bicarb at 50 cc/hour KCL replacement We will continue to follow Plan discussed with: Patient Dietary Evaluation Review Comments: Continue Renal standard diet which is less protein restricted. Supplement with Nepro PO 240ml bid until PO itnake improves to > 50% Expected Outcomes/Goals: gradual wt gain, improved nutrition status. JESSI GARBIEL MD Apr 04, 2025 11:57
[2025-04-04] MEDS: SODIUM BICARB 50mEq/50ml Vial 100 ML in SOD CHL 0.45% 1,000 ML IV SCH (12:00)
[2025-04-04] MEDS: POTASSIUM CHL 20MEQ/100ML 100 ML IV SCH (13:27)
--- NOTE | 2025-04-04 15:30 | DVHPN2 ---
Progress Note - Dictate Date Seen: Apr 04, 2025 Medical Necessity Reason Pt with a Central, PICC or Fol: Yes The following are medically ne: Montalvo Catheter Subjective No new complaints, resting comfortably Ileostomy output is brown stool with no bleeding Hemoglobin is stable at 11.4 Liver enzymes are normal Ejection fraction 35% vital signs Vital Sign Date Time Temp Pulse Resp B/P (MAP) Pulse Ox O2 Delivery O2 Flow Rate FiO2 04/04/25 13:00 97.8 90 17 103/49 (67) 98 97.8 04/04/25 08:00 Nasal Cannula* 1 24 Total Intake and Output 04/03/25 04/03/25 04/04/25 15:00 23:00 07:00 Intake Total 550 ml 500 ml 0 ml Output Total 675 ml 500 ml Balance 550 ml -175 ml -500 ml medications Current Medications Medications Dose Ordered Sig/Socrates Route Start Time Stop Time Status Last Admin Dose Admin Donepezil HCl 10 mg HS PO 03/26/25 22:00 04/03/25 20:51 10 MG Pantoprazole Sodium 40 mg DAILY IV 03/27/25 10:00 04/04/25 08:10 40 MG Ceftriaxone Sodium 50 ml @ 100 mls/hr DAILY@09 IV 03/27/25 09:00 04/04/25 08:10 100 MLS/HR Memantine 10 mg Q12HR PO 03/26/25 22:00 04/04/25 08:10 10 MG Atorvastatin Calcium 10 mg HS PO 03/26/25 22:00 04/03/25 20:51 10 MG Multivit/Ca Carb/ B Cmplx/FA/Prenat 1 tab DAILY PO 03/27/25 10:00 04/04/25 08:10 1 TAB Sodium Chloride 10 ml Q8HR IV 03/26/25 22:00 04/04/25 13:02 10 ML Ondansetron HCl 4 mg Q4HP PRN IV 03/26/25 20:45 03/29/25 14:27 4 MG Docusate Sodium 100 mg BIDPRN PRN PO 03/26/25 20:45 Acetaminophen 650 mg Q6HP PRN PO 03/26/25 20:45 04/03/25 13:17 650 MG Calcium/Vitamin D 1 tab DAILY PO 03/27/25 10:00 04/04/25 08:10 1 TAB Nitroglycerin 0.4 mg Q5MINP PRN SL 03/26/25 22:15 Morphine Sulfate 2 mg Q30M PRN IV 03/26/25 22:15 Morphine Sulfate 1 mg Q4HP PRN IV 03/29/25 17:00 Fludrocortisone Acetate 0.1 mg DAILY PO 03/31/25 10:00 04/04/25 08:10 0.1 MG Sucralfate 1 gm BID@0600,2200 PO 03/31/25 22:00 04/04/25 05:48 1 GM Dopamine HCl/ Dextrose 250 ml @ 10.519 mls/ hr [id number] IV 04/02/25 07:00 Sodium Bicarbonate 100 ml/Sodium Chloride 1,100 ml @ 50 mls/hr Q22H IV 04/04/25 12:00 04/04/25 12:00 50 MLS/HR Potassium Chloride 100 ml @ 50 mls/hr Q2H IV 04/04/25 12:00 04/04/25 15:59 04/04/25 13:27 50 MLS/HR objective Well-developed well-nourished thin lady lying in bed in no acute distress Lungs clear, CVS S1-S2 regular rate rhythm Abdomen is soft well-healed scar right lower quadrant ileostomy functional Extremities without clubbing cyanosis or edema laboratory and microbiology Laboratory Tests 04/03/25 08:23 Test 04/03/25 08:23 Range/Units Serum Glucose 80 74-106 mg/dL Problems(with codes): (1) Acute renal failure (2) Urinary tract infection (3) Gastrointestinal hemorrhage, unspecified (4) Acute on chronic renal failure (5) Generalized weakness (6) Dementia Prognosis Plan Maintained on Protonix 40 mg p.o. twice a day Carafate 1 g p.o. twice a day DC aspirin NSAIDs Monitor labs Diet as tolerated Supportive care from GI point of view at this time Dietary Evaluation Review Comments: Continue Renal standard diet which is less protein restricted. Supplement with Nepro PO 240ml bid until PO itnake improves to > 50% Expected Outcomes/Goals: gradual wt gain, improved nutrition status. Plan discussed with: Patient, Daughter CATALINO BURK MD Apr 04, 2025 15:30
--- NOTE | 2025-04-04 23:13 | DVHPN2 ---
Consult Progress Note Subjective Patient reports: No new complaints Other Systems: Patient was seen and evaluated in follow up. Patient remained in sinus rhythm. Patient complains of faituge. Daughter at bedside. Telemetry reviewed. Objective vital signs Vital Sign Date Time Temp Pulse Resp B/P (MAP) Pulse Ox O2 Delivery O2 Flow Rate FiO2 04/04/25 13:00 97.8 90 17 103/49 (67) 98 97.8 04/04/25 08:00 Nasal Cannula* 1 24 Total Intake and Output 04/03/25 04/03/25 04/04/25 15:00 23:00 07:00 Intake Total 550 ml 500 ml 0 ml Output Total 675 ml 500 ml Balance 550 ml -175 ml -500 ml medications Current Medications Medications Dose Ordered Sig/Socrates Route Start Time Stop Time Status Last Admin Dose Admin Donepezil HCl 10 mg HS PO 03/26/25 22:00 04/03/25 20:51 10 MG Pantoprazole Sodium 40 mg DAILY IV 03/27/25 10:00 04/04/25 08:10 40 MG Ceftriaxone Sodium 50 ml @ 100 mls/hr DAILY@09 IV 03/27/25 09:00 04/04/25 08:10 100 MLS/HR Memantine 10 mg Q12HR PO 03/26/25 22:00 04/04/25 08:10 10 MG Atorvastatin Calcium 10 mg HS PO 03/26/25 22:00 04/03/25 20:51 10 MG Multivit/Ca Carb/ B Cmplx/FA/Prenat 1 tab DAILY PO 03/27/25 10:00 04/04/25 08:10 1 TAB Sodium Chloride 10 ml Q8HR IV 03/26/25 22:00 04/04/25 13:02 10 ML Ondansetron HCl 4 mg Q4HP PRN IV 03/26/25 20:45 03/29/25 14:27 4 MG Docusate Sodium 100 mg BIDPRN PRN PO 03/26/25 20:45 Acetaminophen 650 mg Q6HP PRN PO 03/26/25 20:45 04/03/25 13:17 650 MG Calcium/Vitamin D 1 tab DAILY PO 03/27/25 10:00 04/04/25 08:10 1 TAB Nitroglycerin 0.4 mg Q5MINP PRN SL 03/26/25 22:15 Morphine Sulfate 2 mg Q30M PRN IV 03/26/25 22:15 Morphine Sulfate 1 mg Q4HP PRN IV 03/29/25 17:00 Fludrocortisone Acetate 0.1 mg DAILY PO 03/31/25 10:00 04/04/25 08:10 0.1 MG Sucralfate 1 gm BID@0600,2200 PO 03/31/25 22:00 04/04/25 05:48 1 GM Dopamine HCl/ Dextrose 250 ml @ 10.519 mls/ hr [id number] IV 04/02/25 07:00 Sodium Bicarbonate 100 ml/Sodium Chloride 1,100 ml @ 50 mls/hr Q22H IV 04/04/25 12:00 Potassium Chloride 100 ml @ 50 mls/hr Q2H IV 04/04/25 12:00 04/04/25 15:59 04/04/25 13:27 50 MLS/HR Examination: GENERAL:Normal, HEENT:Normal, NECK:Normal, LUNGS:Normal, CVS:Normal, ABDOMEN:Normal, MSK:Normal laboratory and microbiology Laboratory Tests 04/03/25 08:23 Test 04/03/25 08:23 Range/Units Serum Glucose 80 74-106 mg/dL Problem List/Assessment/Plan Problem List/Assessment/Plan Problem List Sinus bradycardia Chronic compensated HFrEF, newly diagnosed Septic shock with UTI. SANCHEZ on CKD. Hypomagnesemia/hypokalemia. Assessment/Plan Continued all current supportive medical care. Patient has been seen by Josy Smith NP on my behalf, her and I discussed the plan with the patient. The patient with chronic compensated HFrEF, newly diagnosed - LVEF 35% with LAE remained hemodynamically stable following discontinuation of dopamine. At current blood pressure is 109/52 and heart rate is 70 beats per minute. Renal function has improved, with creatinine decreasing from 1.26-1.17 and a GFR of 48. We will continue close monitor her blood pressure and heart rate throughout the day. Once her vitals are stable, GDM T for heart failure will be initiated with low- dose metoprolol succinate 12.5 mg daily, and dapagliflozin 10 mg daily, once the UTI infection is cleared and the patient is clinically stable. An angiotensin receptor shahida losartan 25 mg daily may be added later if blood pressure improves. Spironolactone 12.5 mg daily may also be consider, provided renal function and potassium remain within safe limits. Additional plan as per the hospital course. Plan discussed with: Patient Dietary Evaluation Review Comments: Continue Renal standard diet which is less protein restricted. Supplement with Nepro PO 240ml bid until PO itnake improves to > 50% Expected Outcomes/Goals: gradual wt gain, improved nutrition status. Date of Service: Apr 03, 2025 Billing Provider: JINNY CHEEK MD Cardiology Common Codes: [id number] INP/OBS CARE (High) Cardiology Consultation Codes: [id number] CONSULT <60MIN JINNY CHEEK MD Apr 04, 2025 13:59
--- NOTE | 2025-04-04 23:14 | DVHPN2 ---
Progress Note - Dictate Date Seen: Apr 04, 2025 Medical Necessity Reason Pt with a Central, PICC or Fol: Yes The following are medically ne: [place] Catheter Subjective Patient was seen and evaluated in follow up. Patient is complaining of generalized pain. Ileostomy output is brown stool with no bleeding. H&H stable. Telemetry reviewed. vital signs Vital Sign Date Time Temp Pulse Resp B/P (MAP) Pulse Ox O2 Delivery O2 Flow Rate FiO2 04/04/25 17:00 97.8 100 17 109/50 (69) 97 97.8 04/04/25 08:00 Nasal Cannula* 1 24 Total Intake and Output 04/03/25 04/03/25 04/04/25 15:00 23:00 07:00 Intake Total 550 ml 500 ml 0 ml Output Total 675 ml 500 ml Balance 550 ml -175 ml -500 ml medications Current Medications Medications Dose Ordered Sig/Socrates Route Start Time Stop Time Status Last Admin Dose Admin Donepezil HCl 10 mg HS PO 03/26/25 22:00 04/03/25 20:51 10 MG Pantoprazole Sodium 40 mg DAILY IV 03/27/25 10:00 04/04/25 08:10 40 MG Ceftriaxone Sodium 50 ml @ 100 mls/hr DAILY@09 IV 03/27/25 09:00 04/04/25 08:10 100 MLS/HR Memantine 10 mg Q12HR PO 03/26/25 22:00 04/04/25 08:10 10 MG Atorvastatin Calcium 10 mg HS PO 03/26/25 22:00 04/03/25 20:51 10 MG Multivit/Ca Carb/ B Cmplx/FA/Prenat 1 tab DAILY PO 03/27/25 10:00 04/04/25 08:10 1 TAB Sodium Chloride 10 ml Q8HR IV 03/26/25 22:00 04/04/25 13:02 10 ML Ondansetron HCl 4 mg Q4HP PRN IV 03/26/25 20:45 03/29/25 14:27 4 MG Docusate Sodium 100 mg BIDPRN PRN PO 03/26/25 20:45 Acetaminophen 650 mg Q6HP PRN PO 03/26/25 20:45 04/03/25 13:17 650 MG Calcium/Vitamin D 1 tab DAILY PO 03/27/25 10:00 04/04/25 08:10 1 TAB Nitroglycerin 0.4 mg Q5MINP PRN SL 03/26/25 22:15 Morphine Sulfate 2 mg Q30M PRN IV 03/26/25 22:15 Morphine Sulfate 1 mg Q4HP PRN IV 03/29/25 17:00 Fludrocortisone Acetate 0.1 mg DAILY PO 03/31/25 10:00 04/04/25 08:10 0.1 MG Sucralfate 1 gm BID@0600,2200 PO 03/31/25 22:00 04/04/25 05:48 1 GM Dopamine HCl/ Dextrose 250 ml @ 10.519 mls/ hr [id number] IV 04/02/25 07:00 Sodium Bicarbonate 100 ml/Sodium Chloride 1,100 ml @ 50 mls/hr Q22H IV 04/04/25 12:00 04/04/25 12:00 50 MLS/HR objective GENERAL: Alert and oriented x 3. No acute distress. EYES: PERRL, EOMI. Anicteric. HENT: Moist mucous membranes. LUNGS: Clear to auscultation bilaterally. CARDIOVASCULAR: Regular rate and rhythm. ABDOMEN: Soft, nontender and nondistended. EXTREMITIES: No edema. NEUROLOGIC: No focal neurological deficits. SKIN: Warm, dry. laboratory and microbiology Laboratory Tests 04/03/25 08:23 Test 04/03/25 08:23 Range/Units Serum Glucose 80 74-106 mg/dL Problem List Sinus bradycardia. Chronic compensated HFrEF, newly diagnosed. Septic shock with UTI. SANCHEZ on CKD. Hypomagnesemia/hypokalemia. Assessment/Plan Continued all current supportive medical care. Lipitor. IV antibiotics as ordered. Dopamine drip. Morphine for pain management. GI prophylactics. Additional plan as per the hospital course. Dietary Evaluation Review Comments: Continue Renal standard diet which is less protein restricted. Supplement with Nepro PO 240ml bid until PO itnake improves to > 50% Expected Outcomes/Goals: gradual wt gain, improved nutrition status. Plan discussed with: Patient JINNY CHEEK MD Apr 04, 2025 20:54
[2025-04-05] VITALS (8 sets, daily range): BP systolic 114–136; BP diastolic 53–76; PULSE 77–107; RESP 16–17; TEMP 97.6–100; O2SAT 91–96
--- NOTE | 2025-04-05 08:31 | DVHPN2 ---
Subjective The patient is seen and examined at bedside. Patient states she feels much better. She had worked with physical therapy and able to ambulate out of the door to hallway. Reviewed: Care Plan, H&P, Labs, Medications, Previous Orders, Radiology Changes from previous H/P or p: No Changes Eyes: No Pain, No Vision change, No Conjunctivae inflammation, No Eyelid inflammation, No Other, No Redness ENT: No Ear pain, No Ear discharge, No Nose pain, No Nose discharge, No Nose congestion, No Mouth pain, No Mouth swelling, No Throat pain, No Throat swelling, No Other Cardiovascular: No Chest Pain, No Palpitations, No Orthopnea, No Paroxysmal Noc. Dyspnea, No Edema, No Lt Headedness, No Other Respiratory: No Cough, No Dry, No Shortness of breath, No SOB with excertion, No Wheezing, No Hemoptysis, No Pleuritic Pain, No Sputum, No Other Gastrointestinal: No Nausea, No Vomiting, No Abdominal Pain, No Diarrhea, No Constipation; Melena (Blood streak bowel); No Hematochezia; Other (Colostomy bag) Genitourinary: No Dysuria, No Frequency, No Incontinence, No Hematuria, No Retention, No Other Musculoskeletal: No other, No neck pain, No shoulder pain, No arm pain, No back pain, No hand pain, No leg pain, No foot pain Skin: No Rash, No Lesions, No Jaundice, No Bruising, No Other Objective Vitals Vital Signs Date Time Temp Pulse Resp B/P (MAP) Pulse Ox O2 Delivery O2 Flow Rate FiO2 04/05/25 05:36 114/59 04/05/25 05:00 97.9 84 17 92 97.9 04/04/25 20:00 Nasal Cannula* 1 24 Intake/Output Intake and Output 04/05/25 07:00 Intake Total 1118 ml Output Total 1080 ml Balance 38 ml Intake Oral 518 ml IV Total 600 ml Output Urine Total 300 ml Stool Total 580 ml Drainage Total 200 ml General Appearance: Alert, Oriented X3, Cooperative, No acute distress, m oderate distress HEENT: Atraumatic, PERRLA, EOMI, Mucous membr. moist/pink Neck: Supple Lungs: Clear to auscultation Cardiovascular: Normal S1, Normal S2, No murmurs, Gallops, Rubs, Other (bradycardic) Abdomen: Normal bowel sounds, Soft, No tenderness, No hepatospenomegaly Extremities: No edema Neuro: Cranial nerves 3-12 NL Psych/Mental Status: Mental status NL Medications Current Medications Medications Dose Ordered Sig/Socrates Route Start Time Stop Time Status Last Admin Dose Admin Donepezil HCl 10 mg HS PO 03/26/25 22:00 04/04/25 22:17 10 MG Pantoprazole Sodium 40 mg DAILY IV 03/27/25 10:00 04/04/25 08:10 40 MG Ceftriaxone Sodium 50 ml @ 100 mls/hr DAILY@09 IV 03/27/25 09:00 04/04/25 08:10 100 MLS/HR Memantine 10 mg Q12HR PO 03/26/25 22:00 04/04/25 22:17 10 MG Atorvastatin Calcium 10 mg HS PO 03/26/25 22:00 04/04/25 22:17 10 MG Multivit/Ca Carb/ B Cmplx/FA/Prenat 1 tab DAILY PO 03/27/25 10:00 04/04/25 08:10 1 TAB Sodium Chloride 10 ml Q8HR IV 03/26/25 22:00 04/05/25 05:38 10 ML Ondansetron HCl 4 mg Q4HP PRN IV 03/26/25 20:45 03/29/25 14:27 4 MG Docusate Sodium 100 mg BIDPRN PRN PO 03/26/25 20:45 Acetaminophen 650 mg Q6HP PRN PO 03/26/25 20:45 04/03/25 13:17 650 MG Calcium/Vitamin D 1 tab DAILY PO 03/27/25 10:00 04/04/25 08:10 1 TAB Nitroglycerin 0.4 mg Q5MINP PRN SL 03/26/25 22:15 Morphine Sulfate 1 mg Q4HP PRN IV 03/29/25 17:00 Fludrocortisone Acetate 0.1 mg DAILY PO 03/31/25 10:00 04/04/25 08:10 0.1 MG Sucralfate 1 gm BID@0600,2200 PO 03/31/25 22:00 04/05/25 05:39 1 GM Dopamine HCl/ Dextrose 250 ml @ 10.519 mls/ hr [id number] IV 04/02/25 07:00 Sodium Bicarbonate 100 ml/Sodium Chloride 1,100 ml @ 50 mls/hr Q22H IV 04/04/25 12:00 04/04/25 12:00 50 MLS/HR Laboratory Results Laboratory Tests 04/03/25 08:23 Urinalysis Test 03/26/25 20:05 Urine Color Light-orange (Yellow) Urine Clarity Turbid (Clear) H Urine pH 5.0 (5.0-9.0) Urine Specific [place] 1.018 (1.001-1.035) Urine Protein 1+ (Negative) H Urine Ketones Negative (Negative) Urine Blood 1+ /uL (Negative) H Urine Nitrite Negative (Negative) Urine Bilirubin Negative (Negative) Urine Urobilinogen Normal mg/dL (Negative) Urine Leukocyte Esterase 3+ /uL (Negative) Urine RBC 5 /hpf (0 - 4) Urine Microscopic WBC 30 /HPF (0-5) H Urine Squamous Epithelial Cells Many /hpf (<5) Urine Bacteria Few /hpf (None Seen) H Urine Hyaline Casts Few /lpf (0 - 2) Urine Glucose Normal mg/dL (Normal) Microbiology Microbiology Date/Time Source Procedure Growth Status 04/03/25 02:00 Urine - [place] Urine Culture - Final Enterococcus faecium Complete 03/28/25 13:21 Blood Blood Culture - Final NO GROWTH AFTER 5 DAYS OF INCUBATION. Complete 03/27/25 17:33 Nose MRSA Screen - Final Complete 03/26/25 20:20 Stool Stool Culture - Final Complete 03/26/25 20:20 Stool Shiga Toxin I & II - Final Complete Labs and/or images reviewed: Labs reviewed by me Assessment/Plan Assessment/Plan Hypotension Bradycardia SANCHEZ/CKD CKD stage IV Acute kidney injury prerenal in the setting of volume depletion Left 2 cm renal mass Ulcerative colitis status post ileostomy with high output Dementia UTI Sepsis with septic shock PLAN: IV Rocephin IV fluids Continue IV Dopamine drip. Hopefully we can wean her off. Nephrology consult Cardiology consult Discussed with daughter at the bedside Full code Advanced directives discussed with daughter x 20 minutes 03/28/2025: Continue IV fluids Dopamine as needed, tapered down the dose as tolerated Nephrology is seeing the patient Cardiology is also seeing the patient Echocardiogram is pending Continue IV antibiotics Urine culture is negative Blood culture is pending Full code 03/29/25: Abdominal pain: Repeat CT scan, GI consult GI bleed?, + SOB: GI consult, IV Protonix SANCHEZ/CKD: Improving, continue IV fluids Sepsis: IV antibiotics: Rocephin, Dopamine drip Bradycardia: Dopamine drip Abdominal pain: Morphine prn Discussed with daughter at the bedside 03/30/2025: Abdominal pain: Stable GI bleed: GI consult pending Continue IV Protonix Hypotension with bradycardia: Continue dopamine Continue IV Rocephin Monitor closely Keep NPO until she is seen by GI Discussed with the daughter at the bedside 03/31/2025: Hypotension: Tapered down the dopamine as tolerated, add Florinef Abdominal pain: Resolved , GI recommended outpatient follow up, continue PPI UTI: Rocephin IV SANCHEZ: Continue IV fluids Chronic kidney disease: Nephrology is following Discussed with the at the bedside Hypokalemia and hypomagnesemia: Replace 04/01/2025: Continuing current management. Discontinuing dopamine if able to wean off completely. Continuing with sliding scale insulin. Continuing with Rocephin. Continuing with IV fluid. Continuing replace electrolytes. Discharge planning. 04/02/2025: Continuing Current management. Dopamine has been weaned off. We will transfer the patient out of ICU today. 04/03/2025: Continuing current management. Encouraged the patient to be out of bed and ambulate with PT. 04/04/2025: Continuing current management. Discussed with daughter and patient at bedside. Continuing with PT. Discharge planning. This medical document was created using an electronic medical record system with [employer] direct computerized dictation system. Although this document has been carefully reviewed, there may still be some phonetic and typographical errors. These areas are purely typographical due to imperfections of the software programs, and do not reflect any compromise in the patient's medical care. Plan discussed with: Patient, Daughter Date of Service: Apr 04, 2025 Billing Provider: DRU KLEIN MD Common Visit Codes: [id number] INP/OBS CARE(HIGH) DRU KLEIN MD Apr 05, 2025 08:31
--- NOTE | 2025-04-05 10:44 | DVHPN2 ---
Progress Note Date Seen: Apr 05, 2025 Medical Necessity Reason Pt with a Central, PICC or Fol: Yes The following are medically ne: [place] Catheter Subjective Patient reports: No new complaints Other Systems: Patient seen and examined by myself today in follow-up Objective vital signs Vital Sign Date Time Temp Pulse Resp B/P (MAP) Pulse Ox O2 Delivery O2 Flow Rate FiO2 04/05/25 05:36 114/59 04/05/25 05:00 97.9 84 17 92 97.9 04/04/25 20:00 Nasal Cannula* 1 24 Total Intake and Output 04/04/25 04/04/25 04/05/25 15:00 23:00 07:00 Intake Total 50 ml 518 ml 550 ml Output Total 200 ml 880 ml Balance -150 ml -362 ml 550 ml medications Current Medications Medications Dose Ordered Sig/Socrates Route Start Time Stop Time Status Last Admin Dose Admin Donepezil HCl 10 mg HS PO 03/26/25 22:00 04/04/25 22:17 10 MG Pantoprazole Sodium 40 mg DAILY IV 03/27/25 10:00 04/05/25 09:51 40 MG Ceftriaxone Sodium 50 ml @ 100 mls/hr DAILY@09 IV 03/27/25 09:00 04/05/25 09:51 100 MLS/HR Memantine 10 mg Q12HR PO 03/26/25 22:00 04/05/25 09:52 10 MG Atorvastatin Calcium 10 mg HS PO 03/26/25 22:00 04/04/25 22:17 10 MG Multivit/Ca Carb/ B Cmplx/FA/Prenat 1 tab DAILY PO 03/27/25 10:00 04/05/25 09:51 1 TAB Sodium Chloride 10 ml Q8HR IV 03/26/25 22:00 04/05/25 05:38 10 ML Ondansetron HCl 4 mg Q4HP PRN IV 03/26/25 20:45 03/29/25 14:27 4 MG Docusate Sodium 100 mg BIDPRN PRN PO 03/26/25 20:45 Acetaminophen 650 mg Q6HP PRN PO 03/26/25 20:45 04/03/25 13:17 650 MG Calcium/Vitamin D 1 tab DAILY PO 03/27/25 10:00 04/05/25 09:52 1 TAB Nitroglycerin 0.4 mg Q5MINP PRN SL 03/26/25 22:15 Morphine Sulfate 1 mg Q4HP PRN IV 03/29/25 17:00 Fludrocortisone Acetate 0.1 mg DAILY PO 03/31/25 10:00 04/05/25 09:52 0.1 MG Sucralfate 1 gm BID@0600,2200 PO 03/31/25 22:00 04/05/25 05:39 1 GM Sodium Bicarbonate 100 ml/Sodium Chloride 1,100 ml @ 50 mls/hr Q22H IV 04/04/25 12:00 04/04/25 12:00 50 MLS/HR Examination: LUNGS:Normal, CVS:Normal, MSK:Normal laboratory and microbiology Laboratory Tests 04/03/25 08:23 Test 04/03/25 08:23 Range/Units Serum Glucose 80 74-106 mg/dL Microbiology Date/Time Source Procedure Growth Status 04/03/25 02:00 Urine - [place] Urine Culture - Final Enterococcus faecium Complete 03/28/25 13:21 Blood Blood Culture - Final NO GROWTH AFTER 5 DAYS OF INCUBATION. Complete 03/27/25 17:33 Nose MRSA Screen - Final Complete 03/26/25 20:20 Stool Stool Culture - Final Complete 03/26/25 20:20 Stool Shiga Toxin I & II - Final Complete Problem List/Assessment/Plan Problem List/Assessment/Plan Acute kidney injury prerenal in the setting of volume depletion Chronic kidney disease suspect baseline stage IV; Dr. jeter Renal mass on US but none on multiple CTs Ulcerative colitis status post ileostomy with high output Metabolic acidosis Bradycardia, resolved CHF, EF 35% recs Kidney function is improving Increased urine output Strict I&Os KCL replacement IVF half NS 50 cc/hour KCL replacement We will continue to follow Plan discussed with: Patient My Orders My Orders Orders - JESSI GABRIEL MD Procedure Category Date Status Time Sod Chl 0.45% PHA 04/04/25 In Process (Sodi... W/Sodium 12:00 Dietary Evaluation Review Comments: Continue Renal standard diet which is less protein restricted. Supplement with Nepro PO 240ml bid until PO itnake improves to > 50% Expected Outcomes/Goals: gradual wt gain, improved nutrition status. JESSI GABRIEL MD Apr 05, 2025 10:44
--- NOTE | 2025-04-05 10:55 | DVHPN2 ---
Consult Progress Note Date Seen: Apr 05, 2025 Subjective Review of Systems: CVS:Normal, RESPIRATORY:Normal, NEURO:Normal Objective vital signs Vital Sign Date Time Temp Pulse Resp B/P (MAP) Pulse Ox O2 Delivery O2 Flow Rate FiO2 04/05/25 08:00 85 16 93 Room Air* 0 21 04/05/25 05:36 114/59 04/05/25 05:00 97.9 97.9 Total Intake and Output 04/04/25 04/04/25 04/05/25 15:00 23:00 07:00 Intake Total 50 ml 518 ml 550 ml Output Total 200 ml 880 ml Balance -150 ml -362 ml 550 ml medications Current Medications Medications Dose Ordered Sig/Socrates Route Start Time Stop Time Status Last Admin Dose Admin Donepezil HCl 10 mg HS PO 03/26/25 22:00 04/04/25 22:17 10 MG Pantoprazole Sodium 40 mg DAILY IV 03/27/25 10:00 04/05/25 09:51 40 MG Ceftriaxone Sodium 50 ml @ 100 mls/hr DAILY@09 IV 03/27/25 09:00 04/05/25 09:51 100 MLS/HR Memantine 10 mg Q12HR PO 03/26/25 22:00 04/05/25 09:52 10 MG Atorvastatin Calcium 10 mg HS PO 03/26/25 22:00 04/04/25 22:17 10 MG Multivit/Ca Carb/ B Cmplx/FA/Prenat 1 tab DAILY PO 03/27/25 10:00 04/05/25 09:51 1 TAB Sodium Chloride 10 ml Q8HR IV 03/26/25 22:00 04/05/25 05:38 10 ML Ondansetron HCl 4 mg Q4HP PRN IV 03/26/25 20:45 03/29/25 14:27 4 MG Docusate Sodium 100 mg BIDPRN PRN PO 03/26/25 20:45 Acetaminophen 650 mg Q6HP PRN PO 03/26/25 20:45 04/03/25 13:17 650 MG Calcium/Vitamin D 1 tab DAILY PO 03/27/25 10:00 04/05/25 09:52 1 TAB Nitroglycerin 0.4 mg Q5MINP PRN SL 03/26/25 22:15 Morphine Sulfate 1 mg Q4HP PRN IV 03/29/25 17:00 Fludrocortisone Acetate 0.1 mg DAILY PO 03/31/25 10:00 04/05/25 09:52 0.1 MG Sucralfate 1 gm BID@0600,2200 PO 03/31/25 22:00 04/05/25 05:39 1 GM Sodium Chloride 1,000 ml @ 50 mls/hr Q20H IV 04/05/25 10:45 UNV Examination: LUNGS:Normal, CVS:Normal, NEURO:Normal laboratory and microbiology Laboratory Tests 04/03/25 08:23 Test 04/03/25 08:23 Range/Units Serum Glucose 80 74-106 mg/dL Problem List/Assessment/Plan Problem List/Assessment/Plan Assessment/Plan (Dr. Whitfield) * Sinus bradycardia - off dopamine drip since 04/03/2025. NSR with no further bradycardic events. Transient bradycardia could have been secondary to hemodynamic derangement including renal impairment. Continue follow-up with Dr. Griffith within 1-2 weeks post-discharge given HFrEF. Patient, , and daughter updated on POC. * Chronic compensated HFrEF, newly diagnosed - LVEF 35% with LAE. CXR negative for congestion/edema. Continue monitoring fluid volume status given IV fluid hydration. Breathing stable on room air, euvolemic. Initiate GDMT for CHF and uptitrate as tolerated. BB held given recent bradycardia, can resume as outpatient. * Septic shock with UTI- midodrine contraindicated with HFrEF. ABX per primary care team. * SANCHEZ on CKD - improved with IV fluid hydration. Management per Nephrology. * Hypomagnesemia/hypokalemia - replete as necessary. There is no further cardiac work-up indicated at this time. Kindly call if in need to re-consult. Thank you for allowing me to participate in the management of this patient. The treatment plan was discussed with and agreed upon by patient/family including requesting consultants and ordering of imaging/procedures. Critical care, time spent: 30 minutes. This medical document was created using an electronic medical record system with voice recognition software and computerized dictation system. Although this document has been carefully reviewed, there might still be some phonetic and typographical errors. Occasional wrong-word or ``sound-alike substitutions may have occurred due to the inherent limitations of voice recognition software. These areas are purely typographical due to imperfections of the software programs and do not reflect any compromise in the patient's medical care. Please read the chart carefully and recognize, using context, where these substitutions have occurred. Plan discussed with: Patient, Other Dietary Evaluation Review Comments: Continue Renal standard diet which is less protein restricted. Supplement with Nepro PO 240ml bid until PO itnake improves to > 50% Expected Outcomes/Goals: gradual wt gain, improved nutrition status. Date of Service: Apr 05, 2025 Billing Provider: CHANTE ZARAGOZA Cardiology Common Codes: [id number] INP/OBS CARE(Mod) CHANTE ZARAGOZA Apr 05, 2025 10:55
[2025-04-05 11:12] LABS: Basophils # (auto) 0 10 ^3/uL (0-0.2); Basophils % (auto) 0.8 % (0.0-2.0); Eosinophils # (auto) 0.1 10 ^3/uL (0-0.8); Eosinophils % (auto) 2.5 % (0.0-7.0); Hematocrit 31.5 % (36.0-46.0); Hemoglobin 10.6 g/dL (12.2-16.2); Lymphocytes # (auto) 1.2 10 ^3/uL (0.4-5.4); Lymphocytes % (auto) 19.4 % (10.0-50.0); Mean Corpuscular Hemoglobin 27.7 pg (28.0-32.0); Mean Corpuscular Hgb Conc. 33.6 g/dL (32.0-36.0); Mean Corpuscular Volume 82.3 fL (80.0-100.0); Monocytes # (auto) 0.6 10 ^3/uL (0-1.3); Neutrophils # (auto) 4.1 10 ^3/uL (1.6-8.6); Neutrophils % (auto) 67.3 % (37.0-80.0); Platelet Count (auto) 200 10^3/uL (140-450); Red Blood Cells 3.83 10^6/uL (4.0-5.20); Red Cell Distribution Width 14.6 % (11.8-14.3)
[2025-04-05 11:27] LABS: Albumin 3.2 g/dL (3.2-4.8); Alkaline Phosphatase 58 U/L (46-116); Anion Gap 9 (5-15); Aspartate Aminotransferase 25 U/L (<34); BUN/Creatinine Ratio 7.4 (10.0-20.0); Bilirubin, Total 0.3 mg/dL (0.2-1.0); Carbon Dioxide 22 mmol/L (20-31); Glucose 85 mg/dL (74-106); Potassium 3.5 mmol/L (3.5-5.1); Sodium 145 mmol/L (136-145)
[2025-04-05 11:38] LABS: Alanine Aminotransferase < 9 U/L (7-40); Blood Urea Nitrogen 9 mg/dL (9-23); Calcium 8.6 mg/dL (8.7-10.4); Chloride 114 mmol/L (98-107); Total Protein 5.5 g/dL (5.7-8.2)
[2025-04-05 11:48] LABS: Magnesium 1.5 mg/dL (1.6-2.6)
--- NOTE | 2025-04-05 12:06 | DVHPN2 ---
Subjective The patient is seen and examined at bedside. Patient states she feels much better. She had worked with physical therapy and able to ambulate out of the door to hallway. Reviewed: Care Plan, H&P, Labs, Medications, Previous Orders, Radiology Changes from previous H/P or p: No Changes Eyes: No Pain, No Vision change, No Conjunctivae inflammation, No Eyelid inflammation, No Other, No Redness ENT: No Ear pain, No Ear discharge, No Nose pain, No Nose discharge, No Nose congestion, No Mouth pain, No Mouth swelling, No Throat pain, No Throat swelling, No Other Cardiovascular: No Chest Pain, No Palpitations, No Orthopnea, No Paroxysmal Noc. Dyspnea, No Edema, No Lt Headedness, No Other Respiratory: No Cough, No Dry, No Shortness of breath, No SOB with excertion, No Wheezing, No Hemoptysis, No Pleuritic Pain, No Sputum, No Other Gastrointestinal: Melena, Other Genitourinary: No Dysuria, No Frequency, No Incontinence, No Hematuria, No Retention, No Other Musculoskeletal: No other, No neck pain, No shoulder pain, No arm pain, No back pain, No hand pain, No leg pain, No foot pain Skin: No Rash, No Lesions, No Jaundice, No Bruising, No Other Objective Vitals Vital Signs Date Time Temp Pulse Resp B/P (MAP) Pulse Ox O2 Delivery O2 Flow Rate FiO2 04/05/25 08:00 85 16 93 Room Air* 0 21 04/05/25 05:36 114/59 04/05/25 05:00 97.9 97.9 Intake/Output Intake and Output 04/05/25 07:00 Intake Total 1118 ml Output Total 1080 ml Balance 38 ml Intake Oral 518 ml IV Total 600 ml Output Urine Total 300 ml Stool Total 580 ml Drainage Total 200 ml General Appearance: Alert, Oriented X3, Cooperative, No acute distress, m oderate distress HEENT: Atraumatic, PERRLA, EOMI, Mucous membr. moist/pink Neck: Supple Lungs: Clear to auscultation Cardiovascular: Normal S1, Normal S2, No murmurs, Gallops, Rubs, Other Abdomen: Normal bowel sounds, Soft, No tenderness, No hepatospenomegaly Extremities: No edema Neuro: Cranial nerves 3-12 NL Psych/Mental Status: Mental status NL Medications Current Medications Medications Dose Ordered Sig/Socrates Route Start Time Stop Time Status Last Admin Dose Admin Donepezil HCl 10 mg HS PO 03/26/25 22:00 04/04/25 22:17 10 MG Pantoprazole Sodium 40 mg DAILY IV 03/27/25 10:00 04/05/25 09:51 40 MG Ceftriaxone Sodium 50 ml @ 100 mls/hr DAILY@09 IV 03/27/25 09:00 04/05/25 09:51 100 MLS/HR Memantine 10 mg Q12HR PO 03/26/25 22:00 04/05/25 09:52 10 MG Atorvastatin Calcium 10 mg HS PO 03/26/25 22:00 04/04/25 22:17 10 MG Multivit/Ca Carb/ B Cmplx/FA/Prenat 1 tab DAILY PO 03/27/25 10:00 04/05/25 09:51 1 TAB Sodium Chloride 10 ml Q8HR IV 03/26/25 22:00 04/05/25 05:38 10 ML Ondansetron HCl 4 mg Q4HP PRN IV 03/26/25 20:45 03/29/25 14:27 4 MG Docusate Sodium 100 mg BIDPRN PRN PO 03/26/25 20:45 Acetaminophen 650 mg Q6HP PRN PO 03/26/25 20:45 04/03/25 13:17 650 MG Calcium/Vitamin D 1 tab DAILY PO 03/27/25 10:00 04/05/25 09:52 1 TAB Nitroglycerin 0.4 mg Q5MINP PRN SL 03/26/25 22:15 Morphine Sulfate 1 mg Q4HP PRN IV 03/29/25 17:00 Fludrocortisone Acetate 0.1 mg DAILY PO 03/31/25 10:00 04/05/25 09:52 0.1 MG Sucralfate 1 gm BID@0600,2200 PO 03/31/25 22:00 04/05/25 05:39 1 GM Sodium Chloride 1,000 ml @ 50 mls/hr Q20H IV 04/05/25 10:45 UNV Empaglifozin 10 mg DAILY PO 04/06/25 10:00 UNV Sacubitril/ Valsartan 0.5 tab BID PO 04/05/25 22:00 UNV Spironolactone 12.5 mg DAILY PO 04/06/25 10:00 UNV Laboratory Results Laboratory Tests 04/05/25 11:00 Chemistry Test 04/05/25 11:00 Albumin 3.2 g/dL (3.2-4.8) Calcium Level 8.6 mg/dL (8.7-10.4) L Magnesium Level 1.5 mg/dL (1.6-2.6) L Total Protein 5.5 g/dL (5.7-8.2) L LFT Test 04/05/25 11:00 Alanine Aminotransferase (ALT) < 9 U/L (7-40) Alkaline Phosphatase 58 U/L (46-116) Aspartate Amino Transferase (AST) 25 U/L (<34) Total Bilirubin 0.3 mg/dL (0.2-1.0) Urinalysis Test 03/26/25 20:05 Urine Color Light-orange (Yellow) Urine Clarity Turbid (Clear) H Urine pH 5.0 (5.0-9.0) Urine Specific [place] 1.018 (1.001-1.035) Urine Protein 1+ (Negative) H Urine Ketones Negative (Negative) Urine Blood 1+ /uL (Negative) H Urine Nitrite Negative (Negative) Urine Bilirubin Negative (Negative) Urine Urobilinogen Normal mg/dL (Negative) Urine Leukocyte Esterase 3+ /uL (Negative) Urine RBC 5 /hpf (0 - 4) Urine Microscopic WBC 30 /HPF (0-5) H Urine Squamous Epithelial Cells Many /hpf (<5) Urine Bacteria Few /hpf (None Seen) H Urine Hyaline Casts Few /lpf (0 - 2) Urine Glucose Normal mg/dL (Normal) Microbiology Microbiology Date/Time Source Procedure Growth Status 04/03/25 02:00 Urine - [place] Urine Culture - Final Enterococcus faecium Complete 03/28/25 13:21 Blood Blood Culture - Final NO GROWTH AFTER 5 DAYS OF INCUBATION. Complete 03/27/25 17:33 Nose MRSA Screen - Final Complete 03/26/25 20:20 Stool Stool Culture - Final Complete 03/26/25 20:20 Stool Shiga Toxin I & II - Final Complete Labs and/or images reviewed: Labs reviewed by me Assessment/Plan Assessment/Plan Hypotension Bradycardia SANCHEZ/CKD CKD stage IV Acute kidney injury prerenal in the setting of volume depletion Left 2 cm renal mass Ulcerative colitis status post ileostomy with high output Dementia UTI Sepsis with septic shock PLAN: IV Rocephin IV fluids Continue IV Dopamine drip. Hopefully we can wean her off. Nephrology consult Cardiology consult Discussed with daughter at the bedside Full code Advanced directives discussed with daughter x 20 minutes 03/28/2025: Continue IV fluids Dopamine as needed, tapered down the dose as tolerated Nephrology is seeing the patient Cardiology is also seeing the patient Echocardiogram is pending Continue IV antibiotics Urine culture is negative Blood culture is pending Full code 03/29/25: Abdominal pain: Repeat CT scan, GI consult GI bleed?, + SOB: GI consult, IV Protonix SANCHEZ/CKD: Improving, continue IV fluids Sepsis: IV antibiotics: Rocephin, Dopamine drip Bradycardia: Dopamine drip Abdominal pain: Morphine prn Discussed with daughter at the bedside 03/30/2025: Abdominal pain: Stable GI bleed: GI consult pending Continue IV Protonix Hypotension with bradycardia: Continue dopamine Continue IV Rocephin Monitor closely Keep NPO until she is seen by GI Discussed with the daughter at the bedside 03/31/2025: Hypotension: Tapered down the dopamine as tolerated, add Florinef Abdominal pain: Resolved , GI recommended outpatient follow up, continue PPI UTI: Rocephin IV SANCHEZ: Continue IV fluids Chronic kidney disease: Nephrology is following Discussed with the at the bedside Hypokalemia and hypomagnesemia: Replace 04/01/2025: Continuing current management. Discontinuing dopamine if able to wean off completely. Continuing with sliding scale insulin. Continuing with Rocephin. Continuing with IV fluid. Continuing replace electrolytes. Discharge planning. 04/02/2025: Continuing Current management. Dopamine has been weaned off. We will transfer the patient out of ICU today. 04/03/2025: Continuing current management. Encouraged the patient to be out of bed and ambulate with PT. 04/04/2025: Continuing current management. Discussed with daughter and patient at bedside. Continuing with PT. Discharge planning. This medical document was created using an electronic medical record system with [email or web address] direct computerized dictation system. Although this document has been carefully reviewed, there may still be some phonetic and typographical errors. These areas are purely typographical due to imperfections of the software programs, and do not reflect any compromise in the patient's medical care. Plan discussed with: Patient, Spouse Date of Service: Apr 05, 2025 Billing Provider: DRU KLEIN MD Common Visit Codes: [id number] INP/OBS CARE(HIGH) DRU KLEIN MD Apr 05, 2025 12:06
[2025-04-05] MEDS: MAGNESIUM SULFATE 1GM/100ML 100 ML IV ONE (14:17)
[2025-04-05] MEDS: POTASSIUM EFFERVESENT TAB 25 MEQ PO ONE (14:17)
[2025-04-05] MEDS: SOD CHL 0.45% 1,000 ML IV SCH (14:21)
--- NOTE | 2025-04-05 15:49 | MEDREC ---
[facility] Intervention Section I [facility] Intervention: Review courses of therapy (PLEASE CONSIDER REVIEWING COURSE OF THERAPY BASED ON URINE CULTURE RESULTS IF CLINICALLY RELEVANT ) GARRET BASSETT PHARMACIST Apr 05, 2025 15:49
--- NOTE | 2025-04-05 16:26 | DVHPN2 ---
Progress Note Date Seen: Apr 05, 2025 Resident Creating Document: AGUILAR WU Medical Necessity Reason Pt with a Central, PICC or Fol: Yes The following are medically ne: [place] Catheter Subjective Review of Systems Patient was seen today at bedside H&H stable Patient was seen by Cardiology, LVEF 35% with left atrial enlargement, Patient was started on GDMT Patient was seen by Nephrology Objective vital signs Vital Sign Date Time Temp Pulse Resp B/P (MAP) Pulse Ox O2 Delivery O2 Flow Rate FiO2 04/05/25 08:00 85 16 93 Room Air* 0 21 04/05/25 05:36 114/59 04/05/25 05:00 97.9 97.9 Total Intake and Output 04/04/25 04/04/25 04/05/25 15:00 23:00 07:00 Intake Total 50 ml 518 ml 550 ml Output Total 200 ml 880 ml Balance -150 ml -362 ml 550 ml medications Current Medications Medications Dose Ordered Sig/Socrates Route Start Time Stop Time Status Last Admin Dose Admin Donepezil HCl 10 mg HS PO 03/26/25 22:00 04/04/25 22:17 10 MG Pantoprazole Sodium 40 mg DAILY IV 03/27/25 10:00 04/05/25 09:51 40 MG Ceftriaxone Sodium 50 ml @ 100 mls/hr DAILY@09 IV 03/27/25 09:00 04/05/25 09:51 100 MLS/HR Memantine 10 mg Q12HR PO 03/26/25 22:00 04/05/25 09:52 10 MG Atorvastatin Calcium 10 mg HS PO 03/26/25 22:00 04/04/25 22:17 10 MG Multivit/Ca Carb/ B Cmplx/FA/Prenat 1 tab DAILY PO 03/27/25 10:00 04/05/25 09:51 1 TAB Sodium Chloride 10 ml Q8HR IV 03/26/25 22:00 04/05/25 13:03 10 ML Ondansetron HCl 4 mg Q4HP PRN IV 03/26/25 20:45 03/29/25 14:27 4 MG Docusate Sodium 100 mg BIDPRN PRN PO 03/26/25 20:45 Acetaminophen 650 mg Q6HP PRN PO 03/26/25 20:45 04/03/25 13:17 650 MG Calcium/Vitamin D 1 tab DAILY PO 03/27/25 10:00 04/05/25 09:52 1 TAB Nitroglycerin 0.4 mg Q5MINP PRN SL 03/26/25 22:15 Morphine Sulfate 1 mg Q4HP PRN IV 03/29/25 17:00 Fludrocortisone Acetate 0.1 mg DAILY PO 03/31/25 10:00 04/05/25 09:52 0.1 MG Sucralfate 1 gm BID@0600,2200 PO 03/31/25 22:00 04/05/25 05:39 1 GM Sodium Chloride 1,000 ml @ 50 mls/hr Q20H IV 04/05/25 10:45 04/05/25 14:21 50 MLS/HR Empaglifozin 10 mg DAILY PO 04/06/25 10:00 Sacubitril/ Valsartan 0.5 tab BID PO 04/05/25 22:00 Spironolactone 12.5 mg DAILY PO 04/06/25 10:00 laboratory and microbiology Laboratory Tests 04/05/25 11:00 Test 04/05/25 11:00 Range/Units Serum Glucose 85 74-106 mg/dL Microbiology Date/Time Source Procedure Growth Status 04/03/25 02:00 Urine - [place] Urine Culture - Final Enterococcus faecium Complete 03/28/25 13:21 Blood Blood Culture - Final NO GROWTH AFTER 5 DAYS OF INCUBATION. Complete 03/27/25 17:33 Nose MRSA Screen - Final Complete 03/26/25 20:20 Stool Stool Culture - Final Complete 03/26/25 20:20 Stool Shiga Toxin I & II - Final Complete Problem List/Assessment/Plan Problem List/Assessment/Plan Assessment and plan SANCHEZ on CKD likely due toVMN/dehydration Ulcerative colitis status post ileostomy with high output Dementia UTI Sepsis with septic shock Events H&H stable Patient was seen by Cardiology, LVEF 35% with left atrial enlargement, Patient was started on GDMT Patient was seen by Nephrology Plan Continue Regular diet Gastroenterology will remain standby, if hemoglobin drops we will do another Endoscopy Continue IV antibiotic as prescribed GDMT as per cardiac recommendation Monitor CBC Plan discussed with Dr. Lamar Perez , nursing staff, Total time spent on patient evaluation, chart review, assessment and plan, discussion discussion >35 minutes Plan discussed with: Patient, Daughter, Other (RN) Plan discussed with: Patient, Other (RN) Dietary Evaluation Review Comments: Continue Renal standard diet which is less protein restricted. Supplement with Nepro PO 240ml bid until PO itnake improves to > 50% Expected Outcomes/Goals: gradual wt gain, improved nutrition status. AGUILAR WU RESIDENT Apr 05, 2025 16:26
[2025-04-05] MEDS: SACUBITRIL-VALSARTAN 24mg/26mg TAB PO SCH (21:07)
[2025-04-06 05:00] VITALS: BP 112/54; PULSE 79; RESP 18; TEMP 98.7; O2SAT 93
[2025-04-06 08:00] VITALS: PULSE 78; PULSE 89; RESP 17; O2SAT 91
[2025-04-06 09:00] VITALS: BP 128/55; PULSE 78; RESP 17; TEMP 98.1; O2SAT 91
[2025-04-06] MEDS: SPIRONOLACTONE 25 MG TAB PO SCH (09:03)
[2025-04-06] MEDS: EMPAGLIFLOZIN 10 MG TAB PO SCH (09:04)
[2025-04-06] MEDS: MAGNESIUM SULFATE 1GM/100ML 100 ML IV SCH (11:08)
--- NOTE | 2025-04-06 11:16 | DVHDS2 ---
Discharge Summary Date of Admission Mar 26, 2025 at 22:09 Date of Discharge: Apr 06, 2025 Admitting Diagnosis Hypotension Bradycardia SANCHEZ/CKD CKD stage IV Acute kidney injury prerenal in the setting of volume depletion Left 2 cm renal mass Ulcerative colitis status post ileostomy with high output Dementia UTI Sepsis with septic shock Labs/Diagnostic Data: Laboratory Results Test 04/05/25 11:00 03/31/25 03:25 03/29/25 08:48 03/29/25 03:03 White Blood Count 6.0 10^3/uL (4.4-10.8) Red Blood Count 3.83 10^6/uL (4.0-5.20) Hemoglobin 10.6 g/dL (12.2-16.2) Hematocrit 31.5 % (36.0-46.0) Mean Corpuscular Volume 82.3 fL (80.0-100.0) Mean Corpuscular Hemoglobin 27.7 pg (28.0-32.0) Mean Corpuscular Hemoglobin Concent 33.6 g/dL (32.0-36.0) Red Cell Distribution Width 14.6 % (11.8-14.3) Platelet Count 200 10^3/uL (140-450) Mean Platelet Volume 7.5 fL (6.9-10.8) Neutrophils (%) (Auto) 67.3 % (37.0-80.0) Lymphocytes (%) (Auto) 19.4 % (10.0-50.0) Monocytes (%) (Auto) 10.0 % (0.0-12.0) Eosinophils (%) (Auto) 2.5 % (0.0-7.0) Basophils (%) (Auto) 0.8 % (0.0-2.0) Neutrophils # (Auto) 4.1 10 ^3/uL (1.6-8.6) Lymphocytes # (Auto) 1.2 10 ^3/uL (0.4-5.4) Monocytes # (Auto) 0.6 10 ^3/uL (0-1.3) Eosinophils # (Auto) 0.1 10 ^3/uL (0-0.8) Basophils # (Auto) 0 10 ^3/uL (0-0.2) Nucleated Red Blood Cells 0.0 % Sodium Level 145 mmol/L (136-145) Potassium Level 3.5 mmol/L (3.5-5.1) Chloride Level 114 mmol/L (98-107) Carbon Dioxide Level 22 mmol/L (20-31) Anion Gap 9 (5-15) Blood Urea Nitrogen 9 mg/dL (9-23) Creatinine 1.22 mg/dL (0.550-1.02) Glomerular Filtration Rate Calc 45 mL/min (>90) BUN/Creatinine Ratio 7.4 (10.0-20.0) Serum Glucose 85 mg/dL (74-106) Calcium Level 8.6 mg/dL (8.7-10.4) Magnesium Level 1.5 mg/dL (1.6-2.6) Total Bilirubin 0.3 mg/dL (0.2-1.0) Aspartate Amino Transferase (AST) 25 U/L (<34) Alanine Aminotransferase (ALT) < 9 U/L (7-40) Alkaline Phosphatase 58 U/L (46-116) Total Protein 5.5 g/dL (5.7-8.2) Albumin 3.2 g/dL (3.2-4.8) B-Type Natriuretic Peptide 864.86 pg/mL (0-100) Cortisol AM Sample 34.20 ug/dL (5.27-22.45) Free Thyroxine (T4) Calculated 0.92 ng/dL (0.89-1.76) Test 03/28/25 03:40 03/26/25 20:51 03/26/25 20:20 03/26/25 20:05 Thyroid Stimulating Hormone (TSH) 0.34 uIU/mL (0.55-4.78) Lactic Acid Level 1.4 mmol/L (0.4-2.0) Stool Occult Blood Positive (Negative) Stool Occult Blood Sample #3 (Negative) Stool for White Cells None seen Urine Color Light-orange (Yellow) Urine Clarity Turbid (Clear) Urine pH 5.0 (5.0-9.0) Urine Specific [place] 1.018 (1.001-1.035) Urine Protein 1+ (Negative) Urine Ketones Negative (Negative) Urine Blood 1+ /uL (Negative) Urine Nitrite Negative (Negative) Urine Bilirubin Negative (Negative) Urine Urobilinogen Normal mg/dL (Negative) Urine Leukocyte Esterase 3+ /uL (Negative) Urine RBC 5 /hpf (0 - 4) Urine Microscopic WBC 30 /HPF (0-5) Urine Squamous Epithelial Cells Many /hpf (<5) Urine Bacteria Few /hpf (None Seen) Urine Hyaline Casts Few /lpf (0 - 2) Urine Glucose Normal mg/dL (Normal) Test 03/26/25 18:52 Troponin I High Sensitivity 3 ng/L (</=34) Other Laboratory Tests 04/05/25 11:00 Brief Hx & Hospital Course: This is a 79 years old female with past medical history of dementia, gastritis, anemia, recent colitis, acute renal failure came to [facility] with chief complaint of generalized weakness for two days. The patient also seen blood-streaked bowel, increasing weakness that is prompt her to this visit to emergency department. The patient was found to have urinary tract infection also severe sepsis that is requiring vasopressor and ICU admission. The patient also was started on IV antibiotic with Rocephin 1 g IV q.day. subsequently the patient able to wean off vasopressor dopamine in transfer out of ICU. Hemoglobin has been stable. The patient's urine culture showed Enterococcus faecium. Blood cultures negative. The patient then working with physical therapy and able to ambulate to the hallway. The patient also had a normal blood pressure now. So I am going to discharge her home today. Advised her to follow up with primary care physician 1-2 weeks. Activity as tolerated. Diet per home diet. Physical exam: HEENT: Normocephalic atraumatic pupils equal react to light and accommodation. Extraocular muscles intact, conjunctiva pink, oropharynx moist, no thrush, no exudate. Lymphatic: No lymphadenopathy Cardiovascular exam: S1, S2 was heard. No murmurs, rubs, gallops Lung: Clear on auscultation bilaterally, no wheeze, rale, rhonchi. GI: Abdominal soft, nondistended, nontenderness, positive bowel sounds. Extremity: No crepitus, cyanosis, edema. Pedal pulses present bilateral. Full range of motion. Skin: Normal turgor, no rash. Psych: Alert, oriented x3. Neurology: No focal deficits, cranial nerve II to XII grossly intact. This medical document was created using an electronic medical record system with [employer] direct computerized dictation system. Although this document has been carefully reviewed, there may still be some phonetic and typographical errors. These areas are purely typographical due to imperfections of the software programs, and do not reflect any compromise in the patient's medical care. Condition at Discharge: Stable Final Diagnosis/Problems List Hypotension Bradycardia SANCHEZ/CKD CKD stage IV Acute kidney injury prerenal in the setting of volume depletion Left 2 cm renal mass Ulcerative colitis status post ileostomy with high output Dementia UTI Sepsis with septic shock Discharge Disposition: Home Discharge Instruct/Medications Diet: Consistent carbohydrate, Cardiac 2g Na,low cholest Activity: No Restrictions, As Tolerated Follow Up/Referral: pcp 1-2 weeks Medications: Resume home meds Discharge Statement: "Patient was advised to return to the ER or call 911 if any headaches, dizziness, shortness of breath, chest pain, abdominal pain, bleeding, fevers, or worsening of medical condition. Patient was counseled about treatment plan, medications, possible side effects, patientverbalized understanding. All questions were answered to the best of my ability. This discharge took greater then 30 minutes in planning, reviewing documentation, counseling the patient, and discussing with other team members." ASSESSMENT ASSESSMENT Assessment sepsis Date of Service: Apr 06, 2025 Billing Provider: DRU KLEIN MD Common Visit Codes: [id number] DISCH DAY >30min DRU KLEIN MD Apr 06, 2025 11:16
--- NOTE | 2025-04-06 11:48 | DVHPN2 ---
Progress Note Date Seen: Apr 06, 2025 Medical Necessity Reason Pt with a Central, PICC or Fol: Yes The following are medically ne: [place] Catheter Subjective Patient reports: No new complaints Other Systems: Patient seen and examined by myself today in follow-up Objective vital signs Vital Sign Date Time Temp Pulse Resp B/P (MAP) Pulse Ox O2 Delivery O2 Flow Rate FiO2 04/06/25 08:00 78 17 91 Nasal Cannula* 1 24 04/06/25 05:00 98.7 112/54 (73) 98.7 Total Intake and Output 04/05/25 04/05/25 04/06/25 15:00 23:00 07:00 Intake Total 50 ml 500 ml 675 ml Output Total 600 ml 400 ml Balance 50 ml -100 ml 275 ml medications Current Medications Medications Dose Ordered Sig/Socrates Route Start Time Stop Time Status Last Admin Dose Admin Donepezil HCl 10 mg HS PO 03/26/25 22:00 04/05/25 21:05 10 MG Pantoprazole Sodium 40 mg DAILY IV 03/27/25 10:00 04/06/25 09:04 40 MG Ceftriaxone Sodium 50 ml @ 100 mls/hr DAILY@09 IV 03/27/25 09:00 04/06/25 09:02 100 MLS/HR Memantine 10 mg Q12HR PO 03/26/25 22:00 04/06/25 09:03 10 MG Atorvastatin Calcium 10 mg HS PO 03/26/25 22:00 04/05/25 21:06 10 MG Multivit/Ca Carb/ B Cmplx/FA/Prenat 1 tab DAILY PO 03/27/25 10:00 04/06/25 09:03 1 TAB Sodium Chloride 10 ml Q8HR IV 03/26/25 22:00 04/06/25 05:30 10 ML Ondansetron HCl 4 mg Q4HP PRN IV 03/26/25 20:45 03/29/25 14:27 4 MG Docusate Sodium 100 mg BIDPRN PRN PO 03/26/25 20:45 Acetaminophen 650 mg Q6HP PRN PO 03/26/25 20:45 04/03/25 13:17 650 MG Calcium/Vitamin D 1 tab DAILY PO 03/27/25 10:00 04/06/25 09:03 1 TAB Nitroglycerin 0.4 mg Q5MINP PRN SL 03/26/25 22:15 Morphine Sulfate 1 mg Q4HP PRN IV 03/29/25 17:00 Fludrocortisone Acetate 0.1 mg DAILY PO 03/31/25 10:00 04/06/25 09:02 0.1 MG Sucralfate 1 gm BID@0600,2200 PO 03/31/25 22:00 04/06/25 05:30 1 GM Sodium Chloride 1,000 ml @ 50 mls/hr Q20H IV 04/05/25 10:45 04/06/25 05:45 50 MLS/HR Empaglifozin 10 mg DAILY PO 04/06/25 10:00 04/06/25 09:04 10 MG Sacubitril/ Valsartan 0.5 tab BID PO 04/05/25 22:00 04/06/25 09:03 0.5 TAB Spironolactone 12.5 mg DAILY PO 04/06/25 10:00 04/06/25 09:03 12.5 MG Magnesium Sulfate/ Dextrose 100 ml @ 100 mls/hr Q1HR IV 04/06/25 10:00 04/06/25 11:59 04/06/25 11:08 100 MLS/HR Examination: LUNGS:Normal, CVS:Normal, MSK:Normal laboratory and microbiology Laboratory Tests 04/05/25 11:00 Test 04/05/25 11:00 Range/Units Serum Glucose 85 74-106 mg/dL Microbiology Date/Time Source Procedure Growth Status 04/03/25 02:00 Urine - [place] Urine Culture - Final Enterococcus faecium Complete 03/28/25 13:21 Blood Blood Culture - Final NO GROWTH AFTER 5 DAYS OF INCUBATION. Complete 03/27/25 17:33 Nose MRSA Screen - Final Complete 03/26/25 20:20 Stool Stool Culture - Final Complete 03/26/25 20:20 Stool Shiga Toxin I & II - Final Complete Problem List/Assessment/Plan Problem List/Assessment/Plan Acute kidney injury prerenal in the setting of volume depletion Chronic kidney disease suspect baseline stage IV; Dr. jeter Renal mass on US but none on multiple CTs Ulcerative colitis status post ileostomy with high output Metabolic acidosis Bradycardia, resolved CHF, EF 35% Hypomagnesemia recs Kidney function is improving Increased urine output Strict I&Os KCL replacement IVF half NS 50 cc/hour Magnesium sulfate IV piggyback KCL replacement We will continue to follow Plan discussed with: Patient My Orders My Orders Orders - JESSI GABRIEL MD Procedure Category Date Status Time Magnesium Sulfate PHA 04/06/25 In Process 1gm/100ml 10:00 Dietary Evaluation Review Comments: Continue Renal standard diet which is less protein restricted. Supplement with Nepro PO 240ml bid until PO itnake improves to > 50% Expected Outcomes/Goals: gradual wt gain, improved nutrition status. JESIS GABRIEL MD Apr 06, 2025 11:48
[2025-04-06 13:00] VITALS: BP 134/58; PULSE 84; RESP 17; TEMP 98.2; O2SAT 91
--- NOTE | 2025-04-06 14:58 | DVHPN2 ---
Progress Note Date Seen: Apr 06, 2025 Resident Creating Document: AGUILAR WU Medical Necessity Reason Pt with a Central, PICC or Fol: Yes The following are medically ne: [place] Catheter Subjective Review of Systems Patient is seen today at bedside No acute complaint H&H stable Tolerating oral diet well Colostomy draining well Objective vital signs Vital Sign Date Time Temp Pulse Resp B/P (MAP) Pulse Ox O2 Delivery O2 Flow Rate FiO2 04/06/25 08:00 89 04/06/25 08:00 17 91 Nasal Cannula* 1 04/06/25 05:00 98.7 112/54 (73) 98.7 Total Intake and Output 04/05/25 04/05/25 04/06/25 15:00 23:00 07:00 Intake Total 50 ml 500 ml 675 ml Output Total 600 ml 400 ml Balance 50 ml -100 ml 275 ml medications Current Medications Medications Dose Ordered Sig/Socrates Route Start Time Stop Time Status Last Admin Dose Admin Donepezil HCl 10 mg HS PO 03/26/25 22:00 04/05/25 21:05 10 MG Pantoprazole Sodium 40 mg DAILY IV 03/27/25 10:00 04/06/25 09:04 40 MG Ceftriaxone Sodium 50 ml @ 100 mls/hr DAILY@09 IV 03/27/25 09:00 04/06/25 09:02 100 MLS/HR Memantine 10 mg Q12HR PO 03/26/25 22:00 04/06/25 09:03 10 MG Atorvastatin Calcium 10 mg HS PO 03/26/25 22:00 04/05/25 21:06 10 MG Multivit/Ca Carb/ B Cmplx/FA/Prenat 1 tab DAILY PO 03/27/25 10:00 04/06/25 09:03 1 TAB Sodium Chloride 10 ml Q8HR IV 03/26/25 22:00 04/06/25 14:00 10 ML Ondansetron HCl 4 mg Q4HP PRN IV 03/26/25 20:45 03/29/25 14:27 4 MG Docusate Sodium 100 mg BIDPRN PRN PO 03/26/25 20:45 Acetaminophen 650 mg Q6HP PRN PO 03/26/25 20:45 04/03/25 13:17 650 MG Calcium/Vitamin D 1 tab DAILY PO 03/27/25 10:00 04/06/25 09:03 1 TAB Nitroglycerin 0.4 mg Q5MINP PRN SL 03/26/25 22:15 Morphine Sulfate 1 mg Q4HP PRN IV 03/29/25 17:00 Fludrocortisone Acetate 0.1 mg DAILY PO 03/31/25 10:00 04/06/25 09:02 0.1 MG Sucralfate 1 gm BID@0600,2200 PO 03/31/25 22:00 04/06/25 05:30 1 GM Sodium Chloride 1,000 ml @ 50 mls/hr Q20H IV 04/05/25 10:45 04/06/25 05:45 50 MLS/HR Empaglifozin 10 mg DAILY PO 04/06/25 10:00 04/06/25 09:04 10 MG Sacubitril/ Valsartan 0.5 tab BID PO 04/05/25 22:00 04/06/25 09:03 0.5 TAB Spironolactone 12.5 mg DAILY PO 04/06/25 10:00 04/06/25 09:03 12.5 MG laboratory and microbiology Laboratory Tests 04/05/25 11:00 Test 04/05/25 11:00 Range/Units Serum Glucose 85 74-106 mg/dL Microbiology Date/Time Source Procedure Growth Status 04/03/25 02:00 Urine - [place] Urine Culture - Final Enterococcus faecium Complete 03/28/25 13:21 Blood Blood Culture - Final NO GROWTH AFTER 5 DAYS OF INCUBATION. Complete 03/27/25 17:33 Nose MRSA Screen - Final Complete 03/26/25 20:20 Stool Stool Culture - Final Complete 03/26/25 20:20 Stool Shiga Toxin I & II - Final Complete Problem List/Assessment/Plan Problem List/Assessment/Plan Assessment and plan SANCHEZ on CKD likely due toVMN/dehydration Ulcerative colitis status post ileostomy with high output Dementia UTI Sepsis with septic shock Events No acute complaint H&H stable Tolerating oral diet well Colostomy draining well Patient was seen by Nephrology Plan Patient is cleared to be discharged Continue pantoprazole as prescribed Patient and family was advised to follow up with the Night Filler with Dr. Perez outpatient Plan discussed with Dr. Lamar Perez , nursing staff, Total time spent on patient evaluation, chart review, assessment and plan, discussion discussion >25 minutes Plan discussed with: Patient, Daughter, Other (RN) Plan discussed with: Patient, Spouse, Daughter, Other (RN) Dietary Evaluation Review Comments: Continue Renal standard diet which is less protein restricted. Supplement with Nepro PO 240ml bid until PO itnake improves to > 50% Expected Outcomes/Goals: gradual wt gain, improved nutrition status. AGUILAR WU RESIDENT Apr 06, 2025 14:58
== END 2025-04-06 16:50 | disposition home health service (06) | DRG 871 ==
LOC: EDUNIT# 14:44 → ER 14:44 → EDBD 14:44 → OVERFLOW 22:09 → ICU WEST 03-27 17:21 → TELE-WESTW 04-03 22:46
PROVIDERS: ADMIT Internal Medicine; ATTEND Internal Medicine
PROC: 05HA33Z Insertion of Infusion Device into Left Brachial Vein, Percutaneous Approach (ICD-10-PCS; principal; 2025-03-27)
PROC: B54NZZA Ultrasonography of Left Upper Extremity Veins, Guidance (ICD-10-PCS; 2025-03-27)
DX: A41.9 Sepsis, unspecified organism (principal); N17.0 Acute kidney failure with tubular necrosis; R65.21 Severe sepsis with septic shock; K92.2 Gastrointestinal hemorrhage, unspecified; N39.0 Urinary tract infection, site not specified; N18.4 Chronic kidney disease, stage 4 (severe); I50.22 Chronic systolic (congestive) heart failure; E87.20 Acidosis, unspecified; K51.90 Ulcerative colitis, unspecified, without complications; F03.B0 Unspecified dementia, moderate, without behavioral disturbance, psychotic disturbance, mood disturbance, and anxiety; E86.1 Hypovolemia; E86.0 Dehydration; E83.42 Hypomagnesemia; E87.6 Hypokalemia; N28.89 Other specified disorders of kidney and ureter; K80.20 Calculus of gallbladder without cholecystitis without obstruction; I49.3 Ventricular premature depolarization; N28.1 Cyst of kidney, acquired; Z79.899 Other long term (current) drug therapy; Z93.3 Colostomy status; Z93.2 Ileostomy status; Z83.3 Family history of diabetes mellitus; Z80.0 Family history of malignant neoplasm of digestive organs; Z90.49 Acquired absence of other specified parts of digestive tract
CPT/HCPCS: 36415; 71045; 74176; 76775; 80048; 80053; 81001; 82270; 82533; 83605; 83735; 83880; 84132; 84439; 84443; 84484; 85025; 85048; 87040; 87045; 87081; 87086; 87088; 87186; 87427; 93005; 93306; 96361; 96374; 97110; 97116; 97163; 97530; 99291; G0378; J2003; J2405; J2470; J3480

== ENCOUNTER 2025-07-28 08:18 | Inpatient (IN) | payer MEDICARE, BC ==
[~2025-07-28] VITALS: Ht 162.6 cm; Wt 54.1 kg
--- NOTE | 2025-07-28 08:59 | ED.PDOC ---
GI ASSESSMENT HPI Comments Kassy Martínez Is a 79-year-old female with past medical history of CKD stage IV, dementia, anemia, and ulcerative colitis status post ileostomy with high output. The patient came to the ED with chief complain of 1 week of noticing blood from the ileostomy bag, red-dark color, associated with general weakness and fatigue. The patient reports 1 mechanical fall, ground level 5 days ago due to generalized weakness, since then the patient reports pain in the buttocks. The patient is accompanied by her daughter who provide the information. Today, the blood-like output from the ileostomy bag has increased, this prompted her visit to the ED. The patient denies fever, chills, abdominal pain, chest pain, lightheadedness, nausea, hematochezia or other symptoms. In the ED the BP: 89/38mmHg, HR: 88bpm. The patient will be admitted for further assessment and management. Chief Complaint: GI Bleed Time Seen by MD: 08:35 Reviewed Notes: Nurses Notes, Medications, Allergies Allergies: Coded Allergies: NO KNOWN ALLERGIES (Unverified , 12/18/24) Home Meds Reported Medications Fluticasone Propionate (Nasal) (Fluticasone Propionate) 50 Mcg/Act Spr, 1 SPRAY LEEANN DAILY for 60 Days, #16 03/30/25 Midodrine HCl (Midodrine Hydrochloride) 10 Mg Tab, 1 TAB PO TID for 30 Days, #90 03/30/25 Pantoprazole Sodium Sesquihydr (Pantoprazole Sodium Dr) 40 Mg Tab, 1 TAB PO BID for 30 Days, #60 03/30/25 Sodium Bicarbonate (Sodium Bicarbonate) 650 Mg Tab, 1 TAB PO BID for 30 Days, #60 03/30/25 Megestrol Acetate (Megace) 20 Mg Tb, 1 TAB PO BID for 20 Days, #40 03/30/25 Folic Acid (Folic Acid) 1 Mg Tab, 1 MG PO DAILY, TAB 12/22/24 Calcium W/ Vitamins D & K (Calcium + D + K) 750 Mg Tab, 650 MG OR DAILY, TAB 12/22/24 Memantine Hydrochloride (Memantine HCl) 10 Mg Tab, 1 TAB PO BID for 90 Days, #180 12/22/24 Donepezil Hydrochloride (DONEPEZIL HCL) 10 Mg Tab, 1 TAB PO DAILY for 90 Days, #90 12/22/24 Quetiapine Fumerate (Seroquel) 50 Mg Tab, 1 TAB PO QPM, #30 TAB 2 Refills 12/22/24 Simvastatin (Simvastatin) 40 Mg Tab, 1 TAB PO QPM for 90 Days, #90 12/22/24 Fenofibrate (Fenofibrate) 54 Mg Tab, 1 TAB PO DAILY for 90 Days, #90 12/22/24 Ibandronate Sodium (IBANDRONATE SODIUM) 150 Mg Tab, 150 MG PO ONCE, TAB 12/22/24 Information Source: Patient, Relative (Child) Mode of Arrival: Wheelchair Timing: Weeks Duration: Since onset Quality: None Vomitus: None Stool: Watery, Other (red dark.) Severity: Moderate Recent: None Past Medical History PAST MEDICAL HISTORY: Anemia, Dementia, ESRD Past Medical History (Other): Ulcerative colitis Surgical History: Hernia Repair Surgical History (Other): Ileostomy bag 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 Family History Family History: Reviewed,noncontributory to illness Social History Smoker: Quit Greater Than 1 Year Alcohol: Denies ETOH Use Drugs: Denies Drug Use Lives In: Home, Assisted Care Constitutional: reports: fatigue, weakness; denies: chills, diaphoresis, fever, malaise, sweats, others EENTM: denies: blurred vision, double vision, ear bleeding, ear discharge, ear drainage, ear pain, ear ringing, eye pain, eye redness, hearing loss, mouth pain, mouth swelling, nasal discharge, nose bleeding, nose congestion, nose pain, photophobia, tearing, throat pain, throat swelling, voice changes, others Respiratory: denies: cough, hemoptysis, orthopnea, SOB at rest, shortness of breath, SOB with excertion, stridor, wheezing, others Cardiovascular: denies: chest pain, dizzy spells, diaphoresis, Dyspnea on exertion, edema, irregular heart beat, left arm pain, lightheadedness, palpitations, PND, syncope, others Gastrointestinal: reports: others (drak red blood coming from ileostomy bag. ); denies: abdomen distended, abdominal pain, blood streaked bowels, constipated, diarrhea, dysphagia, difficulty swallowing, hematemesis, melena, nausea, poor appetite, poor fluid intake, rectal bleeding, rectal pain, vomiting Genitourinary: denies: abnormal vagina bleeding, burning, dyspareunia, dysuria, flank pain, frequency, hematuria, incontinence, pain, , vagina discharge, urgency, others Neurological: denies: dizziness, fainting, headache, left sided numbness, left sided weakness, numbness, paresthesia, pre-existing deficit, right sided numbness, right sided weakness, seizure, speech problems, tingling, tremors, weakness, others Musculoskeletal: denies: back pain, gout, joint pain, joint swelling, muscle pain, muscle stiffness, neck pain, others Integumetry: denies: bruises, change in color, change in hair/nails, dryness, laceration, lesions, lumps, rash, wounds, others Allergic/Immunocompromised: denies: Difficulty Healing, Frequent Infections, Hives, Itching, others Hematologic/Lymphatic: reports: anemia; denies: blood clots, easy bleeding, easy bruising, swollen glands, others Endocrine: denies: excessive hunger, excessive sweating, excessive thirst, excessive urination, flushing, intolerance to cold, intolerance to heat, unexplained weight gain, unexplained weight loss, others Psychiatric: denies: anxiety, bipolar disorder, depression, hopeless, panic disorder, schizophrenia, sleepless, suicidal, others Physical Exam Exam Comments Alert, oriented x3. General Appearance: No Apparent Distress, Normal HEENT: Pale Conjuntivae (L), Pale Conjuntivae (R) Neck: Full Range of Motion, Non-Tender, Normal, Normal Inspection Respiratory: Chest Non-Tender, Lungs Clear, No Accessory Muscle Use, No Respiratory Distress, Normal Breath Sounds Cardiovascular: No Edema, No JVD, No Murmur, No Gallop, Normal Peripheral Pulses, Regular Rate/Rhythm Breast Exam: Deferred Gastrointestinal: Non Tender, Normal Bowel Sounds, Soft, Other (Left flank ileostomy bag with approximate 250ml of dark red fluid mixed with liquid feces. ) Genitalia: Deferred Pelvic: Deferred Rectal: Deferred Extremities: No calf tenderness, Normal capillary refill, Normal inspection, Normal range of motion, Non-tender, No pedal edema Musculoskeletal : Apperance: Normal Neurologic: Alert, baggage security checker II-XII nml as Tested, No Motor Deficits, Normal Affect, Normal Mood, No Sensory Deficits Cerebellar Function: Other (unable to walk due to weakness. ) Reflexes: Normal Skin: Dry, Normal Color, Warm Lymphatic: No Adenopathy Was a procedure done? Was a procedure done?: No GI differential Dx Differential Diagnosis: GI hemorrhage, Inflammatory BD Other Differential Diagnosis #Enteritis due to ulcerative colitis. X-Ray, Labs, Meds, VS Vital Signs Date Time Temp Pulse Resp B/P (MAP) Pulse Ox O2 Delivery O2 Flow Rate FiO2 07/28/25 08:26 97.3 88 15 89/38 94 97.3 Lab Test 07/28/25 09:44 07/28/25 09:25 Range/Units Urine Color Yellow Yellow Urine Clarity Turbid H Clear Urine pH 6.0 5.0-9.0 Urine Specific [place] 1.017 1.001-1.035 Urine Protein Trace H Negative Urine Ketones Negative Negative Urine Blood Negative Negative /uL Urine Nitrite Negative Negative Urine Bilirubin Negative Negative Urine Urobilinogen Normal Negative mg/dL Urine Leukocyte Esterase 1+ Negative /uL Urine RBC 1 0 - 4 /hpf Urine Microscopic WBC 12 H 0-5 /HPF Urine Squamous Epithelial Cells Many <5 /hpf Urine Bacteria None seen None Seen /hpf Urine Yeast (Budding) Occasional None Seen /hpf Urine Glucose Normal Normal mg/dL White Blood Count 8.2 4.4-10.8 10^3/uL Red Blood Count 4.13 4.0-5.20 10^6/uL Hemoglobin 12.5 12.2-16.2 g/dL Hematocrit 35.7 L 36.0-46.0 % Mean Corpuscular Volume 86.4 80.0-100.0 fL Mean Corpuscular Hemoglobin 30.3 28.0-32.0 pg Mean Corpuscular Hemoglobin Concent 35.1 32.0-36.0 g/dL Red Cell Distribution Width 13.7 11.8-14.3 % Platelet Count 355 140-450 10^3/uL Mean Platelet Volume 7.1 6.9-10.8 fL Neutrophils (%) (Auto) 68.2 37.0-80.0 % Lymphocytes (%) (Auto) 18.9 10.0-50.0 % Monocytes (%) (Auto) 10.6 0.0-12.0 % Eosinophils (%) (Auto) 1.5 0.0-7.0 % Basophils (%) (Auto) 0.8 0.0-2.0 % Neutrophils # (Auto) 5.6 1.6-8.6 10 ^3/uL Lymphocytes # (Auto) 1.5 0.4-5.4 10 ^3/uL Monocytes # (Auto) 0.9 0-1.3 10 ^3/uL Eosinophils # (Auto) 0.1 0-0.8 10 ^3/uL Basophils # (Auto) 0.1 0-0.2 10 ^3/uL Nucleated Red Blood Cells 0.1 % Sodium Level 136 136-145 mmol/L Potassium Level 3.3 L 3.5-5.1 mmol/L Chloride Level 94 L 98-107 mmol/L Carbon Dioxide Level 30 20-31 mmol/L Anion Gap 12 5-15 Blood Urea Nitrogen 40 H 9-23 mg/dL Creatinine 3.37 H 0.550-1.02 mg/dL Glomerular Filtration Rate Calc 13 >90 mL/min BUN/Creatinine Ratio 11.9 10.0-20.0 Serum Glucose 90 74-106 mg/dL Calcium Level 10.0 8.7-10.4 mg/dL X-Ray, Labs, Meds, VS Comment 09:25 The patient has been reassessed. CBC: WBC: 8.2x10e3/uL, Hb 12.5mg/dl BMP: Crea:3.37, GFR: 13, K: 3.3mmol/l The patient will be admitted for further assessment and management. Time of 1ST Reevaluation: :25 Reevaluation 1ST: Unchanged Patient Education/Counseling: Diagnosis, Treatment, Prognosis, Need For Follow Up Family Education/Counseling: Diagnosis, Treatment, Prognosis, Need For Follow Up SEPSIS Sepsis Screen Date sepsis recognized/suspect: Jul 28, 2025 Time Sepsis recognized/suspect: 827 Recent Procedure: No On Antibiotic Therapy: No Respiratory Rate >20: No Heart Rate >90: No Temp<36 C (96.8 F) or >38.3 C: No SBP <90 or MAP <65 mmHG: Yes New Acute Mental Status Change: No Is the patient on CPAP, BIPAP,: No Physician Orders Chest Xray 1 View (07/28/25 08:54) Type And Screen (07/28/25 08:54) Blood Culture (07/28/25 08:54) * Gi Dvh Honey Producer (07/28/25 08:54) Sacrum And Coccyx (07/28/25 09:26) R Hip Complete Xray (07/28/25 09:26) L Hip Complete Xray (07/28/25 09:26) Ceftriaxone Ivpb Rocephin (07/28/25 10:15) Potassium Effervesent Tab (Klor-Con/Ef) (07/28/25 10:15) Vital Signs Date Time Temp Pulse Resp B/P (MAP) Pulse Ox O2 Delivery O2 Flow Rate FiO2 07/28/25 08:26 97.3 88 15 89/38 94 97.3 Laboratory Tests Test 07/28/25 09:25 White Blood Count 8.2 10^3/uL (4.4-10.8) Departure 1 Departure Time of Disposition: 09:21 Impression: Primary Impression: GIB (gastrointestinal bleeding) Additional Impressions: Ulcerative colitis Enteritis Disposition: ADMITTED INPATIENT Admit to: Med Surg Condition: Fair Comments Goals of care discussed with the patient > 35 min. Discussed plan of care with Dr. Singh Code status: Full code PCP: Deedee Plan discussed with: Patient, the patient agrees with the admission plan. Critical Care Note Critical Care Time?: No Stability Stability form required: No Heart Score Heart Score: Heart Score Response (Comments) Value History N/A 0 EKG N/A 0 Age N/A 0 Risk Factors N/A 0 Troponin N/A 0 Total 0 KAPIL MADDOX RESIDENT Jul 28, 2025 08:59
--- NOTE | 2025-07-28 09:32 | DVH ---
CHEST RADIOGRAPH Indication: Baseline Technique: Single frontal view of the chest was obtained COMPARISON: XY CHEST PORTABLE on DOS: 03/26/25, XY CHEST PORTABLE on DOS: 12/18/24 FINDINGS: Lines and Tubes: None Lungs: Clear Pleura: No effusion. No pneumothorax. Cardiomediastinal contours: Unremarkable Bones: Unremarkable IMPRESSION: No acute disease.
[2025-07-28 09:42] LABS: Hematocrit 35.7 % (36.0-46.0); Hemoglobin 12.5 g/dL (12.2-16.2); Mean Corpuscular Hemoglobin 30.3 pg (28.0-32.0); Mean Corpuscular Volume 86.4 fL (80.0-100.0); Nucleated Red Blood Cells % 0.1 %
[2025-07-28 09:55] LABS: Urine Budding Yeast OCCASIONAL /hpf (None Seen); Urine Protein, UAD TRACE (Negative)
[2025-07-28 09:57] LABS: Sodium 136 mmol/L (136-145)
[2025-07-28 09:58] LABS: Anion Gap 12 (5-15); Calcium 10.0 mg/dL (8.7-10.4); Carbon Dioxide 30 mmol/L (20-31)
[2025-07-28 09:59] LABS: Chloride 94 mmol/L (98-107); Potassium 3.3 mmol/L (3.5-5.1)
[2025-07-28 10:03] LABS: BUN/Creatinine Ratio 11.9 (10.0-20.0); Glucose 90 mg/dL (74-106)
[2025-07-28 10:10] LABS: Blood Urea Nitrogen 40 mg/dL (9-23)
[2025-07-28] MEDS ORDERED: POTASSIUM EFFERVESENT TAB 25 MEQ GT ONE (10:15)
--- NOTE | 2025-07-28 10:19 | DVH ---
PROCEDURE: Right hip radiographs. INDICATION: Mechanical fall TECHNIQUE: Frontal view of the pelvis and frontal and lateral views of the right hip were obtained. COMPARISON: None. FINDINGS: Surgical clips overlying the pelvis. There is no evidence of fracture or dislocation. Join t spaces are maintained. The soft tissues are unremarkable. IMPRESSION: 1. No fracture or
--- NOTE | 2025-07-28 10:27 | DVH ---
PROCEDURE: Left hip radiographs. INDICATION: Mechanical fall TECHNIQUE: 2 views of the left hip were obtained. COMPARISON: None. FINDINGS: There is no evidence of fracture or dislocation. There is Left hip joint space narrowing. The soft tissues are unremarkable. IMPRESSION: 1. No fracture or dislocation. 2. Left hip osteoarthritis.
--- NOTE | 2025-07-28 10:40 | DVH ---
INDICATION: Mechanical fall TECHNIQUE: 3 views of the sacrum/coccyx COMPARISON: None FINDINGS/IMPRESSION: Vascular calcifications of the aorta. Diffuse osteopenia. Degenerative disc space narrowing at L5-S1. Subtle cortical irregularity at the mid coccyx. This may represent an age indeterminate minimally di splaced fracture versus normal variant. Clinical correlation advised. This is best seen on lateral view.
[2025-07-28] MEDS ORDERED: ONDANSETRON HCL 4 MG/2 ML VIAL IV PRN (10:45)
[2025-07-28] MEDS ORDERED: ACETAMINOPHEN 325 MG TAB PO PRN (10:45)
[2025-07-28] MEDS ORDERED: HYDROcodone-ACET 5/325MG TAB PO PRN (10:45)
--- NOTE | 2025-07-28 10:46 | DVHHP2 ---
History of Present Illness Reason for Visit: Hematochezia History of Present Illness Kassy Barlow is a 71-year-old female with past medical history of hernia, EGD, dementia, ulcerative colitis, gastritis, anemia, ESRD, colectomy, colostomy, GERD and ileostomy who presents to the ED with blood coming out from his ileostomy bag that is bright red in color, also complaining of weakness and fatigue x1 week. Patient's daughter Elizabeth at the chair side. Patient has right lower quadrant ileostomy seen with bright red blood coming out of the stoma. She also reports that her mom has not been eating for a few days. Patient also reports had she fell 5 days ago and reports discomfort in her buttocks. Patient is seen on a wheelchair upon examination. Patient reports that she was trying to get up from the couch and fell down and fell on her buttocks. Patient's daughter also reports that she has a history of chronic kidney disease but has been trying to delay any need for dialysis. Patient reports that she lives in the back house with her . Patient's daughter states that when s he tries to ambulate her dad needs to hold her mom. Daughter reports that she does not use any DMEs. Patient's daughter reported that the patient had an EGD back in December of this year and has a another 1 set for September of this year. Patient denies any recent sick contacts, recent travels, recent ingestion of spoiled food, chest pain, shortness of breath, fever, chills, dizziness, lightheadedness, abdominal pain, nausea, vomiting, or diarrhea. GI: GERD, Gastritis Heme/Onc: Anemia NOS Renal/: Chronic renal failure Past Medical History Dementia Ulcerative colitis Hernia Past Surgical History: Other (EGD, Colectomy and colostomy) Family History: Cancer, DM, Other (Dad with lung cancer and mom with diabetes.) Smoke: No ALCOHOL: none Drugs: None Lives: with Family Domestic Violence: Neg Review of Systems Gastrointestinal: Hematochezia Allergies: Coded Allergies: NO KNOWN ALLERGIES (Unverified , 12/18/24) Exam Vital Signs Vital Signs Date Time Temp Pulse Resp B/P (MAP) Pulse Ox O2 Delivery O2 Flow Rate FiO2 07/28/25 08:26 97.3 88 15 89/38 94 97.3 General Appearance: Alert, Oriented X3, Cooperative, No acute distress HEENT: Atraumatic, PERRLA, EOMI, Mucous membr. moist/pink Respiratory: Clear to auscultation, Normal air movement Cardiovascular: Regular rate, Normal S1, Normal S2 Abdominal: Normal bowel sounds, Soft Extremities: No clubbing, No cyanosis Neuro: Normal speech, Normal tone, Sensation intact Psych/Mental Status: Mental status NL, Mood NL Labs/Xrays Labs Test 07/28/25 09:44 07/28/25 09:25 Range/Units Urine Color Yellow Yellow Urine Clarity Turbid H Clear Urine pH 6.0 5.0-9.0 Urine Specific [place] 1.017 1.001-1.035 Urine Protein Trace H Negative Urine Ketones Negative Negative Urine Blood Negative Negative /uL Urine Nitrite Negative Negative Urine Bilirubin Negative Negative Urine Urobilinogen Normal Negative mg/dL Urine Leukocyte Esterase 1+ Negative /uL Urine RBC 1 0 - 4 /hpf Urine Microscopic WBC 12 H 0-5 /HPF Urine Squamous Epithelial Cells Many <5 /hpf Urine Bacteria None seen None Seen /hpf Urine Yeast (Budding) Occasional None Seen /hpf Urine Glucose Normal Normal mg/dL White Blood Count 8.2 4.4-10.8 10^3/uL Red Blood Count 4.13 4.0-5.20 10^6/uL Hemoglobin 12.5 12.2-16.2 g/dL Hematocrit 35.7 L 36.0-46.0 % Mean Corpuscular Volume 86.4 80.0-100.0 fL Mean Corpuscular Hemoglobin 30.3 28.0-32.0 pg Mean Corpuscular Hemoglobin Concent 35.1 32.0-36.0 g/dL Red Cell Distribution Width 13.7 11.8-14.3 % Platelet Count 355 140-450 10^3/uL Mean Platelet Volume 7.1 6.9-10.8 fL Neutrophils (%) (Auto) 68.2 37.0-80.0 % Lymphocytes (%) (Auto) 18.9 10.0-50.0 % Monocytes (%) (Auto) 10.6 0.0-12.0 % Eosinophils (%) (Auto) 1.5 0.0-7.0 % Basophils (%) (Auto) 0.8 0.0-2.0 % Neutrophils # (Auto) 5.6 1.6-8.6 10 ^3/uL Lymphocytes # (Auto) 1.5 0.4-5.4 10 ^3/uL Monocytes # (Auto) 0.9 0-1.3 10 ^3/uL Eosinophils # (Auto) 0.1 0-0.8 10 ^3/uL Basophils # (Auto) 0.1 0-0.2 10 ^3/uL Nucleated Red Blood Cells 0.1 % Sodium Level 136 136-145 mmol/L Potassium Level 3.3 L 3.5-5.1 mmol/L Chloride Level 94 L 98-107 mmol/L Carbon Dioxide Level 30 20-31 mmol/L Anion Gap 12 5-15 Blood Urea Nitrogen 40 H 9-23 mg/dL Creatinine 3.37 H 0.550-1.02 mg/dL Glomerular Filtration Rate Calc 13 >90 mL/min BUN/Creatinine Ratio 11.9 10.0-20.0 Serum Glucose 90 74-106 mg/dL Calcium Level 10.0 8.7-10.4 mg/dL PROCEDURE: Left hip radiographs. INDICATION: Mechanical fall TECHNIQUE: 2 views of the left hip were obtained. COMPARISON: None. FINDINGS: There is no evidence of fracture or dislocation. There is Left hip joint space narrowing. The soft tissues are unremarkable. IMPRESSION: 1. No fracture or dislocation. 2. Left hip osteoarthritis. PROCEDURE: Right hip radiographs. INDICATION: Mechanical fall TECHNIQUE: Frontal view of the pelvis and frontal and lateral views of the right hip were obtained. COMPARISON: None. FINDINGS: Surgical clips overlying the pelvis. There is no evidence of fracture or dislocation. Joint spaces are maintained. The soft tissues are unremarkable. IMPRESSION: 1. No fracture or CHEST RADIOGRAPH Indication: Baseline Technique: Single frontal view of the chest was obtained COMPARISON: XY CHEST PORTABLE on DOS: 03/26/25, XY CHEST PORTABLE on DOS: 12/18/24 FINDINGS: Lines and Tubes: None Lungs: Clear Pleura: No effusion. No pneumothorax. Cardiomediastinal contours: Unremarkable Bones: Unremarkable IMPRESSION: No acute disease. SEPSIS Sepsis Screen Date sepsis recognized/suspect: Jul 28, 2025 Time Sepsis recognized/suspect: 827 Recent Procedure: No On Antibiotic Therapy: No Respiratory Rate >20: No Heart Rate >90: No Temp<36 C (96.8 F) or >38.3 C: No SBP <90 or MAP <65 mmHG: Yes New Acute Mental Status Change: No Is the patient on CPAP, BIPAP,: No Physician Orders Chest Xray 1 View (07/28/25 08:54) Type And Screen (07/28/25 08:54) Blood Culture (07/28/25 08:54) * Gi Dvh Vocational Trainer (07/28/25 08:54) Sacrum And Coccyx (07/28/25 09:26) R Hip Complete Xray (07/28/25 09:26) L Hip Complete Xray (07/28/25 09:26) Ceftriaxone 1gm/50ml (Rocephin) (07/28/25 10:15) Potassium Effervesent Tab (Klor-Con/Ef) (07/28/25 10:15) Vital Signs Date Time Temp Pulse Resp B/P (MAP) Pulse Ox O2 Delivery O2 Flow Rate FiO2 07/28/25 08:26 97.3 88 15 89/38 94 97.3 Laboratory Tests Test 07/28/25 09:25 White Blood Count 8.2 10^3/uL (4.4-10.8) Assessment/Plan Assessment/Plan Assessment Hematochezia rule out GI bleed Status post mechanical fall ruled out fracture Hypokalemia UTI ? Dehydration Severe protein malnutrition History of anemia History of dementia History of end-stage renal disease History of ulcerative colitis History of colectomy status post ileostomy Plan Admit to med surge Antiemetics Pain management Replete lytes IV antibiotics-ceftriaxone Type and screen NS 1 L given in ED UA Urine culture Gentle IV fluids Home medications reconciled DVT prophylaxis-hold blood thinners PUD prophylaxis-PPIs Discussed plan of care with patient, patient's daughter, and nurse Dietary consult GI consulted by ED Nephro consult [id number] Preventive counseling healthy eating habits, physical activity, and regular checkups Plan discussed with: Patient Date of Service: Jul 28, 2025 Billing Provider: BELLA MARSH Common Visit Codes: [id number] INP/OBS CARE (HIGH) Secondary Visit Codes: [id number] COUNSELING IND BELLA MARSH Jul 28, 2025 10:46
[2025-07-28] MEDS: SODIUM CHLORIDE 0.9% 1,000 ML IV SCH (12:00)
[2025-07-28 12:41] LABS: Protein, Urine 30.3 mg/dL (1-14)
[2025-07-28 13:12] LABS: Magnesium 2.4 mg/dL (1.6-2.6)
--- NOTE | 2025-07-28 13:27 | DVHINCON2 ---
GI Consult Consult Note GI consult note Date of Consultation: 07/28/2025 Chief Complaint: GI bleed/colostomy bag/ulcerative colitis Referring Physician: Dr. Brown H&P: 71-year-old female seen in ER [facility] with complains of red blood in ileostomy bag. History mostly from daughter. No abdominal pain. No nausea or vomiting. Patient has been complaining of increased weakness and fatigue for the last two days DATE OF OPERATION: 12/23/24 PROCEDURE: Upper Endoscopy with biopsy. PREOPERATIVE INDICATION: The patient is a 79 -year-old female undergoing endoscopy for GI bleed POSTOPERATIVE DIAGNOSES: 1. Patient had a 1.5-2 cm duodenal bulb ulcer with surrounding duodenitis but no evidence of active bleeding or visible vessel at this time Jose classification C; this was the likely source of the acute GI bleeding 2. Mild gastritis with multiple pre-pyloric antral gastric erosions and tiny ulcers 3. 2 cm sliding-type hiatal hernia with a slightly irregular squamocolumnar junction and a slight esophageal stricture that was auto dilated with the endoscope 4. Otherwise normal examination up to the 2nd and 3rd part of the duodenal with no fresh or old blood and no active bleeding at this time PROCEDURE PERFORMED BY: Lamar Perez Past Medical History: GI: GERD, Gastritis Heme/Onc: Anemia NOS Renal/: Chronic renal failure Dementia Ulcerative colitis Past Surgical History: Colectomy and colostomy bag Social History: NO smoking, drinking ETOH and use of illegal drugs. Family History: Noncontributory Review of Systems: Constitutional: no fever, chill, weight loss HEENT: no eye pain, no hearing loss, no oral lesion, no scleral icterus Heart: no chest pain, no chest pressure Lung: no cough, no dyspnea with exertion Abdomen: see HPI Physical exam: General: NAD, AAOX3 Chest: lung lundberg clear to auscultation Heart: RRR, no murmur Abdomen: non-distended, no tenderness to palpation, +BS, ileostomy bag in place Labs: Labs Test 07/28/25 09:47 07/28/25 09:44 07/28/25 09:25 Range/Units Urine Creatinine 238.00 H 30.0-125.0 mg/dL Urine Protein/Creatinine Ratio 0.13 Urine Sodium < 10 L 40-220 mmol/L Urine Total Protein 30.3 H 1-14 mg/dL Urine Color Yellow Yellow Urine Clarity Turbid H Clear Urine pH 6.0 5.0-9.0 Urine Specific [place] 1.017 1.001-1.035 Urine Protein Trace H Negative Urine Ketones Negative Negative Urine Blood Negative Negative /uL Urine Nitrite Negative Negative Urine Bilirubin Negative Negative Urine Urobilinogen Normal Negative mg/dL Urine Leukocyte Esterase 1+ Negative /uL Urine RBC 1 0 - 4 /hpf Urine Microscopic WBC 12 H 0-5 /HPF Urine Squamous Epithelial Cells Many <5 /hpf Urine Bacteria None seen None Seen /hpf Urine Yeast (Budding) Occasional None Seen /hpf Urine Glucose Normal Normal mg/dL White Blood Count 8.2 4.4-10.8 10^3/uL Red Blood Count 4.13 4.0-5.20 10^6/uL Hemoglobin 12.5 12.2-16.2 g/dL Hematocrit 35.7 L 36.0-46.0 % Mean Corpuscular Volume 86.4 80.0-100.0 fL Mean Corpuscular Hemoglobin 30.3 28.0-32.0 pg Mean Corpuscular Hemoglobin Concent 35.1 32.0-36.0 g/dL Red Cell Distribution Width 13.7 11.8-14.3 % Platelet Count 355 140-450 10^3/uL Mean Platelet Volume 7.1 6.9-10.8 fL Neutrophils (%) (Auto) 68.2 37.0-80.0 % Lymphocytes (%) (Auto) 18.9 10.0-50.0 % Monocytes (%) (Auto) 10.6 0.0-12.0 % Eosinophils (%) (Auto) 1.5 0.0-7.0 % Basophils (%) (Auto) 0.8 0.0-2.0 % Neutrophils # (Auto) 5.6 1.6-8.6 10 ^3/uL Lymphocytes # (Auto) 1.5 0.4-5.4 10 ^3/uL Monocytes # (Auto) 0.9 0-1.3 10 ^3/uL Eosinophils # (Auto) 0.1 0-0.8 10 ^3/uL Basophils # (Auto) 0.1 0-0.2 10 ^3/uL Nucleated Red Blood Cells 0.1 % Sodium Level 136 136-145 mmol/L Potassium Level 3.3 L 3.5-5.1 mmol/L Chloride Level 94 L 98-107 mmol/L Carbon Dioxide Level 30 20-31 mmol/L Anion Gap 12 5-15 Blood Urea Nitrogen 40 H 9-23 mg/dL Creatinine 3.37 H 0.550-1.02 mg/dL Glomerular Filtration Rate Calc 13 >90 mL/min BUN/Creatinine Ratio 11.9 10.0-20.0 Serum Glucose 90 74-106 mg/dL Calcium Level 10.0 8.7-10.4 mg/dL Phosphorus Level 4.8 2.4-5.1 mg/dL Magnesium Level 2.4 1.6-2.6 mg/dL Imaging: Assessment: GI bleed History of colectomy with ileostomy bag History of ulcerative colitis History of anemia History of dementia Plan: Discussed with Dr. Perez Protonix and Zofran Diet as tolerated Monitor labs Possible plan if symptoms persist for EGD in the next 24-48 hours We will continue to monitor patient - Date of Service: Jul 28, 2025 Billing Provider: ARTEM SUAREZ Common Visit Codes: CONSULT ONLY Consultation Codes: [id number] CONSULT <35MIN, [id number] CONSULT <60MIN ARTEM SUAREZ Jul 28, 2025 13:27
[2025-07-28] MEDS: SODIUM CHLORIDE 0.9% 500 ML IV ONE (14:15)
[2025-07-28] MEDS: SODIUM CHLORIDE 0.9% 1,000 ML IV ONE (14:24)
[2025-07-28] MEDS: POTASSIUM EFFERVESENT TAB 25 MEQ PO ONE (14:25)
[2025-07-28] MEDS ORDERED: SODIUM CHLORIDE 0.9% 1,000 ML IV SCH (15:45)
--- NOTE | 2025-07-28 16:13 | DVHCONRES ---
Date Seen: Jul 28, 2025 Resident Creating Document: LILLIAN ABREU RESIDENT Referring Physician KEENA Avalos Reason for Consultation CKD History of Present Illness This is a 71-year-old female with past medical history of dementia, ulcerative colitis, gastritis, chronic anemia, CKD, status post ileostomy presented to the ED with a chief complaint of blood coming out from ileostomy bag which is red and dark in color for last 1 week prior to this visit. she is also complaining of generalized weakness and fatigue for the same duration. Patient was seen and examined on the bedside. she is alert oriented x3. complaint of dry mouth, generalized weakness and fatigue. no other active complaint Past Medical History Dementia, ulcerative colitis, gastritis, chronic anemia, CKD Past Surgical History status post ileostomy Family History: Colon cancer G8 FATHER Diabetes mellitus G8 MOTHER Allergies: Coded Allergies: NO KNOWN ALLERGIES (Unverified , 12/18/24) Home Meds Reported Medications Sodium Bicarbonate (Sodium Bicarbonate) 650 Mg Tab, 650 MG PO TID, TAB 07/28/25 Fluticasone Propionate (Nasal) (Fluticasone Propionate) 50 Mcg/Act Spr, 1 SPRAY LEEANN DAILY for 60 Days, #16 03/30/25 Midodrine HCl (Midodrine Hydrochloride) 10 Mg Tab, 1 TAB PO TID for 30 Days, #90 03/30/25 Pantoprazole Sodium Sesquihydr (Pantoprazole Sodium Dr) 40 Mg Tab, 1 TAB PO BID for 30 Days, #60 03/30/25 Megestrol Acetate (Megace) 20 Mg Tb, 1 TAB PO BID for 20 Days, #40 03/30/25 Calcium W/ Vitamins D & K (Calcium + D + K) 750 Mg Tab, 650 MG OR DAILY, TAB 12/22/24 Memantine Hydrochloride (Memantine HCl) 10 Mg Tab, 1 TAB PO BID for 90 Days, #180 12/22/24 Donepezil Hydrochloride (DONEPEZIL HCL) 10 Mg Tab, 1 TAB PO DAILY for 90 Days, #90 12/22/24 Quetiapine Fumerate (Seroquel) 50 Mg Tab, 1 TAB PO QPM, #30 TAB 2 Refills 12/22/24 Simvastatin (Simvastatin) 40 Mg Tab, 1 TAB PO QPM for 90 Days, #90 12/22/24 Ibandronate Sodium (IBANDRONATE SODIUM) 150 Mg Tab, 150 MG PO ONCE, TAB 12/22/24 Discontinued Reported Medications Sodium Bicarbonate (Sodium Bicarbonate) 650 Mg Tab, 1 TAB PO BID for 30 Days, #60 03/30/25 Folic Acid (Folic Acid) 1 Mg Tab, 1 MG PO DAILY, TAB 12/22/24 Fenofibrate (Fenofibrate) 54 Mg Tab, 1 TAB PO DAILY for 90 Days, #90 12/22/24 Current Medications Current Medications Medications (Trade) Dose Ordered Sig/Socrates Route PRN Reason Start Time Stop Time Status Last Admin Ceftriaxone Sodium 50 ml @ 100 mls/hr DAILY@09 IV 07/29/25 09:00 Acetaminophen/ Hydrocodone Bitart ([place] 5/325MG Tab) 1 tab Q4HP PRN PO MODERATE PAIN (4-6 PAIN SCALE) 07/28/25 10:45 Ondansetron HCl (Zofran) 4 mg Q4HP PRN IV NAUSEA / VOMITING 07/28/25 10:45 Acetaminophen (Tylenol Tablet) 650 mg Q6HP PRN PO PAIN SCALE 1-3 OR TEMP>100.4 07/28/25 10:45 Pantoprazole Sodium (Protonix) 40 mg BID IV 07/28/25 22:00 Sodium Chloride 1,000 ml @ 75 mls/hr [id number] IV 07/28/25 12:00 Sodium Chloride 1,000 ml @ 60 mls/hr [id number] IV 07/28/25 15:45 UNV Review of Systems Constitutional: Weakness, No: Fever, Chills, Sweats, Malaise, Other Eyes: No: Pain, Vision change, Conjunctivae inflammation, Eyelid inflammation, Other, Redness ENT: No: Ear pain, Ear discharge, Nose pain, Nose discharge, Nose congestion, Mouth pain, Mouth swelling, Throat pain, Throat swelling, Other Respiratory: Shortness of breath, improving No: Cough, Dry,Wheezing, Hemoptysis, Pleuritic Pain, Sputum, Wheezing, Other Cardiovascular: No: Chest Pain, Palpitations, Orthopnea, Paroxysmal Noc. Dyspnea, Edema, Lt Headedness, Other Gastrointestinal: No: Nausea, Vomiting, Abdominal Pain, Diarrhea, Constipation, Melena, Hematochezia, Other Musculoskeletal: No: other, neck pain, shoulder pain, arm pain, back pain, hand pain, leg pain, foot pain Neurological:; No: Weakness, Numbness, Incoordination, Change in speech, Confusion, Seizures Vital Signs Vital Signs Date Time Temp Pulse Resp B/P (MAP) Pulse Ox O2 Delivery O2 Flow Rate FiO2 07/28/25 10:33 86 18 95 Room Air 07/28/25 10:33 97/54 (68) 07/28/25 08:26 97.3 97.3 Physical Exam Physical examination: General Appearance: Alert, Oriented X3, Cooperative, No acute distress HEENT: Atraumatic, PERRLA, EOMI, Mucous membrane dry. Respiratory: Clear to auscultation, Normal air movement Cardiovascular: Regular rate, Normal S1, Normal S2, No murmurs, no chest wall tenderness Abdominal: Normal bowel sounds, Soft, No tenderness, No hepatospenomegaly, No masses Extremities: No clubbing, No cyanosis, No edema, Normal pulses, No tenderness/swelling Skin: No rashes, No breakdown, No significant lesion Neuro: Normal speech, Strength at 5/5 X4 ext, Normal tone, Sensation intact, Cranial nerves 3-12 NL, Reflexes 2+ Psych/Mental Status: Mental status NL, Mood NL Labs/Diagnostic Data Labs Test 07/28/25 09:47 07/28/25 09:44 07/28/25 09:25 Range/Units Urine Creatinine 238.00 H 30.0-125.0 mg/dL Urine Protein/Creatinine Ratio 0.13 Urine Sodium < 10 L 40-220 mmol/L Urine Total Protein 30.3 H 1-14 mg/dL Urine Color Yellow Yellow Urine Clarity Turbid H Clear Urine pH 6.0 5.0-9.0 Urine Specific [place] 1.017 1.001-1.035 Urine Protein Trace H Negative Urine Ketones Negative Negative Urine Blood Negative Negative /uL Urine Nitrite Negative Negative Urine Bilirubin Negative Negative Urine Urobilinogen Normal Negative mg/dL Urine Leukocyte Esterase 1+ Negative /uL Urine RBC 1 0 - 4 /hpf Urine Microscopic WBC 12 H 0-5 /HPF Urine Squamous Epithelial Cells Many <5 /hpf Urine Bacteria None seen None Seen /hpf Urine Yeast (Budding) Occasional None Seen /hpf Urine Glucose Normal Normal mg/dL White Blood Count 8.2 4.4-10.8 10^3/uL Red Blood Count 4.13 4.0-5.20 10^6/uL Hemoglobin 12.5 12.2-16.2 g/dL Hematocrit 35.7 L 36.0-46.0 % Mean Corpuscular Volume 86.4 80.0-100.0 fL Mean Corpuscular Hemoglobin 30.3 28.0-32.0 pg Mean Corpuscular Hemoglobin Concent 35.1 32.0-36.0 g/dL Red Cell Distribution Width 13.7 11.8-14.3 % Platelet Count 355 140-450 10^3/uL Mean Platelet Volume 7.1 6.9-10.8 fL Neutrophils (%) (Auto) 68.2 37.0-80.0 % Lymphocytes (%) (Auto) 18.9 10.0-50.0 % Monocytes (%) (Auto) 10.6 0.0-12.0 % Eosinophils (%) (Auto) 1.5 0.0-7.0 % Basophils (%) (Auto) 0.8 0.0-2.0 % Neutrophils # (Auto) 5.6 1.6-8.6 10 ^3/uL Lymphocytes # (Auto) 1.5 0.4-5.4 10 ^3/uL Monocytes # (Auto) 0.9 0-1.3 10 ^3/uL Eosinophils # (Auto) 0.1 0-0.8 10 ^3/uL Basophils # (Auto) 0.1 0-0.2 10 ^3/uL Nucleated Red Blood Cells 0.1 % Sodium Level 136 136-145 mmol/L Potassium Level 3.3 L 3.5-5.1 mmol/L Chloride Level 94 L 98-107 mmol/L Carbon Dioxide Level 30 20-31 mmol/L Anion Gap 12 5-15 Blood Urea Nitrogen 40 H 9-23 mg/dL Creatinine 3.37 H 0.550-1.02 mg/dL Glomerular Filtration Rate Calc 13 >90 mL/min BUN/Creatinine Ratio 11.9 10.0-20.0 Serum Glucose 90 74-106 mg/dL Calcium Level 10.0 8.7-10.4 mg/dL Phosphorus Level 4.8 2.4-5.1 mg/dL Magnesium Level 2.4 1.6-2.6 mg/dL Parathyroid Hormone (Intact) 138.0 H 18.4-80.1 pg/mL Assessment Assessment and plan: # SANCHEZ superimposed on CKD likely secondary to prerenal /hypotension # Hypokalemia # possible secondary hyperparathyroidism # Acute complicated cystitis Plan: - kidney ultrasound on 04/07 demonstrated bilateral renal cyst - FENA is 0.1% - IV NS 500 bolus followed by IV normal saline at 75 mL/hours - Replaced potassium - Ordered urine bacterial culture - Continue IV antibiotic and other management as per primary - monitor H&H - strict I&O - avoid nephrotoxic medication - monitor BMP Thank you so much for the opportunity to consult on your patient. Nephro team will follow the patient. In case of any questions or concerns please feel free to reach out. Plan discussed with . The patient and caregiver team agreed to the plan. Addendum Patient seen and examined, plan discussed with resident. Agree with above, we will follow closely Plan discussed with: Patient, Daughter, Other (RN) LILLIAN ABREU RESIDENT Jul 28, 2025 16:13 DANUTA MAGANA MD Jul 29, 2025 21:49
[2025-07-28 16:54] VITALS: PULSE 71; RESP 20; O2SAT 96
[2025-07-28 17:27] VITALS: BP 113/51; PULSE 68; PULSE 90; RESP 16; RESP 20; TEMP 97.5; O2SAT 93; O2SAT 95
[2025-07-28] MEDS ORDERED: SODI650T PO (17:50)
[2025-07-28 20:00] VITALS: PULSE 89; RESP 14; O2SAT 95
[2025-07-28 21:00] VITALS: BP 113/45; PULSE 89; RESP 14; TEMP 98.5; O2SAT 95
[2025-07-28] MEDS: PANTOPRAZOLE 40 MG/10 ML VIAL INJ IV SCH (23:21)
[2025-07-29] VITALS (7 sets, daily range): BP systolic 98–119; BP diastolic 45–56; PULSE 78–91; RESP 16–18; TEMP 97.8–98.3; O2SAT 94–96
[2025-07-29 06:42] LABS: Hematocrit 31.0 % (36.0-46.0); Hemoglobin 10.6 g/dL (12.2-16.2); Mean Corpuscular Hemoglobin 30.1 pg (28.0-32.0); Mean Corpuscular Volume 87.8 fL (80.0-100.0); Nucleated Red Blood Cells % 0.0 %
[2025-07-29 07:02] LABS: Alkaline Phosphatase 56 U/L (46-116); Anion Gap 11 (5-15); BUN/Creatinine Ratio 13.1 (10.0-20.0); Calcium 9.1 mg/dL (8.7-10.4); Carbon Dioxide 27 mmol/L (20-31); Chloride 100 mmol/L (98-107); Glucose 86 mg/dL (74-106); Potassium 3.6 mmol/L (3.5-5.1); Sodium 138 mmol/L (136-145)
[2025-07-29 07:03] LABS: Total Protein 6.7 g/dL (5.7-8.2)
[2025-07-29 07:04] LABS: Albumin 4.1 g/dL (3.2-4.8); Bilirubin, Total 0.7 mg/dL (0.2-1.0)
[2025-07-29 07:05] LABS: Alanine Aminotransferase < 9 U/L (7-40); Blood Urea Nitrogen 44 mg/dL (9-23)
--- NOTE | 2025-07-29 14:40 | DVHPN2 ---
Subjective No new bleeding noted in ileostomy bag Patient is resting comfortably Changes from previous H/P or p: No Changes Gastrointestinal: Hematochezia Objective Vitals Vital Signs Date Time Temp Pulse Resp B/P (MAP) Pulse Ox O2 Delivery O2 Flow Rate FiO2 07/29/25 13:00 98.2 88 18 98/51 (67) 95 98.2 07/29/25 08:00 Room Air* 0 21 Intake/Output Intake and Output 07/29/25 07:00 Output Total 400 ml Balance -400 ml Output Stool Total 400 ml Exam General: NAD, AAO Chest: lung lundberg clear to auscultation Heart: RRR, no murmur Abdomen: non-distended, no tenderness to palpation, +BS, ileostomy bag in place Medications Current Medications Medications Dose Ordered Sig/Socrates Route Start Time Stop Time Status Last Admin Dose Admin Ceftriaxone Sodium 50 ml @ 100 mls/hr DAILY@09 IV 07/29/25 09:00 07/29/25 10:50 100 MLS/HR Acetaminophen/ Hydrocodone Bitart 1 tab Q4HP PRN PO 07/28/25 10:45 Ondansetron HCl 4 mg Q4HP PRN IV 07/28/25 10:45 Acetaminophen 650 mg Q6HP PRN PO 07/28/25 10:45 Pantoprazole Sodium 40 mg BID IV 07/28/25 22:00 07/29/25 10:50 40 MG Sodium Chloride 1,000 ml @ 75 mls/hr [id number] IV 07/28/25 12:00 07/29/25 01:20 75 MLS/HR Laboratory Results Laboratory Tests 07/29/25 05:49 Chemistry Test 07/29/25 05:49 Albumin 4.1 g/dL (3.2-4.8) Calcium Level 9.1 mg/dL (8.7-10.4) Total Protein 6.7 g/dL (5.7-8.2) LFT Test 07/29/25 05:49 Alanine Aminotransferase (ALT) < 9 U/L (7-40) Alkaline Phosphatase 56 U/L (46-116) Aspartate Amino Transferase (AST) 18 U/L (13-40) Total Bilirubin 0.7 mg/dL (0.2-1.0) Urinalysis Test 07/28/25 09:44 07/28/25 09:47 Urine Color Yellow (Yellow) Urine Clarity Turbid (Clear) H Urine pH 6.0 (5.0-9.0) Urine Specific [place] 1.017 (1.001-1.035) Urine Protein Trace (Negative) H Urine Ketones Negative (Negative) Urine Blood Negative /uL (Negative) Urine Nitrite Negative (Negative) Urine Bilirubin Negative (Negative) Urine Urobilinogen Normal mg/dL (Negative) Urine Leukocyte Esterase 1+ /uL (Negative) Urine RBC 1 /hpf (0 - 4) Urine Microscopic WBC 12 /HPF (0-5) H Urine Squamous Epithelial Cells Many /hpf (<5) Urine Bacteria None seen /hpf (None Seen) Urine Yeast (Budding) Occasional /hpf (None Urine Glucose Normal mg/dL (Normal) Urine Creatinine 238.00 mg/dL (30.0-125.0) H Urine Protein/Creatinine Ratio 0.13 Urine Sodium < 10 mmol/L (40-220) L Urine Total Protein 30.3 mg/dL (1-14) H Microbiology Microbiology Date/Time Source Procedure Growth Status 07/28/25 09:47 Voided Urine Urine Culture - Preliminary Resulted 07/28/25 09:25 Blood Blood Culture - Preliminary NO GROWTH AFTER 24 HOURS OF INCUBATION. Resulted Assessment/Plan Assessment/Plan GI bleed History of colectomy with ileostomy bag History of ulcerative colitis History of anemia History of dementia Plan: Discussed with Dr. Perez Scheduled for EGD with possible biopsy tomorrow 07/30/2025. Discussed risks and benefits of procedure and sedation extensively with and patient Patient and both consent for the procedure Plan discussed with: Patient, Spouse, Other (RN) Date of Service: Jul 29, 2025 Billing Provider: ARTEM SUAREZ Common Visit Codes: [id number] INP/OBS CARE(HIGH) ARTEM SUAREZ Jul 29, 2025 14:40
--- NOTE | 2025-07-29 14:41 | DVHPN2 ---
Reviewed: Care Plan, H&P, Labs, Medications, Previous Orders, Radiology Changes from previous H/P or p: No Changes Gastrointestinal: Hematochezia Objective Vitals Vital Signs Date Time Temp Pulse Resp B/P (MAP) Pulse Ox O2 Delivery O2 Flow Rate FiO2 07/29/25 13:00 98.2 88 18 98/51 (67) 95 98.2 07/29/25 08:00 Room Air* 0 21 Intake/Output Intake and Output 07/29/25 07:00 Output Total 400 ml Balance -400 ml Output Stool Total 400 ml Medications Current Medications Medications Dose Ordered Sig/Socrates Route Start Time Stop Time Status Last Admin Dose Admin Ceftriaxone Sodium 50 ml @ 100 mls/hr DAILY@09 IV 07/29/25 09:00 07/29/25 10:50 100 MLS/HR Acetaminophen/ Hydrocodone Bitart 1 tab Q4HP PRN PO 07/28/25 10:45 Ondansetron HCl 4 mg Q4HP PRN IV 07/28/25 10:45 Acetaminophen 650 mg Q6HP PRN PO 07/28/25 10:45 Pantoprazole Sodium 40 mg BID IV 07/28/25 22:00 07/29/25 10:50 40 MG Sodium Chloride 1,000 ml @ 75 mls/hr [id number] IV 07/28/25 12:00 07/29/25 01:20 75 MLS/HR Laboratory Results Laboratory Tests 07/29/25 05:49 Chemistry Test 07/29/25 05:49 Albumin 4.1 g/dL (3.2-4.8) Calcium Level 9.1 mg/dL (8.7-10.4) Total Protein 6.7 g/dL (5.7-8.2) LFT Test 07/29/25 05:49 Alanine Aminotransferase (ALT) < 9 U/L (7-40) Alkaline Phosphatase 56 U/L (46-116) Aspartate Amino Transferase (AST) 18 U/L (13-40) Total Bilirubin 0.7 mg/dL (0.2-1.0) Urinalysis Test 07/28/25 09:44 07/28/25 09:47 Urine Color Yellow (Yellow) Urine Clarity Turbid (Clear) H Urine pH 6.0 (5.0-9.0) Urine Specific [place] 1.017 (1.001-1.035) Urine Protein Trace (Negative) H Urine Ketones Negative (Negative) Urine Blood Negative /uL (Negative) Urine Nitrite Negative (Negative) Urine Bilirubin Negative (Negative) Urine Urobilinogen Normal mg/dL (Negative) Urine Leukocyte Esterase 1+ /uL (Negative) Urine RBC 1 /hpf (0 - 4) Urine Microscopic WBC 12 /HPF (0-5) H Urine Squamous Epithelial Cells Many /hpf (<5) Urine Bacteria None seen /hpf (None Seen) Urine Yeast (Budding) Occasional /hpf (None Urine Glucose Normal mg/dL (Normal) Urine Creatinine 238.00 mg/dL (30.0-125.0) H Urine Protein/Creatinine Ratio 0.13 Urine Sodium < 10 mmol/L (40-220) L Urine Total Protein 30.3 mg/dL (1-14) H Microbiology Microbiology Date/Time Source Procedure Growth Status 07/28/25 09:47 Voided Urine Urine Culture - Preliminary Resulted 07/28/25 09:25 Blood Blood Culture - Preliminary NO GROWTH AFTER 24 HOURS OF INCUBATION. Resulted Labs and/or images reviewed: Labs reviewed by me, Image(s) reviewed by me Assessment/Plan Assessment/Plan # SANCHEZ superimposed on CKD likely secondary to prerenal /hypotension: Consult for Dr. Beckham # bleeding through colostomy: Dr. Zoila Perez planning for EGD tomorrow # Hypokalemia # possible secondary hyperparathyroidism # Acute complicated cystitis Rocephin Time Spent 50 minutes Advanced care planning time 20 minutes Patient is full code Plan discussed with: Patient Date of Service: Jul 29, 2025 Billing Provider: KHOI SUAREZ MD Common Visit Codes: [id number] INP/OBS CARE(HIGH) Secondary Visit Codes: [id number] CARE PLAN 30 MINUTES KHOI SUAREZ MD Jul 29, 2025 14:41
[2025-07-29 15:50] LABS: INR 1.03 (0.9-1.15); Prothrombin Time 10.9 sec (9.3-11.8)
--- NOTE | 2025-07-29 17:34 | DVHPN2 ---
Progress Note Date Seen: Jul 29, 2025 Resident Creating Document: LILLIAN ABREU RESIDENT Medical Necessity Reason Pt with a Central, PICC or Fol: No Subjective Review of Systems Patient was seen and examined on the bedside. she is alert oriented x2. Mentioned feeling better and no active complaint this time. Objective vital signs Vital Sign Date Time Temp Pulse Resp B/P (MAP) Pulse Ox O2 Delivery O2 Flow Rate FiO2 07/29/25 17:01 98.3 85 18 106/52 (70) 94 98.3 07/29/25 08:00 Room Air* 0 21 Total Intake and Output 07/28/25 07/28/25 07/29/25 15:00 23:00 07:00 Output Total 400 ml Balance -400 ml medications Current Medications Medications Dose Ordered Sig/Socrates Route Start Time Stop Time Status Last Admin Dose Admin Ceftriaxone Sodium 50 ml @ 100 mls/hr DAILY@09 IV 07/29/25 09:00 07/29/25 10:50 100 MLS/HR Acetaminophen/ Hydrocodone Bitart 1 tab Q4HP PRN PO 07/28/25 10:45 Ondansetron HCl 4 mg Q4HP PRN IV 07/28/25 10:45 Acetaminophen 650 mg Q6HP PRN PO 07/28/25 10:45 Pantoprazole Sodium 40 mg BID IV 07/28/25 22:00 07/29/25 10:50 40 MG Sodium Chloride 1,000 ml @ 75 mls/hr [id number] IV 07/28/25 12:00 07/29/25 17:22 75 MLS/HR Examination Physical examination: General Appearance: Alert, Oriented X2, Cooperative, No acute distress HEENT: Atraumatic, PERRLA, EOMI, Mucous membrane dry. Respiratory: Clear to auscultation, Normal air movement Cardiovascular: Regular rate, Normal S1, Normal S2, No murmurs, no chest wall tenderness Abdominal: Normal bowel sounds, Soft, No tenderness, No hepatospenomegaly, No masses Extremities: No clubbing, No cyanosis, No edema, Normal pulses, No tenderness/swelling Skin: No rashes, No breakdown, No significant lesion Neuro: Normal speech, Strength at 5/5 X4 ext, Normal tone, Sensation intact, Cranial nerves 3-12 NL, Reflexes 2+ Psych/Mental Status: Mental status NL, Mood NL laboratory and microbiology Laboratory Tests 07/29/25 05:49 Test 07/29/25 05:49 Range/Units Serum Glucose 86 74-106 mg/dL Microbiology Date/Time Source Procedure Growth Status 07/28/25 09:47 Voided Urine Urine Culture - Preliminary Resulted 07/28/25 09:25 Blood Blood Culture - Preliminary NO GROWTH AFTER 24 HOURS OF INCUBATION. Resulted Labs and/or images reviewed: Labs reviewed by me, Image(s) reviewed by me Problem List/Assessment/Plan Problem List/Assessment/Plan Assessment and plan: # SANCHEZ superimposed on CKD likely secondary to prerenal /hypotension # Hypokalemia resolved # possible secondary hyperparathyroidism # Acute complicated cystitis ckd4-baseline Plan: - kidney ultrasound on 04/07 demonstrated bilateral renal cyst - FENA is 0.1% - IV normal saline at 75 mL/hours - Pending urine bacterial culture - Continue IV antibiotic and other management as per primary - monitor H&H - strict I&O - avoid nephrotoxic medication - monitor BMP Thank you so much for the opportunity to consult on your patient. Nephro team will follow the patient. In case of any questions or concerns please feel free to reach out. Plan discussed with . The patient and caregiver team agreed to the plan. Addendum Patient seen and examined, plan discussed with resident. Agree with above, we will follow closely Plan discussed with: Daughter, Other (RN) Dietary Evaluation Review Comments: Nutrition Recommendation 1) Consider 2gm Na Soft (GI soft) diet 2) Consider cardiac + renal specific 40gm protein soft diet if PO intake >75% 3) Monitor PO intake, lab values, weight trend, and I/O Expected Outcomes/Goals: Intake to meet >75% estimated needs GI symptoms to improve Fu 3-5 days LILLIAN ABREU RESIDENT Jul 29, 2025 17:34 DANUTA MAGANA MD Jul 29, 2025 21:50
[2025-07-30] VITALS (11 sets, daily range): BP systolic 94–105; BP diastolic 35–49; PULSE 68–91; RESP 16–19; TEMP 97.6–98; O2SAT 93–100
[2025-07-30] MEDS ORDERED: ONDANSETRON HCL 4 MG/2 ML VIAL ONE (11:08)
[2025-07-30] MEDS ORDERED: METOCLOPRAMIDE HCL 5MG/ml INJ 2ml VIAL ONE (11:08)
[2025-07-30] MEDS ORDERED: LIDOCAINE 2% (LOCAL ANESTH.) PF 5ml SDV ONE (11:08)
[2025-07-30] MEDS ORDERED: PROPOFOL 10 MG/ML 20 ML IV ONE (11:09)
--- NOTE | 2025-07-30 11:14 | DVHPN2 ---
Reviewed: Care Plan, H&P, Labs, Medications, Previous Orders, Radiology Changes from previous H/P or p: No Changes Gastrointestinal: Hematochezia Objective Vitals Vital Signs Date Time Temp Pulse Resp B/P (MAP) Pulse Ox O2 Delivery O2 Flow Rate FiO2 07/30/25 09:00 97.7 68 18 101/45 (63) 96 97.7 07/29/25 20:00 Room Air* 0 21 Intake/Output Intake and Output 07/30/25 07:00 Intake Total 1736 ml Output Total 1400 ml Balance 336 ml Intake Oral 886 ml IV Total 850 ml Output Urine Total 750 ml Stool Total 650 ml Medications Current Medications Medications Dose Ordered Sig/Socrates Route Start Time Stop Time Status Last Admin Dose Admin Ceftriaxone Sodium 50 ml @ 100 mls/hr DAILY@09 IV 07/29/25 09:00 07/30/25 09:33 100 MLS/HR Acetaminophen/ Hydrocodone Bitart 1 tab Q4HP PRN PO 07/28/25 10:45 Ondansetron HCl 4 mg Q4HP PRN IV 07/28/25 10:45 Acetaminophen 650 mg Q6HP PRN PO 07/28/25 10:45 Pantoprazole Sodium 40 mg BID IV 07/28/25 22:00 07/30/25 09:32 40 MG Sodium Chloride 1,000 ml @ 75 mls/hr [id number] IV 07/28/25 12:00 07/30/25 05:08 75 MLS/HR Laboratory Results Laboratory Tests 07/29/25 05:49 Coagulation Test 07/29/25 15:17 Prothrombin Time 10.9 sec (9.3-11.8) Prothrombin Time INR 1.03 (0.9-1.15) Urinalysis Test 07/28/25 09:44 07/28/25 09:47 Urine Color Yellow (Yellow) Urine Clarity Turbid (Clear) H Urine pH 6.0 (5.0-9.0) Urine Specific [place] 1.017 (1.001-1.035) Urine Protein Trace (Negative) H Urine Ketones Negative (Negative) Urine Blood Negative /uL (Negative) Urine Nitrite Negative (Negative) Urine Bilirubin Negative (Negative) Urine Urobilinogen Normal mg/dL (Negative) Urine Leukocyte Esterase 1+ /uL (Negative) Urine RBC 1 /hpf (0 - 4) Urine Microscopic WBC 12 /HPF (0-5) H Urine Squamous Epithelial Cells Many /hpf (<5) Urine Bacteria None seen /hpf (None Seen) Urine Yeast (Budding) Occasional /hpf (None Urine Glucose Normal mg/dL (Normal) Urine Creatinine 238.00 mg/dL (30.0-125.0) H Urine Protein/Creatinine Ratio 0.13 Urine Sodium < 10 mmol/L (40-220) L Urine Total Protein 30.3 mg/dL (1-14) H Microbiology Microbiology Date/Time Source Procedure Growth Status 07/28/25 09:47 Voided Urine Urine Culture - Preliminary Resulted 07/28/25 09:25 Blood Blood Culture - Preliminary NO GROWTH AFTER 48 HOURS OF INCUBATION. Resulted Labs and/or images reviewed: Labs reviewed by me, Image(s) reviewed by me Assessment/Plan Assessment/Plan # SANCHEZ superimposed on CKD likely secondary to prerenal /hypotension: Consult for Dr. Beckham # bleeding through colostomy: Dr. Zoila Perez planning for EGD today # Hypokalemia # possible secondary hyperparathyroidism # Acute complicated cystitis Rocephin Time Spent 50 minutes Advanced care planning time 20 minutes Patient is full code Plan discussed with: Patient Date of Service: Jul 30, 2025 Billing Provider: KHOI SUAREZ MD Common Visit Codes: [id number] INP/OBS CARE(HIGH) KHOI SUAREZ MD Jul 30, 2025 11:14
--- NOTE | 2025-07-30 11:24 | DVHOP2 ---
Operative Report DATE OF OPERATION: 07/30/25 PROCEDURE: Upper Endoscopy with biopsy. PREOPERATIVE INDICATION: The patient is a 79 -year-old female undergoing endoscopy for history of blood in the ileostomy and history of duodenal ulcer POSTOPERATIVE DIAGNOSES: 1. Mild spasticity of the upper esophageal sphincter that was auto dilated with the endoscope 2. She had a 2-3 cm sliding-type hiatal hernia with widely patent Schatzki's ring but no significant erosive esophagitis 3. Minimal gastroduodenitis otherwise normal examination up to the 3rd part of the duodenum with good bile drainage and no fresh or old blood in the upper GI tract PROCEDURE PERFORMED BY: Catalino Perez GI NURSE: Prudence SCOPE: Olympus videoendoscope. ASA CLASS: 3 PREOPERATIVE MEDICATIONS: Mac sedation, Kalen Garcia PROCEDURE IN DETAIL: After obtaining an informed consent, the patient was placed on left lateral decubitus position. The patient was then sedated with the above medications. A bite block was placed between her teeth. The endoscope was then passed through the oropharynx, into the esophagus, and through the stomach and pylorus up to the second and third part of the duodenum. The endoscope was then withdrawn. The 2nd and 3rd part of the duodenum and the duodenal bulb were normal. Duodenal biopsies were obtained The pre-pyloric area antrum and body showed minimal gastritis. Gastric biopsies were obtained On retroflexion the fundus cardia and angularis were normal. The endoscope was then withdrawn into the distal esophagus Patient had a 2-3 cm sliding-type hiatal hernia with a widely patent Schatzki's ring and no significant esophagitis There was no fresh or old blood in the upper GI tract. Patient had mild spasticity of the upper esophageal sphincter which was auto dilated with the endoscope The patient tolerated the procedure well without difficulty. COMPLICATIONS : None SPECIMENS: Duodenal biopsies Gastric biopsies DISPOSITION: Transfer back to the floor Stable PLAN: 1. Await for biopsy result 2. Will place pt on Protonix 40 mg IV daily 3. Resume GI soft diet advance as tolerated 4. Continue clinical observation for now CATALINO PEREZ MD Jul 30, 2025 11:24
--- NOTE | 2025-07-30 15:44 | DVHPN2 ---
Progress Note Date Seen: Jul 30, 2025 Resident Creating Document: LILLIAN ABREU RESIDENT Medical Necessity Reason Pt with a Central, PICC or Fol: No Subjective Review of Systems Patient was seen and examined on the bedside. she is alert oriented x2. Mentioned feeling better and no active complaint this time. Objective vital signs Vital Sign Date Time Temp Pulse Resp B/P (MAP) Pulse Ox O2 Delivery O2 Flow Rate FiO2 07/30/25 13:00 97.7 80 18 98/35 (56) 94 97.7 07/30/25 11:25 Room Air 0 07/30/25 11:25 100 Total Intake and Output 07/29/25 07/29/25 07/30/25 15:00 23:00 07:00 Intake Total 50 ml 1386 ml 300 ml Output Total 700 ml 700 ml Balance 50 ml 686 ml -400 ml medications Current Medications Medications Dose Ordered Sig/Socrates Route Start Time Stop Time Status Last Admin Dose Admin Ceftriaxone Sodium 50 ml @ 100 mls/hr DAILY@09 IV 07/29/25 09:00 07/30/25 09:33 100 MLS/HR Acetaminophen/ Hydrocodone Bitart 1 tab Q4HP PRN PO 07/28/25 10:45 Ondansetron HCl 4 mg Q4HP PRN IV 07/28/25 10:45 Acetaminophen 650 mg Q6HP PRN PO 07/28/25 10:45 Pantoprazole Sodium 40 mg BID IV 07/28/25 22:00 07/30/25 09:32 40 MG Sodium Chloride 1,000 ml @ 75 mls/hr [id number] IV 07/28/25 12:00 07/30/25 05:08 75 MLS/HR Examination Physical examination: General Appearance: Alert, Oriented X2, Cooperative, No acute distress HEENT: Atraumatic, PERRLA, EOMI, Mucous membrane dry. Respiratory: Clear to auscultation, Normal air movement Cardiovascular: Regular rate, Normal S1, Normal S2, No murmurs, no chest wall tenderness Abdominal: Ileostomy bag on the rt side, Normal bowel sounds, Soft, No tenderness, No hepatospenomegaly, No masses Extremities: No clubbing, No cyanosis, No edema, Normal pulses, No tenderness/swelling Skin: No rashes, No breakdown, No significant lesion Neuro: Normal speech, Strength at 5/5 X4 ext, Normal tone, Sensation intact, Cranial nerves 3-12 NL, Reflexes 2+ Psych/Mental Status: Mental status NL, Mood NL laboratory and microbiology Laboratory Tests 07/29/25 05:49 Test 07/29/25 05:49 Range/Units Serum Glucose 86 74-106 mg/dL Microbiology Date/Time Source Procedure Growth Status 07/28/25 09:47 Voided Urine Urine Culture - Final Complete 07/28/25 09:25 Blood Blood Culture - Preliminary NO GROWTH AFTER 48 HOURS OF INCUBATION. Resulted Labs and/or images reviewed: Labs reviewed by me, Image(s) reviewed by me Problem List/Assessment/Plan Problem List/Assessment/Plan Assessment and plan: # SANCHEZ superimposed on CKD likely secondary to prerenal /hypotension # Hypokalemia resolved # possible secondary hyperparathyroidism # Acute complicated cystitis Plan: - kidney ultrasound on 04/07 demonstrated bilateral renal cyst - FENA is 0.1% - Continue IV normal saline at 75 mL/hours - urine bacterial culture demonstrated mixed sandra - Continue IV antibiotic and other management as per primary - monitor H&H - strict I&O - avoid nephrotoxic medication - monitor BMP Thank you so much for the opportunity to consult on your patient. Nephro team will follow the patient. In case of any questions or concerns please feel free to reach out. Plan discussed with . The patient and caregiver team agreed to the plan. Plan discussed with: Daughter, Other (RN) Dietary Evaluation Review Comments: Nutrition Recommendation 1) Consider 2gm Na Soft (GI soft) diet 2) Consider cardiac + renal specific 40gm protein soft diet if PO intake >75% 3) Monitor PO intake, lab values, weight trend, and I/O Expected Outcomes/Goals: Intake to meet >75% estimated needs GI symptoms to improve Fu 3-5 days LILLIAN ABREU RESIDENT Jul 30, 2025 15:44
[2025-07-30 17:07] LABS: Anion Gap 12 (5-15); Calcium 8.3 mg/dL (8.7-10.4); Carbon Dioxide 21 mmol/L (20-31); Chloride 113 mmol/L (98-107); Potassium 3.1 mmol/L (3.5-5.1); Sodium 146 mmol/L (136-145)
[2025-07-30 17:12] LABS: BUN/Creatinine Ratio 12.3 (10.0-20.0); Blood Urea Nitrogen 28 mg/dL (9-23); Glucose 130 mg/dL (74-106)
[2025-07-31] VITALS (7 sets, daily range): BP systolic 101–108; BP diastolic 41–46; PULSE 70–89; RESP 17–18; TEMP 97.6–98.8; O2SAT 94–96
--- NOTE | 2025-07-31 10:18 | DVHPN2 ---
Progress Note - Dictate Date Seen: Jul 31, 2025 Medical Necessity Reason Pt with a Central, PICC or Fol: No Subjective Opens eyes to voice, responsive vital signs Vital Sign Date Time Temp Pulse Resp B/P (MAP) Pulse Ox O2 Delivery O2 Flow Rate FiO2 07/31/25 08:27 97.8 72 18 105/41 (62) 95 97.8 07/30/25 20:00 Room Air* 0 21 Total Intake and Output 07/30/25 07/30/25 07/31/25 15:00 23:00 07:00 Intake Total 150 ml 750 ml 150 ml Output Total 400 ml 1 ml Balance 150 ml 350 ml 149 ml medications Current Medications Medications Dose Ordered Sig/Socrates Route Start Time Stop Time Status Last Admin Dose Admin Ceftriaxone Sodium 50 ml @ 100 mls/hr DAILY@09 IV 07/29/25 09:00 07/31/25 09:26 100 MLS/HR Acetaminophen/ Hydrocodone Bitart 1 tab Q4HP PRN PO 07/28/25 10:45 Ondansetron HCl 4 mg Q4HP PRN IV 07/28/25 10:45 Acetaminophen 650 mg Q6HP PRN PO 07/28/25 10:45 Pantoprazole Sodium 40 mg BID IV 07/28/25 22:00 07/31/25 09:26 40 MG Sodium Chloride 1,000 ml @ 75 mls/hr [id number] IV 07/28/25 12:00 07/30/25 05:08 75 MLS/HR objective Gen: nad lungs: cta anteriorly cvs: no rub ext: no edema laboratory and microbiology Laboratory Tests 07/30/25 16:40 07/29/25 05:49 Test 07/30/25 16:40 Range/Units Serum Glucose 130 H 74-106 mg/dL Assessment/Plan IMP: 1) Hemodynamically mediated SANCHEZ/VMN, prerenal etiology 2) CKD stage IIIA 3) hypokalemia - resolved 4) cystitis 5) REC: - we will change to hypotonic IV fluids - kidney function improving Dietary Evaluation Review Comments: Nutrition Recommendation 1) Consider 2gm Na Soft (GI soft) diet 2) Consider cardiac + renal specific 40gm protein soft diet if PO intake >75% 3) Monitor PO intake, lab values, weight trend, and I/O Expected Outcomes/Goals: Intake to meet >75% estimated needs GI symptoms to improve Fu 3-5 days Plan discussed with: ELIZABETH Wang MD Jul 31, 2025 10:18
--- NOTE | 2025-07-31 12:46 | DVHPN2 ---
Reviewed: Care Plan, H&P, Labs, Medications, Previous Orders, Radiology Changes from previous H/P or p: No Changes Gastrointestinal: Hematochezia Objective Vitals Vital Signs Date Time Temp Pulse Resp B/P (MAP) Pulse Ox O2 Delivery O2 Flow Rate FiO2 07/31/25 08:27 97.8 72 18 105/41 (62) 95 97.8 07/30/25 20:00 Room Air* 0 21 Intake/Output Intake and Output 07/31/25 07:00 Intake Total 1050 ml Output Total 401 ml Balance 649 ml Intake Oral 900 ml IV Total 150 ml Output Urine Total 401 ml # Bowel Movements 1 Medications Current Medications Medications Dose Ordered Sig/Socrates Route Start Time Stop Time Status Last Admin Dose Admin Ceftriaxone Sodium 50 ml @ 100 mls/hr DAILY@09 IV 07/29/25 09:00 07/31/25 09:26 100 MLS/HR Acetaminophen/ Hydrocodone Bitart 1 tab Q4HP PRN PO 07/28/25 10:45 Ondansetron HCl 4 mg Q4HP PRN IV 07/28/25 10:45 Acetaminophen 650 mg Q6HP PRN PO 07/28/25 10:45 Pantoprazole Sodium 40 mg BID IV 07/28/25 22:00 07/31/25 09:26 40 MG Sodium Chloride 1,000 ml @ 75 mls/hr [id number] IV 07/31/25 10:30 Laboratory Results Laboratory Tests 07/29/25 05:49 07/30/25 16:40 Chemistry Test 07/30/25 16:40 Calcium Level 8.3 mg/dL (8.7-10.4) L Urinalysis Test 07/28/25 09:44 07/28/25 09:47 Urine Color Yellow (Yellow) Urine Clarity Turbid (Clear) H Urine pH 6.0 (5.0-9.0) Urine Specific [place] 1.017 (1.001-1.035) Urine Protein Trace (Negative) H Urine Ketones Negative (Negative) Urine Blood Negative /uL (Negative) Urine Nitrite Negative (Negative) Urine Bilirubin Negative (Negative) Urine Urobilinogen Normal mg/dL (Negative) Urine Leukocyte Esterase 1+ /uL (Negative) Urine RBC 1 /hpf (0 - 4) Urine Microscopic WBC 12 /HPF (0-5) H Urine Squamous Epithelial Cells Many /hpf (<5) Urine Bacteria None seen /hpf (None Seen) Urine Yeast (Budding) Occasional /hpf (None Urine Glucose Normal mg/dL (Normal) Urine Creatinine 238.00 mg/dL (30.0-125.0) H Urine Protein/Creatinine Ratio 0.13 Urine Sodium < 10 mmol/L (40-220) L Urine Total Protein 30.3 mg/dL (1-14) H Microbiology Microbiology Date/Time Source Procedure Growth Status 07/28/25 09:47 Voided Urine Urine Culture - Final Complete 07/28/25 09:25 Blood Blood Culture - Preliminary NO GROWTH AFTER 72 HOURS OF INCUBATION. Resulted Labs and/or images reviewed: Labs reviewed by me, Image(s) reviewed by me Assessment/Plan Assessment/Plan # SANCHEZ superimposed on CKD likely secondary to prerenal /hypotension: Consult for Dr. Beckham # bleeding through colostomy: EGD by Dr. Zoila Perez showed mild gastroduodenitis # Hypokalemia # possible secondary hyperparathyroidism # Acute complicated cystitis Rocephin Time Spent 50 minutes Advanced care planning time 20 minutes Patient is full code Daughter Elizabeth at bedside Patient was on home health prior to coming to the hospital Plan discussed with: Patient Date of Service: Jul 31, 2025 Billing Provider: KHOI SUAREZ MD Common Visit Codes: [id number] INP/OBS CARE(HIGH) KHOI SUAREZ MD Jul 31, 2025 12:46
[2025-07-31] MEDS: POTASSIUM EFFERVESENT TAB 25 MEQ PO ONE (13:11)
[2025-07-31] MEDS: SOD CHL 0.45% 1,000 ML IV SCH (13:11)
[2025-08-01 05:00] VITALS: BP 114/63; PULSE 72; RESP 18; TEMP 98.9; O2SAT 92
[2025-08-01 05:04] LABS: Hematocrit 26.8 % (36.0-46.0); Hemoglobin 9.0 g/dL (12.2-16.2); Mean Corpuscular Hemoglobin 30.0 pg (28.0-32.0); Mean Corpuscular Volume 89.3 fL (80.0-100.0); Nucleated Red Blood Cells % 0.0 %
[2025-08-01 05:51] LABS: Alanine Aminotransferase 14 U/L (7-40); Albumin 3.5 g/dL (3.2-4.8); Alkaline Phosphatase 49 U/L (46-116); Anion Gap 10 (5-15); BUN/Creatinine Ratio 10.6 (10.0-20.0); Bilirubin, Total 0.5 mg/dL (0.2-1.0); Blood Urea Nitrogen 19 mg/dL (9-23); Carbon Dioxide 21 mmol/L (20-31); Glucose 90 mg/dL (74-106); Potassium 3.9 mmol/L (3.5-5.1); Total Protein 5.7 g/dL (5.7-8.2)
[2025-08-01 05:56] LABS: Calcium 8.5 mg/dL (8.7-10.4); Chloride 116 mmol/L (98-107); Sodium 147 mmol/L (136-145)
[2025-08-01 08:00] VITALS: PULSE 74; RESP 16; O2SAT 97
[2025-08-01 09:00] VITALS: BP 96/41; PULSE 74; RESP 16; TEMP 97.4; O2SAT 97
[2025-08-01] MEDS ORDERED: FERR-7 PO (11:41)
[2025-08-01] MEDS ORDERED: CIPR-173 PO (11:41)
--- NOTE | 2025-08-01 11:41 | DVHPN2 ---
Reviewed: Care Plan, H&P, Labs, Medications, Previous Orders, Radiology Changes from previous H/P or p: No Changes Gastrointestinal: Hematochezia Objective Vitals Vital Signs Date Time Temp Pulse Resp B/P (MAP) Pulse Ox O2 Delivery O2 Flow Rate FiO2 08/01/25 09:00 97.4 74 16 96/41 (59) 97 97.4 08/01/25 08:00 Room Air* 0 21 Intake/Output Intake and Output 08/01/25 07:00 Intake Total 790 ml Output Total 700 ml Balance 90 ml Intake Oral 790 ml Output Urine Total 600 ml Stool Total 100 ml # Voids 2 Medications Current Medications Medications Dose Ordered Sig/Socrates Route Start Time Stop Time Status Last Admin Dose Admin Ceftriaxone Sodium 50 ml @ 100 mls/hr DAILY@09 IV 07/29/25 09:00 08/01/25 08:41 100 MLS/HR Acetaminophen/ Hydrocodone Bitart 1 tab Q4HP PRN PO 07/28/25 10:45 Ondansetron HCl 4 mg Q4HP PRN IV 07/28/25 10:45 Acetaminophen 650 mg Q6HP PRN PO 07/28/25 10:45 Pantoprazole Sodium 40 mg BID IV 07/28/25 22:00 08/01/25 08:41 40 MG Sodium Chloride 1,000 ml @ 75 mls/hr [id number] IV 07/31/25 10:30 08/01/25 06:44 75 MLS/HR Laboratory Results Laboratory Tests 08/01/25 04:35 Chemistry Test 08/01/25 04:35 Albumin 3.5 g/dL (3.2-4.8) Calcium Level 8.5 mg/dL (8.7-10.4) L Total Protein 5.7 g/dL (5.7-8.2) LFT Test 08/01/25 04:35 Alanine Aminotransferase (ALT) 14 U/L (7-40) Alkaline Phosphatase 49 U/L (46-116) Aspartate Amino Transferase (AST) 24 U/L (13-40) Total Bilirubin 0.5 mg/dL (0.2-1.0) Urinalysis Test 07/28/25 09:44 07/28/25 09:47 Urine Color Yellow (Yellow) Urine Clarity Turbid (Clear) H Urine pH 6.0 (5.0-9.0) Urine Specific [place] 1.017 (1.001-1.035) Urine Protein Trace (Negative) H Urine Ketones Negative (Negative) Urine Blood Negative /uL (Negative) Urine Nitrite Negative (Negative) Urine Bilirubin Negative (Negative) Urine Urobilinogen Normal mg/dL (Negative) Urine Leukocyte Esterase 1+ /uL (Negative) Urine RBC 1 /hpf (0 - 4) Urine Microscopic WBC 12 /HPF (0-5) H Urine Squamous Epithelial Cells Many /hpf (<5) Urine Bacteria None seen /hpf (None Seen) Urine Yeast (Budding) Occasional /hpf (None Urine Glucose Normal mg/dL (Normal) Urine Creatinine 238.00 mg/dL (30.0-125.0) H Urine Protein/Creatinine Ratio 0.13 Urine Sodium < 10 mmol/L (40-220) L Urine Total Protein 30.3 mg/dL (1-14) H Microbiology Microbiology Date/Time Source Procedure Growth Status 07/28/25 09:47 Voided Urine Urine Culture - Final Complete 07/28/25 09:25 Blood Blood Culture - Preliminary NO GROWTH AFTER 72 HOURS OF INCUBATION. Resulted Labs and/or images reviewed: Labs reviewed by me, Image(s) reviewed by me Assessment/Plan Assessment/Plan # SANCHEZ superimposed on CKD likely secondary to prerenal /hypotension: Consult for Dr. Beckham # bleeding through colostomy: EGD by Dr. Zoila Perez showed mild gastroduodenitis # Hypokalemia # possible secondary hyperparathyroidism # Acute complicated cystitis Rocephin urine cultures mixed Time Spent 50 minutes Advanced care planning time 20 minutes Patient is full code Daughter Elizabeth at bedside Patient was on home health prior to coming to the hospital Plan discussed with: Patient Date of Service: Aug 01, 2025 Billing Provider: KHOI SUAREZ MD Common Visit Codes: [id number] INP/OBS CARE(HIGH) KHOI SUAREZ MD Aug 01, 2025 11:40
[2025-08-01] MEDS ORDERED: PANT40T PO (11:43)
--- NOTE | 2025-08-01 11:45 | DVHDS2 ---
Discharge Summary Date of Admission Jul 28, 2025 at 10:37 Date of Discharge: Aug 01, 2025 Admitting Diagnosis Bleeding through colostomy site Wounds: None Labs/Diagnostic Data: Laboratory Results Test 08/01/25 04:35 07/29/25 15:17 07/28/25 09:47 07/28/25 09:44 White Blood Count 4.6 10^3/uL (4.4-10.8) Red Blood Count 3.00 10^6/uL (4.0-5.20) Hemoglobin 9.0 g/dL (12.2-16.2) Hematocrit 26.8 % (36.0-46.0) Mean Corpuscular Volume 89.3 fL (80.0-100.0) Mean Corpuscular Hemoglobin 30.0 pg (28.0-32.0) Mean Corpuscular Hemoglobin Concent 33.6 g/dL (32.0-36.0) Red Cell Distribution Width 14.5 % (11.8-14.3) Platelet Count 245 10^3/uL (140-450) Mean Platelet Volume 6.7 fL (6.9-10.8) Neutrophils (%) (Auto) 62.7 % (37.0-80.0) Lymphocytes (%) (Auto) 17.3 % (10.0-50.0) Monocytes (%) (Auto) 12.0 % (0.0-12.0) Eosinophils (%) (Auto) 7.2 % (0.0-7.0) Basophils (%) (Auto) 0.8 % (0.0-2.0) Neutrophils # (Auto) 2.9 10 ^3/uL (1.6-8.6) Lymphocytes # (Auto) 0.8 10 ^3/uL (0.4-5.4) Monocytes # (Auto) 0.6 10 ^3/uL (0-1.3) Eosinophils # (Auto) 0.3 10 ^3/uL (0-0.8) Basophils # (Auto) 0 10 ^3/uL (0-0.2) Nucleated Red Blood Cells 0.0 % Sodium Level 147 mmol/L (136-145) Potassium Level 3.9 mmol/L (3.5-5.1) Chloride Level 116 mmol/L (98-107) Carbon Dioxide Level 21 mmol/L (20-31) Anion Gap 10 (5-15) Blood Urea Nitrogen 19 mg/dL (9-23) Creatinine 1.80 mg/dL (0.550-1.02) Glomerular Filtration Rate Calc 28 mL/min (>90) BUN/Creatinine Ratio 10.6 (10.0-20.0) Serum Glucose 90 mg/dL (74-106) Calcium Level 8.5 mg/dL (8.7-10.4) Total Bilirubin 0.5 mg/dL (0.2-1.0) Aspartate Amino Transferase (AST) 24 U/L (13-40) Alanine Aminotransferase (ALT) 14 U/L (7-40) Alkaline Phosphatase 49 U/L (46-116) Total Protein 5.7 g/dL (5.7-8.2) Albumin 3.5 g/dL (3.2-4.8) Prothrombin Time 10.9 sec (9.3-11.8) Prothrombin Time INR 1.03 (0.9-1.15) Urine Creatinine 238.00 mg/dL (30.0-125.0) Urine Protein/Creatinine Ratio 0.13 Urine Sodium < 10 mmol/L (40-220) Urine Total Protein 30.3 mg/dL (1-14) Urine Color Yellow (Yellow) Urine Clarity Turbid (Clear) Urine pH 6.0 (5.0-9.0) Urine Specific [place] 1.017 (1.001-1.035) Urine Protein Trace (Negative) Urine Ketones Negative (Negative) Urine Blood Negative /uL (Negative) Urine Nitrite Negative (Negative) Urine Bilirubin Negative (Negative) Urine Urobilinogen Normal mg/dL (Negative) Urine Leukocyte Esterase 1+ /uL (Negative) Urine RBC 1 /hpf (0 - 4) Urine Microscopic WBC 12 /HPF (0-5) Urine Squamous Epithelial Cells Many /hpf (<5) Urine Bacteria None seen /hpf (None Seen) Urine Yeast (Budding) Occasional /hpf (None Urine Glucose Normal mg/dL (Normal) Test 07/28/25 09:25 Phosphorus Level 4.8 mg/dL (2.4-5.1) Magnesium Level 2.4 mg/dL (1.6-2.6) Vitamin D 25-Hydroxy 34.6 ng/mL (30.0-100) Parathyroid Hormone (Intact) 138.0 pg/mL (18.4-80.1) Other Laboratory Tests 08/01/25 04:35 Brief Hx & Hospital Course: 79-year-old female with a 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 Zoila Perez showed mild gastric duodenitis patient also had complicated cystitis treated with Rocephin urine cultures were mixed SANCHEZ superimposed on CKD seen by Dr. Beckham and has improved. At the present time patient is afebrile stable vital signs alert and oriented Daughter Elizabeth at bedside. Patient is discharged home on Cipro pantoprazole and iron tablets Consults/Reason for consult GI Dr. Zoila Perez Operations or Procedures EGD Condition at Discharge: Fair Final Diagnosis/Problems List # SANCHEZ superimposed on CKD likely secondary to prerenal /hypotension: Consult for Dr. Beckham # bleeding through colostomy: EGD by Dr. Zoila Perez showed mild gastroduodenitis # Hypokalemia # possible secondary hyperparathyroidism # Acute complicated cystitis Rocephin urine cultures mixed Discharge Disposition: Home with Health Services Discharge Instruct/Medications Diet: Renal Activity: Light activity Follow Up/Referral: Follow up with your primary Dr Dr. Delgadillo Medications: Iron Pantoprazole Cipro Transmitted to pharmacy Scheduled Calcium W/ Vitamins D & K (Calcium + D + K), 650 MG OR DAILY, (Reported) Ciprofloxacin Hcl (Cipro), 1 TAB PO BID Donepezil Hydrochloride (Donepezil Hcl), 1 TAB PO DAILY, (Reported) Ferrous Sulfate (Iron), 325 MG PO BID Fluticasone Propionate (Nasal) (Fluticasone Propionate), 1 SPRAY LEEANN DAILY, (Reported) Ibandronate Sodium (Ibandronate Sodium), 150 MG PO ONCE, (Reported) Megestrol Acetate (Megace), 1 TAB PO BID, (Reported) Memantine Hydrochloride (Memantine HCl), 1 TAB PO BID, (Reported) Midodrine HCl (Midodrine Hydrochloride), 1 TAB PO TID, (Reported) Pantoprazole Sodium Sesquihydr (Pantoprazole Sodium ), 1 TAB PO BID, (Reported) Pantoprazole Sodium Sesquihydr (Pantoprazole Sodium), 40 MG PO BID Quetiapine Fumerate (Seroquel), 1 TAB PO QPM, (Reported) Simvastatin (Simvastatin), 1 TAB PO QPM, (Reported) Sodium Bicarbonate (Sodium Bicarbonate), 650 MG PO TID, (Reported) Discontinued Medications Fenofibrate (Fenofibrate), 1 TAB PO DAILY, (Reported) Folic Acid (Folic Acid), 1 MG PO DAILY, (Reported) Sodium Bicarbonate (Sodium Bicarbonate), 1 TAB PO BID, (Reported) 39 (Time Taken for discharge summary 39 minutes) Discharge Statement: "Patient was advised to return to the ER or call 911 if any headaches, dizziness, shortness of breath, chest pain, abdominal pain, bleeding, fevers, or worsening of medical condition. Patient was counseled about treatment plan, medications, possible side effects, patientverbalized understanding. All questions were answered to the best of my ability. This discharge took greater then 30 minutes in planning, reviewing documentation, counseling the patient, and discussing with other team members." ASSESSMENT ASSESSMENT Hospital Course Improved Assessment # SANCHEZ superimposed on CKD likely secondary to prerenal /hypotension: Consult for Dr. Beckham # bleeding through colostomy: EGD by Dr. Zoila Perez showed mild gastroduodenitis # Hypokalemia # possible secondary hyperparathyroidism # Acute complicated cystitis Rocephin urine cultures mixed Date of Service: Aug 01, 2025 Billing Provider: KHOI SUAREZ MD Common Visit Codes: [id number] DISCH DAY >30min KHOI SUAREZ MD Aug 01, 2025 11:45
[2025-08-01 13:00] VITALS: BP 104/53; PULSE 83; RESP 18; TEMP 97.6; O2SAT 98
--- NOTE | 2025-08-01 15:25 | DVHPN2 ---
Progress Note - Dictate Date Seen: Aug 01, 2025 Medical Necessity Reason Pt with a Central, PICC or Fol: No Subjective Patient's daughter at bedside, Mrs. Barlow is awake and alert this afternoon vital signs Vital Sign Date Time Temp Pulse Resp B/P (MAP) Pulse Ox O2 Delivery O2 Flow Rate FiO2 08/01/25 13:00 97.6 83 18 104/53 (70) 98 97.6 08/01/25 08:00 Room Air* 0 21 Total Intake and Output 07/31/25 07/31/25 08/01/25 15:00 23:00 07:00 Intake Total 550 ml 240 ml Output Total 700 ml Balance -150 ml 240 ml medications Current Medications Medications Dose Ordered Sig/Socrates Route Start Time Stop Time Status Last Admin Dose Admin Ceftriaxone Sodium 50 ml @ 100 mls/hr DAILY@09 IV 07/29/25 09:00 08/01/25 08:41 100 MLS/HR Acetaminophen/ Hydrocodone Bitart 1 tab Q4HP PRN PO 07/28/25 10:45 Ondansetron HCl 4 mg Q4HP PRN IV 07/28/25 10:45 Acetaminophen 650 mg Q6HP PRN PO 07/28/25 10:45 Pantoprazole Sodium 40 mg BID IV 07/28/25 22:00 08/01/25 08:41 40 MG Sodium Chloride 1,000 ml @ 75 mls/hr [id number] IV 07/31/25 10:30 08/01/25 06:44 75 MLS/HR objective Gen: nad lungs: cta anteriorly cvs: no rub ext: no edema laboratory and microbiology Laboratory Tests 08/01/25 04:35 Test 08/01/25 04:35 Range/Units Serum Glucose 90 74-106 mg/dL Assessment/Plan IMP: 1) Hemodynamically mediated SANCHEZ/VMN, prerenal etiology 2) CKD stage IIIA 3) hypokalemia - resolved 4) cystitis 5) Hypernatremia - will continue to monitor REC: - resolving acute kidney injury, prerenal state - discussed with patient's daughter at bedside. Dietary Evaluation Review Comments: Nutrition Recommendation 1) Consider 2gm Na Soft (GI soft) diet 2) Consider cardiac + renal specific 40gm protein soft diet if PO intake >75% 3) Monitor PO intake, lab values, weight trend, and I/O Expected Outcomes/Goals: Intake to meet >75% estimated needs GI symptoms to improve Fu 3-5 days Plan discussed with: Daughter ELIZABETH SABA MD Aug 01, 2025 15:25
== END 2025-08-01 17:07 | disposition home health service (06) | DRG 377 ==
LOC: ER 08:18 → OVERFLOW 10:37 → EAST 17:24
PROVIDERS: ADMIT Family Medicine; ATTEND Family Medicine
PROC: 0DB68ZX Excision of Stomach, Via Natural or Artificial Opening Endoscopic, Diagnostic (ICD-10-PCS; 2025-07-30)
PROC: 0DB98ZX Excision of Duodenum, Via Natural or Artificial Opening Endoscopic, Diagnostic (ICD-10-PCS; principal; 2025-07-30 11:07)
DX: K29.91 Gastroduodenitis, unspecified, with bleeding (principal); E43 Unspecified severe protein-calorie malnutrition; N17.0 Acute kidney failure with tubular necrosis; N30.00 Acute cystitis without hematuria; N25.81 Secondary hyperparathyroidism of renal origin; E87.0 Hyperosmolality and hypernatremia; K51.911 Ulcerative colitis, unspecified with rectal bleeding; Z68.1 Body mass index [BMI] 19.9 or less, adult; K94.01 Colostomy hemorrhage; K29.71 Gastritis, unspecified, with bleeding; E86.0 Dehydration; E87.6 Hypokalemia; K22.2 Esophageal obstruction; K44.9 Diaphragmatic hernia without obstruction or gangrene; I95.9 Hypotension, unspecified; F03.90 Unspecified dementia, unspecified severity, without behavioral disturbance, psychotic disturbance, mood disturbance, and anxiety; K21.9 Gastro-esophageal reflux disease without esophagitis; Z87.891 Personal history of nicotine dependence; Z83.3 Family history of diabetes mellitus; Z80.1 Family history of malignant neoplasm of trachea, bronchus and lung; Y84.8 Other medical procedures as the cause of abnormal reaction of the patient, or of later complication, without mention of misadventure at the time of the procedure; Y92.89 Other specified places as the place of occurrence of the external cause; N18.31 Chronic kidney disease, stage 3a
CPT/HCPCS: 36415; 71045; 72220; 73502; 80048; 80053; 81001; 82306; 82570; 83735; 83970; 84100; 84156; 84300; 85025; 85610; 86850; 86900; 86901; 87040; 87086; 96360; G0378; J2003; J2405; J2470; J2704